=== PATIENT | female | born 1945 | race Caucasian/White ===

== ENCOUNTER 2023-11-10 04:51 | Inpatient (IN) | payer MEDICARE, OTHER, SELFPAY ==
[2023-11-10] VITALS (28 sets, daily range): BP systolic 102–153; BP diastolic 24–94; PULSE 88–98; BMI 27.1; BMI 26.9
[2023-11-10 01:50] LABS: % Basophils 0.7 % (0-2); % Eosinophils 0.7 % (0-6); % Immature Granulocytes 0.3 % (0-0.5); % Lymphocytes 10.1 % (20.5-51.1); % Monocytes 1.2 % (1.7-9.3); Absolute Basophils 0.1 10^3/uL (0-0.2); Absolute Eosinophils 0.1 10^3/uL (0-0.7); Absolute Lymphocytes 1.1 10^3/uL (1.2-3.4); Absolute Monocytes 0.1 10^3/uL (0.1-0.6); Absolute Neutrophils 9.5 10^3/uL (1.4-6.5); Hematocrit 30.5 % (37.0-47.0); Hemoglobin 10.7 g/dL (12.0-16.0); Mean Corp Hgb Conc. 35.1 g/dL (33.0-37.0); Mean Corpuscular Hgb 30.5 pg (27.0-31.0); Mean Corpuscular Volume 86.9 fL (81.0-99.0); Mean Platelet Volume 11.3 fL (7.4-10.4); Nucleated Red Blood Cells % 0 %; Platelet Count 212 10^3/uL (130-400); Red Blood Cell Count 3.51 10^6/uL (4.20-5.40); Red Cell Dist. Width 13.9 % (11.5-14.5); White Blood Cell Count 10.9 10^3/uL (4.8-10.8)
[2023-11-10] MEDS: NSS 1000 IV ×4 (01:59→23:25)
[2023-11-10] MEDS: ZOFRAN 4 MG IV (02:00)
[2023-11-10 02:06] LABS: INR 3.56; PT 35.6 Sec (11.4-14.6)
[2023-11-10 02:10] LABS: ALT (SGPT) 25 U/L (0-35); AST (SGOT) 33 U/L (14-36); Alkaline Phosphatase 75 U/L (38-126); Blood Urea Nitrogen 26 mg/dl (7-17); Calcium 8.6 mg/dl (8.4-10.2); Carbon Dioxide 26 mmol/L (22-30); Chloride 102 mmol/L (98-107); Estimated Creatinine Clearance 37 ml/min; Glucose 188 mg/dl (70-99); Potassium 4.1 mmol/L (3.5-5.1); Sodium 134 mmol/L (135-145); Total Bilirubin 0.5 mg/dl (0.2-1.3); Total Protein 6.4 g/dl (6.3-8.2); eGFR 46.62
[2023-11-10 02:26] LABS: Lactic Acid 1.2 mmol/L (0.7-2.0)
--- NOTE | 2023-11-10 02:35 | ED.GENMED ---
History of Present Illness
General
Chief Complaint: Rectal Bleeding
Source: patient
Exam Limitations: none
Time Seen by Provider: 11/10/23 01:54
Nursing documentation reviewed up to this point in time: agreed with
Travel History
Have you had any contact with someone who has COVID-19?: No
Do you have any symptoms of coronavirus? Fever > 100 degrees, chills, cough, shortness of breath, sore throat, loss of taste or smell, muscle aches, or headache?: No
History of Present Illness
History of Present Illness:
This is a 78-year-old woman with history of paroxysmal atrial fibrillation as well as history of mechanical mitral valve replacement, chronically maintained on Coumadin. She has history of COPD, CAD, hypertension, hyperlipidemia, chronic dyspnea
and thus underwent A-fib ablation September 26 of this year in hopes to improve her chronic dyspnea. Patient states although A-fib ablation was successful she continues with some chronic dyspnea and since the procedure September 26, she has had some
persistent right lateral flank pain.
Tonight however she developed abrupt onset of frankly bloody diarrhea passing 4 large maroon bloody stools since 11 PM. She admits to intermittent crampy abdominal discomfort and intermittent nausea without vomiting.
She admits to intermittent chills but has not had a fever. She denies dizziness nor lightheadedness.
INR on November 07 was 4.2. Her INR goal is 2.5-3.5. She was recommended to take 5 mg of Coumadin on and then resume her 7.5 mg thereafter.
No prior history of GI bleeds.
Patient states she has had a colonoscopy in the remote past. She believes this was unremarkable. More recently she underwent Cologuard which was negative.
Past History
Past History
ED Past Medical History: Arrthythmia (AFib prior to valve surgery), COPD, Fibromyalgia, HTN, Hypercholesterolemia, NIDDM, Valvular disease (MR) and Other (hiatal hernia)
ED Past Surgical History: Cardiac (mitral valve replacement March 2020; A-fib ablation September 2023), Gynecological (vaginal cyst removed), Orthopedic (bilateral total hip replacements, bilateral torn menisci) and Other (neuromas removed from feet,
TMJ surgery, L lumpectomy, esophageal cyst, deviated septum repair, cataract extraction bilaterally)
Social History
Tobacco: Former smoker
Alcohol: Chronic alcoholic
Drug: Other (unclear)
Personal:
Living: with family
Employment: Retired
Family History
Family History: Other (reviewed and non-contributory)
Phy Exam
Physical Exam
Physical Exam:
GENERAL: 78-year-old woman appears her stated age, awake and alert, mildly anxious. Daughter is accompanying.
EYE: anicteric, conjunctiva are pink.
NECK: Supple, nontender, no meningismus, no significant adenopathy.
ENT: oral mucosa is moist. No rhinorrhea.
CARDIAC: Regular rate and rhythm. no murmur.
LUNGS: Clear breath sounds bilaterally, no acute respiratory distress, no wheezes/rales/rhonchi
ABDOMEN: Soft, nondistended, without focal tenderness, no r/g, mildly hyperactive bowel sounds.
NEUROLOGICAL: Alert and oriented x3, no focal neuro deficits.
SKIN: Warm and dry, mildly pale in color, skin intact. No rash.
MUSCULOSKELETAL: No C/C/E. peripheral pulses are full and equal b/l. No palpable tenderness.
PSYCH: Mildly anxious.
Course
Orders/Labs/Results
Orders:
Orders
11/10/23 01:16
Pulse Ox/spot Check [RESP] Urgent
Quantity: 1
Special Instructions: ON ROOM AIR
11/10/23 01:44
Type+Screen Urgent
Complete Blood Count/With Diff Urgent
Comprehensive Metabolic Panel Urgent
Prothrombin Time Urgent
11/10/23 01:54
Ondansetron Injectable [Zofran] 4 mg .ROUTE .[facility]
11/10/23 01:58
Lactate Level [Lactic Acid] Urgent
11/10/23 01:59
0.9% Sodium Chloride 1000 ml [Nss] 1,000 ml IV BOLUS
11/10/23 02:00
Ondansetron Injectable [Zofran] 4 mg IV NOW STA
11/10/23 02:09
IV Insert/Care/Rem.- Treatment PRN
11/10/23 02:10
CT Abd/pelvis Angio W/wo Iv Urgent
Comment:
Reason For Exam: acute lower GI bleed
11/10/23 02:29
Phytonadione [Aquamephyton] 10 mg 0.9% Sodium Chloride 50 ml [Nss] 50 ml IV NOW
11/10/23 02:34
Prothrombin Complex(Pcc),Human [Kcentra] 2,138 unit Empty Viaflex Container 100 ml [Viaflex Empty Container] 80 ml IV NOW
Does patient have a dx of serious acute active bleeding?: Yes
Does patient have prior history of HIT?: No
Urgent surgery/invasive procedure planned in next 6 hours?: Yes
11/10/23 03:00
Flush (0.9% Sodium Chloride) [Flush (Nss)] See Dose Instructions IV PER PROTOCOL
Abnormal Lab Results
11/10/23
01:44
WBC 10.9 H 10^3/uL
(4.8-10.8)
RBC 3.51 L 10^6/uL
(4.20-5.40)
Hgb 10.7 L g/dL
(12.0-16.0)
Hct 30.5 L %
(37.0-47.0)
MPV 11.3 H fL
(7.4-10.4)
Absolute Neuts (auto) 9.5 H 10^3/uL
(1.4-6.5)
Absolute Lymphs (auto) 1.1 L 10^3/uL
(1.2-3.4)
Neutrophils % 87.0 H %
(42.2-75.2)
Lymphocytes % 10.1 L %
(20.5-51.1)
Monocytes % 1.2 L %
(1.7-9.3)
PT 35.6 H Sec
(11.4-14.6)
Sodium 134 L mmol/L
(135-145)
BUN 26 H mg/dl
(7-17)
Creatinine 1.2 H mg/dL
(0.6-1.0)
Glucose 188 H mg/dl
(70-99)
11/10/23 01:44
11/10/23 01:44
Vital Signs
Initial and Last Documented VS:
Initial Vital Signs
Temp Pulse Resp BP Pulse Ox
99.3 F 90 16 126/64 99
11/10/23 01:11 11/10/23 01:11 11/10/23 01:11 11/10/23 01:11 11/10/23 01:11
Last Documented Vital Signs
Temp Pulse Resp BP Pulse Ox
99.3 F 93 24 115/86 96
11/10/23 01:11 11/10/23 03:30 11/10/23 03:30 11/10/23 03:24 11/10/23 03:30
MDM/Problems Addressed
Differential Diagnosis Includes:
Patient presents with acute onset of rectal bleeding passing 4 large maroon stools over the past 2 hours.
Mildly pale in color.
Thus far hemodynamically stable but significant concern for acute blood loss anemia, concern for progressive symptomatic anemia.
Hemoglobin 10.7, was 15.6 September 20, 2023.
INR 3.56.
With your 5 g drop in hemoglobin abruptly, significant concern for severe acute blood loss anemia.
Will plan for CT angio abdomen and pelvis assess for acute bleeding.
Patient chronically maintained on Coumadin due to [facility] valve and paroxysmal atrial fibrillation. Due to acute 5 g drop in hemoglobin will reverse Coumadin with Kcentra and IV vitamin K.
Patient has been typed and screened in preparation for potential need for blood transfusion.
Thus far remains hemodynamically stable.
*Radiology
Radiology exam reviewed: radiology read reviewed
*Pulse Oximetry
Patient hypoxic: no
*Gang Tailer Interpretation
Rate: normal
Interpretation: normal
Rhythm: sinus
*Critical Care Note
Total Time (30-74mins, 75-104mins- exclusive of procedures): 30
comment:
Critical care statement: A total of 30 minutes of critical care time was provided for this patient. This includes management of unstable vital signs, evaluation of the patient at bedside, reviewing the patient's pertinent medical records, discussion
with consultants, review of old EKGs and review of pertinent medical records. This time with separate from time utilized to perform the aforementioned documented procedures
Update Note
Update Note:
CTA abdomen pelvis shows no evidence of extravasation.
Patient remains hemodynamically stable with no further episodes of hematochezia.
Will continue IV fluids. Will add Protonix bolus and drip for potential upper GI bleed and admit to hospitalist service.
ED Attending Note
-
Portions of this chart may have been created with voice recognition software.� Occasional wrong word or��sound alike� substitutions may have occurred due to the inherent limitations of voice recognition software.
Discharge Plan
Departure
Patient Disposition: Admit
Date of Disposition: 11/10/23
Time of Disposition: 03:20
Admit to: IMU
Admit to doctor: Heriberto
Presentation/result/management discussed w/ accepting MD/DO: Hospitalist
Condition: Serious
Discharge Problem:
Acute GI bleeding, Acute blood loss anemia, coagulopathy r/t warfarin
Prescriptions:
No Action
venlafaxine 37.5 MG tablet
37.5 mg PO BID
calcium citrate 200 MG tablet
600 mg PO HS
guaifenesin 400 MG tablet
400 mg PO BID
cinnamon bark [Cinnamon] 500 MG capsule
1,000 mg PO QPM
glucosamine HCl 1,500 MG tablet
1,500 mg PO QPM
B-complex with vitamin C 1 CAPLET tablet
1 cap PO HS
multivitamin with folic acid [Tab-A-Francisco] 1 TABLET tablet
1 tab PO QPM
turmeric 400 MG capsule
400 mg PO DAILY
rosuvastatin 5 MG tablet
5 mg PO HS
diltiazem HCl 240 mg Capsule,Extended Release 24 Hr
240 mg PO BID
warfarin 10 mg Tablet
10 mg PO SUTUWESA
warfarin 7.5 mg Tablet
7.5 mg PO MOTHFR
zinc 50 mg Tablet
50 mg PO DAILY
furosemide 20 mg Tablet
20 mg PO MOTUWETHFR
metoprolol succinate 25 mg Tablet Extended Release 24 Hr
25 mg PO BID
Januvia 100 mg Tablet
100 mg PO DAILY
Jardiance 25 mg Tablet
25 mg PO HS
aspirin 81 MG tablet,chewable
81 mg PO HS
cholecalciferol (vitamin D3) [Vitamin D3] 50 mcg (2,000 unit) Tablet
50 mcg PO DAILY
potassium chloride 10 mEq Tablet Extended Release
10 meq PO QPM
famciclovir 500 mg Tablet
500 mg PO QPM
pantoprazole [Protonix] 40 mg tablet,delayed release (DR/EC)
40 mg PO DAILY Qty: 14 0RF
Referrals:
Milo Singletary MD [Family Provider] -
Interventions
Interventions:
*Risk Screen - Suicide Last Done: 11/10/23 01:11
*General Assessment Last Done: 11/10/23 01:11
*Neglect/Abuse Screening Last Done: 11/10/23 01:11
ED- Fall Risk Assessment Last Done: 11/10/23 01:47
ZI-Kthbvw-Agtyjqpldu Assessment Last Done: 11/10/23 01:47
ED- Cardiac Assessment Last Done: 11/10/23 01:47
ED- Pulmonary Assessment Last Done: 11/10/23 01:47
[2023-11-10] MEDS: AQUAMEPHYTON 51 MG IV (02:54)
[2023-11-10] MEDS: KCENTRA 80 UNIT IV (03:15)
[2023-11-10] MEDS: PROTONIX IV 80 MG IV (03:58)
[2023-11-10] MEDS: PROTONIX 100 IV ×2 (03:58→16:26)
--- NOTE | 2023-11-10 04:03 | HPS.HSE ---
Family Physician
-
Family Physician: Milo Singletary
Chief Complaint
-
Rectal Bleeding
History of Present Illness
Patient is a 78y F with PMH significant for A-Fib s/p recent PVI ablation, mechanical MVR, COPD and vocal cord paralysis who presents to ED complaining of crampy abdominal pain and bloody stools. Patient states that she was feeling fairly well
this evening. She developed some crampy abdominal discomfort around 11 PM which she thought was a 'gas bubble'. She went to the bathroom and had 4 episodes of bright red blood and clots. Patient notes that she initially passed a small stool, but
the remainder was sadiq blood / clots. She estimates about 8 cups of blood in total. Patient states that she was weak, fatigued and more SOB than usual (has chronic dyspnea due to vocal cord dysfunction). She had N/V x 1 en route to the ED
(non-bloody) and another episode here in the ED.
Patient denies any prior history of GI bleeding.
Patient has been on Coumadin since 2019 secondary to A-Fib (and then secondary to mechanical MVR done in 2019).
Her last dose of Coumadin was 7.5mg taken this evening around 5:30 PM.
Her last INR at home was > 4 (on ).
Patient underwent PVI ablation on 09/26/23. She notes that she has had persistent R flank discomfort since that procedure.
Medical History
Past Medical History
Past Medical History: Reports Other
Additional Past Medical History:
Persistent Atrial Fibrillation
Tachy-Quentin Syndrome
JENNIFER
Pulmonary Hypertension
COPD
Vocal Cord Paralysis
Aortic Stenosis
DM-II
Severe MS s/p MVR
Schatzki's Ring / GERD / Hiatal Hernia
Urinary Incontinence
Skin Cancer
Past Surgical History: Reports Other
Additional Past Surgical History:
DCCV x 3
PVI Ablation (09/26/23)
[facility] MVR (2019)
PPM Placement
Left Lumpectomy (benign)
Cataracts
Right ROBI
Left ROBI
Jaw Reconstruction
Social History
Tobacco: Former Smoker (Quit smoking in 1992. Approx 25 pack years total use.)
Alcohol: Daily (1-2 glasses of wine daily.)
Drug: None
Family History
Family History: Other (Father: CAD Mother: CHF, HTN, CVA, DM)
Allergies / Home Medications
Allergies reflects when Allergies were last updated in [employer].
Home Medications with original date entered in [employer]
Allergy/Medication List:
Allergies
Allergy/AdvReac Type Severity Reaction Status Date / Time
amoxicillin [Amoxicillin] Allergy Hives Verified 11/10/23 01:29
Cephalosporins Allergy Rash Verified 11/10/23 01:29
codeine Allergy nausea Verified 11/10/23 01:29
latex [Latex] Allergy rash and Verified 11/10/23 01:29
swelling
metformin Allergy Vomiting Verified 11/10/23 01:29
Penicillins Allergy Rash Verified 11/10/23 01:29
sorbitol Allergy stomach Verified 11/10/23 01:29
upset
almonds and bananas Allergy migraines Uncoded 11/10/23 01:29
figs Allergy migraine Uncoded 11/10/23 01:29
msg, cheese Allergy migraines Uncoded 11/10/23 01:29
Home Medications
calcium citrate 200 mg (950 mg) tablet 600 mg PO HS Supplement 04/10/19
cinnamon bark 500 mg capsule (Cinnamon) 1,000 mg PO QPM Supplement 04/10/19
glucosamine HCl 1,500 mg tablet 1,500 mg PO QPM Supplement 04/10/19
guaifenesin 400 mg tablet 400 mg PO BID Congestion 04/10/19
venlafaxine 37.5 mg tablet 37.5 mg PO BID Mental health 04/10/19
B-complex with vitamin C 1 cap PO HS Supplement 05/01/19
multivitamin with folic acid 400 mcg tablet (Tab-A-Francisco) 1 tab PO QPM Supplement 12/08/19
turmeric 400 mg capsule 400 mg PO DAILY Supplement 02/15/20
rosuvastatin 5 mg tablet 5 mg PO HS 07/25/20
diltiazem HCl 240 mg capsule,24 hr,extended release 240 mg PO BID 08/16/23
warfarin 10 mg tablet 10 mg PO SUTUWESA 08/16/23
warfarin 7.5 mg tablet 7.5 mg PO MOTHFR 08/16/23
zinc 50 mg tablet 50 mg PO DAILY 08/16/23
aspirin 81 mg chewable tablet 81 mg PO HS 09/26/23
cholecalciferol (vitamin D3) 50 mcg (2,000 unit) tablet (Vitamin D3) 50 mcg PO DAILY 09/26/23
empagliflozin 25 mg tablet (Jardiance) 25 mg PO HS 09/26/23
famciclovir 500 mg tablet 500 mg PO QPM 09/26/23
furosemide 20 mg tablet 20 mg PO MOTUWETHFR 09/26/23
metoprolol succinate 25 mg tablet,extended release 24 hr 25 mg PO BID 09/26/23
pantoprazole 40 mg tablet,delayed release (Protonix) 40 mg PO DAILY #14 tabs 09/26/23
potassium chloride 10 mEq tablet,extended release 10 meq PO QPM 09/26/23
sitagliptin phosphate 100 mg tablet (Januvia) 100 mg PO DAILY 09/26/23
Review of Systems
-
History Source: Patient
A 12 point ROS was completed and negative except as noted: Yes
Constitutional: Reports Fatigue; Denies Fever or Chills
EENT: Denies Sore Throat
Respiratory: Reports Trouble Breathing; Denies Cough
Cardiac: Denies Chest Pain, Diaphoresis or Palpitations
Abdomen/GI: Reports Abdominal Pain, Nausea, Vomiting and Bloody Stools
: Reports Incontinence (chronic); Denies Dysuria or Frequency
Musculoskeletal: Denies Joint Pain or Edema
Neurological: Denies Dizzy or Headache
Psych: Denies Depression or Anxiety
Physical Exam
Vital Signs
Vital Signs
Temp Pulse Resp BP Pulse Ox
99.3 F 93 24 115/86 96
11/10/23 01:11 11/10/23 03:30 11/10/23 03:30 11/10/23 03:24 11/10/23 03:30
Physical Exam
General: Other (78y F in no acute distress.)
HEENT: Moist mucous membranes and PERRLA
Respiratory: Clear; No Wheezes, Rales or Rhonchi
Cardiac: S1/S2 (Mechanical S2), Regular Rhythm and Murmur (II/ KAIT)
GI: Soft, Non Distended, Normal Bowel Sounds and Other (Mildly / diffusely tender. Pos BS.)
Musculoskeletal: No Clubbing, No Cyanosis and No Edema
Neuro: AO x 3
Laboratory Results
-
11/10/23 01:44
11/10/23 01:44
Laboratory Results
PT 35.6 Sec (11.4-14.6) H 11/10/23 01:44
INR 3.56 11/10/23 01:44
Lactic Acid 1.2 mmol/L (0.7-2.0) 11/10/23 01:58
Total Bilirubin 0.5 mg/dl (0.2-1.3) 11/10/23 01:44
AST 33 U/L (14-36) 11/10/23 01:44
ALT 25 U/L (0-35) 11/10/23 01:44
Alkaline Phosphatase 75 U/L (38-126) 11/10/23 01:44
Impression/Plan
-
A/P: Patient is a 78y F with PMH significant for A-Fib, mechanical MVR and chronic anticoagulation who presents to ED complaining of BRBPR.
BRBPR
Coumadin Coagulopathy
Acute Blood Loss Anemia secondary to the above
- Admit for further evaluation and treatment.
- IVF support, NPO.
- Hgb 10.7 compared to 15.6 one month ago.
- Continue to monitor H&H and transfuse if needed.
- Follow for any recurrent BRBPR.
- GI evaluation in the AM for further recommendations +/- colonoscopy.
- Hold Coumadin.
- K-Centra / Vit K ordered in the ED.
- Follow daily INR.
Chronic Atrial Fibrillation
- Stable. Maintaining NSR s/p recent PVI ablation.
- Will continue diltiazem for now with holding parameters.
- Hold Coumadin as noted above.
- Monitor on telemetry.
Mitral Valve Stenosis s/p Mechanical MVR
- Holding Coumadin as noted above.
- Resume preferably once bleeding has been definitively addressed.
DM-II
- Stable. Hold PO medications acutely.
- Follow glucose and cover with SSI as needed.
- Update A1C.
GERD / Schatzki's Ring / Hiatal Hernia
- Stable. Doubt UGI source of bleeding based on presenting symptoms.
- PPI gtt started in the ED.
- GI evaluation as noted above.
COPD
Vocal Cord Paralysis
JENNIFER on CPAP
- SOB increased from baseline - likely secondary to combination of blood loss and anxiety over the same.
- Nebs PRN.
- Continue nightly CPAP.
Anxiety / Depression
- Stable. Continue venlafaxine.
DVT Prophylaxis: SCDs
Code Status: Full
--- NOTE | 2023-11-10 06:34 | PTCARENOTE ---
Pt received from ED via stretcher at 06:15. Daughter at bedside. Ox3, PUGA. 2LNC, pulse ox 97%. SR, HR 90s, palpable pulses. +bowel sounds, no BM noted. Large amount of clear yellow urine, incontinent at times. Protonix gtt continues, IVF started as
ordered. Safe environment maintained, call rice within reach.
[2023-11-10 06:40] LABS: Hematocrit 26.7 % (37.0-47.0); Hemoglobin 9.3 g/dL (12.0-16.0)
--- NOTE | 2023-11-10 08:41 | CON.GI ---
Consultation
-
Date/Time Consultation Requested: 11/10/2023
Date/Time Consultation Performed: 11/10/2023
Requesting Provider: Dr. Louis
Performing Provider: Dr. Jones
Reason for Consultation: Rectal bleeding
Medical History
Chief Complaint / HPI
Chief Complaint: Rectal bleeding
History of Present Illness:
Alley is a 78-year-old female with severe mitral stenosis status post mechanical valve replacement in 2019 on warfarin, paroxysmal atrial fibrillation and flutter status post cardioversion in 2019, tachybrady syndrome status post dual-chamber
pacemaker, valvular disease, nonobstructive CAD on aspirin, hypertension, COPD with paralyzed vocal cords, sleep apnea on CPAP, history of Schatzki's ring on pantoprazole 40 mg who just recently underwent cardiac ablation on September 26, 2023 who is
here with lower abdominal cramping and rectal bleeding with a mildly supratherapeutic INR.
Patient was out to eat with her daughters, then a few hours after coming home she developed sudden onset moderate abdominal cramping followed by a few episodes of brown diarrhea that then turned red and some burgundy with some clot. She felt
nauseous and vomited. Now in the ICU, asymptomatic with no further abdominal pain and no further rectal output since home. None of her daughters felt ill that she knows of. She has never had any rectal bleeding in the past. She has had
transfusions only during surgery and generally has a normal hemoglobin.
She is not on a regular PPI but was given it after her PVI ablation for 2 weeks. She denies any significant dysphagia, heartburn, chronic abdominal pain, diarrhea constipation. She had a recent Cologuard a few years ago and states the negative
subjective colonoscopy about 10 years ago, likely at [place].
Her baseline hemoglobin is normal and on admission 10.7 then 9.3. Platelets normal 212, MCV 86 as an outpatient 2 days ago her INR was 4.2 and on admission 3.56 with a goal range of 2.5-3.5 with a mechanical valve. Her creatinine 1.2, BUN 26,
normal baseline creatinine. Lactic acid normal at 1.2, normal LFTs.
Her last dose of warfarin was 11/09/2023 around 530. Patient was given Kcentra in the emergency room and placed on a PPI drip.
In the emergency room she underwent CT angio showing no evidence of active GI bleeding. There is mild wall thickening and mucosal hyperenhancement from the transverse to the sigmoid colon.
Past Medical History
Past Medical History: Other (Sleep apnea on CPAP, pulmonary hypertension, hypertension, mechanical mitral valve replacement, diabetes, COPD)
Past Surgical History: Other (Recent PVI, pacemaker, left total hip replacement)
Social History
Tobacco: Former Smoker
Alcohol: Occasional
Drug: None
Personal:
Living: With Family
Employment: Retired
Family History
Family History: Other (Cardiac disease, prostate cancer, no GI malignancies)
Allergies / Home Medications
Allergy/AdvReac Type Severity Reaction Status Date / Time
amoxicillin [Amoxicillin] Allergy Hives Verified 11/10/23 01:29
Cephalosporins Allergy Rash Verified 11/10/23 01:29
codeine Allergy nausea Verified 11/10/23 01:29
latex [Latex] Allergy rash and Verified 11/10/23 01:29
swelling
metformin Allergy Vomiting Verified 11/10/23 01:29
Penicillins Allergy Rash Verified 11/10/23 01:29
sorbitol Allergy stomach Verified 11/10/23 01:29
upset
almonds and bananas Allergy migraines Uncoded 11/10/23 01:29
figs Allergy migraine Uncoded 11/10/23 01:29
msg, cheese Allergy migraines Uncoded 11/10/23 01:29
Medication Instructions Recorded
calcium citrate 200 mg (950 mg) 600 mg PO HS Supplement 04/10/19
tablet
cinnamon bark 500 mg capsule 1,000 mg PO QPM Supplement 04/10/19
(Cinnamon)
glucosamine HCl 1,500 mg tablet 1,500 mg PO QPM Supplement 04/10/19
guaifenesin 400 mg tablet 400 mg PO BID Congestion 04/10/19
venlafaxine 37.5 mg tablet 37.5 mg PO BID Mental health 04/10/19
B-complex with vitamin C 1 cap PO HS Supplement 05/01/19
multivitamin with folic acid 400 1 tab PO QPM Supplement 12/08/19
mcg tablet (Tab-A-Francisco)
turmeric 400 mg capsule 400 mg PO DAILY Supplement 02/15/20
rosuvastatin 5 mg tablet 5 mg PO HS 07/25/20
diltiazem HCl 240 mg capsule,24 240 mg PO BID 08/16/23
hr,extended release
warfarin 7.5 mg tablet 7.5 mg PO DAILY 08/16/23
zinc 50 mg tablet 50 mg PO DAILY 08/16/23
aspirin 81 mg chewable tablet 81 mg PO HS 09/26/23
cholecalciferol (vitamin D3) 50 50 mcg PO DAILY 09/26/23
mcg (2,000 unit) tablet (Vitamin
D3)
empagliflozin 25 mg tablet 25 mg PO HS 09/26/23
(Jardiance)
famciclovir 500 mg tablet 500 mg PO QPM 09/26/23
furosemide 20 mg tablet 20 mg PO MOTUWETHFR 09/26/23
metoprolol succinate 25 mg 25 mg PO BID 09/26/23
tablet,extended release 24 hr
potassium chloride 10 mEq 10 meq PO QPM 09/26/23
tablet,extended release
sitagliptin phosphate 100 mg 100 mg PO DAILY 09/26/23
tablet (Januvia)
Review of Systems
Vital Signs
Temp Pulse Resp BP Pulse Ox
98.5 F 97 18 102/66 97
11/10/23 07:55 11/10/23 06:30 11/10/23 06:30 11/10/23 05:00 11/10/23 06:30
Physical Exam
Exam
General: No Apparent Distress
HEENT: Anicteric
Respiratory: Clear
GI: Soft, Non Tender, Non Distended and Normal Bowel Sounds
Neuro: AO x 3
Psych: Calm
Results
WBC 10.9 10^3/uL (4.8-10.8) H 11/10/23 01:44
Hgb 9.3 g/dL (12.0-16.0) L 11/10/23 06:25
Hct 26.7 % (37.0-47.0) L 11/10/23 06:25
MCV 86.9 fL (81.0-99.0) 11/10/23 01:44
Plt Count 212 10^3/uL (130-400) 11/10/23 01:44
Absolute Neuts (auto) 9.5 10^3/uL (1.4-6.5) H 11/10/23 01:44
PT 35.6 Sec (11.4-14.6) H 11/10/23 01:44
INR 3.56 11/10/23 01:44
Sodium 134 mmol/L (135-145) L 11/10/23 01:44
Potassium 4.1 mmol/L (3.5-5.1) 11/10/23 01:44
Chloride 102 mmol/L (98-107) 11/10/23 01:44
Carbon Dioxide 26 mmol/L (22-30) 11/10/23 01:44
BUN 26 mg/dl (7-17) H 11/10/23 01:44
Creatinine 1.2 mg/dL (0.6-1.0) H 11/10/23 01:44
Calcium 8.6 mg/dl (8.4-10.2) 11/10/23 01:44
Total Bilirubin 0.5 mg/dl (0.2-1.3) 11/10/23 01:44
AST 33 U/L (14-36) 11/10/23 01:44
ALT 25 U/L (0-35) 11/10/23 01:44
Alkaline Phosphatase 75 U/L (38-126) 11/10/23 01:44
Diagnostic Image Results:
11/10/2023 CT angio showing no evidence of active GI bleeding. There is mild wall thickening and mucosal hyperenhancement from the transverse to the sigmoid colon.
08/2023 echocardiogram shows an EF of 50 to 55%, mild aortic stenosis, mild tricuspid regurgitation, mechanical mitral valve
Prior GI Procedures:
EGD: [address] Salas nonobstructing Schatzki's ring and hiatal hernia otherwise unrevealing
Colonoscopy: Patient states she had a negative Cologuard a few years ago and prior to that negative colonoscopy about 10 years ago likely at [place]
Assessment / Plan
-
Alley is a 78-year-old female with history of A-fib status post recent PVI ablation in September, mechanical mitral valve replacement 2019, COPD who presented to the emergency room after going out to dinner feeling crampy abdominal discomfort
followed by multiple episodes of rectal bleeding. She has been hemodynamically stable with no hypotension or significant tachycardia. In the emergency room her hemoglobin was noted to drop from normal down to 10 and now 9.5. She had a CT angio
that did not show any active bleeding but does show some mild thickening from the transverse to the sigmoid colon. Currently she is asymptomatic and has had no further bleeding since home.
Chronic issues:
-- Recent PVI ablation
-- Mechanical mitral valve
# Hemodynamically stable rectal bleeding that was red and burgundy with clots in the setting of therapeutic warfarin and aspirin with a history of mechanical valve
-- Patient received Kcentra in the emergency room
-- Patient has mechanical mitral valve and since she is stable I would place on a heparin drip. I am in agreement with Dr. Leiva. We can always give her blood if she needed it and can stop the heparin
-- Etiology for her bleeding could be infectious versus ischemic with low flow not necessarily clot driven -she did have sudden onset abdominal discomfort followed by rectal bleeding
-- She has had no further bowel movements
-- She did have some nausea and vomiting as well that is since resolved
-- Needs stool studies including norovirus, C. difficile, culture including E. coli -patient ate prime rib and multiple other foods
-- Okay for clear liquids and her medications
-- Monitor hemoglobin every 8 or more frequently if clinically indicated
-- Type and screen
Total Time Spent with Patient (in minutes): 35
Data Reviewed
-
Radiology: Report Reviewed by me
CT Scan: Report Reviewed by me
Old Records: Reviewed (Spent 15 minutes reviewing her past medical history/records)
Time spent with patient (in minutes): 53
-
-
Thank you for consultation and allowing me to participate in the patient's care. Please call the manufacturing production technician GI physician during the after hours with any questions or concerns.
--- NOTE | 2023-11-10 09:16 | W.PN.UPDATE ---
Update Note
Progress Note Update
Non-billable note
Patient reported having blood mixed stool and 3 episod of nonbilious vomiting before coming to hospital.
Hbg down from 15 > 10 > 9.5 currently - repeat check pending
no further episode of bleeding
CTA a/p with contrast did not show any active bleed. possible diffuse colitis of transverse/descending or sigmoid colitis
Monitor for true ischemic coliitis ,No significant PAD h/o. already was on Coumadin and supratherapeutic INR, arterial clot less likely.
Possibility of infectious colitis - had food in on fri - run stool test, start on empiric abx.
Patient have mechanical mitral valve and high risk for embolic CVA. got kcentra/vit K by ER physician - recheck INR
Will start on heparin drip without bolus, discussed with GI and in agreement.
[2023-11-10] MEDS: VALTREX 500 MG PO (09:30)
[2023-11-10] MEDS: CARDIZEM CD 240 MG PO ×2 (09:30→20:32)
[2023-11-10] MEDS: EFFEXOR 37.5 MG PO ×2 (09:31→20:32)
[2023-11-10] MEDS: TOPROL XL 25 MG PO ×2 (09:34→20:32)
[2023-11-10] MEDS: HEPARIN 25000 UNITS/250 ML IV (09:53)
[2023-11-10 09:58] LABS: Glucose - Point of Care 166 mg/dl (70-99)
--- NOTE | 2023-11-10 10:00 | PTCARENOTE ---
Pt received this AM. No complaints of pain. Denies nausea/vomiting. Abd soft and nontender. + BS. No BM at this time. Pt c/o SOB at times. States she has vocal cord paralysis the SOB is chronic. Labs done and Heparin drip started as ordered.
[2023-11-10 10:02] LABS: Hematocrit 24.5 % (37.0-47.0); Hemoglobin 8.5 g/dL (12.0-16.0); Mean Corp Hgb Conc. 34.7 g/dL (33.0-37.0); Mean Corpuscular Hgb 30.5 pg (27.0-31.0); Mean Corpuscular Volume 87.8 fL (81.0-99.0); Mean Platelet Volume 11.5 fL (7.4-10.4); Platelet Count 144 10^3/uL (130-400); Red Blood Cell Count 2.79 10^6/uL (4.20-5.40); Red Cell Dist. Width 13.7 % (11.5-14.5); White Blood Cell Count 11.8 10^3/uL (4.8-10.8)
[2023-11-10 10:08] LABS: APTT 33.1 Sec (23.4-35.0); INR 1.26; PT 15.6 Sec (11.4-14.6)
[2023-11-10 11:58] LABS: Glucose - Point of Care 226 mg/dl (70-99)
--- NOTE | 2023-11-10 13:13 | PTCARENOTE ---
Pt refusing ordered coverage for accu checks.
[2023-11-10] MEDS: FLAGYL 500 MG 100 IV ×2 (15:03→23:22)
[2023-11-10] MEDS: CIPRO 400 MG 200 IV (16:23)
[2023-11-10 16:30] LABS: Hematocrit 23.4 % (37.0-47.0); Hemoglobin 8.1 g/dL (12.0-16.0)
[2023-11-10 16:32] LABS: Glucose - Point of Care 200 mg/dl (70-99)
[2023-11-10 16:41] LABS: APTT 95.3 Sec (23.4-35.0)
--- NOTE | 2023-11-10 18:46 | PTCARENOTE ---
Pt rec'd as transfer into [facility] [id number] from [facility]. Pt settled into room, BG for dinner time check was 200, however pt refuses coverage. Oral temp at this time 100.8. No c/o nausea or stomach pain. WIll pass report onto shift production associate RN at this time.
[2023-11-10] MEDS: TYLENOL 650 MG PO (20:31)
--- NOTE | 2023-11-10 21:06 | PTCARENOTE ---
PRBCs started at 2044. 15 min check without any s/s of reaction. NS IVF paused while blood transfusing. Protonix and heparin gtt infusing in other IV sites. Call rice within reach. Pt aware to report any concerns.
[2023-11-10 22:24] LABS: Glucose - Point of Care 169 mg/dl (70-99)
[2023-11-10 22:29] LABS: APTT 96.9 Sec (23.4-35.0)
[2023-11-11] VITALS (15 sets, daily range): BP systolic 102–132; BP diastolic 35–93; PULSE 84–88; BMI 28.1
[2023-11-11] MEDS: CIPRO 400 MG 200 IV ×2 (03:22→15:15)
[2023-11-11] MEDS: PROTONIX 100 IV ×3 (03:42→21:47)
[2023-11-11 04:07] LABS: Hematocrit 27.9 % (37.0-47.0); Hemoglobin 9.5 g/dL (12.0-16.0)
[2023-11-11 04:19] LABS: Blood Urea Nitrogen 11 mg/dl (7-17); Carbon Dioxide 26 mmol/L (22-30); Chloride 108 mmol/L (98-107); Estimated Creatinine Clearance 71 ml/min; Glucose 148 mg/dl (70-99); Potassium 3.8 mmol/L (3.5-5.1); Sodium 136 mmol/L (135-145); eGFR > 60.00
[2023-11-11 04:21] LABS: INR 1.16; PT 14.6 Sec (11.4-14.6)
[2023-11-11 04:47] LABS: APTT 71.9 Sec (23.4-35.0)
[2023-11-11] MEDS: FLAGYL 500 MG 100 IV ×3 (05:14→21:41)
[2023-11-11 08:33] LABS: Glucose - Point of Care 135 mg/dl (70-99)
--- NOTE | 2023-11-11 08:55 | W.PN.GI.CBS2 ---
Today's Communication / Plan
-
full liquids
Assessment / Plan
-
Alley is a 78-year-old female with history of A-fib status post recent PVI ablation in September, mechanical mitral valve replacement 2019, COPD who presented to the emergency room after going out to dinner feeling crampy abdominal discomfort
followed by multiple episodes of rectal bleeding. She has been hemodynamically stable with no hypotension or significant tachycardia. In the emergency room her hemoglobin was noted to drop from normal down to 10 and then 8.1 and got one unit of
blood and 11/11/23 = 9.5. She had a CT angio that did not show any active bleeding but does show some mild thickening from the transverse to the sigmoid colon. Currently she is asymptomatic and has had no further bleeding since home.
Chronic issues:
-- Recent PVI ablation
-- Mechanical mitral valve
# Hemodynamically stable rectal bleeding that was red and burgundy with clots in the setting of therapeutic warfarin and aspirin with a history of mechanical valve
-- Patient received Kcentra and vit K in the emergency room
-- Patient has mechanical mitral valve and since she is stable I would place on a heparin drip. I am in agreement with Dr. Leiva. We can always give her blood if she needed it and can stop the heparin
-- Etiology for her bleeding could be infectious versus ischemic with low flow not necessarily clot driven -she did have sudden onset abdominal discomfort followed by rectal bleeding
-- She has had no further bowel movements
-- She did have some nausea and vomiting as well that is since resolved
-- stool studies not collected - no BMs -patient ate prime rib and multiple other foods
-- Okay for full liquids and her medications - advance tomorrow if no further blood
-- on empiric antibiotics for possible ischemic colitis - would finish out a 7day course
-- Monitor hemoglobin
-- Type and screen
Total Time Spent with Patient (in minutes): 20
Subjective
Subjective
Date of Service: November 11, 2023
no further rectal bleeding and minimal abdominal discomfort with palpation. none without
Objective
Data Reviewed
Laboratory Data:
Laboratory Results
11/11/23 03:43
11/11/23 03:43
Laboratory Results
PT 14.6 Sec (11.4-14.6) 11/11/23 03:38
INR 1.16 11/11/23 03:38
APTT 71.9 Sec (23.4-35.0) H 11/11/23 03:38
Total Bilirubin 0.5 mg/dl (0.2-1.3) 11/10/23 01:44
AST 33 U/L (14-36) 11/10/23 01:44
ALT 25 U/L (0-35) 11/10/23 01:44
Alkaline Phosphatase 75 U/L (38-126) 11/10/23 01:44
Vital Signs and I&O:
Vital Signs
Temp Pulse Resp BP Pulse Ox
98.2 F 64 18 108/36 92
11/11/23 07:56 11/11/23 07:00 11/11/23 07:00 11/11/23 06:00 11/11/23 07:00
I&O
11/10/23 11/11/23 11/12/23
06:59 06:59 06:59
Intake Total 1900 / 1900
Output Total 700 / 700 900 / 900
Balance -700 / -700 1000 / 1000
Physical Exam
Physical Exam
HEENT: Anicteric
GI: Soft, Non Distended and Tender (minimal TTP with deep palpation)
Extremities: No Edema
Neuro: Non Focal
[2023-11-11] MEDS: HEPARIN 25000 UNITS/250 ML IV (09:02)
[2023-11-11] MEDS: VALTREX 500 MG PO (09:03)
[2023-11-11] MEDS: CARDIZEM CD 240 MG PO ×2 (09:03→20:44)
[2023-11-11] MEDS: EFFEXOR 37.5 MG PO ×2 (09:04→20:44)
[2023-11-11] MEDS: TOPROL XL 25 MG PO ×2 (09:04→20:44)
[2023-11-11 09:22] LABS: Glycohemoglobin (HgbA1c) 6.3 % (4.0-5.6)
[2023-11-11 11:27] LABS: % Basophils 0.3 % (0-2); % Immature Granulocytes 0.3 % (0-0.5); % Lymphocytes 11.7 % (20.5-51.1); % Monocytes 7.2 % (1.7-9.3); % Neutrophils 79.5 % (42.2-75.2); Absolute Eosinophils 0.1 10^3/uL (0-0.7); Absolute Lymphocytes 0.8 10^3/uL (1.2-3.4); Absolute Monocytes 0.5 10^3/uL (0.1-0.6); Absolute Neutrophils 5.4 10^3/uL (1.4-6.5); Hematocrit 28.1 % (37.0-47.0); Hemoglobin 9.5 g/dL (12.0-16.0); Mean Corp Hgb Conc. 33.8 g/dL (33.0-37.0); Mean Corpuscular Hgb 30.3 pg (27.0-31.0); Mean Corpuscular Volume 89.5 fL (81.0-99.0); Mean Platelet Volume 11.7 fL (7.4-10.4); Nucleated Red Blood Cells % 0 %; Platelet Count 128 10^3/uL (130-400); Red Blood Cell Count 3.14 10^6/uL (4.20-5.40); Red Cell Dist. Width 14.6 % (11.5-14.5); White Blood Cell Count 6.8 10^3/uL (4.8-10.8)
[2023-11-11 11:34] LABS: APTT 92.7 Sec (23.4-35.0)
[2023-11-11] MEDS: NSS 1000 IV (11:39)
--- NOTE | 2023-11-11 12:19 | PTCARENOTE ---
Assumed care of patient at beginning of this shift from previous RN with heparin infusing at 1,000 units/hr (10ml/hr). PTT at 11:00 within parameters at 92.7; repeat PTT entered for 17:00 per protocol. Protonix infusion continues; patient tolerated
increased full liquid diet. No bm yet today, only a tiny smear on toilet paper. Patient placed on enhanced precautions as per protocol d/t ordered cdif specimen that has not been able to be obtained as of yet. Spoke with Destinee Cintron (IP RN) who
stated she followed up with Dr Jones and patient may come off of enhanced precautions. Patient received 1 unit PRBCs on previous shift; follow up H&H 9.5/27.[address] 03:43[address] Dr Stevens made aware and ordered repeat for 11:00 which resulted 9.5/28.1 at
11:14. See worklist for full assessment, vital signs and heparin infusion intervention; see MAR for med administration.
--- NOTE | 2023-11-11 12:35 | W.PN.HOSP.TC ---
Addendum entered and electronically signed by Manjeet Stevens MD 11/11/23 12:44:
Wean oxygen as tolerated, check chest x-ray
Original Note:
Today's Communication/Plan
-
Monitor vital signs and see plan
Continue with IV heparin
Monitor hemoglobin
Continue with PPI
Follow stool studies
Assessment / Plan
Assessment / Plan
General: Other (78y F in no acute distress.)
HEENT: Moist mucous membranes and PERRLA
Respiratory: Clear; No Wheezes, Rales or Rhonchi
Cardiac: S1/S2 (Mechanical S2), Regular Rhythm and Murmur
GI: Soft, Non Distended, Normal Bowel Sounds and Other (Mild tender)
Musculoskeletal: No Clubbing, No Cyanosis and No Edema
Neuro: AO x 3
BRBPR suspect 2/2 colitis
Coumadin Coagulopathy
Acute Blood Loss Anemia secondary to the above
�- now started on fulls
�- Hgb 9.5
�- Continue to monitor H&H and transfuse if needed.
�- Follow for any recurrent BRBPR.
�- GI following
�- Hold Coumadin.
�- K-Centra / Vit K given in ED; since patient has mechanical mitral valve for goal INR 2.5-3.5. Continue with IV heparin
�- Follow daily INR.
stool studies pending
Chronic Atrial Fibrillation
�- Stable.� Maintaining NSR s/p recent PVI ablation.
�- Will continue diltiazem for now with holding parameters.
�- Hold Coumadin as noted above. restart when bleeding stable and no plans for GI scope
�- Monitor on telemetry.
Mitral Valve Stenosis s/p Mechanical MVR
�- Holding Coumadin as noted above.
�- Resume preferably once bleeding has been definitively addressed.
cw IV heparin
COPD
Vocal Cord Paralysis
JENNIFER on CPAP
Acute hypoxic respiratory insufficiency, currently on 2 L. Wean oxygen as tolerated
Check chest x-ray
�- SOB increased from baseline - likely secondary to combination of blood loss and anxiety over the same.
�- Nebs PRN.
�- Continue nightly CPAP.
DM-II
�- Stable.� Hold PO medications acutely.
�- Follow glucose and cover with SSI as needed.
�- A1C 6.3
GERD / Schatzki's Ring / Hiatal Hernia
�- Stable.� Doubt UGI source of bleeding based on presenting symptoms.
�- PPI gtt started in the ED.
�- GI following
Anxiety / Depression
�- Stable.� Continue venlafaxine.
DVT Prophylaxis:� SCDs,hep
Code Status:� Full
I spent a total of 54 minutes with the patient or on the floor. More than 50% of this time involved counseling and coordination of care.
Anticipated Discharge: > 48 hours
Subjective/Interval History
-
Date of Service: November 11, 2023
Has some abdominal discomfort
Objective Data
-
Labs:
Laboratory Results
11/11/23 11/11/23 11/11/23
01:00 03:38 03:43
WBC
Hgb Cancelled 9.5 L
Hct Cancelled 27.9 L
Plt Count
PT 14.6
INR 1.16
APTT 71.9 H
Sodium 136
Potassium 3.8
Chloride 108 H
Carbon Dioxide 26
BUN 11
Creatinine 0.7
Glucose 148 H
Calcium 8.0 L
11/11/23 11/11/23
11:14 17:00
WBC 6.8
Hgb 9.5 L
Hct 28.1 L
Plt Count 128 L
PT
INR
APTT 92.7 H Pending
Sodium
Potassium
Chloride
Carbon Dioxide
BUN
Creatinine
Glucose
Calcium
Vital Signs:
Vital Signs
Temp Pulse Resp BP Pulse Ox
98.3 F 71 27 114/57 84
11/11/23 11:24 11/11/23 10:00 11/11/23 10:00 11/11/23 10:00 11/11/23 10:00
I&O
11/10/23 11/11/23 11/12/23
06:59 06:59 06:59
Intake Total 1900 / 1900
Output Total 700 / 700 900 / 900 450 / 450
Balance -700 / -700 1000 / 1000 -450 / -450
--- NOTE | 2023-11-11 16:38 | CM ---
Patient with Dx BRBPR suspect 2/2 colitis, Coumadin Coagulopathy, Acute Blood Loss Anemia. O2 2L. CPAP. Receiving IV Abx, Heparin. Per nurse notes; requires assist of 1 for activity.
Met with patient and her daughter Tez.
The patient resides with her Rigoberto in a 2 story house.
The patient was Independent in ADLs/ambulation. She was active and drives.
DME - [facility], SPC, commode, CPAP
VN - prior VN
SNF - [facility]
PCP - Milo Singletary
Pharmacy - [facility]
The patient's is currently in [place] visiting friends. The patient has 2 daughters and 1 son who assist as needed.
Offered VN and patient declined.
Plan watch for home O2 needs.
Plan home.
[2023-11-11 17:35] LABS: Glucose - Point of Care 275 mg/dl (70-99)
[2023-11-11 17:35] LABS: Glucose - Point of Care 235 mg/dl (70-99)
[2023-11-11 17:59] LABS: APTT 77.1 Sec (23.4-35.0)
[2023-11-11 21:37] LABS: Glucose - Point of Care 197 mg/dl (70-99)
[2023-11-11] MEDS: TYLENOL 650 MG PO (21:41)
[2023-11-12] VITALS (16 sets, daily range): BP systolic 103–169; BP diastolic 31–75; PULSE 65–88; BMI 28.9
[2023-11-12] MEDS: CIPRO 400 MG 200 IV (02:01)
[2023-11-12 04:38] LABS: % Basophils 0.4 % (0-2); % Eosinophils 1.2 % (0-6); % Immature Granulocytes 0.1 % (0-0.5); % Lymphocytes 15.4 % (20.5-51.1); % Monocytes 9.8 % (1.7-9.3); % Neutrophils 73.1 % (42.2-75.2); Absolute Eosinophils 0.1 10^3/uL (0-0.7); Absolute Lymphocytes 1.1 10^3/uL (1.2-3.4); Absolute Monocytes 0.7 10^3/uL (0.1-0.6); Hematocrit 27.5 % (37.0-47.0); Hemoglobin 9.4 g/dL (12.0-16.0); Mean Corp Hgb Conc. 34.2 g/dL (33.0-37.0); Mean Corpuscular Hgb 30.8 pg (27.0-31.0); Mean Corpuscular Volume 90.2 fL (81.0-99.0); Nucleated Red Blood Cells % 0 %; Platelet Count 123 10^3/uL (130-400); Red Blood Cell Count 3.05 10^6/uL (4.20-5.40); Red Cell Dist. Width 14.3 % (11.5-14.5); White Blood Cell Count 6.8 10^3/uL (4.8-10.8)
[2023-11-12 04:46] LABS: INR 1.18; PT 14.8 Sec (11.4-14.6)
[2023-11-12 04:48] LABS: APTT 79.2 Sec (23.4-35.0)
[2023-11-12 05:01] LABS: Blood Urea Nitrogen 7 mg/dl (7-17); Carbon Dioxide 26 mmol/L (22-30); Chloride 105 mmol/L (98-107); Estimated Creatinine Clearance 84 ml/min; Glucose 152 mg/dl (70-99); Potassium 3.8 mmol/L (3.5-5.1); Sodium 136 mmol/L (135-145); eGFR > 60.00
[2023-11-12] MEDS: FLAGYL 500 MG 100 IV (06:19)
[2023-11-12] MEDS: PROTONIX 100 IV ×2 (07:17→17:40)
[2023-11-12 07:52] LABS: Glucose - Point of Care 140 mg/dl (70-99)
[2023-11-12] MEDS: TOPROL XL 25 MG PO ×2 (08:05→20:22)
[2023-11-12] MEDS: TYLENOL 650 MG PO ×2 (08:05→17:39)
[2023-11-12] MEDS: EFFEXOR 37.5 MG PO ×2 (08:05→20:15)
[2023-11-12] MEDS: CARDIZEM CD 240 MG PO ×2 (08:05→20:22)
[2023-11-12] MEDS: VALTREX 500 MG PO (08:06)
[2023-11-12] MEDS: LASIX 20 MG IV ×2 (10:21→18:00)
[2023-11-12] MEDS: HEPARIN 25000 UNITS/250 ML IV (10:22)
--- NOTE | 2023-11-12 11:39 | PTCARENOTE ---
Assumed care of patient at beginning of this shift from previous RN with Heparin infusing at 1000 units/hr and protonix infusing at 8mg/hr. PTT therapeutic at 79.2. Temp 101.4 and 101.1 this morning and 102.8 last night; Dr Stevens made aware. She has
occasional moist non-productive cough with c/o JUAREZ; POx 93-94% on 2L n/c. Tolerating full liquid diet; denies n/v/d. Lasix 20mg IV ordered and given; voided 600ml after. See worklist for full assessment, interventions and vital signs; see MAR for
med administration.
--- NOTE | 2023-11-12 11:43 | CON.ID ---
Consultation
-
Date/Time Consultation Requested: 11/12/2023, 1121
Date/Time Consultation Performed: 11/12/2023, 1145
Requesting Provider: Dr. Manjeet Stevens
Performing Provider: Dr. Lola Benavides
Reason for Consultation: Colits, fever
Chief Complaint / Past History
Chief Complaint
Bloody diarrhea
History of Present Illness
78 year old female with Afib s/p ablation (09/2023), mechanical valve replacement on Warfarin, PPM who presented to the hospital 11/10/25 with bright red blood per rectum. She and her family at out at a restaurant for dinner on 11/09/23. They ordered
different meals. Pt had well-done prime rib, baked potato, asparagus, and salad. Later that evening, while playing scrabble, she developed abdominal bloating and cramping. She then started with brown diarrhea that turned bright red and profuse. Of
note her INR was 4 on 11/07. She vomited x 3. Upon arrival to ED, diarrhea resolved. CTA showed no GIB, positive mild acute colitis of transverse, descending, and sigmoid colon. INR was 3.58. She received Vit K and Kcentra. Low grade temps
started evening of 11/10 which resolved, then recurred last night. She is currently on day 3 of cipro/metronidazole. Bcx's sent last night. Today, she reports SOB. CXR shows pulm edema. No further abdominal pain nor diarrhea. Tolerating liquid
diet. No travel hx.
Past History
Additional Past Medical History:
Afib s/p ablation
Mitral stenosis s/p mechanical valve replacement (2019)
tachy-alanna syndrome s/pp PPM
CAD
HTN
COPD
R eye HSV, on valacyclovir suppressive therapy
vocal cord paralysis
Sleep apnea on CPAP
Schatzki's ring
Bilateral THR
Allergy History:
amoxicillin [Amoxicillin] Allergy (Verified 11/10/23 01:29)
Hives
Cephalosporins Allergy (Verified 11/10/23:)
Rash
codeine Allergy (Verified 11/10/23:)
nausea
latex [Latex] Allergy (Verified 11/10/23)
rash and swelling
metformin Allergy (Verified 11/10/23:)
Vomiting
Penicillins Allergy (Verified 11/10/23)
Rash
sorbitol Allergy (Verified 11/10/23)
stomach upset
almonds and bananas Allergy (Uncoded 11/10/23:)
migraines
figs Allergy (Uncoded 11/10/23)
migraine
msg, cheese Allergy (Uncoded 11/10/23)
migraines
Medications Reviewed: Yes
Current Antibiotics:
cipro/metronidazole d3
Social History
Tobacco: Former Smoker
Alcohol: Occasional
Drug: None
Personal:
Living: With Family
Family History
Family History: Not Pertinent
Review of Systems
Review of Systems
General: Fever and Chills
HEENT: Negative Sinus Problems, Headache or Pharyngitis
Cardiovascular: Dyspnea; Negative Chest Pain
Respiratory: Dyspnea and Cough; Negative Sputum Production
Genital / Urological: Negative Dysuria or Flank Pain
Endocrine: Weakness
Skin / Hair / Nails: Negative Rash
Neurological: Negative Dizziness
All systems: All other systems were reviewed and were negative
Vital Signs
Temp Pulse Resp BP Pulse Ox
101.1 F H 72 25 125/45 93
11/12/23 08:00 11/12/23 08:05 11/12/23 08:00 11/12/23 08:05 11/12/23 08:55
Selected Entries
11/11/23
22:59
Temp 102.8 F H
Physical Exam
Physical Exam
Constitutional: No Acute Distress, Comfortable and Non-toxic
Eyes: No Conjunctival Hemorrhage and Sclera Anicteric
Cardiovascular: Regular Rate, S1/S2 and Other (PPM site without erythema)
Pulmonary: Rales (bases)
Gastrointestinal: Soft, Non Tender, Non Distended and Normal Bowel Sounds
Genito-Urinary: Negative CVA Tenderness
Extremities: Negative Edema
Neurological: AO x 3
Lab / Diagnostic Study Results
11/12/23 04:26
11/12/23 04:26
Abs Immat Gran (auto) 0.0 10^3/uL (0-0.05) 11/12/23 04:26
Absolute Neuts (auto) 5.0 10^3/uL (1.4-6.5) 11/12/23 04:26
Absolute Lymphs (auto) 1.1 10^3/uL (1.2-3.4) L 11/12/23 04:26
Absolute Monos (auto) 0.7 10^3/uL (0.1-0.6) H 11/12/23 04:26
Absolute Basos (auto) 0.0 10^3/uL (0-0.2) 11/12/23 04:26
Immature Gran % 0.1 % (0-0.5) 11/12/23 04:26
Neutrophils % 73.1 % (42.2-75.2) 11/12/23 04:26
Lymphocytes % 15.4 % (20.5-51.1) L 11/12/23 04:26
Monocytes % 9.8 % (1.7-9.3) H 11/12/23 04:26
Eosinophils % 1.2 % (0-6) 11/12/23 04:26
Basophils % 0.4 % (0-2) 11/12/23 04:26
PT 14.8 Sec (11.4-14.6) H 11/12/23 04:26
INR 1.18 11/12/23 04:26
Lactic Acid 1.2 mmol/L (0.7-2.0) 11/10/23 01:58
Microbiology Results
Micro:
11/11/23 20:01 Blood Culture - Pending
Blood/Venous
11/11/23 18:51 Blood Culture - Pending
Blood/Venous
11/10/23 09:47 MRSA Screen - Final
Nose No Methicillin Resistant Staphylococcus aureus isolated.
11/11/2023 CXR: Cardiomegaly. Findings highly suggestive of predominantly interstitial pulmonary edema, with small associated pleural effusions.
11/10/2023 CTA a/p: No CTA evidence for acute active gastrointestinal bleed. Mild wall thickening and mucosal hyperenhancement in the transverse, descending, and sigmoid colon suspicious for a mild acute colitis (either infectious or inflammatory in
etiology).
Assessment / Plan
# Foodborne gastroenteritis
- onset several hours after dinner suggests ingestion of pre-formed toxin.
- bloody diarrhea (note elevated INR) resolved.
- Abdominal cramping resolved.
- Recommend supportive care.
-No need for antibiotics. DC cipro/metronidazole.
# Fever
- suspect due to gastroenteritis
- Check COVID (not up to date with most recent vaccine)
- Follow blood cx's (obtained while on abx's)
- Follow temps
# Acute pulm edema
- on furosemide
[2023-11-12 12:08] LABS: Glucose - Point of Care 247 mg/dl (70-99)
--- NOTE | 2023-11-12 12:16 | W.PN.HOSP.TC ---
Today's Communication/Plan
-
monitor vitals
see plan
follow fever curve
bcx pending
ID consult
check covid,UA
Assessment / Plan
Assessment / Plan
General: Other (78y F in no acute distress.)
HEENT: Moist mucous membranes and PERRLA
Respiratory: Clear; No Wheezes, Rales or Rhonchi
Cardiac: S1/S2 (Mechanical S2), Regular Rhythm and Murmur
GI: Soft, Non Distended, Normal Bowel Sounds and Other (Mild tender)
Musculoskeletal: No Clubbing, No Cyanosis and No Edema
Neuro: AO x 3
BRBPR suspect 2/2 colitis
Coumadin Coagulopathy
Acute Blood Loss Anemia secondary to the above
�- now started on fulls
�- Hgb 9.4
�- Continue to monitor H&H and transfuse if needed.
�- Follow for any recurrent BRBPR.
�- GI following
�- Hold Coumadin.
�- K-Centra / Vit K given in ED; since patient has mechanical mitral valve for goal INR 2.5-3.5. Continue with IV heparin
�- Follow daily INR.
stool studies pending
Sepsis suspect 2/2 colitis
(fever,tachypnea)
CXR without PNA
Persistent fever, consult ID
Continue with antibiotics for now
check covid
bcx pending
check UA
Chronic Atrial Fibrillation
�- Stable.� Maintaining NSR s/p recent PVI ablation.
�- Will continue diltiazem for now with holding parameters.
�- Hold Coumadin as noted above. restart when bleeding stable and no plans for GI scope
�- Monitor on telemetry.
Mitral Valve Stenosis s/p Mechanical MVR
�- Holding Coumadin as noted above.
�- Resume preferably once bleeding has been definitively addressed.
cw IV heparin
COPD
Vocal Cord Paralysis
JENNIFER on CPAP
Acute hypoxic respiratory insufficiency, currently on 2 L. Wean oxygen as tolerated
Check chest x-ray wihout PNA
check covid
�- SOB increased from baseline - likely secondary to combination of blood loss and anxiety over the same.
�- Nebs PRN.
�- Continue nightly CPAP.
DM-II
�- Stable.� Hold PO medications acutely.
�- Follow glucose and cover with SSI as needed.
�- A1C 6.3
GERD / Schatzki's Ring / Hiatal Hernia
�- Stable.� Doubt UGI source of bleeding based on presenting symptoms.
�- PPI gtt started in the ED.
�- GI following
Anxiety / Depression
�- Stable.� Continue venlafaxine.
DVT Prophylaxis:� SCDs,hep
Code Status:� Full
I spent a total of 53 minutes with the patient or on the floor. More than 50% of this time involved counseling and coordination of care.
Anticipated Discharge: > 48 hours
Subjective/Interval History
-
Date of Service: November 12, 2023
denies pain
Objective Data
-
Labs:
Laboratory Results
11/12/23
04:26
WBC 6.8
Hgb 9.4 L
Hct 27.5 L
Plt Count 123 L
PT 14.8 H
INR 1.18
APTT 79.2 H
Sodium 136
Potassium 3.8
Chloride 105
Carbon Dioxide 26
BUN 7
Creatinine 0.6
Glucose 152 H
Calcium 8.0 L
Vital Signs:
Vital Signs
Temp Pulse Resp BP Pulse Ox
101.1 F H 72 25 125/45 93
11/12/23 08:00 11/12/23 08:05 11/12/23 08:00 11/12/23 08:05 11/12/23 08:55
I&O
11/11/23 11/12/23 11/13/23
06:59 06:59 06:59
Intake Total 1900 / 1900 600 / 600
Output Total 900 / 900 1750 / 1750
Balance 1000 / 1000 -1150 / -1150
--- NOTE | 2023-11-12 12:56 | PTCARENOTE ---
Patient ordered mealtime insulin and lantus hs; she has been refusing sliding scale coverage. Reviewed with patient that since she has not been taking her po diabetic meds while here she was ordered sliding scale coverage; also instructed her that
her blood sugars have been high, so Dr Stevens ordered the scheduled insulins. She stated she did not want to take insulin because 'insulin always bottoms out her sugar.' Dr Stevens made aware via tiger text; he since d/c'd scheduled insulin.
[2023-11-12 13:08] LABS: COVID-19 Antigen Negative (Negative)
[2023-11-12 13:34] LABS: Urine Albumin Negative (Neg - Trace); Urine Bilirubin Negative (Negative); Urine Character Clear (Clear); Urine Color Yellow; Urine Glucose 3+ (Negative); Urine Ketone Negative (Negative); Urine Leukocyte Negative (Negative); Urine Nitrite Negative (Negative); Urine Occult Blood Negative (Negative); Urine Specific Gravity 1.015 (<1.030); Urine Urobilinogen Negative (Neg - 1+)
--- NOTE | 2023-11-12 14:31 | PTCARENOTE ---
Patient c/o feeling SOB. POx 93-94% on 3L n/c. Both her and her daughter stated oxygen was increased last night to 4L by the respiratory therapist. [place] text sent to Dr Stevens to make him aware.
--- NOTE | 2023-11-12 15:09 | PN.CDI ---
CDI
- -
CDI:
Physician Documentation Request
Admit Date: 11/10/23 04:51
Dear Doctor Rodney,
Please review the following and provide your response in the progress notes.
Clinical Indicators:
Laboratory Tests
11/10/23 11/11/23 11/12/23
01:44 03:43 04:26
Creatinine 1.2 H 0.7 0.6
Based on the above information and the clinical indicators in the record, please clarify which of the following most accurately represents the patient's renal status:
Acute kidney injury with no underlying CKD
Abnormal lab value, clinically insignificant
Other (please specify)
Criteria for BEST*
1 Increase in serum creatinine by > or = to 0.3 mg/dL (> or = to 26.5 micromol/L) within 48 hours, OR
2 Increase in serum creatinine to > or = to 1.5 times baseline, which is known or presumed to have occurred within 7 days, OR
3 Urine volume < 0.5 nL/kg/hour for six hours
Stages of Chronic Kidney Disease*
Level Description GFR
G1 Normal or High >90
G2 Mildly decreased 60-89
G3a Mildly to moderately decreased 45-59
G3b Moderately to severely decreased 30-44
G4 Severely decreased 15-29
G5 Kidney failure <15
Use of terms such as suspected, likely, concern for, or probable (associated with a specific diagnosis that is being evaluated, monitored, or treated as if it exists) are acceptable and can be coded in the inpatient setting, when documented at the
time of discharge.
Thank you,
Shikha Ashby RN BSN CCDS
CDI Specialist
please contact via tiger text
Please use your independent medical judgment in providing your response.
*Source: Kidney Disease: Improving Global Outcomes (KDIGO) 2012
--- NOTE | 2023-11-12 15:19 | PN.CDI ---
CDI
- -
CDI:
Physician Documentation Request
Admit Date: 11/10/23 04:51
Dear Doctor Rodney,
Please review the following and provide your response in the progress notes.
Clinical Indicators:
Laboratory Tests
11/10/23 11/11/23 11/12/23
01:44 03:43 04:26
Creatinine 1.2 H 0.7 0.6
Medications
Sodium Chloride (Nss) 1,000 mls @ 0 mls/hr IV BOLUS ONE
Stop: 11/10/23 02:00
Last Admin: 11/10/23 01:59 Dose: 1,000 mls
Sodium Chloride (Nss) 1,000 mls @ 100 mls/hr IV .Q10H ARTHUR
Last Admin: 11/11/23 11:39 Dose: 1,000 mls
Based on the above information and the clinical indicators in the record, please clarify which of the following most accurately represents the patient's renal status:
Acute kidney injury with no underlying CKD
Abnormal lab value, clinically insignificant
Other (please specify)
Criteria for BEST*
1 Increase in serum creatinine by > or = to 0.3 mg/dL (> or = to 26.5 micromol/L) within 48 hours, OR
2 Increase in serum creatinine to > or = to 1.5 times baseline, which is known or presumed to have occurred within 7 days, OR
3 Urine volume < 0.5 nL/kg/hour for six hours
Stages of Chronic Kidney Disease*
Level Description GFR
G1 Normal or High >90
G2 Mildly decreased 60-89
G3a Mildly to moderately decreased 45-59
G3b Moderately to severely decreased 30-44
G4 Severely decreased 15-29
G5 Kidney failure <15
Use of terms such as suspected, likely, concern for, or probable (associated with a specific diagnosis that is being evaluated, monitored, or treated as if it exists) are acceptable and can be coded in the inpatient setting, when documented at the
time of discharge.
Thank you,
Shikha Ashby RN BSN CCDS
CDI Specialist
please contact via tiger text
Please use your independent medical judgment in providing your response.
--- NOTE | 2023-11-12 16:32 | W.PN.UPDATE ---
Addendum entered and electronically signed by MARIANA Mcdonnell 11/12/23 16:51:
reviewed with nursing no further bleeding will allow 1800 ADA, low residue diet
Original Note:
Update Note
Progress Note Update
Came to see patient twice and she was not in her room and is getting echocardiogram will attempt to see patient again tomorrow hemoglobin remained stable
[2023-11-12 16:55] LABS: Glucose - Point of Care 258 mg/dl (70-99)
--- NOTE | 2023-11-12 18:34 | PTCARENOTE ---
Patient requesting physician call her son who is a pediatric ER physician in [place]. Patient and daughter concerned that patient remains SOB. POx 93% on 3L n/c but patient states she feels more comfortable on 4L. Dr Stevens notified via tiger text; phone
number provided. Dr Stevens ordered lasix 20mg IV which was given, as well as procal level and CT chest. Patient updated; daughter at the bedside.
[2023-11-12 19:11] LABS: Procalcitonin 2.95 ng/ml (0.0-0.25)
--- NOTE | 2023-11-12 19:30 | PTCARENOTE ---
Patient taken to CT
[2023-11-12] MEDS: VENTOLIN NEBULES 2.5 MG INH (20:22)
[2023-11-12 21:44] LABS: Glucose - Point of Care 198 mg/dl (70-99)
--- NOTE | 2023-11-12 21:56 | PTCARENOTE ---
Patient received in bed, AAXO3, Apaced on monitor with PVCS, low grade temp noted, blood pressure as documented. palpable pulses throughout, no edema noted. Knee high SCDs maintained. lungs diminished with scattered expiratory wheeze, pulse ox
93-94% on 4L. +tachypnea, + JUAREZ. abdomen soft round with positive bowel sounds. ate 100% of dinner. Patient voiding clear yellow urine. #20 g in RAC with Heparin gtt infusing as documented, #22 g in right hand with Protonix gtt infusing as
ordered, #20 g in LAC flushed and patent. Planf care discussed, call rice within reach
[2023-11-13] VITALS (17 sets, daily range): BP systolic 120–156; BP diastolic 38–107; PULSE 64–75; BMI 28.1
[2023-11-13] MEDS: PROTONIX 100 IV (03:41)
[2023-11-13 04:01] LABS: % Basophils 0.5 % (0-2); % Eosinophils 0.6 % (0-6); % Immature Granulocytes 0.5 % (0-0.5); % Lymphocytes 9.6 % (20.5-51.1); % Monocytes 7.7 % (1.7-9.3); % Neutrophils 81.1 % (42.2-75.2); Absolute Eosinophils 0.1 10^3/uL (0-0.7); Absolute Lymphocytes 0.8 10^3/uL (1.2-3.4); Absolute Monocytes 0.6 10^3/uL (0.1-0.6); Absolute Neutrophils 6.5 10^3/uL (1.4-6.5); Hematocrit 27.7 % (37.0-47.0); Hemoglobin 9.4 g/dL (12.0-16.0); Mean Corp Hgb Conc. 33.9 g/dL (33.0-37.0); Mean Corpuscular Hgb 29.9 pg (27.0-31.0); Mean Corpuscular Volume 88.2 fL (81.0-99.0); Mean Platelet Volume 11.6 fL (7.4-10.4); Nucleated Red Blood Cells % 0 %; Platelet Count 145 10^3/uL (130-400); Red Blood Cell Count 3.14 10^6/uL (4.20-5.40); Red Cell Dist. Width 14.1 % (11.5-14.5)
[2023-11-13 04:10] LABS: INR 1.14; PT 14.7 Sec (11.4-14.6)
[2023-11-13 04:12] LABS: APTT 81.9 Sec (23.4-35.0)
[2023-11-13 04:31] LABS: Blood Urea Nitrogen 8 mg/dl (7-17); Calcium 7.9 mg/dl (8.4-10.2); Carbon Dioxide 28 mmol/L (22-30); Chloride 101 mmol/L (98-107); Estimated Creatinine Clearance 84 ml/min; Glucose 157 mg/dl (70-99); Potassium 3.1 mmol/L (3.5-5.1); Sodium 135 mmol/L (135-145); eGFR > 60.00
[2023-11-13] MEDS: TYLENOL 650 MG PO (05:11)
[2023-11-13] MEDS: KCL 270 MEQ IV (05:11)
--- NOTE | 2023-11-13 07:13 | PN.CDI ---
CDI
- -
CDI:
Physician Documentation Request
Admit Date: 11/10/23 04:51
Dear Doctor Rodney,
Please review the following and provide your response in the progress notes.
Clinical Indicators:
H+P, 11/10
#BRBPR
#Coumadin Coagulopathy
Initial VS: 99.3 90 16 126/64 99%
PN, 11/12
#BRBPR suspect 2/2 colitis
#Coumadin Coagulopathy
#Acute Blood Loss Anemia secondary to the above
#Sepsis suspect 2/2 colitis
#(fever,tachypnea)
#CXR without PNA
#Persistent fever, consult ID
Selected Entries
11/10/23
18:45 11/10/23
19:46 11/10/23
20:39
Temp 100.8 F H 100.6 F H 100.7 F H
Resp Rate
11/10/23
20:02 11/10/23
21:00
Temp
Resp Rate 21 22
11/11 Resp Rate,....27, 26
11/12 Resp Rate,....30
Please clarify the following:
Sepsis was present on admission
Sepsis evolved after admission
Other(please specify)
Use of terms such as suspected, likely, concern for, or probable (associated with a specific diagnosis that is being evaluated, monitored, or treated as if it exists) are acceptable and can be coded in the inpatient setting, when documented at the
time of discharge.
Thank you,
Shikha Ashby RN BSN CCDS
CDI Specialist
Please contact via tiger text
Please use your independent medical judgment in providing your response.
[2023-11-13 08:17] LABS: Glucose - Point of Care 154 mg/dl (70-99)
--- NOTE | 2023-11-13 08:52 | W.PN.GI.CBS2 ---
Addendum entered and electronically signed by Tiffani Castro MD 11/13/23 17:35:
I saw and examined the patient.
The ASSEMBLER BICYCLE's note was reviewed and I agree with the note.
Comment: Diarrhea with rectal bleeding most likely was infectious versus ischemic colitis symptoms have resolved and hemoglobin remains stable now and tolerating low residue diet she is currently on antibiotics for pneumonia on meropenem, stool
culture still pending and she will follow-up with us as outpatient to discuss eventual colonoscopy when medically stable. Will s/o and will be available as needed
Addendum entered and electronically signed by MARIANA Mcdonnell 11/13/23 13:37:
spoke with son Tashi [phone] reviewed GI update all questions answered
Original Note:
Today's Communication / Plan
-
etiology of bleeding infectious vs ischemic- low flow state as report periods of hypotension
bleeding now resolved hbg stable 9.4
cont low residue diet
transition to Protonix PO daily
stool cx pending add c-diff, giardia crypto with colitis on CT for completeness
cont rx for shortness of breath per hospitalist
abx per ID-- currently on Meropenem with concern for PNA
OP GI follow up to discuss eventual colonoscopy last several years ago and more recent cologuard
Assessment / Plan
-
Alley is a 78-year-old female with history of A-fib status post recent PVI ablation in September, mechanical mitral valve replacement 2019, COPD who presented to the emergency room after going out to dinner feeling crampy abdominal discomfort
followed by multiple episodes of rectal bleeding. She has been hemodynamically stable with no hypotension or significant tachycardia. In the emergency room her hemoglobin was noted to drop from normal down to 10 and then 8.1 and got one unit of
blood and 11/11/23 = 9.5. She had a CT angio that did not show any active bleeding but does show some mild thickening from the transverse to the sigmoid colon.
-rectal bleeding with red and burgundy clots s/p Kcentra and vit K in the emergency room
-CT with mild wall thickening concern for mild colitis
-possible PNA per CT chest
-fever
-- Recent PVI ablation
-- Mechanical mitral valve on warfarin prior to admission
remains on heparin gtt
mild to mod and mod TR on echo, EF 55-60 %
PLAN:
etiology of bleeding infectious vs ischemic- low flow state as report periods of hypotension
bleeding now resolved hbg stable 9.4
cont low residue diet
transition to Protonix PO daily
stool cx pending add c-diff, Giardia, crypto with colitis on CT for completeness
cont rx for shortness of breath per hospitalist
abx per ID-- currently on Meropenem with concern for PNA
OP GI follow up to discuss eventual colonoscopy last several years ago and more recent cologuard
Subjective
Subjective
Date of Service: November 13, 2023
11/12 black stool on ADA diet abdominal pain and bleeding improved but still with shortness of breath t max 101.3
Objective
Data Reviewed
Laboratory Data:
Laboratory Results
11/13/23 03:53
11/13/23 03:53
Laboratory Results
PT 14.7 Sec (11.4-14.6) H 11/13/23 03:53
INR 1.14 11/13/23 03:53
APTT 81.9 Sec (23.4-35.0) H 11/13/23 03:53
Total Bilirubin 0.5 mg/dl (0.2-1.3) 11/10/23 01:44
AST 33 U/L (14-36) 11/10/23 01:44
ALT 25 U/L (0-35) 11/10/23 01:44
Alkaline Phosphatase 75 U/L (38-126) 11/10/23 01:44
Vital Signs and I&O:
Vital Signs
Temp Pulse Resp BP Pulse Ox
100.8 F H 71 28 131/51 90
11/13/23 03:00 11/13/23 04:00 11/13/23 04:00 11/13/23 04:00 11/13/23 02:01
I&O
11/12/23 11/13/23 11/14/23
06:59 06:59 06:59
Intake Total 600 / 600 2400 / 2400
Output Total 1750 / 1750 1200 / 1200
Balance -1150 / -1150 1200 / 1200
Physical Exam
Physical Exam
HEENT: Anicteric and Moist mucous membranes
Cardiology: Normal Sinus Rhythm
Pulmonary: Other (decreased with visible dyspnea at rest )
GI: Soft and Non Distended
Extremities: No Edema
Neuro: Non Focal
[2023-11-13] MEDS: MUCINEX 1200 MG PO ×2 (09:51→20:22)
[2023-11-13] MEDS: TOPROL XL 25 MG PO ×2 (09:51→20:22)
[2023-11-13] MEDS: EFFEXOR 37.5 MG PO ×2 (09:51→20:22)
[2023-11-13] MEDS: CARDIZEM CD 240 MG PO ×2 (09:52→20:22)
[2023-11-13] MEDS: STERILE WATER FOR INJECTION 10 ML IV ×3 (09:52→20:22)
[2023-11-13] MEDS: MERREM 500 MG IV ×3 (09:52→20:22)
[2023-11-13] MEDS: PROTONIX 40 MG PO (10:07)
[2023-11-13] MEDS: VALTREX 500 MG PO (10:07)
--- NOTE | 2023-11-13 10:11 | PTCARENOTE ---
Addendum entered by Aleena Mace RN 11/13/23 10:17:
Will send pt for CT scan.
Original Note:
Pt c/o blurred vision, seeing a white 'spot' in center of her vision-Dr. Stevens at bedside to assess. VSS at this time. Continues w/ JUAREZ/ASIM> sat 95 % on 3L. Pt noticed it immediately after med pass. Will reach out to ID and Pharmacy.
[2023-11-13] MEDS: LASIX 20 MG IV ×2 (10:37→18:59)
[2023-11-13] MEDS: KLOR-CON 40 MEQ PO ×2 (10:38→19:00)
[2023-11-13] MEDS: HEPARIN 25000 UNITS/250 ML IV (11:20)
--- NOTE | 2023-11-13 11:40 | PTCARENOTE ---
Pt back from CT scan. Seated up in chair. Daughter arrived at bedside, updated on this am's events. Pt stated that the white disc in her visual field is less opaque than prior, seems more 'hazy' at this time. Dr. Stevens updated via tt per his
request. Call rice in reach, safe environment maintained.
--- NOTE | 2023-11-13 12:32 | W.PN.ID1 ---
Date of Service
Date of Service: November 13, 2023
Today's Communication
Continue meropenem.
Assessment / Plan
# Pneumonia with hypoxic resp insufficiency
# Fever
# PCN, cephalosporin allergy
- Chest CT: bibasilar consolidation and ground glass opacities
- COVID negative. blood cx's x 2 neg.
-Suspect aspiration at time of emesis. Fever onset after hospital admission.
-Meropenem 500mg IVq6 (day1)
- Follow temps and O2 status.
# Pulm edema/bilateral pleural effusions
# s/p Foodborne gastroenteritis (vs ischemic colitis per GI)
- onset several hours after dinner suggests ingestion of pre-formed toxin.
-symptoms resolved.
# Additional Past Medical History:
Afib s/p ablation
Mitral stenosis s/p mechanical valve replacement (2019)
tachy-alanna syndrome s/pp PPM
CAD
HTN
COPD
R eye HSV, on valacyclovir suppressive therapy
vocal cord paralysis
Sleep apnea on CPAP
Schatzki's ring
Bilateral THR
Chief Complaint
-: Fever and Pneumonia
Subjective / Review of Systems
Still SOB.
Meropenem started this am for PNA. She reports visual change seeing large white opaque disc which resolved. Per pharmacists, no reported ocular side effects from meropenem. Could be from other meds.
No diarrhea.
Vital Signs / Physical Exam
Vital Signs
Vital Signs
Temp Pulse Resp BP Pulse Ox
98.3 F 66 19 153/67 92
11/13/23 07:45 11/13/23 10:37 11/13/23 08:00 11/13/23 10:37 11/13/23 08:00
Physical Exam
Constitutional: No Acute Distress and Comfortable
Eyes: Sclera Anicteric
Cardiovascular: Regular Rate and S1/S2
Pulmonary: Coarse (right lung)
Gastrointestinal: Soft, Non Distended and Normal Bowel Sounds
Genito-Urinary: Negative CVA Tenderness
Extremities: Negative Edema
Neurological: AO x 3
Objective Data
Lab Data
Lab Results
11/13/23 03:53
11/13/23 03:53
PT 14.7 Sec (11.4-14.6) H 11/13/23 03:53
INR 1.14 11/13/23 03:53
APTT 81.9 Sec (23.4-35.0) H 11/13/23 03:53
Estimated Creat Clear 84 ml/min 11/13/23 03:53
Lactic Acid 1.2 mmol/L (0.7-2.0) 11/10/23 01:58
Total Bilirubin 0.5 mg/dl (0.2-1.3) 11/10/23 01:44
AST 33 U/L (14-36) 11/10/23 01:44
ALT 25 U/L (0-35) 11/10/23 01:44
Alkaline Phosphatase 75 U/L (38-126) 11/10/23 01:44
Most recent labs reviewed.
Micro Results:
11/12/23 13:22 Salmonella/Shigella Culture - Preliminary
Feces/Stool Culture in Progress
Campylobacter Culture - Preliminary
Culture in Progress
Shiga Toxin Test - Pending
Stool Leukocytes - Final
11/13/23 09:08 Legionella Urinary Antigen - Final
Urine Negative for Legionella pneumophila Serogroup 1 antigen.
A negative result does not rule out the possiblity of
Legionella infection due to other serogroups or species of
Legionella. Clinical correlation is recommended.
Streptococcus pneumoniae Antigen (M - Final
Negative for Streptococcus pneumoniae antigen.
A negative result does not exclude infection with
Streptococcus pneumoniae. Clinical correlation is
recommended.
11/13/23 08:16 Influenza Types A & B (JUAN) - Final
Nasal Swab Negative for Influenza A & B, NAAT
Negative results must be combined with clinical observations
and patient history.
Nucleic Acid Amplification test (NAAT)performed on the
[employer] platform.
11/11/23 20:01 Blood Culture - Preliminary
Blood/Venous No Growth in 24 hours- Final report to follow
11/11/23 18:51 Blood Culture - Preliminary
Blood/Venous No Growth in 24 hours- Final report to follow
11/10/23 09:47 MRSA Screen - Final
Nose No Methicillin Resistant Staphylococcus aureus isolated.
11/13/[address]: Stable examination. Mild chronic microvascular white matter ischemic disease. No acute intracranial abnormality identified. Small air-fluid level in the sphenoid sinus raising possibility of sinusitis.
11/12/[address]: Moderate bilateral pleural effusions. New. Moderate bibasilar consolidation which may represent pneumonia or atelectasis. New. Moderate bilateral lower lobe groundglass opacities concerning for developing pneumonia. New.
11/11/2023 CXR: Cardiomegaly. Findings highly suggestive of predominantly interstitial pulmonary edema, with small associated pleural effusions.
11/10/2023 CTA a/p: No CTA evidence for acute active gastrointestinal bleed. Mild wall thickening and mucosal hyperenhancement in the transverse, descending, and sigmoid colon suspicious for a mild acute colitis (either infectious or inflammatory in
etiology).
Care Review
Plan reviewed with: Physician (Dr. Stevens)
--- NOTE | 2023-11-13 12:50 | W.PN.HOSP.TC ---
Addendum entered and electronically signed by Manjeet Stevens MD 11/13/23 14:26:
Son updated over the phone
Original Note:
Today's Communication/Plan
-
Monitor vital signs and see plan
Wean oxygen as tolerated
Continue with antibiotics
Monitor vision changes
Monitor hemoglobin
Replete potassium
check BNP
Assessment / Plan
Assessment / Plan
General: Mild respiratory distress
HEENT: Moist mucous membranes and PERRLA
Respiratory: Clear; No Wheezes
Cardiac: S1/S2 (Mechanical S2), Regular Rhythm and Murmur
GI: Soft, Non Distended, Normal Bowel Sounds
Musculoskeletal: No Clubbing, No Cyanosis and No Edema
Neuro: AO x 3
BRBPR suspect 2/2 colitis
Etiology of bleeding could be infectious versus ischemic
Coumadin Coagulopathy
Acute Blood Loss Anemia secondary to the above
�- now started on diabetic diet
�- Hgb 9.4
�- Continue to monitor H&H and transfuse if needed.
�- Follow for any recurrent BRBPR.
�- GI following
�- Hold Coumadin.Restart if no intervention planned by GI
�- K-Centra / Vit K given in ED; since patient has mechanical mitral valve for goal INR 2.5-3.5. Continue with IV heparin
�- Follow daily INR.
stool studies pending
Sepsis suspect 2/2 Pneumonia
Unclear if sepsis was present on admission
Acute hypoxic respiratory insufficiency secondary to above
suspect aspiration PNA on CT chest
follow fever curve; follow bcx
started on meropenem; ID following
covid neg; flu, Legionella, strep neg
Continue with antibiotics for now
check UA without UTI
Hypokalemia
Replete
Blurry vision with white sport in the center
no slurred speech,sensory or motor deficits
denies eye pain; confirmed with pharmacy that it is not from meropenem
CT head without acute CVA
If symptoms do not improve then will need MRA
hx of cataract
Chronic Atrial Fibrillation
�- Stable.� Maintaining NSR s/p recent PVI ablation.
�- Will continue diltiazem for now with holding parameters.
�- Hold Coumadin as noted above. restart when bleeding stable and no plans for GI scope
�- Monitor on telemetry.
Cr 1.2 on 11/10 appear abnormal lab value
Mitral Valve Stenosis s/p Mechanical MVR
�- Holding Coumadin as noted above.
�- Resume preferably once bleeding has been definitively addressed.
cw IV heparin
echo with EF 55 to 60%, diastolic function indeterminate.
Suspect iatrogenic volume overloaded 2/2 fluids
responded to lasix; follow clinically
add probnp
COPD
Vocal Cord Paralysis
JENNIFER on CPAP
�- Nebs PRN.
�- Continue nightly CPAP.
DM-II
�- Stable.� Hold PO medications acutely.
�- Follow glucose and cover with SSI as needed.
�- A1C 6.3
GERD / Schatzki's Ring / Hiatal Hernia
�- Stable.� Doubt UGI source of bleeding based on presenting symptoms.
�- PO PPI
�- GI following
History of pulmonary hypertension
Anxiety / Depression
�- Stable.� Continue venlafaxine.
DVT Prophylaxis:� SCDs,hep
Code Status:� Full
I spent a total of 54 minutes with the patient or on the floor. More than 50% of this time involved counseling and coordination of care.
Anticipated Discharge: > 48 hours
Subjective/Interval History
-
Date of Service: November 13, 2023
denies pain
Objective Data
-
Labs:
Laboratory Results
11/13/23
03:53
WBC 8.0
Hgb 9.4 L
Hct 27.7 L
Plt Count 145
PT 14.7 H
INR 1.14
APTT 81.9 H
Sodium 135
Potassium 3.1 L
Chloride 101
Carbon Dioxide 28
BUN 8
Creatinine 0.6
Glucose 157 H
Calcium 7.9 L
Vital Signs:
Vital Signs
Temp Pulse Resp BP Pulse Ox
98.3 F 66 19 153/67 92
11/13/23 07:45 11/13/23 10:37 11/13/23 08:00 11/13/23 10:37 11/13/23 08:00
I&O
11/12/23 11/13/23 11/14/23
06:59 06:59 06:59
Intake Total 600 / 600 2400 / 2400 480 / 480
Output Total 1750 / 1750 1200 / 1200 500 / 500
Balance -1150 / -1150 1200 / 1200 -20 / -20
[2023-11-13 12:51] LABS: Glucose - Point of Care 237 mg/dl (70-99)
[2023-11-13 14:18] LABS: NT-proBNP 3760 pg/ml
[2023-11-13 17:51] LABS: Glucose - Point of Care 174 mg/dl (70-99)
[2023-11-13] MEDS: VENTOLIN NEBULES 2.5 MG INH (19:47)
[2023-11-13 22:18] LABS: Glucose - Point of Care 237 mg/dl (70-99)
[2023-11-14] VITALS (22 sets, daily range): BP systolic 104–147; BP diastolic 41–101; PULSE 62–67; O2SAT 94–96; BMI 28.1
[2023-11-14] MEDS: MERREM 500 MG IV ×4 (02:55→20:02)
[2023-11-14] MEDS: STERILE WATER FOR INJECTION 10 ML IV ×4 (02:55→20:02)
--- NOTE | 2023-11-14 04:51 | PTCARENOTE ---
Alley reported feeling more SOB after dinner in the evening. IV lasix dose given, good UO. Breathing is still dyspneic. CPAP on while sleeping. Tele showing A paced rhythm. Tolerating Heparin gtt. Call rice within reach. Pt calls appropriately.
[2023-11-14 05:23] LABS: % Basophils 0.9 % (0-2); % Eosinophils 4.1 % (0-6); % Immature Granulocytes 0.4 % (0-0.5); % Lymphocytes 27.5 % (20.5-51.1); % Monocytes 8.2 % (1.7-9.3); % Neutrophils 58.9 % (42.2-75.2); Absolute Basophils 0.1 10^3/uL (0-0.2); Absolute Eosinophils 0.2 10^3/uL (0-0.7); Absolute Lymphocytes 1.5 10^3/uL (1.2-3.4); Absolute Monocytes 0.4 10^3/uL (0.1-0.6); Absolute Neutrophils 3.1 10^3/uL (1.4-6.5); Hematocrit 27.8 % (37.0-47.0); Hemoglobin 9.8 g/dL (12.0-16.0); Mean Corp Hgb Conc. 35.3 g/dL (33.0-37.0); Mean Corpuscular Hgb 30.5 pg (27.0-31.0); Mean Corpuscular Volume 86.6 fL (81.0-99.0); Mean Platelet Volume 11.7 fL (7.4-10.4); Nucleated Red Blood Cells % 0 %; Platelet Count 157 10^3/uL (130-400); Red Blood Cell Count 3.21 10^6/uL (4.20-5.40); White Blood Cell Count 5.3 10^3/uL (4.8-10.8)
[2023-11-14 05:27] LABS: INR 1.04; PT 13.7 Sec (11.4-14.6)
[2023-11-14 05:29] LABS: APTT 70.8 Sec (23.4-35.0)
[2023-11-14 05:36] LABS: Blood Urea Nitrogen 8 mg/dl (7-17); Calcium 8.2 mg/dl (8.4-10.2); Carbon Dioxide 28 mmol/L (22-30); Chloride 102 mmol/L (98-107); Estimated Creatinine Clearance 83 ml/min; Glucose 146 mg/dl (70-99); Potassium 3.6 mmol/L (3.5-5.1); Sodium 136 mmol/L (135-145); eGFR > 60.00
[2023-11-14 07:57] LABS: Glucose - Point of Care 157 mg/dl (70-99)
--- NOTE | 2023-11-14 08:10 | W.PN.UPDATE ---
Update Note
Progress Note Update
Pt with colitis on CT 11/10. C-diff ordered for work up but now with dark stools no further diarrhea will hold on c-diff cx
[2023-11-14] MEDS: CARDIZEM CD 240 MG PO ×2 (08:28→20:02)
[2023-11-14] MEDS: MUCINEX 1200 MG PO ×2 (08:30→20:02)
[2023-11-14] MEDS: VALTREX 500 MG PO (08:31)
[2023-11-14] MEDS: PROTONIX 40 MG PO (08:32)
[2023-11-14] MEDS: TOPROL XL 25 MG PO ×2 (08:32→20:02)
[2023-11-14] MEDS: EFFEXOR 37.5 MG PO ×2 (08:36→20:02)
--- NOTE | 2023-11-14 09:50 | W.PN.ID1 ---
Date of Service
Date of Service: November 14, 2023
Today's Communication
Continue meropenem.
Assessment / Plan
# Pneumonia with hypoxic resp insufficiency, improving oxygen requirement
# Fever - resolved
# PCN, cephalosporin allergy
- Chest CT: bibasilar consolidation and ground glass opacities
- COVID negative. blood cx's x 2 neg.
-Suspect aspiration at time of emesis. Fever onset after hospital admission.
-Meropenem 500mg IVq6 (day2)
- Follow temps and O2 status.
# Pulm edema/bilateral pleural effusions
# s/p Foodborne gastroenteritis (vs ischemic colitis per GI)
- onset several hours after dinner suggests ingestion of pre-formed toxin.
-symptoms resolved.
# Additional Past Medical History:
Afib s/p ablation
Mitral stenosis s/p mechanical valve replacement (2019)
tachy-alanna syndrome s/pp PPM
CAD
HTN
COPD
R eye HSV, on valacyclovir suppressive therapy
vocal cord paralysis
Sleep apnea on CPAP
Schatzki's ring
Bilateral THR
Chief Complaint
-: Fever and Pneumonia
Subjective / Review of Systems
SOB improving.
No further visual changes.
Vital Signs / Physical Exam
Vital Signs
Vital Signs
Temp Pulse Resp BP Pulse Ox
99.6 F 62 19 138/47 95
11/13/23 22:57 11/14/23 08:32 11/14/23 06:00 11/14/23 08:32 11/14/23 08:00
Physical Exam
Constitutional: No Acute Distress
Cardiovascular: Regular Rate and S1/S2
Pulmonary: Other (decreased BS bibase)
Gastrointestinal: Soft, Non Tender, Non Distended and Normal Bowel Sounds
Neurological: AO x 3
Objective Data
Lab Data
Lab Results
11/14/23 04:59
11/14/23 04:59
PT 13.7 Sec (11.4-14.6) 11/14/23 04:59
INR 1.04 11/14/23 04:59
APTT 70.8 Sec (23.4-35.0) H 11/14/23 04:59
Estimated Creat Clear 83 ml/min 11/14/23 04:59
Lactic Acid 1.2 mmol/L (0.7-2.0) 11/10/23 01:58
Total Bilirubin 0.5 mg/dl (0.2-1.3) 11/10/23 01:44
AST 33 U/L (14-36) 11/10/23 01:44
ALT 25 U/L (0-35) 11/10/23 01:44
Alkaline Phosphatase 75 U/L (38-126) 11/10/23 01:44
Most recent labs reviewed.
Micro Results:
11/12/23 13:22 Salmonella/Shigella Culture - Final
Feces/Stool No Salmonella, Shigella, Aeromonas or Plesiomonas species
isolated.
Campylobacter Culture - Final
No Campylobacter species isolated.
Shiga Toxin Test - Pending
Stool Leukocytes - Final
11/11/23 20:01 Blood Culture - Preliminary
Blood/Venous No Growth in 48 hours- Final report to follow
11/11/23 18:51 Blood Culture - Preliminary
Blood/Venous No Growth in 48 hours- Final report to follow
11/13/23 09:08 Legionella Urinary Antigen - Final
Urine Negative for Legionella pneumophila Serogroup 1 antigen.
A negative result does not rule out the possiblity of
Legionella infection due to other serogroups or species of
Legionella. Clinical correlation is recommended.
Streptococcus pneumoniae Antigen (M - Final
Negative for Streptococcus pneumoniae antigen.
A negative result does not exclude infection with
Streptococcus pneumoniae. Clinical correlation is
recommended.
11/13/23 08:16 Influenza Types A & B (JUAN) - Final
Nasal Swab Negative for Influenza A & B, NAAT
Negative results must be combined with clinical observations
and patient history.
Nucleic Acid Amplification test (NAAT)performed on the
[employer] platform.
11/10/23 09:47 MRSA Screen - Final
Nose No Methicillin Resistant Staphylococcus aureus isolated.
11/13/[address]: Stable examination. Mild chronic microvascular white matter ischemic disease. No acute intracranial abnormality identified. Small air-fluid level in the sphenoid sinus raising possibility of sinusitis.
11/12/[address]: Moderate bilateral pleural effusions. New. Moderate bibasilar consolidation which may represent pneumonia or atelectasis. New. Moderate bilateral lower lobe groundglass opacities concerning for developing pneumonia. New.
11/11/2023 CXR: Cardiomegaly. Findings highly suggestive of predominantly interstitial pulmonary edema, with small associated pleural effusions.
11/10/2023 CTA a/p: No CTA evidence for acute active gastrointestinal bleed. Mild wall thickening and mucosal hyperenhancement in the transverse, descending, and sigmoid colon suspicious for a mild acute colitis (either infectious or inflammatory in
etiology).
[2023-11-14] MEDS: HEPARIN 25000 UNITS/250 ML IV (11:19)
--- NOTE | 2023-11-14 12:16 | W.PN.HOSP.TC ---
Today's Communication/Plan
-
monitor vitals
see plan
feeling better
cw abx
pt/ot
restart coumadin; will also need to be on heparin until INR>2.5.
Assessment / Plan
Assessment / Plan
General: Mild respiratory distress
HEENT: Moist mucous membranes and PERRLA
Respiratory: Clear; No Wheezes
Cardiac: S1/S2 (Mechanical S2), Regular Rhythm and Murmur
GI: Soft, Non Distended, Normal Bowel Sounds
Musculoskeletal: No Clubbing, No Cyanosis and No Edema
Neuro: AO x 3
BRBPR suspect 2/2 colitis
Etiology of bleeding could be infectious versus ischemic
Coumadin Coagulopathy
Acute Blood Loss Anemia secondary to the above
�- now started on diabetic diet
�- Hgb 9.8
�- Continue to monitor H&H and transfuse if needed.
�- Follow for any recurrent BRBPR.
�- GI following
�-Restart Coumadin since no intervention planned by GI. Patient has mechanical mitral valve so will need bridging. Will need IV heparin until INR is greater than 2.5. goal INR 2.5-3.5
�- K-Centra / Vit K given in ED on admission; since patient has mechanical mitral valve for goal INR 2.5-3.5. Continue with IV heparin
�- Follow daily INR.
stool studies neg
Sepsis suspect 2/2 Pneumonia
Unclear if sepsis was present on admission
Acute hypoxic respiratory insufficiency secondary to above
suspect aspiration PNA on CT chest
follow fever curve; follow bcx
started on meropenem; ID following
covid neg; flu, Legionella, strep neg
Continue with antibiotics for now
UA without UTI
Hypokalemia
imrpoving
Blurry vision with white sport in the center
no slurred speech,sensory or motor deficits
denies eye pain; confirmed with pharmacy that it is not from meropenem
CT head without acute CVA
If symptoms do not improve then will need MRA; symptoms appears to be subsided
hx of cataract
Chronic Atrial Fibrillation
�- Stable.� Maintaining NSR s/p recent PVI ablation.
�- Will continue diltiazem for now with holding parameters.
�- coumadin restarted
�- Monitor on telemetry.
Cr 1.2 on 11/10 appear abnormal lab value
Mitral Valve Stenosis s/p Mechanical MVR
�- Holding Coumadin as noted above.
�- Resume preferably once bleeding has been definitively addressed.
cw IV heparin
echo with EF 55 to 60%, diastolic function indeterminate.
Suspect iatrogenic volume overloaded / fluids
responded to lasix; follow clinically
COPD
Vocal Cord Paralysis
JENNIFER on CPAP
�- Nebs PRN.
�- Continue nightly CPAP.
DM-II
�- Stable.� Hold PO medications acutely.
�- Follow glucose and cover with SSI as needed.
�- A1C 6.3
GERD / Schatzki's Ring / Hiatal Hernia
�- Stable.� Doubt UGI source of bleeding based on presenting symptoms.
�- PO PPI
�- GI following
History of pulmonary hypertension
Anxiety / Depression
�- Stable.� Continue venlafaxine.
DVT Prophylaxis:� SCDs,hep
Code Status:� Full
I spent a total of 53 minutes with the patient or on the floor. More than 50% of this time involved counseling and coordination of care.
Anticipated Discharge: > 48 hours
Subjective/Interval History
-
Date of Service: November 14, 2023
denies pain
Objective Data
-
Labs:
Laboratory Results
11/14/23 11/14/23
04:59 11:52
WBC 5.3
Hgb 9.8 L
Hct 27.8 L
Plt Count 157
PT 13.7
INR 1.04
APTT 70.8 H Pending
Sodium 136
Potassium 3.6
Chloride 102
Carbon Dioxide 28
BUN 8
Creatinine 0.5 L
Glucose 146 H
Calcium 8.2 L
Vital Signs:
Vital Signs
Temp Pulse Resp BP Pulse Ox
99.6 F 62 19 138/47 95
11/13/23 22:57 11/14/23 08:32 11/14/23 06:00 11/14/23 08:32 11/14/23 08:00
I&O
11/13/23 11/14/23 11/15/23
06:59 06:59 06:59
Intake Total 2400 / 2400 960 / 960
Output Total 1200 / 1200 2450 / 2450 1200 / 1200
Balance 1200 / 1200 -1490 / -1490 -1200 / -1200
[2023-11-14] MEDS: LASIX 20 MG IV (13:04)
[2023-11-14 13:13] LABS: Glucose - Point of Care 186 mg/dl (70-99)
--- NOTE | 2023-11-14 15:16 | CM ---
Patient with Dx BRBPR suspect 2/2 colitis, Acute Blood Loss Anemia, Sepsis suspect 2/2 Pneumonia, Blurry vision. O2 3L. Receiving IV Abx, Heparin gtt. Ambulating in room per nurse. PT recommends home PT vs skilled. OT recommends HH plus
assist.
Attempted to speak with patient who was unavailable.
Spoke with patient's Rigoberto; he says his will not want to go to rehab because she had a bad experience. He is still out of town in [place] and defers to his daughter Tez for d/c plans.
Spoke with patient's daughter Tez; she will ask patient if she agrees to VN. She will be staying with the patient and will be coming home from [place]. Tez inquired about the difference between VN nurse and caregiver- she is not interested in
hiring a caregiver at this time.
Plan follow up [facility] patient/daughter re; VN.
[2023-11-14 17:36] LABS: Glucose - Point of Care 223 mg/dl (70-99)
[2023-11-14] MEDS: COUMADIN 7.5 MG PO (17:42)
[2023-11-14 22:09] LABS: Glucose - Point of Care 218 mg/dl (70-99)
[2023-11-15] VITALS (11 sets, daily range): BP systolic 105–136; BP diastolic 43–70; PULSE 60–68; O2SAT 100; BMI 27.3
[2023-11-15 01:32] LABS: APTT 126.3 Sec (23.4-35.0)
[2023-11-15] MEDS: STERILE WATER FOR INJECTION 10 ML IV ×4 (01:49→20:12)
[2023-11-15] MEDS: MERREM 500 MG IV ×4 (01:49→20:11)
[2023-11-15] MEDS: HEPARIN 25000 UNITS/250 ML IV ×2 (07:18→23:49)
[2023-11-15 07:28] LABS: % Basophils 1.4 % (0-2); % Eosinophils 6.9 % (0-6); % Immature Granulocytes 0.7 % (0-0.5); % Lymphocytes 33.9 % (20.5-51.1); % Monocytes 7.8 % (1.7-9.3); % Neutrophils 49.3 % (42.2-75.2); Absolute Basophils 0.1 10^3/uL (0-0.2); Absolute Eosinophils 0.3 10^3/uL (0-0.7); Absolute Lymphocytes 1.5 10^3/uL (1.2-3.4); Absolute Monocytes 0.3 10^3/uL (0.1-0.6); Absolute Neutrophils 2.2 10^3/uL (1.4-6.5); Hematocrit 28.6 % (37.0-47.0); Hemoglobin 9.7 g/dL (12.0-16.0); Mean Corp Hgb Conc. 33.9 g/dL (33.0-37.0); Mean Corpuscular Hgb 29.9 pg (27.0-31.0); Mean Corpuscular Volume 88.3 fL (81.0-99.0); Mean Platelet Volume 11.6 fL (7.4-10.4); Nucleated Red Blood Cells % 0 %; Platelet Count 210 10^3/uL (130-400); Red Blood Cell Count 3.24 10^6/uL (4.20-5.40); Red Cell Dist. Width 13.8 % (11.5-14.5); White Blood Cell Count 4.4 10^3/uL (4.8-10.8)
[2023-11-15 07:46] LABS: INR 1.06; PT 13.6 Sec (11.4-14.6)
[2023-11-15 07:48] LABS: APTT 91.2 Sec (23.4-35.0)
[2023-11-15 07:51] LABS: Blood Urea Nitrogen 8 mg/dl (7-17); Calcium 8.2 mg/dl (8.4-10.2); Carbon Dioxide 33 mmol/L (22-30); Chloride 103 mmol/L (98-107); Estimated Creatinine Clearance 74 ml/min; Glucose 152 mg/dl (70-99); Potassium 3.9 mmol/L (3.5-5.1); Sodium 139 mmol/L (135-145); eGFR > 60.00
[2023-11-15 08:01] LABS: Glucose - Point of Care 164 mg/dl (70-99)
[2023-11-15] MEDS: MUCINEX 1200 MG PO ×2 (09:08→20:11)
[2023-11-15] MEDS: TOPROL XL 25 MG PO ×2 (09:09→20:21)
[2023-11-15] MEDS: VALTREX 500 MG PO (09:09)
[2023-11-15] MEDS: PROTONIX 40 MG PO (09:09)
[2023-11-15] MEDS: EFFEXOR 37.5 MG PO ×2 (09:09→20:21)
[2023-11-15] MEDS: JANUVIA 100 MG PO (09:09)
[2023-11-15] MEDS: CARDIZEM CD 240 MG PO ×2 (09:11→20:12)
--- NOTE | 2023-11-15 11:59 | W.PN.ID1 ---
Date of Service
Date of Service: November 15, 2023
Today's Communication
Meropenem 500mg IVq6 (day)
Assessment / Plan
# Pneumonia with hypoxic resp insufficiency, improving oxygen requirement
# Fever - resolved
# PCN, cephalosporin allergy
- Chest CT: bibasilar consolidation and ground glass opacities
- COVID negative. blood cx's x 2 neg.
-Suspect aspiration at time of emesis. Fever onset after hospital admission.
-Meropenem 500mg IVq6 (day)
# Pulm edema/bilateral pleural effusions
# s/p Foodborne gastroenteritis (vs ischemic colitis per GI)
- onset several hours after dinner suggests ingestion of pre-formed toxin.
-symptoms resolved.
# Additional Past Medical History:
Afib s/p ablation
Mitral stenosis s/p mechanical valve replacement (2019)
tachy-alanna syndrome s/pp PPM
CAD
HTN
COPD
R eye HSV, on valacyclovir suppressive therapy
vocal cord paralysis
Sleep apnea on CPAP
Schatzki's ring
Bilateral THR
Chief Complaint
-: Pneumonia
Subjective / Review of Systems
Doing better
Vital Signs / Physical Exam
Vital Signs
Vital Signs
Temp Pulse Resp BP Pulse Ox
98.6 F 79 19 136/54 97
11/15/23 07:59 11/15/23 10:00 11/15/23 10:00 11/15/23 10:00 11/15/23 10:00
Physical Exam
Constitutional: No Acute Distress and Comfortable
Cardiovascular: Regular Rate and S1/S2
Pulmonary: Other (decreased BS bases)
Gastrointestinal: Soft, Non Tender and Non Distended
Objective Data
Lab Data
Lab Results
11/15/23 07:16
11/15/23 07:16
PT 13.6 Sec (11.4-14.6) 11/15/23 07:16
INR 1.06 11/15/23 07:16
APTT 91.2 Sec (23.4-35.0) H 11/15/23 07:16
Estimated Creat Clear 74 ml/min 11/15/23 07:16
Lactic Acid 1.2 mmol/L (0.7-2.0) 11/10/23 01:58
Total Bilirubin 0.5 mg/dl (0.2-1.3) 11/10/23 01:44
AST 33 U/L (14-36) 11/10/23 01:44
ALT 25 U/L (0-35) 11/10/23 01:44
Alkaline Phosphatase 75 U/L (38-126) 11/10/23 01:44
Most recent labs reviewed.
Micro Results:
11/11/23 20:01 Blood Culture - Preliminary
Blood/Venous No Growth in 72 hours- Final report to follow
11/11/23 18:51 Blood Culture - Preliminary
Blood/Venous No Growth in 72 hours- Final report to follow
11/12/23 13:22 Salmonella/Shigella Culture - Final
Feces/Stool No Salmonella, Shigella, Aeromonas or Plesiomonas species
isolated.
Campylobacter Culture - Final
No Campylobacter species isolated.
Shiga Toxin Test - Final
No E. coli Shiga Toxin 1 or 2 detected.
Stool Leukocytes - Final
11/13/23 09:08 Legionella Urinary Antigen - Final
Urine Negative for Legionella pneumophila Serogroup 1 antigen.
A negative result does not rule out the possiblity of
Legionella infection due to other serogroups or species of
Legionella. Clinical correlation is recommended.
Streptococcus pneumoniae Antigen (M - Final
Negative for Streptococcus pneumoniae antigen.
A negative result does not exclude infection with
Streptococcus pneumoniae. Clinical correlation is
recommended.
11/13/23 08:16 Influenza Types A & B (JUAN) - Final
Nasal Swab Negative for Influenza A & B, NAAT
Negative results must be combined with clinical observations
and patient history.
Nucleic Acid Amplification test (NAAT)performed on the
[employer] platform.
11/10/23 09:47 MRSA Screen - Final
Nose No Methicillin Resistant Staphylococcus aureus isolated.
11/13/[address]: Stable examination. Mild chronic microvascular white matter ischemic disease. No acute intracranial abnormality identified. Small air-fluid level in the sphenoid sinus raising possibility of sinusitis.
11/12/[address]: Moderate bilateral pleural effusions. New. Moderate bibasilar consolidation which may represent pneumonia or atelectasis. New. Moderate bilateral lower lobe groundglass opacities concerning for developing pneumonia. New.
11/11/2023 CXR: Cardiomegaly. Findings highly suggestive of predominantly interstitial pulmonary edema, with small associated pleural effusions.
11/10/2023 CTA a/p: No CTA evidence for acute active gastrointestinal bleed. Mild wall thickening and mucosal hyperenhancement in the transverse, descending, and sigmoid colon suspicious for a mild acute colitis (either infectious or inflammatory in
etiology).
[2023-11-15 12:56] LABS: Glucose - Point of Care 207 mg/dl (70-99)
--- NOTE | 2023-11-15 12:58 | W.PN.HOSP.TC ---
Today's Communication/Plan
-
Monitor vital signs and see plan
Wean oxygen as tolerated
Monitor INR
Continue with Coumadin and heparin drip, goal INR greater than 2.5
cw meropenem
PT/OT
Assessment / Plan
Assessment / Plan
General: Mild respiratory distress
HEENT: Moist mucous membranes and PERRLA
Respiratory: Clear; No Wheezes
Cardiac: S1/S2 (Mechanical S2), Regular Rhythm and Murmur
GI: Soft, Non Distended, Normal Bowel Sounds
Musculoskeletal: No Clubbing, No Cyanosis and No Edema
Neuro: AO x 3
BRBPR suspect 2/2 colitis
Etiology of bleeding could be infectious versus ischemic
Coumadin Coagulopathy
Acute Blood Loss Anemia secondary to the above
�- now started on diabetic diet
�- Hgb 9.8
�- Continue to monitor H&H and transfuse if needed.
�- Follow for any recurrent BRBPR.
�- GI following
�-Restart Coumadin since no intervention planned by GI. Patient has mechanical mitral valve so will need bridging. Will need IV heparin until INR is greater than 2.5. goal INR 2.5-3.5
�- K-Centra / Vit K given in ED on admission; since patient has mechanical mitral valve for goal INR 2.5-3.5. Continue with IV heparin
�- Follow daily INR.
stool studies neg
Sepsis suspect 2/2 Pneumonia
Unclear if sepsis was present on admission
Acute hypoxic respiratory insufficiency secondary to above, wean oxygen as ordered
suspect aspiration PNA on CT chest
follow fever curve; follow bcx
started on meropenem; ID following
covid neg; flu, Legionella, strep neg
Continue with antibiotics for now
UA without UTI
Hypokalemia
improving
Blurry vision with white sport in the center
no slurred speech,sensory or motor deficits
denies eye pain; confirmed with pharmacy that it is not from meropenem
CT head without acute CVA
If symptoms do not improve then will need MRA; symptoms appears to be subsided
hx of cataract
Chronic Atrial Fibrillation
�- Stable.� Maintaining NSR s/p recent PVI ablation.
�- Will continue diltiazem for now with holding parameters.
�- coumadin restarted
�- Monitor on telemetry.
Cr 1.2 on 11/10 appear abnormal lab value
Mitral Valve Stenosis s/p Mechanical MVR
�- Holding Coumadin as noted above.
�- Resume preferably once bleeding has been definitively addressed.
cw IV heparin
echo with EF 55 to 60%, diastolic function indeterminate.
Suspect iatrogenic volume overloaded / fluids
responded to lasix; follow clinically
COPD
Vocal Cord Paralysis
JENNIFER on CPAP
�- Nebs PRN.
�- Continue nightly CPAP.
DM-II
�- Stable.� Hold PO medications acutely.
�- Follow glucose and cover with SSI as needed.
�- A1C 6.3
GERD / Schatzki's Ring / Hiatal Hernia
�- Stable.� Doubt UGI source of bleeding based on presenting symptoms.
�- PO PPI
�- GI following
History of pulmonary hypertension
Anxiety / Depression
�- Stable.� Continue venlafaxine.
DVT Prophylaxis:� SCDs,hep
Code Status:� Full
I spent a total of 52 minutes with the patient or on the floor. More than 50% of this time involved counseling and coordination of care.
Anticipated Discharge: 24 - 48 hours
Subjective/Interval History
-
Date of Service: November 15, 2023
Denies pain
Objective Data
-
Labs:
Laboratory Results
11/15/23 11/15/23 11/15/23
01:12 07:16 14:00
WBC 4.4 L
Hgb 9.7 L
Hct 28.6 L
Plt Count 210 D
PT 13.6
INR 1.06
APTT 126.3 H 91.2 H Pending
Sodium 139
Potassium 3.9
Chloride 103
Carbon Dioxide 33 H
BUN 8
Creatinine 0.5 L
Glucose 152 H
Calcium 8.2 L
Vital Signs:
Vital Signs
Temp Pulse Resp BP Pulse Ox
98.6 F 79 19 136/54 97
11/15/23 07:59 11/15/23 10:00 11/15/23 10:00 11/15/23 10:00 11/15/23 10:00
I&O
11/14/23 11/15/23 11/16/23
06:59 06:59 06:59
Intake Total 960 / 960
Output Total 2450 / 2450 4800 / 4800 1000 / 1000
Balance -1490 / -1490 -4800 / -4800 -1000 / -1000
[2023-11-15 16:30] LABS: APTT 84.3 Sec (23.4-35.0)
--- NOTE | 2023-11-15 16:30 | CM ---
Patient with Dx BRBPR suspect 2/2 colitis, Acute Blood Loss Anemia, Sepsis suspect 2/2 Pneumonia, Blurry vision. O2 3L. Receiving IV Abx, Heparin gtt. PT recommends HH. OT recommends HH plus assist.
Met with patient and 2 daughters; offered VN and patient declined saying she has had VN several times previously and feels she does not need further PT instruction at home. Patient's daughters confirm they will assist at home if patient not
independent in her mobiity at time of d/c.
Plan watch for home O2 needs.
Plan home.
[2023-11-15 17:27] LABS: Glucose - Point of Care 200 mg/dl (70-99)
[2023-11-15] MEDS: COUMADIN 7.5 MG PO (17:32)
[2023-11-15 22:18] LABS: Glucose - Point of Care 213 mg/dl (70-99)
[2023-11-16] VITALS (14 sets, daily range): BP systolic 110–143; BP diastolic 46–85; PULSE 69–72; BMI 27.1
--- NOTE | 2023-11-16 02:32 | PTCARENOTE ---
Caring for patient overnight. aaox3, pleasant, denies pain or sob. NSR on monitor. Remains RA, no issues. Cpap HS. Heparin drip running at 14. next PTT due at 0600. abx given. no bm so far this shift. pt stated she had one earlier today but does not
know if it was bloody d/t flushing before seeing it. Will monitor.
[2023-11-16] MEDS: STERILE WATER FOR INJECTION 10 ML IV ×4 (02:36→20:47)
[2023-11-16] MEDS: MERREM 500 MG IV ×4 (02:36→20:47)
[2023-11-16 06:31] LABS: % Basophils 1.1 % (0-2); % Eosinophils 4.9 % (0-6); % Immature Granulocytes 0.9 % (0-0.5); % Lymphocytes 40.3 % (20.5-51.1); % Monocytes 6.9 % (1.7-9.3); % Neutrophils 45.9 % (42.2-75.2); Absolute Basophils 0.1 10^3/uL (0-0.2); Absolute Eosinophils 0.2 10^3/uL (0-0.7); Absolute Lymphocytes 1.8 10^3/uL (1.2-3.4); Absolute Monocytes 0.3 10^3/uL (0.1-0.6); Absolute Neutrophils 2.1 10^3/uL (1.4-6.5); Hematocrit 28.8 % (37.0-47.0); Hemoglobin 9.8 g/dL (12.0-16.0); Mean Corpuscular Hgb 29.6 pg (27.0-31.0); Mean Platelet Volume 10.8 fL (7.4-10.4); Nucleated Red Blood Cells % 0 %; Platelet Count 231 10^3/uL (130-400); Red Blood Cell Count 3.31 10^6/uL (4.20-5.40); Red Cell Dist. Width 14.1 % (11.5-14.5); White Blood Cell Count 4.5 10^3/uL (4.8-10.8)
[2023-11-16 06:38] LABS: INR 1.09; PT 14.1 Sec (11.4-14.6)
[2023-11-16 06:41] LABS: APTT 137.9 Sec (23.4-35.0)
--- NOTE | 2023-11-16 07:45 | PTCARENOTE ---
Patient received from night clerk auditor. Patient resting comfortably in bed. Currently on CPAP. No events noted over night. No complaints of pain. AAO, VSS. Will attempt to wean back to Room Air today. Heparin gtt @ 1400 units, currently on standby
until 0800 due to PTT result being above therapeutic. Call rice in reach.
[2023-11-16 08:10] LABS: Glucose - Point of Care 146 mg/dl (70-99)
[2023-11-16 08:27] LABS: Blood Urea Nitrogen 9 mg/dl (7-17); Calcium 8.1 mg/dl (8.4-10.2); Carbon Dioxide 28 mmol/L (22-30); Chloride 106 mmol/L (98-107); Estimated Creatinine Clearance 74 ml/min; Glucose 148 mg/dl (70-99); Potassium 4.1 mmol/L (3.5-5.1); Sodium 135 mmol/L (135-145); eGFR > 60.00
[2023-11-16] MEDS: TOPROL XL 25 MG PO ×2 (08:50→20:46)
[2023-11-16] MEDS: EFFEXOR 37.5 MG PO ×2 (08:51→20:47)
[2023-11-16] MEDS: VALTREX 500 MG PO (08:51)
[2023-11-16] MEDS: JANUVIA 100 MG PO (08:51)
[2023-11-16] MEDS: MUCINEX 1200 MG PO ×2 (08:51→20:46)
[2023-11-16] MEDS: PROTONIX 40 MG PO (08:51)
[2023-11-16] MEDS: CARDIZEM CD 240 MG PO ×2 (08:51→20:43)
--- NOTE | 2023-11-16 09:13 | W.PN.ID1 ---
Date of Service
Date of Service: November 16, 2023
Today's Communication
Continue Meropenem 500mg IVq6 (day)
Assessment / Plan
# Pneumonia with hypoxic resp insufficiency, improving oxygen requirement
# Fever - resolved
# PCN, cephalosporin allergy
- Chest CT: bibasilar consolidation and ground glass opacities
- COVID negative. blood cx's x 2 neg.
-Suspect aspiration at time of emesis. Fever onset after hospital admission.
-Continue Meropenem 500mg IVq6 (day)
# Pulm edema/bilateral pleural effusions
# s/p Foodborne gastroenteritis (vs ischemic colitis per GI)
- onset several hours after dinner suggests ingestion of pre-formed toxin.
-symptoms resolved.
# Additional Past Medical History:
Afib s/p ablation
Mitral stenosis s/p mechanical valve replacement (2019)
tachy-alanna syndrome s/pp PPM
CAD
HTN
COPD
R eye HSV, on valacyclovir suppressive therapy
vocal cord paralysis
Sleep apnea on CPAP
Schatzki's ring
Bilateral THR
Chief Complaint
-: Pneumonia
Subjective / Review of Systems
Continues to feel improved.
Vital Signs / Physical Exam
Vital Signs
Vital Signs
Temp Pulse Resp BP Pulse Ox
97.9 F 81 15 110/85 98
11/16/23 07:00 11/16/23 08:50 11/16/23 04:00 11/16/23 08:50 11/16/23 04:00
Physical Exam
Constitutional: No Acute Distress and Comfortable
Pulmonary: Clear (anteriorly)
Gastrointestinal: Soft, Non Tender and Non Distended
Extremities: Negative Edema
Neurological: AO x 3
Objective Data
Lab Data
Lab Results
03/02/24 06:11
11/16/23 06:11
PT 14.1 Sec (11.4-14.6) 11/16/23 06:11
INR 1.09 11/16/23 06:11
APTT 137.9 Sec (23.4-35.0) H 11/16/23 06:11
Estimated Creat Clear 74 ml/min 11/16/23 06:11
Lactic Acid 1.2 mmol/L (0.7-2.0) 11/10/23 01:58
Total Bilirubin 0.5 mg/dl (0.2-1.3) 11/10/23 01:44
AST 33 U/L (14-36) 11/10/23 01:44
ALT 25 U/L (0-35) 11/10/23 01:44
Alkaline Phosphatase 75 U/L (38-126) 11/10/23 01:44
Most recent labs reviewed.
Micro Results:
11/11/23 20:01 Blood Culture - Preliminary
Blood/Venous No Growth in 4 days- Final report to follow
11/11/23 18:51 Blood Culture - Preliminary
Blood/Venous No Growth in 4 days- Final report to follow
11/12/23 13:22 Salmonella/Shigella Culture - Final
Feces/Stool No Salmonella, Shigella, Aeromonas or Plesiomonas species
isolated.
Campylobacter Culture - Final
No Campylobacter species isolated.
Shiga Toxin Test - Final
No E. coli Shiga Toxin 1 or 2 detected.
Stool Leukocytes - Final
11/13/23 09:08 Legionella Urinary Antigen - Final
Urine Negative for Legionella pneumophila Serogroup 1 antigen.
A negative result does not rule out the possiblity of
Legionella infection due to other serogroups or species of
Legionella. Clinical correlation is recommended.
Streptococcus pneumoniae Antigen (M - Final
Negative for Streptococcus pneumoniae antigen.
A negative result does not exclude infection with
Streptococcus pneumoniae. Clinical correlation is
recommended.
11/13/23 08:16 Influenza Types A & B (JUAN) - Final
Nasal Swab Negative for Influenza A & B, NAAT
Negative results must be combined with clinical observations
and patient history.
Nucleic Acid Amplification test (NAAT)performed on the
[employer] platform.
11/10/23 09:47 MRSA Screen - Final
Nose No Methicillin Resistant Staphylococcus aureus isolated.
11/13/[address]: Stable examination. Mild chronic microvascular white matter ischemic disease. No acute intracranial abnormality identified. Small air-fluid level in the sphenoid sinus raising possibility of sinusitis.
11/12/[address]: Moderate bilateral pleural effusions. New. Moderate bibasilar consolidation which may represent pneumonia or atelectasis. New. Moderate bilateral lower lobe groundglass opacities concerning for developing pneumonia. New.
11/11/2023 CXR: Cardiomegaly. Findings highly suggestive of predominantly interstitial pulmonary edema, with small associated pleural effusions.
11/10/2023 CTA a/p: No CTA evidence for acute active gastrointestinal bleed. Mild wall thickening and mucosal hyperenhancement in the transverse, descending, and sigmoid colon suspicious for a mild acute colitis (either infectious or inflammatory in
etiology).
--- NOTE | 2023-11-16 10:35 | CM ---
SPoke to RN. Patient was off oxygen but had to go back on. RN to attempt to wean patient off oxygen. CM to follow for home oxygen needs.
[2023-11-16 12:20] LABS: Glucose - Point of Care 185 mg/dl (70-99)
--- NOTE | 2023-11-16 12:31 | W.PN.HOSP.TC ---
Today's Communication/Plan
-
Monitor vitals
See plan
Continue with heparin and Coumadin until INR greater than 2.5
Continue meropenem
Wean oxygen as tolerated
Assessment / Plan
Assessment / Plan
General: no respiratory distress
HEENT: Moist mucous membranes and PERRLA
Respiratory: Clear; No Wheezes
Cardiac: S1/S2 (Mechanical S2), Regular Rhythm and Murmur
GI: Soft, Non Distended, Normal Bowel Sounds
Musculoskeletal: No Clubbing, No Cyanosis and No Edema
Neuro: AO x 3
BRBPR suspect 2/2 colitis
Etiology of bleeding could be infectious versus ischemic
Coumadin Coagulopathy
Acute Blood Loss Anemia secondary to the above
�- now started on diabetic diet
�- Hgb 9.8
�- Continue to monitor H&H and transfuse if needed.
�- Follow for any recurrent BRBPR.
�- GI following
�-Restart Coumadin since no intervention planned by GI. Patient has mechanical mitral valve so will need bridging. Will need IV heparin until INR is greater than 2.5. goal INR 2.5-3.5
�- K-Centra / Vit K given in ED on admission; since patient has mechanical mitral valve for goal INR 2.5-3.5. Continue with IV heparin
�- Follow daily INR.
stool studies neg
Sepsis suspect 2/2 Pneumonia
Unclear if sepsis was present on admission
Acute hypoxic respiratory insufficiency secondary to above, wean oxygen as ordered
suspect aspiration PNA on CT chest
follow fever curve; follow bcx
started on meropenem; ID following
covid neg; flu, Legionella, strep neg
Continue with antibiotics for now
UA without UTI
Hypokalemia
improving
Blurry vision with white sport in the center
no slurred speech,sensory or motor deficits
denies eye pain; confirmed with pharmacy that it is not from meropenem
CT head without acute CVA
If symptoms do not improve then will need MRA; symptoms appears to be subsided
hx of cataract
Chronic Atrial Fibrillation
�- Stable.� Maintaining NSR s/p recent PVI ablation.
�- Will continue diltiazem for now with holding parameters.
�- coumadin restarted
�- Monitor on telemetry.
Cr 1.2 on 11/10 appear abnormal lab value
Mitral Valve Stenosis s/p Mechanical MVR
�- Holding Coumadin as noted above.
�- Resume preferably once bleeding has been definitively addressed.
cw IV heparin
echo with EF 55 to 60%, diastolic function indeterminate.
Suspect iatrogenic volume overloaded / fluids
responded to lasix; follow clinically
COPD
Vocal Cord Paralysis
JENNIFER on CPAP
�- Nebs PRN.
�- Continue nightly CPAP.
DM-II
�- Stable.� Hold PO medications acutely.
�- Follow glucose and cover with SSI as needed.
�- A1C 6.3
GERD / Schatzki's Ring / Hiatal Hernia
�- Stable.� Doubt UGI source of bleeding based on presenting symptoms.
�- PO PPI
�- GI following
History of pulmonary hypertension
Anxiety / Depression
�- Stable.� Continue venlafaxine.
DVT Prophylaxis:� SCDs,hep
Code Status:� Full
I spent a total of 52 minutes with the patient or on the floor. More than 50% of this time involved counseling and coordination of care.
Anticipated Discharge: > 48 hours
Subjective/Interval History
-
Date of Service: November 16, 2023
denies pain
Objective Data
-
Labs:
Laboratory Results
11/16/23 11/16/23
06:11 14:05
WBC 4.5 L
Hgb 9.8 L
Hct 28.8 L
Plt Count 231
PT 14.1
INR 1.09
APTT 137.9 H Pending
Sodium 135
Potassium 4.1
Chloride 106
Carbon Dioxide 28
BUN 9
Creatinine 0.6
Glucose 148 H
Calcium 8.1 L
Vital Signs:
Vital Signs
Temp Pulse Resp BP Pulse Ox
97.9 F 81 15 110/85 96
11/16/23 07:00 11/16/23 08:50 11/16/23 04:00 11/16/23 08:50 11/16/23 11:46
I&O
11/15/23 11/16/23 11/17/23
06:59 06:59 06:59
Intake Total 1128 / 1128
Output Total 4800 / 4800 2800 / 2800
Balance -4800 / -4800 -1672 / -1672
[2023-11-16 15:03] LABS: APTT 60.1 Sec (23.4-35.0)
[2023-11-16] MEDS: COUMADIN 7.5 MG PO (17:11)
[2023-11-16 17:27] LABS: Glucose - Point of Care 201 mg/dl (70-99)
[2023-11-16] MEDS: HEPARIN 25000 UNITS/250 ML IV (19:36)
[2023-11-16 21:59] LABS: Glucose - Point of Care 150 mg/dl (70-99)
[2023-11-16 23:25] LABS: APTT 105.9 Sec (23.4-35.0)
[2023-11-17] VITALS (15 sets, daily range): BP systolic 109–144; BP diastolic 47–89; PULSE 68–76; BMI 27.0; BMI 27.2
[2023-11-17] MEDS: MERREM 500 MG IV ×4 (02:44→20:38)
[2023-11-17] MEDS: STERILE WATER FOR INJECTION 10 ML IV ×4 (02:44→20:37)
[2023-11-17 05:55] LABS: % Basophils 1.4 % (0-2); % Eosinophils 4.4 % (0-6); % Immature Granulocytes 1.1 % (0-0.5); % Lymphocytes 43.8 % (20.5-51.1); % Neutrophils 43.3 % (42.2-75.2); Absolute Basophils 0.1 10^3/uL (0-0.2); Absolute Eosinophils 0.2 10^3/uL (0-0.7); Absolute Immature Granulocytes 0.1 10^3/uL (0-0.05); Absolute Lymphocytes 1.9 10^3/uL (1.2-3.4); Absolute Monocytes 0.3 10^3/uL (0.1-0.6); Absolute Neutrophils 1.9 10^3/uL (1.4-6.5); Hematocrit 27.7 % (37.0-47.0); Hemoglobin 9.4 g/dL (12.0-16.0); INR 1.19; Mean Corp Hgb Conc. 33.9 g/dL (33.0-37.0); Mean Corpuscular Hgb 29.9 pg (27.0-31.0); Mean Corpuscular Volume 88.2 fL (81.0-99.0); Mean Platelet Volume 11.4 fL (7.4-10.4); Nucleated Red Blood Cells % 0 %; PT 14.9 Sec (11.4-14.6); Platelet Count 254 10^3/uL (130-400); Red Blood Cell Count 3.14 10^6/uL (4.20-5.40); Red Cell Dist. Width 13.9 % (11.5-14.5); White Blood Cell Count 4.4 10^3/uL (4.8-10.8)
[2023-11-17 05:58] LABS: APTT 120.6 Sec (23.4-35.0)
[2023-11-17 06:14] LABS: Blood Urea Nitrogen 9 mg/dl (7-17); Calcium 8.2 mg/dl (8.4-10.2); Carbon Dioxide 30 mmol/L (22-30); Chloride 106 mmol/L (98-107); Estimated Creatinine Clearance 74 ml/min; Glucose 151 mg/dl (70-99); Potassium 4.1 mmol/L (3.5-5.1); Sodium 135 mmol/L (135-145); eGFR > 60.00
[2023-11-17] MEDS: CARDIZEM CD 240 MG PO ×2 (10:07→20:39)
[2023-11-17] MEDS: VALTREX 500 MG PO (10:07)
[2023-11-17] MEDS: EFFEXOR 37.5 MG PO ×2 (10:07→20:38)
[2023-11-17] MEDS: MUCINEX 1200 MG PO ×2 (10:07→20:38)
[2023-11-17] MEDS: TOPROL XL 25 MG PO ×2 (10:07→20:38)
[2023-11-17] MEDS: JANUVIA 100 MG PO (10:08)
[2023-11-17] MEDS: PROTONIX 40 MG PO (10:08)
[2023-11-17] MEDS: FLUSH (NSS) 1 FLUSH IV (10:09)
[2023-11-17 10:31] LABS: Glucose - Point of Care 157 mg/dl (70-99)
--- NOTE | 2023-11-17 13:05 | W.PN.HOSP.TC ---
Today's Communication/Plan
-
monitor vitals
see plan
abx per ID
now weaned off o2
cw IV heparin and coumadin for bridging
transfer out of IMU
Assessment / Plan
Assessment / Plan
General: no respiratory distress
HEENT: Moist mucous membranes and PERRLA
Respiratory: Clear; No Wheezes
Cardiac: S1/S2 (Mechanical S2), Regular Rhythm and Murmur
GI: Soft, Non Distended, Normal Bowel Sounds
Musculoskeletal: No Clubbing, No Cyanosis and No Edema
Neuro: AO x 3
BRBPR suspect 2/2 colitis
Etiology of bleeding could be infectious versus ischemic
Coumadin Coagulopathy
Acute Blood Loss Anemia secondary to the above
�- now started on diabetic diet
�- Hgb 9.4
�- Continue to monitor H&H and transfuse if needed.
�- Follow for any recurrent BRBPR.
�- GI following
�-Restart Coumadin since no intervention planned by GI. Patient has mechanical mitral valve so will need bridging. Will need IV heparin until INR is greater than 2.5. goal INR 2.5-3.5
�- K-Centra / Vit K given in ED on admission; since patient has mechanical mitral valve for goal INR 2.5-3.5. Continue with IV heparin
�- Follow daily INR.
stool studies neg
Sepsis suspect 2/2 Pneumonia
Unclear if sepsis was present on admission
Acute hypoxic respiratory insufficiency secondary to above, now weaned off o2
suspect aspiration PNA on CT chest
follow fever curve; follow bcx
started on meropenem; ID following
covid neg; flu, Legionella, strep neg
UA without UTI
Hypokalemia
improving
Blurry vision with white sport in the center
symptoms resolved
no slurred speech,sensory or motor deficits
denies eye pain; confirmed with pharmacy that it is not from meropenem
CT head without acute CVA
hx of cataract
Chronic Atrial Fibrillation
�- Stable.� Maintaining NSR s/p recent PVI ablation.
�- Will continue diltiazem for now with holding parameters.
�- coumadin restarted
�- Monitor on telemetry.
Cr 1.2 on 11/10 appear abnormal lab value
Mitral Valve Stenosis s/p Mechanical MVR
cw IV heparin and coumadin until INR>2.5; goal INR 2.5-3.5
echo with EF 55 to 60%, diastolic function indeterminate.
Suspect iatrogenic volume overloaded 10/18 fluids
responded to lasix; follow clinically
COPD
Vocal Cord Paralysis
JENNIFER on CPAP
�- Nebs PRN.
�- Continue nightly CPAP.
DM-II
�- Stable.� Hold PO medications acutely.
�- Follow glucose and cover with SSI as needed.
�- A1C 6.3
GERD / Schatzki's Ring / Hiatal Hernia
�- Stable.� Doubt UGI source of bleeding based on presenting symptoms.
�- PO PPI
�- GI following
History of pulmonary hypertension
Anxiety / Depression
�- Stable.� Continue venlafaxine.
DVT Prophylaxis:� SCDs,hep
Code Status:� Full
Son updated multiple times; most recently 11/15
I spent a total of 53 minutes with the patient or on the floor. More than 50% of this time involved counseling and coordination of care.
Anticipated Discharge: > 48 hours
Subjective/Interval History
-
Date of Service: November 17, 2023
denies pain
Objective Data
-
Labs:
Laboratory Results
11/17/23 11/17/23
05:14 12:40
WBC 4.4 L
Hgb 9.4 L
Hct 27.7 L
Plt Count 254
PT 14.9 H
INR 1.19
APTT 120.6 H Pending
Sodium 135
Potassium 4.1
Chloride 106
Carbon Dioxide 30
BUN 9
Creatinine 0.6
Glucose 151 H
Calcium 8.2 L
Vital Signs:
Vital Signs
Temp Pulse Resp BP Pulse Ox
98.3 F 98 18 130/89 93
11/17/23 11:46 11/17/23 10:00 11/17/23 10:00 11/17/23 10:00 11/17/23 10:00
I&O
11/16/23 11/17/23 11/18/23
06:59 06:59 06:59
Intake Total 1128 / 1128 1068 / 1068
Output Total 2800 / 2800 1450 / 1450 800 / 800
Balance -1672 / -1672 -382 / -382 -800 / -800
[2023-11-17 14:13] LABS: APTT 129.9 Sec (23.4-35.0)
[2023-11-17] MEDS: HEPARIN 25000 UNITS/250 ML IV (15:06)
[2023-11-17] MEDS: COUMADIN 7.5 MG PO (16:58)
--- NOTE | 2023-11-17 17:09 | PTCARENOTE ---
Last PTT assessment 129.9, heparin drip decreased to 1200units/12mls as per protocol. Next PTT 2100. Coumadin dose of 7.5mg po given at this time. Patient currently sitting out of bed in chair. Using commode with assistance x1. Vital signs
stable
--- NOTE | 2023-11-17 17:15 | PTCARENOTE ---
Report given to Zakia MELGOZA. Patient transferred to [address] [place] [address] bed 1 in [facility]. All belongings with the patient. Patient's son went with her for the transfer.
[2023-11-17 17:27] LABS: Glucose - Point of Care 149 mg/dl (70-99)
[2023-11-17] MEDS: FLUSH (NSS) 2 FLUSH IV (20:38)
[2023-11-17 21:37] LABS: APTT 110.8 Sec (23.4-35.0)
[2023-11-18] VITALS (8 sets, daily range): BP systolic 96–152; BP diastolic 53–75; PULSE 70–76; BMI 26.8
[2023-11-18] MEDS: STERILE WATER FOR INJECTION 10 ML IV ×2 (01:27→08:05)
[2023-11-18] MEDS: MERREM 500 MG IV ×2 (01:27→08:05)
[2023-11-18 04:05] LABS: % Basophils 1.3 % (0-2); % Eosinophils 4.8 % (0-6); % Immature Granulocytes 0.9 % (0-0.5); % Lymphocytes 43.6 % (20.5-51.1); % Monocytes 7.7 % (1.7-9.3); % Neutrophils 41.7 % (42.2-75.2); Absolute Basophils 0.1 10^3/uL (0-0.2); Absolute Eosinophils 0.2 10^3/uL (0-0.7); Absolute Monocytes 0.4 10^3/uL (0.1-0.6); Absolute Neutrophils 1.9 10^3/uL (1.4-6.5); Hematocrit 28.9 % (37.0-47.0); Hemoglobin 9.6 g/dL (12.0-16.0); Mean Corp Hgb Conc. 33.2 g/dL (33.0-37.0); Mean Corpuscular Hgb 28.8 pg (27.0-31.0); Mean Corpuscular Volume 86.8 fL (81.0-99.0); Mean Platelet Volume 10.3 fL (7.4-10.4); Nucleated Red Blood Cells % 0 %; Platelet Count 299 10^3/uL (130-400); Red Blood Cell Count 3.33 10^6/uL (4.20-5.40); Red Cell Dist. Width 13.7 % (11.5-14.5); White Blood Cell Count 4.5 10^3/uL (4.8-10.8)
[2023-11-18 04:23] LABS: INR 1.23; PT 15.3 Sec (11.4-14.6)
[2023-11-18 04:25] LABS: APTT 116.9 Sec (23.4-35.0)
[2023-11-18 04:39] LABS: Blood Urea Nitrogen 10 mg/dl (7-17); Calcium 8.4 mg/dl (8.4-10.2); Carbon Dioxide 30 mmol/L (22-30); Chloride 103 mmol/L (98-107); Estimated Creatinine Clearance 74 ml/min; Glucose 140 mg/dl (70-99); Potassium 3.9 mmol/L (3.5-5.1); Sodium 136 mmol/L (135-145); eGFR > 60.00
[2023-11-18 07:47] LABS: Glucose - Point of Care 158 mg/dl (70-99)
[2023-11-18] MEDS: PROTONIX 40 MG PO (08:03)
[2023-11-18] MEDS: CARDIZEM CD 240 MG PO ×2 (08:03→21:16)
[2023-11-18] MEDS: VALTREX 500 MG PO (08:04)
[2023-11-18] MEDS: MUCINEX 1200 MG PO ×2 (08:04→21:16)
[2023-11-18] MEDS: EFFEXOR 37.5 MG PO ×2 (08:04→21:16)
[2023-11-18] MEDS: JANUVIA 100 MG PO (08:04)
[2023-11-18] MEDS: TOPROL XL 25 MG PO ×2 (08:05→21:16)
[2023-11-18] MEDS: VITAMIN D3 (cholecalciferol) 50 MCG PO (08:05)
[2023-11-18] MEDS: LASIX 20 MG PO (09:17)
--- NOTE | 2023-11-18 10:07 | W.PN.ID1 ---
Date of Service
Date of Service: November 18, 2023
Today's Communication
DC meropenem.
ID will sign off.
Assessment / Plan
# s/p Pneumonia with hypoxic resp insufficiency, off oxygen.
# Fever - resolved
# PCN, cephalosporin allergy
- Chest CT: bibasilar consolidation and ground glass opacities
- COVID negative. blood cx's x 2 neg.
-Suspect aspiration at time of emesis. Fever onset after hospital admission.
-DC Meropenem 500mg IVq6 (day 6)
# s/p Pulm edema/bilateral pleural effusions
# s/p Foodborne gastroenteritis (vs ischemic colitis per GI)
- onset several hours after dinner suggests ingestion of pre-formed toxin.
-symptoms resolved.
# Additional Past Medical History:
Afib s/p ablation
Mitral stenosis s/p mechanical valve replacement (2019)
tachy-alanna syndrome s/pp PPM
CAD
HTN
COPD
R eye HSV, on valacyclovir suppressive therapy
vocal cord paralysis
Sleep apnea on CPAP
Schatzki's ring
Bilateral THR
Chief Complaint
-: Pneumonia
Subjective / Review of Systems
Feels good. Has been off oxygen.
Vital Signs / Physical Exam
Vital Signs
Vital Signs
Temp Pulse Resp BP Pulse Ox
98.0 F 80 17 139/75 99
11/18/23 07:00 11/18/23 08:03 11/18/23 07:00 11/18/23 08:03 11/18/23 07:00
Physical Exam
Constitutional: No Acute Distress and Comfortable
Pulmonary: Clear
Gastrointestinal: Soft, Non Tender, Non Distended and Normal Bowel Sounds
Extremities: Negative Edema
Neurological: AO x 3
Objective Data
Lab Data
Lab Results
11/18/23 03:55
11/18/23 03:55
PT 15.3 Sec (11.4-14.6) H 11/18/23 03:55
PT Cancelled 11/18/23 03:55
INR 1.23 11/18/23 03:55
INR Cancelled 11/18/23 03:55
APTT 116.9 Sec (23.4-35.0) H 11/18/23 03:55
Estimated Creat Clear 74 ml/min 11/18/23 03:55
Lactic Acid 1.2 mmol/L (0.7-2.0) 11/10/23 01:58
Total Bilirubin 0.5 mg/dl (0.2-1.3) 11/10/23 01:44
AST 33 U/L (14-36) 11/10/23 01:44
ALT 25 U/L (0-35) 11/10/23 01:44
Alkaline Phosphatase 75 U/L (38-126) 11/10/23 01:44
Most recent labs reviewed.
Micro Results:
11/11/23 20:01 Blood Culture - Final
Blood/Venous No Growth - Final Report
11/11/23 18:51 Blood Culture - Final
Blood/Venous No Growth - Final Report
11/16/23 10:20 Cryptosporidium/Giardia - Final
Feces/Stool Negative for Cryptosporidium and/or Giardia Lamblia
antigens.
11/12/23 13:22 Salmonella/Shigella Culture - Final
Feces/Stool No Salmonella, Shigella, Aeromonas or Plesiomonas species
isolated.
Campylobacter Culture - Final
No Campylobacter species isolated.
Shiga Toxin Test - Final
No E. coli Shiga Toxin 1 or 2 detected.
Stool Leukocytes - Final
11/13/23 09:08 Legionella Urinary Antigen - Final
Urine Negative for Legionella pneumophila Serogroup 1 antigen.
A negative result does not rule out the possiblity of
Legionella infection due to other serogroups or species of
Legionella. Clinical correlation is recommended.
Streptococcus pneumoniae Antigen (M - Final
Negative for Streptococcus pneumoniae antigen.
A negative result does not exclude infection with
Streptococcus pneumoniae. Clinical correlation is
recommended.
11/13/23 08:16 Influenza Types A & B (JUAN) - Final
Nasal Swab Negative for Influenza A & B, NAAT
Negative results must be combined with clinical observations
and patient history.
Nucleic Acid Amplification test (NAAT)performed on the
[employer] platform.
11/10/23 09:47 MRSA Screen - Final
Nose No Methicillin Resistant Staphylococcus aureus isolated.
11/13/[address]: Stable examination. Mild chronic microvascular white matter ischemic disease. No acute intracranial abnormality identified. Small air-fluid level in the sphenoid sinus raising possibility of sinusitis.
11/12/[address]: Moderate bilateral pleural effusions. New. Moderate bibasilar consolidation which may represent pneumonia or atelectasis. New. Moderate bilateral lower lobe groundglass opacities concerning for developing pneumonia. New.
11/11/2023 CXR: Cardiomegaly. Findings highly suggestive of predominantly interstitial pulmonary edema, with small associated pleural effusions.
11/10/2023 CTA a/p: No CTA evidence for acute active gastrointestinal bleed. Mild wall thickening and mucosal hyperenhancement in the transverse, descending, and sigmoid colon suspicious for a mild acute colitis (either infectious or inflammatory in
etiology).
--- NOTE | 2023-11-18 10:39 | W.PN.HOSP.TC ---
Today's Communication/Plan
-
Monitor vital signs and see plan
Continue with Coumadin, heparin; goal INR 2.5-3.5
dc meropenem
PT/OT
home o2 eval in am
restart PO lasix
Assessment / Plan
Assessment / Plan
General: no respiratory distress
HEENT: Moist mucous membranes and PERRLA
Respiratory: Clear; No Wheezes
Cardiac: S1/S2 (Mechanical S2), Regular Rhythm and Murmur
GI: Soft, Non Distended, Normal Bowel Sounds
Musculoskeletal: No Clubbing, No Cyanosis and No Edema
Neuro: AO x 3
BRBPR suspect 2/2 colitis
Etiology of bleeding could be infectious versus ischemic
Coumadin Coagulopathy
Acute Blood Loss Anemia secondary to the above
�- now started on diabetic diet
�- Hgb 9.6
�- Continue to monitor H&H and transfuse if needed.
�- Follow for any recurrent BRBPR.
�- GI following
�-Restart Coumadin since no intervention planned by GI. Patient has mechanical mitral valve so will need bridging. Will need IV heparin until INR is greater than 2.5. goal INR 2.5-3.5
�- K-Centra / Vit K given in ED on admission; since patient has mechanical mitral valve for goal INR 2.5-3.5. Continue with IV heparin
�- Follow daily INR.
stool studies neg
Sepsis suspect 2/2 Pneumonia
Unclear if sepsis was present on admission
Acute hypoxic respiratory insufficiency secondary to above, now weaned off o2; check home o2 eval in am
suspect aspiration PNA on CT chest
follow fever curve; follow bcx
started on meropenem; ID following. dc meropenem today; completed course
covid neg; flu, Legionella, strep neg
UA without UTI
Hypokalemia
resolved
Blurry vision with white sport in the center
symptoms resolved
no slurred speech,sensory or motor deficits
denies eye pain; confirmed with pharmacy that it is not from meropenem
CT head without acute CVA
hx of cataract
Chronic Atrial Fibrillation
�- Stable.� Maintaining NSR s/p recent PVI ablation.
�- Will continue diltiazem for now with holding parameters.
�- coumadin restarted
�- Monitor on telemetry.
Cr 1.2 on 11/10 appear abnormal lab value
Mitral Valve Stenosis s/p Mechanical MVR
cw IV heparin and coumadin until INR>2.5; goal INR 2.5-3.5
echo with EF 55 to 60%, diastolic function indeterminate.
Suspect iatrogenic volume overloaded 10/18 fluids
responded to IV lasix; follow clinically
restarted usual PO lasix
COPD
Vocal Cord Paralysis
JENNIFER on CPAP
�- Nebs PRN.
�- Continue nightly CPAP.
DM-II
�- Stable.� Hold PO medications acutely.
�- Follow glucose and cover with SSI as needed.
�- A1C 6.3
GERD / Schatzki's Ring / Hiatal Hernia
�- Stable.� Doubt UGI source of bleeding based on presenting symptoms.
�- PO PPI
�- GI following
History of pulmonary hypertension
Anxiety / Depression
�- Stable.� Continue venlafaxine.
DVT Prophylaxis:� SCDs,hep
Code Status:� Full
Anticipated Discharge: 24 - 48 hours
Subjective/Interval History
-
Date of Service: November 18, 2023
denies pain
Objective Data
-
Labs:
Laboratory Results
11/18/23 11/18/23 11/18/23
03:55 03:55 03:55
WBC 4.5 L
Hgb 9.6 L
Hct 28.9 L
Plt Count 299
PT Cancelled 15.3 H
INR Cancelled 1.23
APTT 116.9 H
Sodium 136
Potassium 3.9
Chloride 103
Carbon Dioxide 30
BUN 10
Creatinine 0.6
Glucose 140 H
Calcium 8.4
11/18/23
11:02
WBC
Hgb
Hct
Plt Count
PT
INR
APTT Pending
Sodium
Potassium
Chloride
Carbon Dioxide
BUN
Creatinine
Glucose
Calcium
Vital Signs:
Vital Signs
Temp Pulse Resp BP Pulse Ox
98.0 F 80 17 139/75 99
11/18/23 07:00 11/18/23 08:03 11/18/23 07:00 11/18/23 08:03 11/18/23 08:00
I&O
11/17/23 11/18/23 11/19/23
06:59 06:59 06:59
Intake Total 1068 / 1068 950 / 950
Output Total 1450 / 1450 1540 / 1540
Balance -382 / -382 -590 / -590
[2023-11-18 11:20] LABS: APTT 113.6 Sec (23.4-35.0)
[2023-11-18 11:48] LABS: Glucose - Point of Care 193 mg/dl (70-99)
[2023-11-18] MEDS: HEPARIN 25000 UNITS/250 ML IV (12:48)
[2023-11-18 16:31] LABS: Glucose - Point of Care 165 mg/dl (70-99)
--- NOTE | 2023-11-18 17:42 | CM ---
patient to restart lasix,cont coumadin,uses nightly cpap,wean oxygren.home o2 eval.cm to follow for adarsh eoxygen needs.
Plan home .
[2023-11-18] MEDS: COUMADIN 7.5 MG PO (18:20)
[2023-11-18 18:51] LABS: APTT 80.6 Sec (23.4-35.0)
[2023-11-18] MEDS: LOW STRENGTH ASPIRIN 81 MG PO (21:18)
[2023-11-18] MEDS: CRESTOR 5 MG PO (21:18)
[2023-11-19] VITALS (7 sets, daily range): BP systolic 127–154; BP diastolic 47–73; PULSE 80; BMI 26.3
[2023-11-19 01:23] LABS: APTT 100.8 Sec (23.4-35.0)
[2023-11-19 06:21] LABS: Glucose - Point of Care 149 mg/dl (70-99)
[2023-11-19 08:33] LABS: % Basophils 1.4 % (0-2); % Eosinophils 4.4 % (0-6); % Immature Granulocytes 0.9 % (0-0.5); % Lymphocytes 32.4 % (20.5-51.1); % Monocytes 8.6 % (1.7-9.3); % Neutrophils 52.3 % (42.2-75.2); Absolute Basophils 0.1 10^3/uL (0-0.2); Absolute Eosinophils 0.2 10^3/uL (0-0.7); Absolute Lymphocytes 1.4 10^3/uL (1.2-3.4); Absolute Monocytes 0.4 10^3/uL (0.1-0.6); Absolute Neutrophils 2.3 10^3/uL (1.4-6.5); Hematocrit 32.4 % (37.0-47.0); Hemoglobin 10.8 g/dL (12.0-16.0); Mean Corp Hgb Conc. 33.3 g/dL (33.0-37.0); Mean Corpuscular Hgb 29.5 pg (27.0-31.0); Mean Corpuscular Volume 88.5 fL (81.0-99.0); Mean Platelet Volume 10.7 fL (7.4-10.4); Nucleated Red Blood Cells % 0 %; Platelet Count 328 10^3/uL (130-400); Red Blood Cell Count 3.66 10^6/uL (4.20-5.40); Red Cell Dist. Width 13.5 % (11.5-14.5); White Blood Cell Count 4.3 10^3/uL (4.8-10.8)
[2023-11-19 08:43] LABS: INR 1.25; PT 15.5 Sec (11.4-14.6)
[2023-11-19] MEDS: MUCINEX 1200 MG PO ×2 (08:59→20:13)
[2023-11-19 09:00] LABS: Blood Urea Nitrogen 12 mg/dl (7-17); Calcium 8.8 mg/dl (8.4-10.2); Carbon Dioxide 28 mmol/L (22-30); Chloride 104 mmol/L (98-107); Estimated Creatinine Clearance 63 ml/min; Glucose 151 mg/dl (70-99); Potassium 4.3 mmol/L (3.5-5.1); Sodium 135 mmol/L (135-145); eGFR > 60.00
[2023-11-19] MEDS: PROTONIX 40 MG PO (09:00)
[2023-11-19] MEDS: TOPROL XL 25 MG PO ×2 (09:00→20:14)
[2023-11-19] MEDS: EFFEXOR 37.5 MG PO ×2 (09:00→20:14)
[2023-11-19] MEDS: JANUVIA 100 MG PO (09:00)
[2023-11-19] MEDS: VALTREX 500 MG PO (09:00)
[2023-11-19] MEDS: VITAMIN D3 (cholecalciferol) 50 MCG PO (09:00)
[2023-11-19] MEDS: CARDIZEM CD 240 MG PO ×2 (09:01→20:13)
[2023-11-19] MEDS: LASIX 20 MG PO (09:03)
--- NOTE | 2023-11-19 12:34 | CM ---
CM met with pt
PT recs - home with HH
Spoke with pt - declines home health
Plan - Home - with out HH - watch for home oxygen needs
--- NOTE | 2023-11-19 13:03 | W.PN.HOSP.TC ---
Today's Communication/Plan
-
assess INR in AM. May consider discharge on Lovenox/coumadin bridge tomorrow.
Assessment / Plan
Assessment / Plan
Gen: NAD, AAOx3.
Eyes: EOMI, PERRLA, no scleral icterus.
Neck: supple.
CV: RRR, +S1/S2, no m/r/g.
Resp: CTAB anteriorly, no rales, wheezes, or rhonchi.
Abd: +BS, soft, NT, ND
Skin: No rashes.
Neuro: CN 2-12 intact, non-focal.
Psych: Normal mood and affect.
CTA A/P:
1. � No CTA evidence for acute active gastrointestinal bleed.
2. � Mild wall thickening and mucosal hyperenhancement in the transverse, descending, and sigmoid colon suspicious for a mild acute colitis (either infectious or inflammatory in etiology).
3. � Small hiatal hernia.
4. � Small bilateral adrenal adenomas.
5. � Mild hepatosplenomegaly.
6. � Severe calcific atherosclerotic plaque in the abdominal aorta.
7. � 2.0 cm simple cyst in the right ovary.
8. � Severely exaggerated lumbar lordosis secondary to severe lower lumbar facet joint arthrosis.
9. 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
CTA chest: No PE. Moderate bilateral pleural effusions. New. Moderate bibasilar consolidation which may represent pneumonia or atelectasis. New. Moderate bilateral lower lobe groundglass opacities concerning for developing pneumonia. New. Mild right
hilar lymphadenopathy likely reactive. New.
Acute blood loss anemia due to bright red blood per rectum due to colitis, infectious versus ischemic:
-Coumadin coagulopathy on admission and INR was reversed with KCentra in ER
-Coumadin contributed to GI bleeding
-GI saw in consult
-s/p 1U pRBCs
h/o mechanical MV:
-cont Heparin/coumadin bridge, goal INR 2.5-3.5. Increase coumadin to 10mg.
Acute hypoxemic respiratory insufficiency and sepsis due to aspiration pneumonia:
-home O2 eval
-completed course of abx with Meropenem as per ID
Other problems:
Hypokalemia, resolved
Chronic Afib, recent PVI ablation: Cont cardizem/BB. Cont heparin/coumadin bridge.
Suspect iatrogenic volume overloaded due to IVFs, resolved with IV lasix, restarted on home PO lasix
COPD, not in acute exac
Vocal Cord Paralysis
JENNIFER on CPAP
DM2: a1c 6.3%, cont Januvia, SSI/accuchecks
GERD/Schatzki's Ring/Hiatal Hernia: cont PPI
h/o PE, currently on heparin/coumadin bridge
Anxiety/Depression: Continue venlafaxine.
FULL/SCDs
Anticipated Discharge: Within 24 hours
Subjective/Interval History
-
Date of Service: November 19, 2023
Chronic SOB, no CP.
Objective Data
-
Labs:
Laboratory Results
11/19/23 11/19/23 11/19/23
01:02 08:02 08:02
WBC 4.3 L
Hgb 10.8 L
Hct 32.4 L
Plt Count 328
PT Cancelled 15.5 H
INR Cancelled
APTT 100.8 H
Sodium
Potassium
Chloride
Carbon Dioxide
BUN
Creatinine
Glucose
Calcium
11/19/23
08:02
WBC
Hgb
Hct
Plt Count
PT
INR 1.25
APTT 104.0 H
Sodium 135
Potassium 4.3
Chloride 104
Carbon Dioxide 28
BUN 12
Creatinine 0.7
Glucose 151 H
Calcium 8.8
Vital Signs:
Vital Signs
Temp Pulse Resp BP Pulse Ox
98.0 F 77 17 127/67 99
11/19/23 11:00 11/19/23 11:00 11/19/23 11:00 11/19/23 11:00 11/19/23 11:00
I&O
11/18/23 11/19/23 11/20/23
06:59 06:59 06:59
Intake Total 950 / 950 1680 / 1680
Output Total 1540 / 1540
Balance -590 / -590 1680 / 1680
[2023-11-19] MEDS: HEPARIN 25000 UNITS/250 ML IV (14:42)
[2023-11-19 16:24] LABS: Glucose - Point of Care 189 mg/dl (70-99)
[2023-11-19] MEDS: COUMADIN 10 MG PO (17:16)
[2023-11-19] MEDS: LOW STRENGTH ASPIRIN 81 MG PO (21:20)
[2023-11-19] MEDS: CRESTOR 5 MG PO (21:20)
[2023-11-20] VITALS (8 sets, daily range): BP systolic 115–155; BP diastolic 53–68; PULSE 69–78; BMI 26.0
[2023-11-20 06:09] LABS: Glucose - Point of Care 165 mg/dl (70-99)
[2023-11-20 09:42] LABS: APTT 69.6 Sec (23.4-35.0)
[2023-11-20] MEDS: MUCINEX 1200 MG PO ×2 (10:36→20:39)
[2023-11-20] MEDS: CARDIZEM CD 240 MG PO ×2 (10:36→20:38)
[2023-11-20] MEDS: EFFEXOR 37.5 MG PO ×2 (10:37→20:38)
[2023-11-20] MEDS: PROTONIX 40 MG PO (10:37)
[2023-11-20] MEDS: TOPROL XL 25 MG PO ×2 (10:37→20:38)
[2023-11-20] MEDS: JANUVIA 100 MG PO (10:37)
[2023-11-20] MEDS: VITAMIN D3 (cholecalciferol) 50 MCG PO (10:38)
[2023-11-20] MEDS: VALTREX 500 MG PO (10:38)
[2023-11-20] MEDS: LASIX 20 MG PO (10:41)
[2023-11-20 12:01] LABS: INR 1.44; PT 17.6 Sec (11.4-14.6)
--- NOTE | 2023-11-20 12:33 | W.PN.HOSP.TC ---
Addendum entered and electronically signed by Deny Portillo MD 11/20/23 15:39:
Acute ischemic colitis
Original Note:
Today's Communication/Plan
-
see bold
Assessment / Plan
Assessment / Plan
Gen: NAD, AAOx3.
Eyes: EOMI, PERRLA, no scleral icterus.
Neck: supple.
CV: remains RRR, +S1/S2, no m/r/g.
Resp: remains CTAB anteriorly, no rales, wheezes, or rhonchi.
Abd: +BS, soft, NT, ND
Skin: No rashes. Medial R foot with gout tophi which is TTP
Neuro: CN 2-12 intact, non-focal.
Psych: Normal mood and affect.
CTA A/P:
1. � No CTA evidence for acute active gastrointestinal bleed.
2. � Mild wall thickening and mucosal hyperenhancement in the transverse, descending, and sigmoid colon suspicious for a mild acute colitis (either infectious or inflammatory in etiology).
3. � Small hiatal hernia.
4. � Small bilateral adrenal adenomas.
5. � Mild hepatosplenomegaly.
6. � Severe calcific atherosclerotic plaque in the abdominal aorta.
7. � 2.0 cm simple cyst in the right ovary.
8. � Severely exaggerated lumbar lordosis secondary to severe lower lumbar facet joint arthrosis.
9. 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
CTA chest: No PE. Moderate bilateral pleural effusions. New. Moderate bibasilar consolidation which may represent pneumonia or atelectasis. New. Moderate bilateral lower lobe groundglass opacities concerning for developing pneumonia. New. Mild right
hilar lymphadenopathy likely reactive. New.
Acute blood loss anemia due to bright red blood per rectum due to colitis, infectious versus ischemic:
-Coumadin coagulopathy on admission and INR was reversed with KCentra in ER
-Coumadin contributed to GI bleeding
-GI saw in consult
-s/p 1U pRBCs
h/o mechanical MV:
-cont Heparin/coumadin bridge, goal INR 2.5-3.5. cont coumadin at 10mg.
Acute hypoxemic respiratory insufficiency and sepsis due to aspiration pneumonia:
-home O2 eval
-completed course of abx with Meropenem as per ID
Other problems:
Hypokalemia, resolved
Chronic Afib, recent PVI ablation: Cont cardizem/BB. Cont heparin/coumadin bridge.
Suspect iatrogenic volume overloaded due to IVFs, resolved with IV lasix, restarted on home PO lasix
COPD, not in acute exac
Vocal Cord Paralysis
JENNIFER on CPAP
DM2: a1c 6.3%, cont Januvia, SSI/accuchecks
GERD/Schatzki's Ring/Hiatal Hernia: cont PPI
h/o PE, currently on heparin/coumadin bridge
Anxiety/Depression: Continue venlafaxine.
FULL/SCDs
Anticipated Discharge: 24 - 48 hours
Subjective/Interval History
-
Date of Service: November 20, 2023
c/o R foot gout
Objective Data
-
Labs:
Laboratory Results
11/20/23 11/20/23 11/20/23
07:23 11:40 16:50
PT 17.6 H
INR 1.44
APTT 69.6 H Pending
Vital Signs:
Vital Signs
Temp Pulse Resp BP Pulse Ox
97.9 F 77 18 155/66 98
11/20/23 11:00 11/20/23 11:00 11/20/23 11:00 11/20/23 11:00 11/20/23 11:00
I&O
11/19/23 11/20/23 11/21/23
06:59 06:59 06:59
Intake Total 1680 / 1680 1020 / 1020
Balance 1680 / 1680 1020 / 1020
[2023-11-20] MEDS: TYLENOL 650 MG PO (14:37)
--- NOTE | 2023-11-20 14:42 | PN.CDI ---
CDI
- -
CDI:
Physician Documentation Request
Admit Date: 11/10/23 04:51
Dear Doctor Bandar,
Please review the following and provide your response in the progress notes.
Clinical Indicators:
Pt with sepsis 2/2 aspiration PNA/ Infectious Colitis vs Ischemic Colitis
GI consult, ' Etiology for her bleeding could be infectious versus ischemic with low flow not necessarily clot driven -she did have sudden onset abdominal discomfort followed by rectal bleeding...'
Clarify which of the following represents the suspected acuity of the Ischemic Colitis :
Acute
Acute on Chronic
Chronic
Other
Use of terms such as suspected, likely, concern for, or probable (associated with a specific diagnosis that is being evaluated, monitored, or treated as if it exists) are acceptable and can be coded in the inpatient setting, when documented at the
time of discharge.
Thank you,
Rosemarie White RN
CDI Specialist
[place] [facility]
Please use your independent medical judgment in providing your response.
[2023-11-20] MEDS: HEPARIN 25000 UNITS/250 ML IV (15:27)
[2023-11-20 16:39] LABS: Glucose - Point of Care 170 mg/dl (70-99)
[2023-11-20 17:12] LABS: APTT 118.7 Sec (23.4-35.0)
[2023-11-20] MEDS: COLCHICINE 0.599999999999999978 MG PO (20:39)
[2023-11-20] MEDS: CRESTOR 5 MG PO (21:36)
[2023-11-20] MEDS: LOW STRENGTH ASPIRIN 81 MG PO (21:36)
[2023-11-20] MEDS: COUMADIN 10 MG PO (21:36)
[2023-11-21] VITALS (7 sets, daily range): BP systolic 125–144; BP diastolic 60–76; PULSE 75; BMI 26.2
[2023-11-21 01:09] LABS: INR 1.45; PT 17.7 Sec (11.4-14.6)
[2023-11-21 01:12] LABS: APTT 138.6 Sec (23.4-35.0)
[2023-11-21 06:07] LABS: Glucose - Point of Care 162 mg/dl (70-99)
[2023-11-21 08:51] LABS: APTT 66.7 Sec (23.4-35.0)
[2023-11-21] MEDS: PROTONIX 40 MG PO (09:13)
[2023-11-21] MEDS: EFFEXOR 37.5 MG PO ×2 (09:14→20:13)
[2023-11-21] MEDS: CARDIZEM CD 240 MG PO ×2 (09:14→20:14)
[2023-11-21] MEDS: TOPROL XL 25 MG PO ×2 (09:14→20:13)
[2023-11-21] MEDS: COLCHICINE 0.599999999999999978 MG PO ×2 (09:14→20:13)
[2023-11-21] MEDS: VITAMIN D3 (cholecalciferol) 50 MCG PO (09:14)
[2023-11-21] MEDS: JANUVIA 100 MG PO (09:14)
[2023-11-21] MEDS: MUCINEX 1200 MG PO ×2 (09:14→20:13)
[2023-11-21] MEDS: VALTREX 500 MG PO (09:14)
[2023-11-21] MEDS: LASIX 20 MG PO (09:17)
--- NOTE | 2023-11-21 10:41 | W.PN.HOSP.TC ---
Today's Communication/Plan
-
see bold
Assessment / Plan
Assessment / Plan
Gen: NAD, AAOx3.
Eyes: EOMI, PERRLA, no scleral icterus.
Neck: supple.
CV: Continues to remain RRR, +S1/S2, no m/r/g.
Resp: Continues to remain CTAB anteriorly, no rales, wheezes, or rhonchi.
Abd: +BS, soft, NT, ND
Skin: No rashes.
Neuro: CN 2-12 intact, non-focal.
Psych: Normal mood and affect.
CTA A/P:
1. � No CTA evidence for acute active gastrointestinal bleed.
2. � Mild wall thickening and mucosal hyperenhancement in the transverse, descending, and sigmoid colon suspicious for a mild acute colitis (either infectious or inflammatory in etiology).
3. � Small hiatal hernia.
4. � Small bilateral adrenal adenomas.
5. � Mild hepatosplenomegaly.
6. � Severe calcific atherosclerotic plaque in the abdominal aorta.
7. � 2.0 cm simple cyst in the right ovary.
8. � Severely exaggerated lumbar lordosis secondary to severe lower lumbar facet joint arthrosis.
9. 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
CTA chest: No PE. Moderate bilateral pleural effusions. New. Moderate bibasilar consolidation which may represent pneumonia or atelectasis. New. Moderate bilateral lower lobe groundglass opacities concerning for developing pneumonia. New. Mild right
hilar lymphadenopathy likely reactive. New.
Acute blood loss anemia due to bright red blood per rectum due to colitis, infectious versus ischemic:
-Coumadin coagulopathy on admission and INR was reversed with KCentra in ER
-Coumadin contributed to GI bleeding
-GI saw in consult
-s/p 1U pRBCs
h/o mechanical MV:
-cont Heparin/coumadin bridge, goal INR 2.5-3.5. Increase coumadin to 12.5mg.
Acute hypoxemic respiratory insufficiency and sepsis due to aspiration pneumonia:
-home O2 eval
-completed course of abx with Meropenem as per ID
Other problems:
Hypokalemia, resolved
Chronic Afib, recent PVI ablation: Cont cardizem/BB. Cont heparin/coumadin bridge.
Suspect iatrogenic volume overloaded due to IVFs, resolved with IV lasix, restarted on home PO lasix
COPD, not in acute exac
Vocal Cord Paralysis
JENNIFER on CPAP
DM2: a1c 6.3%, cont Januvia, SSI/accuchecks
GERD/Schatzki's Ring/Hiatal Hernia: cont PPI
h/o PE, currently on heparin/coumadin bridge
Anxiety/Depression: Continue venlafaxine.
FULL/SCDs
Anticipated Discharge: 24 - 48 hours
Subjective/Interval History
-
Date of Service: November 21, 2023
Complains of constipation.
Objective Data
-
Labs:
Laboratory Results
11/21/23 11/21/23 11/21/23
00:53 06:00 08:24
PT 17.7 H Cancelled
INR 1.45 Cancelled
APTT 138.6 H 66.7 H
11/21/23
15:10
PT
INR
APTT Pending
Vital Signs:
Vital Signs
Temp Pulse Resp BP Pulse Ox
98.0 F 74 18 135/68 100
11/21/23 07:00 11/21/23 09:14 11/21/23 07:00 11/21/23 09:14 11/21/23 03:00
I&O
11/20/23 11/21/23 11/22/23
06:59 06:59 06:59
Intake Total 1020 / 1020 1440 / 1440
Balance 1020 / 1020 1440 / 1440
[2023-11-21 15:45] LABS: APTT 90.6 Sec (23.4-35.0)
[2023-11-21] MEDS: CITROMA 300 ML PO (15:49)
[2023-11-21 16:52] LABS: Glucose - Point of Care 122 mg/dl (70-99)
[2023-11-21] MEDS: COUMADIN 12.5 MG PO (17:47)
[2023-11-21] MEDS: HEPARIN 25000 UNITS/250 ML IV (20:17)
[2023-11-21] MEDS: LOW STRENGTH ASPIRIN 81 MG PO (21:25)
[2023-11-21] MEDS: CRESTOR 5 MG PO (21:25)
[2023-11-21 22:00] LABS: APTT 93.1 Sec (23.4-35.0)
[2023-11-22 00:09] LABS: Glucose - Point of Care 183 mg/dl (70-99)
[2023-11-22 03:00] VITALS: BP 138/65
[2023-11-22 04:16] VITALS: PULSE 77
[2023-11-22 05:43] VITALS: BMI 25.7
[2023-11-22 05:51] LABS: INR 1.63; PT 19.4 Sec (11.4-14.6)
[2023-11-22 05:53] LABS: APTT 113.7 Sec (23.4-35.0)
[2023-11-22 06:03] LABS: Glucose - Point of Care 153 mg/dl (70-99)
[2023-11-22 07:00] VITALS: BP 160/74
--- NOTE | 2023-11-22 08:03 | W.PN.HOSP.TC ---
Addendum entered and electronically signed by Deny Portillo MD 11/22/23 15:42:
Dr. Singletary updated over the phone on the pt's discharge plan.
Addendum entered and electronically signed by Deny Portillo MD 11/22/23 15:06:
Patient has decided that she would like to go home on a Lovenox Coumadin bridge. Case management reports that they have discussed with the patient 3 times about having visiting nurses come in the patient reports she can give her injections without
help.
Message left with pt's PCP, Dr. Milo Singletary, to discuss pt's hospitalization and discharge plan.
Total time spent on d/c = 36 min. This included today's physical exam, progress note, review of laboratory and diagnostic data, preparation of discharge documents and prescriptions, and discussions about the pt's hospital course and discharge plan
with the patient and other anesthesiology medical doctor involved in the patient's care.
Original Note:
Today's Communication/Plan
-
see bold
Assessment / Plan
Assessment / Plan
Gen: NAD, Awake and alert
Eyes: EOMI, PERRLA, no scleral icterus.
Neck: supple.
CV: RRR, +S1/S2, no m/r/g.
Resp: CTAB anteriorly, no rales, wheezes, or rhonchi.
Abd: +BS, soft, NT, ND
Skin: No rashes.
Neuro: remains CN 2-12 intact, non-focal.
Psych: remains Normal mood and affect.
CTA A/P:
1. � No CTA evidence for acute active gastrointestinal bleed.
2. � Mild wall thickening and mucosal hyperenhancement in the transverse, descending, and sigmoid colon suspicious for a mild acute colitis (either infectious or inflammatory in etiology).
3. � Small hiatal hernia.
4. � Small bilateral adrenal adenomas.
5. � Mild hepatosplenomegaly.
6. � Severe calcific atherosclerotic plaque in the abdominal aorta.
7. � 2.0 cm simple cyst in the right ovary.
8. � Severely exaggerated lumbar lordosis secondary to severe lower lumbar facet joint arthrosis.
9. 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
CTA chest: No PE. Moderate bilateral pleural effusions. New. Moderate bibasilar consolidation which may represent pneumonia or atelectasis. New. Moderate bilateral lower lobe groundglass opacities concerning for developing pneumonia. New. Mild right
hilar lymphadenopathy likely reactive. New.
Acute blood loss anemia due to bright red blood per rectum due to colitis, infectious versus ischemic:
-Coumadin coagulopathy on admission and INR was reversed with KCentra in ER
-Coumadin contributed to GI bleeding
-GI saw in consult
-s/p 1U pRBCs
-Hb stable
h/o mechanical MV:
-cont Heparin/coumadin bridge, goal INR 2.5-3.5.
-Cont coumadin at 15mg.
Acute hypoxemic respiratory insufficiency and sepsis due to aspiration pneumonia:
-completed course of abx with Meropenem as per ID
Other problems:
Hypokalemia, resolved
Chronic Afib, recent PVI ablation: Cont cardizem/BB. Cont heparin/coumadin bridge.
Suspect iatrogenic volume overloaded due to IVFs, resolved with IV lasix, restarted on home PO lasix
COPD, not in acute exac
Vocal Cord Paralysis
JENNIFER on CPAP
DM2: a1c 6.3%, cont Januvia, SSI/accuchecks
GERD/Schatzki's Ring/Hiatal Hernia: cont PPI
h/o PE, currently on heparin/coumadin bridge
Anxiety/Depression: Continue venlafaxine.
FULL/SCDs
Anticipated Discharge: 24 - 48 hours
Subjective/Interval History
-
Date of Service: November 22, 2023
No new complaints.
Objective Data
-
Labs:
Laboratory Results
0311/22/23 11/22/23
21:42 05:32 12:00
PT 19.4 H
INR 1.63
APTT 93.1 H 113.7 H Pending
Vital Signs:
Vital Signs
Temp Pulse Resp BP Pulse Ox
97.5 F 74 18 138/65 100
11/22/23 03:00 11/22/23 03:00 11/22/23 03:00 11/22/23 03:00 11/22/23 03:00
I&O
11/21/23 11/22/23 11/23/23
06:59 06:59 06:59
Intake Total 1440 / 1440 600 / 600
Balance 1440 / 1440 600 / 600
[2023-11-22] MEDS: CARDIZEM CD 240 MG PO (08:21)
[2023-11-22] MEDS: MUCINEX 1200 MG PO (08:22)
[2023-11-22] MEDS: EFFEXOR 37.5 MG PO (08:22)
[2023-11-22] MEDS: TOPROL XL 25 MG PO (08:22)
[2023-11-22] MEDS: COLCHICINE 0.599999999999999978 MG PO (08:22)
[2023-11-22] MEDS: VALTREX 500 MG PO (08:22)
[2023-11-22] MEDS: JANUVIA 100 MG PO (08:22)
[2023-11-22] MEDS: PROTONIX 40 MG PO (08:22)
[2023-11-22] MEDS: VITAMIN D3 (cholecalciferol) 50 MCG PO (08:22)
[2023-11-22] MEDS: LASIX 20 MG PO (08:25)
[2023-11-22 08:29] LABS: Glucose - Point of Care 177 mg/dl (70-99)
[2023-11-22 08:34] LABS: Hematocrit 34.4 % (37.0-47.0); Hemoglobin 11.2 g/dL (12.0-16.0); Mean Corp Hgb Conc. 32.6 g/dL (33.0-37.0); Mean Corpuscular Hgb 28.5 pg (27.0-31.0); Mean Corpuscular Volume 87.5 fL (81.0-99.0); Mean Platelet Volume 10.6 fL (7.4-10.4); Platelet Count 376 10^3/uL (130-400); Red Blood Cell Count 3.93 10^6/uL (4.20-5.40); Red Cell Dist. Width 13.4 % (11.5-14.5); White Blood Cell Count 4.7 10^3/uL (4.8-10.8)
[2023-11-22 08:50] LABS: Blood Urea Nitrogen 14 mg/dl (7-17); Calcium 9.2 mg/dl (8.4-10.2); Carbon Dioxide 31 mmol/L (22-30); Chloride 102 mmol/L (98-107); Estimated Creatinine Clearance 55 ml/min; Glucose 157 mg/dl (70-99); Sodium 135 mmol/L (135-145); eGFR > 60.00
[2023-11-22 11:00] VITALS: BP 146/63
[2023-11-22 12:37] LABS: APTT 77.1 Sec (23.4-35.0)
--- NOTE | 2023-11-22 14:45 | CM ---
Chart reviewed> Spoke with pt at bedside
Pt reports she feels comfortable giving herself an injection should she be d/c'ed on Lovenox
Declining home care/VN
Discussed IMM
Plan - home no needs
--- NOTE | 2023-11-22 16:33 | PTCARENOTE ---
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
--- NOTE | 2023-11-22 16:56 | W.PN.UPDATE ---
Update Note
Progress Note Update
I met with the patient and her daughter in the discharge lounge. There was an error on the discharge instructions. The Lovenox was ordered daily. This has been rectified and resent to the patient's pharmacy. The patient should take Lovenox 70mg
SC Q12H.
--- NOTE | 2023-11-22 17:00 | W.DCSUMMARY ---
Discharge Summary
Discharge Data
Date of Admission: 11/10/23
Date of Discharge: 11/22/23
-
Pending Results: No
Hospital Course
Primary diagnoses:
Acute blood loss anemia due to bright red blood per rectum due to likely acute ischemic colitis
Acute hypoxemic respiratory insufficiency and sepsis due to aspiration pneumonia
Secondary diagnoses:
Coumadin coagulopathy
h/o mechanical mitral valve
Hypokalemia
Chronic atrial fibrillation with recent PVI ablation
Iatrogenic volume overloaded
Chronic obstructive pulmonary disease
Vocal Cord Paralysis
Obstructive sleep apnea
Type 2 diabetes mellitus
Gastroesophageal reflux disease
Schatzki's Ring
Hiatal Hernia
h/o pulmonary embolism
Anxiety
Depression
Consultants:
Infectious disease
Gastroenterology
Imaging:
CTA A/P:
1. � No CTA evidence for acute active gastrointestinal bleed.
2. � Mild wall thickening and mucosal hyperenhancement in the transverse, descending, and sigmoid colon suspicious for a mild acute colitis (either infectious or inflammatory in etiology).
3. � Small hiatal hernia.
4. � Small bilateral adrenal adenomas.
5. � Mild hepatosplenomegaly.
6. � Severe calcific atherosclerotic plaque in the abdominal aorta.
7. � 2.0 cm simple cyst in the right ovary.
8. � Severely exaggerated lumbar lordosis secondary to severe lower lumbar facet joint arthrosis.
9. 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
CTA chest: No PE. Moderate bilateral pleural effusions. New. Moderate bibasilar consolidation which may represent pneumonia or atelectasis. New. Moderate bilateral lower lobe groundglass opacities concerning for developing pneumonia. New. Mild right
hilar lymphadenopathy likely reactive. New.
Echo: Technically difficult study with for image quality.
�Normal left ventricular size, wall thickness and systolic function.
�LV ejection fraction is 55-60% Diastolic function indeterminate.
�Mechanical prosthetic mitral valve.Mean gradient is 5 mmHg.
�Mild to moderate aortic stenosis.
�Moderate tricuspid regurgitation.
�Compared to the previous report from 09/03/2023 transaortic gradients have
�increased.� Previously peak of 16 and mean of 10 mmHg with mild aortic
�stenosis.
78-year-old female who presented with a chief complaint of rectal bleeding as outlined in the H&P done on admission. Hospital course per problem list:
Acute blood loss anemia due to bright red blood per rectum due to likely acute ischemic colitis: Imaging above. The patient had a coumadin coagulopathy on admission and INR was reversed with KCentra in ER. Coumadin contributed to GI bleeding. The
patient was seen in consultation by GI. She required only 1 unit of packed red blood cells while hospitalized. At the time of discharge her hemoglobin was stable. It is likely that her rectal bleeding was due to ischemic colitis. Her rectal
bleeding resolved by the time of discharge.
h/o mechanical mitral valve: Patient was on heparin/coumadin bridge while hospitalized. Prior to her INR becoming therapeutic she requested to be discharged on a Lovenox.Coumadin bridge.
Acute hypoxemic respiratory insufficiency and sepsis due to aspiration pneumonia: The patient completed a course of antibiotics with Meropenem as per ID. She was on room air at the time of discharge.
Discharge Plan
-
Patient Disposition: Home (Routine Discharge)
Discharge Diagnosis/Procedures: Acute blood loss anemia due to bright red blood per rectum due to acute ischemic colitis
Condition: Good
Diet: Diabetic, Carb Controlled
Activity: As tolerated
Driving Restrictions: As prior to admission
Blood Work: INR daily until INR 2.5-2.5, BMP and CBC in 3-5 days, script from PCP
Referrals:
Milo Singletary MD [Family Provider] - in less than 1 week
Marcia Jones DO [Active] - (call GI office to arrange 3-4 week follow up for colitis to discuss need for repeat colonoscopy)
Prescriptions:
New
warfarin [Jantoven] 7.5 mg Tablet
15 mg PO QPM 30 Days Qty: 60 0RF
pantoprazole 40 mg Tablet,Delayed Release (Dr/Ec)
40 mg PO DAILY Qty: 30 0RF
enoxaparin [Lovenox] 80 mg/0.8 mL syringe
70 mg SC Q12H Qty: 8 0RF
Continued
venlafaxine 37.5 MG tablet
37.5 mg PO BID
calcium citrate 200 MG tablet
600 mg PO HS
guaifenesin 400 MG tablet
400 mg PO BID
cinnamon bark [Cinnamon] 500 MG capsule
1,000 mg PO QPM
glucosamine HCl 1,500 MG tablet
1,500 mg PO QPM
B-complex with vitamin C 1 CAPLET tablet
1 cap PO HS
multivitamin with folic acid [Tab-A-Francisco] 1 TABLET tablet
1 tab PO QPM
turmeric 400 MG capsule
400 mg PO DAILY
rosuvastatin 5 MG tablet
5 mg PO HS
diltiazem HCl 240 mg Capsule,Extended Release 24 Hr
240 mg PO BID
zinc 50 mg Tablet
50 mg PO DAILY
furosemide 20 mg Tablet
20 mg PO MOTUWETHFR
metoprolol succinate 25 mg Tablet Extended Release 24 Hr
25 mg PO BID
Januvia 100 mg Tablet
100 mg PO DAILY
Jardiance 25 mg Tablet
25 mg PO HS
aspirin 81 MG tablet,chewable
81 mg PO HS
cholecalciferol (vitamin D3) [Vitamin D3] 50 mcg (2,000 unit) Tablet
50 mcg PO DAILY
potassium chloride 10 mEq Tablet Extended Release
10 meq PO QPM
famciclovir 500 mg Tablet
500 mg PO QPM
Discontinued
warfarin 7.5 mg Tablet
7.5 mg PO QPM
Rx Instructions:
INR to be rechecked
Discharge Orders:
Discharge Patient (As Directed); Ordered 03/08/24
Ordered By: Deny Portillo
Discharge Date and Time
Discharge Date/Time: 11/22/23 16:04
== END 2023-11-22 16:04 | disposition home or self-care (01) | DRG 393 ==
LOC: 3 WEST ACU 04:51
PROVIDERS: Hospitalist; Internal Medicine; ADMITTING PHYSICIAN Hospitalist; ATTENDING PHYSICIAN Internal Medicine; CONSULT PHYSICIAN Internal Medicine; CONSULT PHYSICIAN Internal Medicine Infectious Disease; EMERGENCY PHYSICIAN Emergency Medicine; FAMILY PHYSICIAN Family Medicine
PROC: 30233N1 Transfusion of Nonautologous Red Blood Cells into Peripheral Vein, Percutaneous Approach (ICD-10-PCS; 2023-11-10)
PROC: 30283B1 Transfusion of Nonautologous 4-Factor Prothrombin Complex Concentrate into Vein, Percutaneous Approach (ICD-10-PCS; 2023-11-10)
PROC: 5A09357 Assistance with Respiratory Ventilation, Less than 24 Consecutive Hours, Continuous Positive Airway Pressure (ICD-10-PCS; 2023-11-14)
DX: K55.039 Acute (reversible) ischemia of large intestine, extent unspecified (principal); A41.9 Sepsis, unspecified organism; J69.0 Pneumonitis due to inhalation of food and vomit; J81.0 Acute pulmonary edema; D62 Acute posthemorrhagic anemia; D68.32 Hemorrhagic disorder due to extrinsic circulating anticoagulants; I48.19 Other persistent atrial fibrillation; J90 Pleural effusion, not elsewhere classified; R09.02 Hypoxemia; T45.515A Adverse effect of anticoagulants, initial encounter; E87.6 Hypokalemia; H53.8 Other visual disturbances; J44.9 Chronic obstructive pulmonary disease, unspecified; J38.00 Paralysis of vocal cords and larynx, unspecified; G47.33 Obstructive sleep apnea (adult) (pediatric); E11.9 Type 2 diabetes mellitus without complications; K21.9 Gastro-esophageal reflux disease without esophagitis; K22.2 Esophageal obstruction; K44.9 Diaphragmatic hernia without obstruction or gangrene; F41.9 Anxiety disorder, unspecified; F32.A Depression, unspecified; I27.20 Pulmonary hypertension, unspecified; I49.5 Sick sinus syndrome; I10 Essential (primary) hypertension; I25.10 Atherosclerotic heart disease of native coronary artery without angina pectoris; E78.5 Hyperlipidemia, unspecified; M79.7 Fibromyalgia; Z95.2 Presence of prosthetic heart valve; Z79.84 Long term (current) use of oral hypoglycemic drugs; Z79.82 Long term (current) use of aspirin; Z86.711 Personal history of pulmonary embolism; Z87.891 Personal history of nicotine dependence; Z11.52 Encounter for screening for COVID-19
CPT/HCPCS: 70450; 71046; 71275; 74174; 80048; 80053; 81003; 82962; 83036; 83605; 83880; 84145; 85014; 85018; 85025; 85027; 85610; 85730; 86850; 86900; 86901; 86920; 87040; 87045; 87046; 87070; 87328; 87329; 87427; 87449; 87502; 87811; 87899; 89055; 93005; 93306; 94640; 94660; 96365; 96375; 97116; 97163; 97167; 97530; 97535; 99291; J7168; P9016; Q9967

== ENCOUNTER → 2023-11-29 14:58 | Outpatient (REF) | payer MEDICARE, OTHER, SELFPAY ==
[2023-11-29 16:41] LABS: % Basophils 1.7 % (0-2); % Eosinophils 2.5 % (0-6); % Immature Granulocytes 0.3 % (0-0.5); % Lymphocytes 28.1 % (20.5-51.1); % Monocytes 8.4 % (1.7-9.3); Absolute Basophils 0.1 10^3/uL (0-0.2); Absolute Eosinophils 0.2 10^3/uL (0-0.7); Absolute Lymphocytes 1.8 10^3/uL (1.2-3.4); Absolute Monocytes 0.5 10^3/uL (0.1-0.6); Absolute Neutrophils 3.7 10^3/uL (1.4-6.5); Hematocrit 35.3 % (37.0-47.0); Hemoglobin 11.7 g/dL (12.0-16.0); Mean Corp Hgb Conc. 33.1 g/dL (33.0-37.0); Mean Corpuscular Hgb 27.9 pg (27.0-31.0); Mean Corpuscular Volume 84.2 fL (81.0-99.0); Mean Platelet Volume 11.8 fL (7.4-10.4); Nucleated Red Blood Cells % 0 %; Platelet Count 297 10^3/uL (130-400); Red Blood Cell Count 4.19 10^6/uL (4.20-5.40); Red Cell Dist. Width 13.5 % (11.5-14.5); White Blood Cell Count 6.3 10^3/uL (4.8-10.8)
[2023-11-29 16:53] LABS: ALT (SGPT) 20 U/L (0-35); AST (SGOT) 29 U/L (14-36); Albumin 4.6 g/dl (3.5-5.0); Alkaline Phosphatase 67 U/L (38-126); Blood Urea Nitrogen 17 mg/dl (7-17); Calcium 9.6 mg/dl (8.4-10.2); Carbon Dioxide 29 mmol/L (22-30); Chloride 97 mmol/L (98-107); Glucose 191 mg/dl (70-99); Potassium 4.2 mmol/L (3.5-5.1); Sodium 137 mmol/L (135-145); Total Bilirubin 0.4 mg/dl (0.2-1.3); Total Protein 7.4 g/dl (6.3-8.2); eGFR > 60.00
== END ==
LOC: REG 14:58
PROVIDERS: ATTENDING PHYSICIAN Family Medicine
DX: I42.9 Cardiomyopathy, unspecified (principal)
CPT/HCPCS: 36415; 80053; 85025

== ENCOUNTER → 2024-01-16 10:28 | Outpatient (REF) | payer MEDICARE, OTHER, SELFPAY ==
[2024-01-16 11:20] LABS: HDL Cholesterol 62 mg/dl; LDL Cholesterol, Calculated 39 mg/dl; Total Cholesterol 135 mg/dl (50-199); Triglyceride 173 mg/dl (10-149); Very Low Density Lipoprotein 34 mg/dl (0-30)
== END ==
LOC: REG 10:28
PROVIDERS: ATTENDING PHYSICIAN Internal Medicine; FAMILY PHYSICIAN Family Medicine
DX: Z95.2 Presence of prosthetic heart valve (principal); I10 Essential (primary) hypertension
CPT/HCPCS: 36415; 80061

== ENCOUNTER 2024-01-22 20:10 | Inpatient (IN) | payer MEDICARE, OTHER, SELFPAY ==
[2024-01-22] VITALS (15 sets, daily range): BP systolic 105–141; BP diastolic 43–79; PULSE 73–92; BMI 26.2; BMI 25.4
[2024-01-22 16:09] LABS: % Basophils 0.3 % (0-2); % Immature Granulocytes 0.3 % (0-0.5); % Lymphocytes 2.3 % (20.5-51.1); % Neutrophils 93.1 % (42.2-75.2); Absolute Basophils 0.1 10^3/uL (0-0.2); Absolute Immature Granulocytes 0.1 10^3/uL (0-0.05); Absolute Lymphocytes 0.4 10^3/uL (1.2-3.4); Absolute Monocytes 0.6 10^3/uL (0.1-0.6); Hematocrit 24.5 % (37.0-47.0); Hemoglobin 7.7 g/dL (12.0-16.0); Mean Corp Hgb Conc. 31.4 g/dL (33.0-37.0); Mean Corpuscular Hgb 27.5 pg (27.0-31.0); Mean Corpuscular Volume 87.5 fL (81.0-99.0); Nucleated Red Blood Cells % 0 %; Platelet Count 249 10^3/uL (130-400); Red Cell Dist. Width 18.3 % (11.5-14.5); White Blood Cell Count 15.1 10^3/uL (4.8-10.8)
[2024-01-22 16:24] LABS: APTT 55.5 Sec (23.4-35.0)
[2024-01-22 16:26] LABS: AST (SGOT) 30 U/L (14-36); Albumin 3.5 g/dl (3.5-5.0); Alkaline Phosphatase 57 U/L (38-126); Blood Urea Nitrogen 23 mg/dl (7-17); Calcium 8.3 mg/dl (8.4-10.2); Carbon Dioxide 21 mmol/L (22-30); Chloride 100 mmol/L (98-107); Glucose 393 mg/dl (70-99); Lipase 127 U/L (23-300); Potassium 4.9 mmol/L (3.5-5.1); Sodium 130 mmol/L (135-145); Total Bilirubin 0.5 mg/dl (0.2-1.3); Total Protein 5.7 g/dl (6.3-8.2); eGFR 58.02
[2024-01-22 16:35] LABS: ALT (SGPT) 23 U/L (0-35)
--- NOTE | 2024-01-22 17:40 | ED.GENMED ---
History of Present Illness
General
Chief Complaint: Rectal Bleeding
Source: patient, records and previous hospital records
Exam Limitations: none
Time Seen by Provider: 01/22/24 17:13
Nursing documentation reviewed up to this point in time: agreed with
Travel History
Have you had any contact with someone who has COVID-19?: No
Do you have any symptoms of coronavirus? Fever > 100 degrees, chills, cough, shortness of breath, sore throat, loss of taste or smell, muscle aches, or headache?: No
History of Present Illness
History of Present Illness:
78-year-old female A-fib mitral valve repair on warfarin status post ablation a few months ago apparently had hypotension and ischemic colitis in the postoperative period--- also had pneumonia few months ago treated with Zithromax, stopped 2 months
ago, last evening she had some vomiting today she had some cramps with bloody stool she is having hard stools, also been having subacute fatigue shortness of breath dark stools she took her INR yesterday with her home machine it was in the mid 4
range
Past History
Past History
ED Past Medical History: Arrthythmia (AFib prior to valve surgery), COPD, Fibromyalgia, HTN, Hypercholesterolemia, NIDDM, Valvular disease (MR) and Other (hiatal hernia)
ED Past Surgical History: Cardiac (mitral valve replacement March 2020; A-fib ablation September 2023), Gynecological (vaginal cyst removed), Orthopedic (bilateral total hip replacements, bilateral torn menisci) and Other (neuromas removed from feet,
TMJ surgery, L lumpectomy, esophageal cyst, deviated septum repair, cataract extraction bilaterally)
Social History
Tobacco: Former smoker
Alcohol: Chronic alcoholic
Drug: None and Other (unclear)
Personal:
Living: with family
Employment: Retired
Family History
Family History: Other (reviewed and non-contributory)
Review of Systems
Review of Systems
All Other Systems: Not applicable
Constitutional: Reports fatigue; Denies fever
EENT: Reports no symptoms
Respiratory: Reports trouble breathing; Denies cough
Cardiac: Reports no symptoms
ABD/GI: Reports abdominal pain, vomiting and bloody stools
: Reports no symptoms
Musculoskeletal: Reports no symptoms
Skin: Reports no symptoms
Neurological: Reports dizzy and weakness
Endocrine: Reports no symptoms
Hematologic/Lymphatic: Denies bruising
Phy Exam
Physical Exam
Physical Exam:
Physical Exam
General: Pale appearing female
Neck: Pallor is present
Heart: Irregular
Lungs: Wheezing
Abdomen: Soft slightly distended nontender
Rectal maroon guaiac positive
Neuro: alert and oriented. no focal neurological deficits
Skin: no rash
Psychiatric: cooperative
Extremities: no edema.
Course
Orders/Labs/Results
Orders:
Orders
01/22/24 15:58
Type+Screen Urgent
CMP [Comprehensive Metabolic Panel] Urgent
Complete Blood Count/With Diff Urgent
Lipase Urgent
PTT Urgent
01/22/24 17:20
STOOL [C difficile Antigen & Toxins] Urgent
ASAEL Source: Feces/Stool
Specimen Description:
Date Specimen was Collected: 01/22/24
Time Specimen was Collected: 20:10
Stool Culture Urgent
ASAEL Source: Feces/Stool
Specimen Description:
Date Specimen was Collected: 01/22/24
Time Specimen was Collected: 20:11
01/22/24 17:33
Blood Bank Products [* Blood Bank Products] Urgent
Charity Orders: vilma
Blood Bank Products: *Packed RBC Leuko(PRBC's)
Quantity: 2
Transfuse Today: Yes
Reason: Anemia
Electrocardiogram (*1) Urgent
Reason for Study: Shortness of Breath
EKG- Treatment ONCE
Ipratropium/Albuterol Sulfate [Duoneb] 3 ml INH R NOW STA
01/22/24 17:36
CT Abd/pelvis W Iv Cont Urgent
Comment:
Reason For Exam: bloody stools
0.9% Sodium Chloride 1000 ml [Nss] 1,000 ml IV BOLUS
01/22/24 18:09
Prothrombin Time Urgent
01/22/24 19:12
Admit/Transfer Patient As Directed
Co-Sign Provider:
Level of Care: Inpatient admission
Assign to:: Telemetry
Physician / Group: hospitalist
Transfer to: Telemetry
Diagnosis: LGIB
Reason for Telemetry: Arrhythmia
Date to Stop Telemetry: 01/25/24
Time to Stop Telemetry: 11:00
Reason for Hospitalization: Lower GI bleed
Expected length of stay greater than two midnights?: Yes
ELOS- Estimated Length of Stay in days: 3
I certify the patient meets the requirements for IP care: Yes
01/22/24 19:14
Code Status As Directed
Resuscitation Status: Full Code
01/22/24 19:52
Consult Cardiology [CARDIOLOGY CONSULT] Routine
Consulting Provider: Moe Carroll
Was physician already notified: Yes
01/25/24 11:00
DC Protocol for Telemetry ONCE
Abnormal Lab Results
01/22/24 01/22/24
15:58 18:09
WBC 15.1 H 10^3/uL
(4.8-10.8)
RBC 2.80 L 10^6/uL
(4.20-5.40)
Hgb 7.7 L g/dL
(12.0-16.0)
Hct 24.5 L %
(37.0-47.0)
MCHC 31.4 L g/dL
(33.0-37.0)
RDW 18.3 H %
(11.5-14.5)
MPV 11.0 H fL
(7.4-10.4)
Abs Immat Gran (auto) 0.1 H 10^3/uL
(0-0.05)
Absolute Neuts (auto) 14.0 H 10^3/uL
(1.4-6.5)
Absolute Lymphs (auto) 0.4 L 10^3/uL
(1.2-3.4)
Neutrophils % 93.1 H %
(42.2-75.2)
Lymphocytes % 2.3 L %
(20.5-51.1)
PT 38.8 H Sec
(11.4-14.6)
APTT 55.5 H Sec
(23.4-35.0)
Sodium 130 L mmol/L
(135-145)
Carbon Dioxide 21 L mmol/L
(22-30)
BUN 23 H mg/dl
(7-17)
Glucose 393 H mg/dl
(70-99)
Calcium 8.3 L mg/dl
(8.4-10.2)
Total Protein 5.7 L g/dl
(6.3-8.2)
Crossmatch IS Only See Detail
01/22/24 15:58
01/22/24 15:58
Vital Signs
Initial and Last Documented VS:
Initial Vital Signs
Temp Pulse Resp BP Pulse Ox
98.4 F 72 16 114/47 100
01/22/24 15:47 01/22/24 15:47 01/22/24 15:47 01/22/24 15:47 01/22/24 15:47
Last Documented Vital Signs
Temp Pulse Resp BP Pulse Ox
99 F 70 19 114/60 97
01/22/24 19:05 01/22/24 19:45 01/22/24 19:45 01/22/24 19:05 01/22/24 19:45
MDM/Problems Addressed
Differential Diagnosis Includes:
Maroon stools infectious, due to straining, due to over anticoagulation, doubt ischemic colitis as she is over anticoagulated, related to GI illness
Is also short of breath and pale wheezing
MDM/Problems Addressed:
GI bleeding cough wheeze anemia
Chronic conditions affecting care:
A-fib mitral valve repair mechanical valve anticoagulated
Chronic conditions affecting care: Arrhythmia
Acute Exacerbation and/or Progression of Chronic Illness: Arrhythmia
*Radiology
Radiology exam reviewed: preliminary read by ED provider
*Pulse Oximetry
Patient hypoxic: no
*EKG
Interpreted by ED Provider?: Yes
Interpretation: abnormal
Comparison EKG: no comparison EKG present
Heart Rate: 80
Rate: normal
Rhythm: a-fib
Ischemia: non-specific ST changes
*Surveillance Dual Rate Officer Interpretation
Rate: normal
Interpretation: normal
Heart Rate: 78
Rhythm: a-fib
*Critical Care Note
Total Time (30-74mins, 75-104mins- exclusive of procedures): 30
Data Reviewed
Review of Other/Old Records Reveals: Labs, Progress Notes and Discharge Summary
Source: patient and records
Prescriptions/Medications Considered But Not Given:
Kcentra
Update Note
Update Note:
Patient with GI bleeding anemia suspect acute on chronic, she is anticoagulated, also wheezing
Has a mitral valve replacement mechanical valve,
Plan will be fluids nebs blood product
will ct a/p
ED Attending Note
-
Portions of this chart may have been created with voice recognition software.� Occasional wrong word or��sound alike� substitutions may have occurred due to the inherent limitations of voice recognition software.
Discharge Plan
Departure
Patient Disposition: Admit
Date of Disposition: 01/22/24
Time of Disposition: 17:54
Admit to: Telemetry
Presentation/result/management discussed w/ accepting MD/DO: Hospitalist
Patient with high blood pressure during this ER visit?: No
Covid-19: Not Applicable
Discharge Problem:
Acute GI bleeding, Acute blood loss anemia, Paroxysmal A-fib, Hemorrhagic disorder due to extrinsic circulating anticoagulants, Chronic atrial fibrillation, Diabetes
Interventions
Interventions:
*Risk Screen - Suicide Last Done: 01/22/24 15:47
*General Assessment Last Done: 01/22/24 17:18
ED- Fall Risk Assessment Last Done: 01/22/24 17:23
*ED COVID-19 Vaccine History Last Done: 01/22/24 15:47
SA-Tqosmk-Jtqpzpjfdp Assessment Last Done: 01/22/24 17:18
ED- Cardiac Assessment Last Done: 01/22/24 17:18
ED- Pulmonary Assessment Last Done: 01/22/24 17:18
[2024-01-22 18:32] LABS: INR 3.89; PT 38.8 Sec (11.4-14.6)
[2024-01-22] MEDS: DUONEB 3 ML INH (18:37)
[2024-01-22] MEDS: NSS 1000 IV ×2 (18:37→20:54)
--- NOTE | 2024-01-22 19:24 | HPS.HSE ---
Addendum entered and electronically signed by Shikha Nichole MD 01/22/24 20:06:
Patient seen and examined independently--agree with plan set forth by Dr. Thomas
GENERAL: well developed, well nourished, female in no apparent distress
HEENT: NC/AT O2 NC
HEART: regular rate and rhythm, +S1, +S2--click
LUNGS : clear to auscultation bilaterally
ABDOM: soft, nontender, nondistended, + bowel sounds
EXT: no cyanosis, clubbing, or edema
NEUROLOGIC: grossly intact
Acute Lower GI bleed exacerbated by coumadin--crampy abdominal pain with h/o ischemic colitis--ischemia, infectious, AVMs, all possible--ADMIT--getting 2 units pRBC--NPO/IVF--hold coumadin, would not reverse at this time as hemodynamically stable
AND has mechanical valve--if becomes unstable then would reverse--check stool studies--consideration for ABX with elevated WBC count--await CT scan results--Hold aspirin
acute blood loss anemia -- from GI bleed--serial H&H, transfusing
Persistent atrial fibrillation/mechanical valve replacement--consult cards--hold coumadin--if pt becomes unstable then reverse INR--follow PT/INR--Hold metoprolol, diltiazem for now
Type 2 diabetes mellitus--Low insulin sliding scale-Q6 with n.p.o.--Check S1a--Pnnt Januvia and Jardiance
Essential Hypertension--Hold CLIFTON/ARB--Monitor blood pressure
Hyperlipidemia--Hold rosuvastatin
Anxiety/depression--Hold venlexafine
DVT prophylaxis- SCD
CODE STATUS -- full code
Original Note:
Family Physician
-
Family Physician: NOT KNOW UNKNOWN - PT DOES
Chief Complaint
-
N.p.o.
IV fluids
Blood transfusion
Hold warfarin
Consult GI and cardiology
History of Present Illness
78-year-old female with past medical history all atrial fibrillation with 3 ablations, mitral valve repair on warfarin, diabetes, hypertension, hypercholesterolemia presented to the ED with abdominal pain, 2 episodes of bright red diarrhea, chills
which started last night at 3 am. Denies sick contacts, eating out of the ordinary. Patient reports of some constipation, denies dark red blood in stool. Patient was hospitalized in September 2023 for cardiac ablation of atrial fibrillation and
apparently had hypotension and ischemic colitis in the postoperative period. She also developed pneumonia few months ago and was treated with Zithromax and stopped 2 months ago. Patient patient states that she is always short of breath which has
a has been ongoing for the past couple weeks. Dyspnea on exertion and at rest. Denies swelling in legs. Denies chest pain. Patient sees launch engineer Dr. Nano Arevalo . Patient reports she took her INR yesterday at home which was 4.7
Medical History
Past Medical History
Past Medical History: Reports Arrhythmia (Persistent atrial fibrillation), COPD, Fibromyalgia, HTN, Hypercholesterolemia, NIDDM and Valvular Disease (MR)
Additional Past Medical History:
Hiatal hernia
Past Surgical History: Reports Cardiac (mitral valve replacement March 2020; A-fib ablation September 2023) and Orthopedic ((bilateral total hip replacements, bilateral torn menisci))
Additional Past Surgical History:
Gynecological (vaginal cyst removed) and Other (neuromas removed from feet, TMJ surgery, L lumpectomy, esophageal cyst, deviated septum repair, cataract extraction bilaterally)
Social History
Tobacco: Former Smoker
Alcohol: Chronic Alcoholic
Drug: None
Personal: Single
Living: With Family
Employment: Retired
Family History
Family History: Not pertinent
Allergies / Home Medications
Allergies reflects when Allergies were last updated in [facility].
Home Medications with original date entered in [facility]
Allergy/Medication List:
Codeine latex, cephalexin, sorbitol, amoxicillin metformin
Review of Systems
-
History Source: Patient
Constitutional: Reports Fatigue and Chills
Respiratory: Reports Trouble Breathing
Cardiac: Reports No Symptoms
Abdomen/GI: Reports Abdominal Pain, Vomiting and Bloody Stools
: Reports Incontinence
Musculoskeletal: Reports No Symptoms
Skin: Reports No Symptoms
Physical Exam
Vital Signs
Vital Signs
Temp Pulse Resp BP Pulse Ox
99 F 74 18 114/60 84
01/22/24 19:05 01/22/24 19:05 01/22/24 19:05 01/22/24 19:05 01/22/24 17:16
Physical Exam
General: Comfortable and Conversant
HEENT: NormoCephalic; No Moist mucous membranes (Dry mucous membrane)
Respiratory: Clear and Decreased Breath Sounds (Lower base); No Wheezes, Rales, Rhonchi or Crackles
Cardiac: S1/S2, Regular Rhythm and Murmur (Mechanical valve click)
GI: Soft, Non Tender, Non Distended, Normal Bowel Sounds and Other (No guarding. No rebound tenderness)
Musculoskeletal: No Edema
Neuro: AO x 3
Psych: Calm
Laboratory Results
-
01/22/24 15:58
01/22/24 15:58
Laboratory Results
PT 38.8 Sec (11.4-14.6) H 01/22/24 18:09
INR 3.89 01/22/24 18:09
APTT 55.5 Sec (23.4-35.0) H 01/22/24 15:58
Total Bilirubin 0.5 mg/dl (0.2-1.3) 01/22/24 15:58
AST 30 U/L (14-36) 01/22/24 15:58
ALT 23 U/L (0-35) 01/22/24 15:58
Alkaline Phosphatase 57 U/L (38-126) 01/22/24 15:58
Lipase 127 U/L (23-300) 01/22/24 15:58
Data Reviewed
-
Medical Tests (Nuc Med, Echo, EKG etc): Report Reviewed by me and Discussed with Physician
Lab Data: Labs Reviewed by me and Discussed with Physician
Impression/Plan
-
IMPRESSION:
Lower GI bleed
Persistent atrial fibrillation/mechanical valve replacement
Hypovolemic hyponatremia
Type 2 diabetes mellitus
Hypertension
Hyperlipidemia
Anxiety/depression
PLAN:
Lower GI bleed
Suspect #1 infectious colitis #2 diverticulitis #3 less likely hemorrhoids and fissures
Patient is hemodynamically stable
N.p.o.
IV fluids
Blood [id number] and screen
Stool studies
Low threshold to start antibiotics-pending CT scan results
Consult GI
Persistent atrial fibrillation/mechanical valve replacement
Hold Coumadin-no reverse as she is stable
INR 4.7 yesterday
Let the INR drift down around 2
Hold metoprolol, diltiazem for now.
Consult cardiology
Type 2 diabetes mellitus
Low insulin sliding scale-Q6 with n.p.o.
Check A1c
Hold Januvia and Jardiance
Hypertension
Hold CLIFTON/ARB
Monitor blood pressure
Hyperlipidemia
Hold rosuvastatin
Hold aspirin
Anxiety/depression
Hold venlexafine
DVT prophylaxis- SCD
--- NOTE | 2024-01-22 20:30 | PTCARENOTE ---
Patient admitted from ED. Patient AAO x3, on 2LNC, in no acute distress but does get JUAREZ. Patient came to floor with blood already transfusing that was started in ED. Vitals stable. Patient oriented to room and call rice is within reach.
[2024-01-23] VITALS (10 sets, daily range): BP systolic 123–159; BP diastolic 48–67; PULSE 78–98
[2024-01-23 00:20] LABS: Glucose - Point of Care 146 mg/dl (70-99)
[2024-01-23 03:47] LABS: % Basophils 0.6 % (0-2); % Eosinophils 0.1 % (0-6); % Immature Granulocytes 0.3 % (0-0.5); % Lymphocytes 8.7 % (20.5-51.1); % Monocytes 6.5 % (1.7-9.3); % Neutrophils 83.8 % (42.2-75.2); Absolute Basophils 0.1 10^3/uL (0-0.2); Absolute Lymphocytes 0.9 10^3/uL (1.2-3.4); Absolute Monocytes 0.7 10^3/uL (0.1-0.6); Absolute Neutrophils 8.7 10^3/uL (1.4-6.5); Hematocrit 31.7 % (37.0-47.0); Mean Corp Hgb Conc. 32.5 g/dL (33.0-37.0); Mean Corpuscular Hgb 27.5 pg (27.0-31.0); Mean Corpuscular Volume 84.5 fL (81.0-99.0); Mean Platelet Volume 10.6 fL (7.4-10.4); Nucleated Red Blood Cells % 0 %; Platelet Count 190 10^3/uL (130-400); Red Blood Cell Count 3.75 10^6/uL (4.20-5.40); White Blood Cell Count 10.4 10^3/uL (4.8-10.8)
[2024-01-23 03:56] LABS: Hemoglobin 10.3 g/dL (12.0-16.0)
[2024-01-23 03:57] LABS: INR 2.65; PT 28.6 Sec (11.4-14.6)
[2024-01-23 03:58] LABS: APTT 60.9 Sec (23.4-35.0)
[2024-01-23 04:13] LABS: Blood Urea Nitrogen 22 mg/dl (7-17); Calcium 8.6 mg/dl (8.4-10.2); Carbon Dioxide 24 mmol/L (22-30); Chloride 107 mmol/L (98-107); Estimated Creatinine Clearance 55 ml/min; Glucose 113 mg/dl (70-99); Potassium 3.9 mmol/L (3.5-5.1); Sodium 135 mmol/L (135-145); eGFR > 60.00
[2024-01-23] MEDS: NSS 1000 IV ×2 (05:32→14:06)
[2024-01-23 05:56] LABS: Glucose - Point of Care 117 mg/dl (70-99)
[2024-01-23 07:10] LABS: Glucose - Point of Care 115 mg/dl (70-99)
--- NOTE | 2024-01-23 09:32 | W.PN.HOSP.TC ---
Addendum entered and electronically signed by Shikha Nichole MD 01/23/24 16:39:
Patient seen and examined independently--agree with plan set forth by Dr. Thomas
GENERAL: well developed, well nourished, female in no apparent distress
HEENT: NC/AT O2 NC
HEART: regular rate and rhythm, +S1, +S2--click
LUNGS : clear to auscultation bilaterally
ABDOM: soft, nontender, nondistended, + bowel sounds
EXT: no cyanosis, clubbing, or edema
NEUROLOGIC: grossly intact
Acute Lower GI bleed exacerbated by coumadin--crampy abdominal pain with h/o ischemic colitis--ischemia, infectious, AVMs, all possible--s/p 2 units pRBC with improvement in HGB--clears--hold coumadin, would not reverse at this time as
hemodynamically stable AND has mechanical valve--if becomes unstable then would reverse--C. diff negative, stool studies pending---CT scan without significant bowel pathology--Hold aspirin
acute blood loss anemia -- from GI bleed--serial H&H, s/p 2 units pRBC tansfusion
Persistent atrial fibrillation/mechanical valve replacement--consult cards--hold coumadin--if pt becomes unstable then reverse INR--follow PT/INR--Hold metoprolol, diltiazem for now, once INR < 2.5 will need heparin drip--will also likely need
bridging at d/c
Type 2 diabetes mellitus--Low insulin sliding scale---Check P7b--eqghjldv restarting Januvia and Jardiance
Essential Hypertension--Hold CLIFTON/ARB--Monitor blood pressure
Hyperlipidemia--restart rosuvastatin
Anxiety/depression--restart venlexafine
DVT prophylaxis- SCD
CODE STATUS -- full code
Original Note:
Today's Communication/Plan
-
Anticipate colonoscopy tomorrow
Clear liquids
Will start heparin when INR is less than 2.5
Assessment / Plan
Assessment / Plan
IMPRESSION:
Lower GI bleed
Persistent atrial fibrillation/mechanical valve replacement
Hypovolemic hyponatremia
Type 2 diabetes mellitus
Hypertension
Hyperlipidemia
Anxiety/depression
PLAN:
Lower GI bleed
Suspect #1 infectious colitis #2 diverticulitis #3 less likely hemorrhoids and fissures
Patient is hemodynamically stable
Clear liquids
Continue IV fluids
Anticipate colonoscopy tomorrow if no active bleeding
Stool studies negative C. difficile, negative Cryptosporidium and Giardia
Low threshold to start antibiotics as patient afebrile in 24 hours, WBC improved and CT scan results negative for bowel wall thickening
Consult GI
Persistent atrial fibrillation/mechanical valve replacement
Hold Coumadin-no reverse as she is stable
INR improved to 2.65
Will start heparin when INR <2.5
Restart metoprolol and diltiazem
Consult cardiology
Hypovolemic hyponatremia
Sodium improving with IV fluids
Monitor BMP in a.m.
Type 2 diabetes mellitus
Low insulin sliding scale
Restart Januvia and Jardiance
Hypertension
Restart losartan
Hyperlipidemia
Restart rosuvastatin
Anxiety/depression
Restart venlexafine
DVT prophylaxis- SCD
Anticipated Discharge: 24 - 48 hours
Subjective/Interval History
-
Date of Service: January 23, 2024
Patient had 2 episodes of diarrhea with blood clot
Objective Data
-
Labs:
Laboratory Results
01/23/24 01/23/24 01/23/24
03:30 03:30 03:30
WBC 10.4
Hgb Cancelled 10.3 L D
Hct Cancelled 31.7 L
Plt Count 190 D
PT 28.6 H
INR 2.65
APTT 60.9 H
Sodium 135
Potassium 3.9
Chloride 107
Carbon Dioxide 24
BUN 22 H
Creatinine 0.8
Glucose 113 H
Calcium 8.6
Vital Signs:
Vital Signs
Temp Pulse Resp BP Pulse Ox
98.0 F 90 18 136/67 99
01/23/24 07:15 01/23/24 07:15 01/23/24 07:15 01/23/24 07:15 01/23/24 07:15
I&O
01/22/24 01/23/24 01/24/24
06:59 06:59 06:59
Intake Total 500 / 500
Balance 500 / 500
Review of Systems
-
All other systems: Reviewed and negative (Except mentioned)
Genitourinary: Reports Other (Hematochezia)
Physical Exam
-
General: Comfortable and Conversant
HEENT: Normocephalic and Atraumatic
Respiratory: Clear to Auscultation
Cardiac: Regular Rhythm, S1/S2 and Murmur (Mechanical valve click)
GI: Soft, Nontender and Nondistended
Musculoskeletal: No Edema
Neuro: AO x 3
Psych: Calm
Data Reviewed
-
Medical Tests (Nuc Med, Echo etc): Report Reviewed by me and Discussed with Physician
Labs: Labs Reviewed by me and Discussed with Physician
--- NOTE | 2024-01-23 09:55 | CON.CAR ---
Consultation
Consultation Request
Date/Time Consultation Requested: 01/22/2024 2130
Date/Time Consultation Performed: 01/23/2024 0900
Requesting Provider: Dr Nichole
Performing Provider: Dr Carroll
Reason for Consultation: GI bleed and history of mechanical MVR
Medical History
-
History of Present Illness:
78-year-old woman with a history of mechanical mitral valve replacement, chronic anticoagulation with Coumadin, atrial fibrillation, A-fib ablation September 17, 2001 4, mild aortic stenosis, pacemaker, hospitalization with GI bleed suspected to be
ischemic colitis versus infectious colitis with discharge 11/22/2023 who presents with GI bleeding. Patient states that she had some nausea the night prior to admission and then in the morning had 2 episodes of maroon stools consistent with bleeding.
Patient had no abdominal pain INR 4.4 on arrival. Hemoglobin 7.9 patient received 2 units of PRBCs no additional bleeding after the 2 episodes described above. Patient's had no complaints of chest pain. She has baseline/chronic exertional
shortness of breath she thinks it may be a little bit more over the past week no orthopnea or lower extremity edema no cough, fever or other respiratory symptoms. She has had no palpitations to suggest recurrent A-fib.
Review of systems otherwise unremarkable
PMH
Mechanical MVR
Atrial fibrillation
A-fib ablation 09/2023
Pacemaker
Sleep apnea
Aortic stenosis. Mild by echo 08/2023
Diabete COPD
GERD
Hiatal hernia
Cataracts s
GI bleeding-hospitalization at end of October/beginning of November 2023 -suspected ischemic colitis versus infectious
-Echo 08/2023 estimated EF of 50-55%.
S/p mechanical mitral valve replacement with a mean gradient of 3 mmHg
mild aortic stenosis
ECG tracing reviewed 01/22/2024 sinus rhythm with late transition of R wave
Past Medical History
Past Medical History: Other (As noted above)
Social History
Tobacco: Non-Smoker
Living: With Family
Family History
Family History: CAD (Negative for premature CAD)
Allergies / Home Medications
Allergy/AdvReac Type Severity Reaction Status Date / Time
almond Allergy migraine Verified 01/22/24 20:28
amoxicillin [Amoxicillin] Allergy Hives Verified 11/10/23 01:29
banana Allergy migraine Verified 01/22/24 20:28
Cephalosporins Allergy Rash Verified 01/22/24 20:28
cheese Allergy MIGRAINE Verified 01/22/24 20:28
codeine Allergy nausea Verified 01/22/24 20:28
latex [Latex] Allergy rash and Verified 11/10/23 01:29
swelling
metformin Allergy Vomiting Verified 11/10/23 01:29
monosodium glutamate Allergy MIGRAINE Verified 01/22/24 20:28
Penicillins Allergy Rash Verified 01/22/24 20:28
sorbitol Allergy stomach Verified 11/10/23 01:29
upset
figs Allergy migraine Uncoded 11/10/23 01:29
�Medication �Instructions �Recorded �Confirmed �Type
calcium citrate 200 mg (950 mg) 600 mg PO HS Supplement 04/10/19 01/22/24 History
tablet
cinnamon bark 500 mg capsule 1,000 mg PO QPM Supplement 04/10/19 01/22/24 History
(Cinnamon)
glucosamine HCl 1,500 mg tablet 1,500 mg PO QPM Supplement 04/10/19 01/22/24 History
guaifenesin 400 mg tablet 400 mg PO BID Congestion 04/10/19 01/22/24 History
venlafaxine 37.5 mg tablet 37.5 mg PO BID Mental health 04/10/19 01/22/24 History
B-complex with vitamin C 1 cap PO HS Supplement 05/01/19 01/22/24 History
multivitamin with folic acid 400 1 tab PO QPM Supplement 12/08/19 01/22/24 History
mcg tablet (Tab-A-Francisco)
turmeric 400 mg capsule 400 mg PO DAILY Supplement 02/15/20 01/22/24 History
rosuvastatin 5 mg tablet 5 mg PO HS High Cholesterol 07/25/20 01/22/24 History
diltiazem HCl 240 mg capsule,24 240 mg PO BID Heart 08/16/23 01/22/24 History
hr,extended release Disease/Condition
zinc 50 mg tablet 50 mg PO DAILY Supplement 08/16/23 01/22/24 History
aspirin 81 mg chewable tablet 81 mg PO HS Blood Clot 09/26/23 01/22/24 History
Prevention/Tx
cholecalciferol (vitamin D3) 50 50 mcg PO DAILY Supplement 09/26/23 01/22/24 History
mcg (2,000 unit) tablet (Vitamin
D3)
empagliflozin 25 mg tablet 25 mg PO HS Diabetes 09/26/23 01/22/24 History
(Jardiance)
famciclovir 500 mg tablet 500 mg PO QPM antiviral 09/26/23 01/22/24 History
furosemide 20 mg tablet 20 mg PO MOTUWETHFR Fluid 09/26/23 01/22/24 History
Retention/Swelling
metoprolol succinate 25 mg 25 mg PO BID Blood Pressure 09/26/23 01/22/24 History
tablet,extended release 24 hr
potassium chloride 10 mEq 10 meq PO QPM Supplement 09/26/23 01/22/24 History
tablet,extended release
sitagliptin phosphate 100 mg 100 mg PO DAILY Diabetes 09/26/23 01/22/24 History
tablet (Januvia)
ascorbic acid (vitamin C) 500 mg 500 mg PO DAILY 01/22/24 01/22/24 History
tablet (Vitamin C)
cyanocobalamin (vitamin B-12) 1,000 mcg PO DAILY 01/22/24 01/22/24 History
1,000 mcg tablet
warfarin 7.5 mg tablet (Jantoven) 7.5 mg PO QPM Blood Clot 01/22/24 01/22/24 History
Prevention/Tx
Review of Systems
-
All other systems: Negative unless noted
Physical Exam
Vital Signs
Temp Pulse Resp BP Pulse Ox
98.0 F 90 18 136/67 99
01/23/24 07:15 01/23/24 07:15 01/23/24 07:15 01/23/24 07:15 01/23/24 07:15
Lab Results
01/23/24 03:30
01/23/24 03:30
Physical Exam
General: No Apparent Distress
HEENT: Normocephalic, Anicteric, Moist Mucous Membranes and Other (External ear and oral exam unremarkable. Eyes extraocular was intact pupils are equal)
Respiratory: Other (Clear with no wheezes rales or rhonchi)
Cardiac: Regular Rhythm and Other (Mechanical S1)
GI: Soft, Non Tender and Other (Mildly distended no mass no paraspinal megaly detected)
Musculoskeletal: No Clubbing, No Cyanosis and No Edema
Skin: Dry and Rash (No rash)
Neuro: Awake, Alert and Oriented
Hematologic/Lymphatic: No Lymphadenopathy
Psych: Calm and Other (Cooperative. Normal mood)
Impression / Plan
-
.
GI bleeding.
-Maroon stools x 2. No additional bleeding since yesterday
-Initial hemoglobin 7.9 now improved after 2 units of PRBCs. Hemoglobin 10.3
-Patient on Coumadin with initial INR of 4.4 which has trended down. Note patient has not received any additional treatment to reverse Coumadin.
-Patient had recent hospitalization and discharge 11/22/2023 with GI bleeding with 1 unit of PRBCs patient had diarrhea with bleeding and suspected ischemic colitis. She felt the bleeding was similar to what she experienced last time. Although
patient reports lower blood pressures are systolics were in the 120s the lowest systolic she recorded was about 100 over the past week
-Plan for colonoscopy as directed by GI.
-Continue to hold Coumadin.
-If patient had an acute increase in the amount of bleeding then reversal of anticoagulation could be considered.
-Stable to proceed colonoscopy and EGD when GI feels that INR is in a safe range to perform the study.
.
Mechanical MVR.
-INR 4.4 on admission. Now 2.65
-Continue to hold Coumadin with GI bleeding and plans for colonoscopy
.
Aortic stenosis. Mild by echocardiogram 08/2023
-Echo 08/2023 estimated EF of 50-55%.
S/p mechanical mitral valve replacement with a mean gradient of 3 mmHg
mild aortic stenosis
.
PAF. History of ablation 09/2023. Remains in sinus.
.
Pacemaker/[employer]. Implant 07/25/2020
.
Shortness of breath. Chronic.
-Lungs clear. Patient in no distress on 2 L.
-Chest x-ray
.
Data Reviewed
-
EKG: Tracing Personally Visualized and interpreted and Report Reviewed by me
Radiology: Other (Ordered chest x-ray)
Medical Tests (Nuc Med, Echo etc): Report Reviewed by me
Labs: Discussed with Nurse
--- NOTE | 2024-01-23 10:22 | CON.GI ---
Addendum entered and electronically signed by Jacqui Ricardo Do, MD 01/23/24 14:29:
I saw and examined the patient.
The IMPACT HAMMER OPERATOR's note was reviewed and I agree with the note.
Comment: Alley is a 78yo W with h/o mechanical mitral valve replacement 2019 on coumadin, pAfib and pacemaker who was admitted with BRBRPx2. She had similar episode in Sep 2023 post cardioversion and was here in the hospital. At that time
concern for ischemic colitis. She was to consider OP colonoscopy. Since then 1 wk prior to admission with palpitations and fatigue. Dehydrated with poor PO intake and low BP at home. Then she passed 'golf ball' sized hard stools with chronic
constipation then BRBPRx2. She then came to ED for evaluation. Vitals stable, elderly W NAD conversant pleasant, NTTP, NABS. Labs reviewed Hbg up to 10 after 2u PRBC for admission Hbg of 7. INR down to 2.7
Impression
- Painless Hematochezia
Differential includes diverticular, ischemic colitis or ectasia
- Chronic anticoagulation with supratherapeutic INR on admission
- Mechanical MVR
- pAfib
- Pacemaker
- Paralyzed vocal cords
- JENNIFER
- CAD
Recommendations
- H/H improved significantly post 2u PRBC
- Monitor stool output
- C/w PPI IV BID
- Recommend bowel prep and anticipate colonoscopy tomorrow pending INR
- PM INR pending
- If INR drops below 2.5 can consider heparin gtt if no bleeding persists
- Will need bowel regimen usp and keep BP optimal
- Appreciate cardiology recommendations
Will follow with you
Original Note:
Consultation
-
Date/Time Consultation Requested: 01/22/241951
Date/Time Consultation Performed: 01/23/24929
Requesting Provider: Dr. Thomas
Performing Provider: Dr. Hodgson/MARIANA Wise
Reason for Consultation: rectal bleeding
Medical History
Chief Complaint / HPI
Chief Complaint: Rectal bleeding
History of Present Illness:
Alley is a 78-year-old female with severe mitral stenosis status post mechanical valve replacement in 2019 on warfarin (goal INR between 2.5 and 3.5), paroxysmal atrial fibrillation and flutter status post cardioversion in 2019, tachybradycardia
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
presumed ischemic colitis versus infectious colitis. The patient does have a history of chronic constipation. With golf ball brown stools after starting diltiazem. She states that approximately 1 week ago she started having 'pounding heartbeat',
increased dyspnea on exertion, fatigue and weakness. She states she was notified that her INR was elevated and her last dose of warfarin was on Saturday. This was 5 mg. She then started experiencing some mild nausea. On Saturday evening she had
vomiting. She then Saturday into Saturday started having abdominal cramping in the evening followed by multiple episodes of brown stool that started out hard and then was liquid. Finally producing maroon/bright red blood. She would have abdominal
cramping only with defecation. She did feel cool but no chills or fevers. She never had a syncopal episode. She did not recall any foods, medications or sick contacts that may have precipitated this event. She had a small bowel movement in the
ER and then once since with red blood in it. She denies any fevers, chills, melena, dysphagia or odynophagia. No early satiety or unintentional weight loss. Patient presented with hemoglobin of 7.7 she was transfused to 10.3. (2 units packed red
blood cells). She had a leukocytosis of 15 which is now down to 10.4. Platelet count of 190, INR on arrival was 3.89 it is now 2.65 sodium 135, potassium 3.9, chloride 107, CO2 24, BUN 22, creatinine 0.8, sodium 113, total bilirubin 0.5, AST 30,
ALT 23, alk phos 57. CT of the abdomen pelvis with IV contrast shows no evidence for bowel obstruction or free intraperitoneal air. No evidence for significant bowel wall thickening given the limitation of oral contrast. (Other findings will be
detailed below).
Past Medical History
Past Medical History: Other (Sleep apnea on CPAP, pulmonary hypertension, hypertension, mechanical mitral valve replacement, diabetes, COPD)
Past Surgical History: Other (Recent PVI, pacemaker, left total hip replacement)
Social History
Tobacco: Former Smoker
Alcohol: Occasional
Drug: None
Personal:
Living: With Family
Employment: Retired
Family History
Family History: Other (Cardiac disease, prostate cancer, no GI malignancies)
Allergies / Home Medications
Allergy/AdvReac Type Severity Reaction Status Date / Time
almond Allergy migraine Verified 01/22/24 20:28
amoxicillin [Amoxicillin] Allergy Hives Verified 11/10/23 01:29
banana Allergy migraine Verified 01/22/24 20:28
Cephalosporins Allergy Rash Verified 01/22/24 20:28
cheese Allergy MIGRAINE Verified 01/22/24 20:28
codeine Allergy nausea Verified 01/22/24 20:28
latex [Latex] Allergy rash and Verified 11/10/23 01:29
swelling
metformin Allergy Vomiting Verified 11/10/23 01:29
monosodium glutamate Allergy MIGRAINE Verified 01/22/24 20:28
Penicillins Allergy Rash Verified 01/22/24 20:28
sorbitol Allergy stomach Verified 11/10/23 01:29
upset
figs Allergy migraine Uncoded 11/10/23 01:29
�Medication �Instructions �Recorded
calcium citrate 200 mg (950 mg) 600 mg PO HS Supplement 04/10/19
tablet
cinnamon bark 500 mg capsule 1,000 mg PO QPM Supplement 04/10/19
(Cinnamon)
glucosamine HCl 1,500 mg tablet 1,500 mg PO QPM Supplement 04/10/19
guaifenesin 400 mg tablet 400 mg PO BID Congestion 04/10/19
venlafaxine 37.5 mg tablet 37.5 mg PO BID Mental health 04/10/19
B-complex with vitamin C 1 cap PO HS Supplement 05/01/19
multivitamin with folic acid 400 1 tab PO QPM Supplement 12/08/19
mcg tablet (Tab-A-Francisco)
turmeric 400 mg capsule 400 mg PO DAILY Supplement 02/15/20
rosuvastatin 5 mg tablet 5 mg PO HS High Cholesterol 07/25/20
diltiazem HCl 240 mg capsule,24 240 mg PO BID Heart 08/16/23
hr,extended release Disease/Condition
zinc 50 mg tablet 50 mg PO DAILY Supplement 08/16/23
aspirin 81 mg chewable tablet 81 mg PO HS Blood Clot 09/26/23
Prevention/Tx
cholecalciferol (vitamin D3) 50 50 mcg PO DAILY Supplement 09/26/23
mcg (2,000 unit) tablet (Vitamin
D3)
empagliflozin 25 mg tablet 25 mg PO HS Diabetes 09/26/23
(Jardiance)
famciclovir 500 mg tablet 500 mg PO QPM antiviral 09/26/23
furosemide 20 mg tablet 20 mg PO MOTUWETHFR Fluid 09/26/23
Retention/Swelling
metoprolol succinate 25 mg 25 mg PO BID Blood Pressure 09/26/23
tablet,extended release 24 hr
potassium chloride 10 mEq 10 meq PO QPM Supplement 09/26/23
tablet,extended release
sitagliptin phosphate 100 mg 100 mg PO DAILY Diabetes 09/26/23
tablet (Januvia)
ascorbic acid (vitamin C) 500 mg 500 mg PO DAILY 01/22/24
tablet (Vitamin C)
cyanocobalamin (vitamin B-12) 1,000 mcg PO DAILY 01/22/24
1,000 mcg tablet
warfarin 7.5 mg tablet (Jantoven) 7.5 mg PO QPM Blood Clot 01/22/24
Prevention/Tx
Review of Systems
-
All other systems: A 12 pt ROS was Negative except as stated above in HPI
Vital Signs
Temp Pulse Resp BP Pulse Ox
98.0 F 90 18 136/67 99
01/23/24 07:15 01/23/24 07:15 01/23/24 07:15 01/23/24 07:15 01/23/24 07:15
Physical Exam
Exam
General: No Apparent Distress
HEENT: Normocephalic
Respiratory: Clear
Cardiac: Regular Rhythm and Other (Mitral click)
GI: Soft, Non Tender, Non Distended and Normal Bowel Sounds
Skin: Warm and Dry
Neuro: AO x 3
Psych: Calm
Results
WBC 10.4 10^3/uL (4.8-10.8) 01/23/24 03:30
Hgb 10.3 g/dL (12.0-16.0) L D 01/23/24 03:30
Hgb Cancelled 01/23/24 03:30
Hct 31.7 % (37.0-47.0) L 01/23/24 03:30
Hct Cancelled 01/23/24 03:30
MCV 84.5 fL (81.0-99.0) 01/23/24 03:30
Plt Count 190 10^3/uL (130-400) D 01/23/24 03:30
Absolute Neuts (auto) 8.7 10^3/uL (1.4-6.5) H 01/23/24 03:30
PT 28.6 Sec (11.4-14.6) H 01/23/24 03:30
INR 2.65 01/23/24 03:30
APTT 60.9 Sec (23.4-35.0) H 01/23/24 03:30
Sodium 135 mmol/L (135-145) 01/23/24 03:30
Potassium 3.9 mmol/L (3.5-5.1) 01/23/24 03:30
Chloride 107 mmol/L (98-107) 01/23/24 03:30
Carbon Dioxide 24 mmol/L (22-30) 01/23/24 03:30
BUN 22 mg/dl (7-17) H 01/23/24 03:30
Creatinine 0.8 mg/dL (0.6-1.0) 01/23/24 03:30
Calcium 8.6 mg/dl (8.4-10.2) 01/23/24 03:30
Total Bilirubin 0.5 mg/dl (0.2-1.3) 01/22/24 15:58
AST 30 U/L (14-36) 01/22/24 15:58
ALT 23 U/L (0-35) 01/22/24 15:58
Alkaline Phosphatase 57 U/L (38-126) 01/22/24 15:58
Lipase 127 U/L (23-300) 01/22/24 15:58
Diagnostic Image Results:
CT of the abdomen pelvis with IV contrast 01/22/2024:
IMPRESSION: No evidence for bowel obstruction or free intraperitoneal air. No evidence for significant bowel wall thickening, given the limitation of a lack of GI luminal contrast.
Several small cysts within the right ovary, with the largest having diameter of 2.8 cm. These are unchanged from CT of November 10, 2023, and also present on previous pelvic ultrasound of June 03, 2017. Based on stability and morphologic
appearance, no further imaging follow-up is felt to be needed.
1.4 cm right adrenal gland adenoma, stable dating back to CT of the chest of September 26, 2017. Of note, imaging studies do not address the functional status of an adrenal mass. If there are clinical signs or symptoms of adrenal hyperfunction,
biochemical testing may be required to determine if the lesion is excreting excess hormone.
Electronically signed by David Akers MD 01/22/2024 7:37 PM
Prior GI Procedures:
EGD: [address] Salas nonobstructing Schatzki's ring and hiatal hernia otherwise unrevealing
Colonoscopy: Patient states she had a negative Cologuard a few years ago and prior to that negative colonoscopy about 10 years ago likely at [place]
Assessment / Plan
-
Alley is a 78-year-old female with severe mitral stenosis status post mechanical valve replacement in 2019 on warfarin (goal INR between 2.5 and 3.5), paroxysmal atrial fibrillation and flutter status post cardioversion in 2019, tachybradycardia
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
presumed ischemic colitis versus infectious colitis. The patient does have a history of chronic constipation. With golf ball brown stools after starting diltiazem. She states that approximately 1 week ago she started having 'pounding heartbeat',
increased dyspnea on exertion, fatigue and weakness. She states she was notified that her INR was elevated and her last dose of warfarin was on Saturday. This was 5 mg. She then started experiencing some mild nausea. On Saturday evening she had
vomiting. She then Saturday into Saturday started having abdominal cramping in the evening followed by multiple episodes of brown stool that started out hard and then was liquid. Finally producing maroon/bright red blood.
Impression:
Rectal bleeding-> prior episode of GI bleed October thought to be infectious versus ischemic colitis, in the setting of supratherapeutic INR
Mechanical mitral valve, on warfarin-> INR 2.65 this morning
Atrial fibrillation, status post ablation 09/2023
COPD with paralyzed vocal cords
Plan:
-Clear liquid diet
-Trend hemoglobin
-Warfarin on hold,Discussed with Cardiology. Ok for Colonoscopy.
-Recheck PT/INR later on this evening, if improving plan on Colonoscopy tomorrow.
-CBC, CMP, INR in am
-
-
Thank you for consultation and allowing me to participate in the patient's care. Please call the litigation legal secretary GI physician during the after hours with any questions or concerns.
[2024-01-23 10:25] LABS: Glycohemoglobin (HgbA1c) 5.9 % (4.0-5.6)
[2024-01-23] MEDS: DULCOLAX 10 MG PO (10:58)
[2024-01-23 11:14] LABS: Glucose - Point of Care 208 mg/dl (70-99)
[2024-01-23] MEDS: EFFEXOR 37.5 MG PO ×2 (12:41→21:21)
[2024-01-23] MEDS: CARDIZEM CD 240 MG PO ×2 (12:41→21:21)
--- NOTE | 2024-01-23 14:54 | CM ---
Patient seen bedside.
IA completed.
Patient lives with spouse in a 2 story home with 1 step to enter.
Patient denies difficulty with ambulation.
Independent prior to admission.
Hx both hips replaced, DM.
Has equipment in the home from prior hip surgeries but does not use: 2 walkers, crutches, raised toilet seat, shower chair.
Patient has a glucometer.
PCP: Dr Singletary
Pharmacy: [facility]
Plan: home no needs anticipated.
[2024-01-23 15:22] LABS: INR 2.58
[2024-01-23 16:14] LABS: Glucose - Point of Care 147 mg/dl (70-99)
[2024-01-23] MEDS: NULYTELY SOLUTION 4 LITERS PO (16:30)
--- NOTE | 2024-01-23 18:22 | PTCARENOTE ---
Pt started on colonoscopy prep. Pt w 2 episode dark brown/red tinged liquid stool per rectum. Dr. Nichole notified. No n/o at this time.
[2024-01-23] MEDS: KCL 10 MEQ PO (18:24)
[2024-01-23] MEDS: FAMVIR 500 MG PO (18:43)
[2024-01-23 21:13] LABS: INR 2.52; PT 27.5 Sec (11.4-14.6)
[2024-01-23 21:14] LABS: Glucose - Point of Care 151 mg/dl (70-99)
[2024-01-23] MEDS: CRESTOR 5 MG PO (21:21)
[2024-01-23] MEDS: TOPROL XL 25 MG PO (21:21)
[2024-01-23] MEDS: JARDIANCE 25 MG PO (21:21)
[2024-01-24] VITALS (7 sets, daily range): BP systolic 127–169; BP diastolic 46–68; PULSE 80
[2024-01-24] MEDS: NSS 1000 IV (00:58)
[2024-01-24 06:01] LABS: Glucose - Point of Care 91 mg/dl (70-99)
[2024-01-24 07:04] LABS: Hematocrit 28.7 % (37.0-47.0); Hemoglobin 9.1 g/dL (12.0-16.0); Mean Corp Hgb Conc. 31.7 g/dL (33.0-37.0); Mean Corpuscular Hgb 27.6 pg (27.0-31.0); Mean Platelet Volume 11.4 fL (7.4-10.4); Platelet Count 178 10^3/uL (130-400); Red Cell Dist. Width 17.4 % (11.5-14.5); White Blood Cell Count 6.3 10^3/uL (4.8-10.8)
[2024-01-24 07:10] LABS: PT 26.5 Sec (11.4-14.6)
[2024-01-24 07:47] LABS: Blood Urea Nitrogen 10 mg/dl (7-17); Calcium 8.4 mg/dl (8.4-10.2); Carbon Dioxide 23 mmol/L (22-30); Chloride 109 mmol/L (98-107); Estimated Creatinine Clearance 63 ml/min; Glucose 80 mg/dl (70-99); Magnesium 2.1 mg/dl (1.6-2.3); Potassium 4.3 mmol/L (3.5-5.1); Sodium 138 mmol/L (135-145); eGFR > 60.00
--- NOTE | 2024-01-24 08:47 | W.PN.HOSP.TC ---
Addendum entered and electronically signed by Shikha Nichole MD 01/24/24 17:41:
Patient seen and examined independently--agree with plan set forth by Dr. Thomas
GENERAL: well developed, well nourished, female in no apparent distress
HEENT: NC/AT O2 NC
HEART: regular rate and rhythm, +S1, +S2--click
LUNGS : clear to auscultation bilaterally
ABDOM: soft, nontender, nondistended, + bowel sounds
EXT: no cyanosis, clubbing, or edema
NEUROLOGIC: grossly intact
Acute Lower GI bleed exacerbated by coumadin--crampy abdominal pain with h/o ischemic colitis--ischemia, infectious, AVMs, all possible--s/p 2 units pRBC with improvement in HGB--low residue diet--hold coumadin, would not reverse at this time as
hemodynamically stable AND has mechanical valve--if becomes unstable then would reverse--C. diff negative, stool studies pending---CT scan without significant bowel pathology--Hold aspirin--no need for ABX
acute blood loss anemia -- from GI bleed--serial H&H, s/p 2 units pRBC tansfusion
Persistent atrial fibrillation/mechanical valve replacement--consult cards--hold coumadin--if pt becomes unstable then reverse INR--follow PT/INR--Hold metoprolol, diltiazem for now, once INR < 2.5 will need heparin drip and < 1.5 can do
colonoscopy--will also likely need bridging at d/c
Type 2 diabetes mellitus--Low insulin sliding scale---Check A1c-- restarting Januvia and Jardiance
Essential Hypertension--Hold CLIFTON/ARB--Monitor blood pressure
Hyperlipidemia--restart rosuvastatin
Anxiety/depression--restart venlexafine
DVT prophylaxis- SCD
CODE STATUS -- full code
Original Note:
Today's Communication/Plan
-
Colonoscopy probably on Saturday
Goal INR less than 1.5
No active bleeding
Assessment / Plan
Assessment / Plan
IMPRESSION:
Lower GI bleed
Persistent atrial fibrillation/mechanical valve replacement
Hypovolemic hyponatremia
Type 2 diabetes mellitus
Hypertension
Hyperlipidemia
Anxiety/depression
PLAN:
Lower GI bleed
Suspect #1 infectious colitis #2 diverticulitis #3 less likely hemorrhoids and fissures
Patient is hemodynamically stable
Hemoglobin 9.1<10.3. Check CBC today
Continue IV fluids
Anticipate colonoscopy today
Goal INR less than 1.5 procedure
Stool studies negative C. difficile, negative Cryptosporidium and Giardia
Low threshold to start antibiotics as patient afebrile in 24 hours, WBC improved and CT scan results negative for bowel wall thickening
Appreciate GI input
Persistent atrial fibrillation/mechanical valve replacement
Hold Coumadin-no reverse as she is stable
INR improved to 2.4--on heparin
Allow the INR to trend down, goal less than 1.5
Restart metoprolol and diltiazem
Appreciate cardiology input
Hypovolemic hyponatremia
Sodium improving with IV fluids
Monitor BMP in a.m.
Type 2 diabetes mellitus
Low insulin sliding scale
Restart Januvia and Jardiance
Hypertension
Restart losartan
Hyperlipidemia
Restart rosuvastatin
Anxiety/depression
Restart venlexafine
DVT prophylaxis- SCD
Anticipated Discharge: > 48 hours
Subjective/Interval History
-
Date of Service: January 24, 2024
Patient reports being prepped for bowel regimen in the evening yesterday which caused bloody stools, reports no active bleeding
Objective Data
-
Labs:
Laboratory Results
01/23/24 01/24/24
20:59 05:36
WBC 6.3
Hgb 9.1 L
Hct 28.7 L
Plt Count 178
PT 27.5 H 26.5 H
INR 2.52 2.40
Sodium 138
Potassium 4.3
Chloride 109 H
Carbon Dioxide 23
BUN 10
Creatinine 0.7
Glucose 80
Calcium 8.4
Vital Signs:
Vital Signs
Temp Pulse Resp BP Pulse Ox
98.6 F 68 17 127/46 97
01/24/24 07:39 01/24/24 07:39 01/24/24 07:39 01/24/24 07:39 01/24/24 07:39
I&O
01/23/24 01/24/24 01/25/24
06:59 06:59 06:59
Intake Total 500 / 500 2099 / 2099
Output Total
Balance 500 / 500 2098
Review of Systems
-
History Source: Patient
All other systems: Reviewed and negative
Physical Exam
-
General: Comfortable and Conversant
HEENT: Normocephalic and Atraumatic
Respiratory: Clear to Auscultation
Cardiac: Regular Rhythm, S1/S2 and Murmur (Mechanical valve click)
GI: Soft, Nontender and Normal Bowel Sounds
Musculoskeletal: No Edema
Neuro: AO x 3
Psych: Calm
Data Reviewed
-
Labs: Labs Reviewed by me and Discussed with Physician
[2024-01-24] MEDS: CARDIZEM CD 240 MG PO ×2 (08:55→21:05)
[2024-01-24] MEDS: EFFEXOR 37.5 MG PO ×2 (08:58→21:04)
[2024-01-24] MEDS: JANUVIA 100 MG PO (08:59)
[2024-01-24] MEDS: TOPROL XL 25 MG PO ×2 (08:59→21:04)
--- NOTE | 2024-01-24 10:52 | W.PN.GI.CBS2 ---
Today's Communication / Plan
-
- Continue monitor H&H/INR
-Colonoscopy tentatively Saturday when INR less than 1.7
-Medical team to consider heparin drip for bridging if INR<2.5
-Low residual diet today. Will switch to clear liquid diet on Saturday
Assessment / Plan
-
Alley is a 78yo W with h/o mechanical mitral valve replacement 2019 on coumadin, pAfib and pacemaker who was admitted with BRBRPx2. She had similar episode in Sep 2023 post cardioversion and was here in the hospital. At that time concern for
ischemic colitis. She was to consider OP colonoscopy. Since then 1 wk prior to admission with palpitations and fatigue. Dehydrated with poor PO intake and low BP at home. Then she passed 'golf ball' sized hard stools with chronic constipation
then BRBPRx2. She then came to ED for evaluation. Vitals stable, elderly W NAD conversant emy, NTTP, NABS. Labs reviewed Hbg up to 10 after 2u PRBC for admission Hbg of 7. INR down to 2.7
Impression
- Painless Hematochezia
Differential includes diverticular, ischemic colitis or ectasia
- Chronic anticoagulation with supratherapeutic INR on admission
- Mechanical MVR
- pAfib
- Pacemaker
- Paralyzed vocal cords
- JENNIFER
- CAD
Recommendations
-Colonoscopy was canceled today because of supratherapeutic INR. No overt bleeding after bowel prep. Will continue monitor INR.
Tentatively will plan colonoscopy on Saturday when INR is less than 1.7
-Continue monitor H&H/ INR
-Okay to start on low residual diet today. Clear liquids on Saturday for possible colonoscopy on Saturday
- Monitor stool output
- C/w PPI IV BID
-Medical team/cardiology to consider heparin gtt if no bleeding persists
- Will follow
Total Time Spent with Patient (in minutes): 35
Subjective
Subjective
Date of Service: January 24, 2024
Patient present her bowel prep yesterday. Denies any sadiq rectal bleeding. So few flecks of red material. Colonoscopy was tentatively planned for today but was canceled because of supratherapeutic INR
Objective
Data Reviewed
Laboratory Data:
Laboratory Results
01/24/24 05:36
01/24/24 05:36
Laboratory Results
PT 26.5 Sec (11.4-14.6) H 01/24/24 05:36
INR 2.40 01/24/24 05:36
APTT 60.9 Sec (23.4-35.0) H 01/23/24 03:30
Magnesium 2.1 mg/dl (1.6-2.3) 01/24/24 05:36
Total Bilirubin 0.5 mg/dl (0.2-1.3) 01/22/24 15:58
AST 30 U/L (14-36) 01/22/24 15:58
ALT 23 U/L (0-35) 01/22/24 15:58
Alkaline Phosphatase 57 U/L (38-126) 01/22/24 15:58
Lipase 127 U/L (23-300) 01/22/24 15:58
Vital Signs and I&O:
Vital Signs
Temp Pulse Resp BP Pulse Ox
98.6 F 68 17 127/46 97
01/24/24 07:39 01/24/24 08:59 01/24/24 07:39 01/24/24 08:59 01/24/24 08:49
I&O
01/23/24 01/24/24 01/25/24
06:59 06:59 06:59
Intake Total 500 / 500 2099 / 2099
Output Total
Balance 500 / 500 2098
Physical Exam
Physical Exam
GI: Soft, Non Distended and Non Tender
--- NOTE | 2024-01-24 11:24 | W.PN.CD ---
Today's Communication / Plan
-
Off warfarin for now
Cardiology will see next on 01/27/2024
Impression / Plan
-
Acute blood loss anemia from an acute GI bleed
GI bleeding.
- Suspected lower GI bleed
- For colonoscopy
HX of Dyspnea
- Prior to [facility] MVR on cath 02/2020) Severe MS, mean gradient 14 mmHg, MVA 0.95 cmsq, LVEDP 17, PCWP 30, RA 20, PA 54/25
- On Lasix, SGLT-inhibitor
- Could consider stopping KCl and adding MRA
- Echo 11/12/2023: LVEF 55-60%, [facility] MVR, mean 5, mild-mod , mean AoV 16 mmHg, mod TR, est PASP 60-65, est RA 8
Mechanical MVR, for rheumatic mitral stenosis, [address], 03/22/2020
- Off warfarin for now
- Typically goal INR 3, range 2.5 to 3
- Has been on ASA but going forward may be best of not on ASA
Mild valvular , echo 08/2023
Hx of AFib, flutter, s/p ablation 09/2023
- In sinus by EKG
Sick sinus syndrome, MDT pacer 07/2020, MRI conditional/safe
Pacemaker/[employer]. Implant 07/25/2020
DM, type II
Mixed hyperlipidemia
HTN
Hx anxiety/depression
Non obstructive CAD at cath (02/2020) prior to [facility] MV Replacement: 30-40 pLAD, 40 mRCA,
Subjective:
No CP or dyspnea
Data: Echo 11/12/2023: LVEF 55-60%, [facility] MVR, mean 5, mild-mod , mean AoV 16 mmHg, mod TR, est PASP 60-65, est RA 8
Physical Exam
Vital Signs/Labs
Vital Signs
Temp Pulse Resp BP Pulse Ox
98.1 F 71 17 135/47 96
01/24/24 11:07 01/24/24 11:07 01/24/24 11:07 01/24/24 11:07 01/24/24 11:07
01/23/24 01/24/24 01/25/24
06:59 06:59 06:59
Actual Weight 71.305 kg
01/24/24 05:36
01/24/24 05:36
PT 26.5 Sec (11.4-14.6) H 01/24/24 05:36
INR 2.40 01/24/24 05:36
APTT 60.9 Sec (23.4-35.0) H 01/23/24 03:30
Magnesium 2.1 mg/dl (1.6-2.3) 01/24/24 05:36
Physical Exam
Constitutional: No acute distress
EENT: Anicteric
Cardiovascular: Rhythm & rate is regular, Pedal edema is absent, Systolic murmur present (c/w known mild ) and S1S2 is normal (but S1 is crisp mechanical)
Respiratory: Respiratory effort normal, Lungs clear to auscul. and Crackles Absent
GI: Soft and Distention absent
Neuro/Psych: AO x 3 and Motor deficits absent
Data Reviewed
-
Date of Service: January 24, 2024
[2024-01-24] MEDS: HEPARIN 25000 UNITS/250 ML IV (11:32)
[2024-01-24 11:54] LABS: Glucose - Point of Care 117 mg/dl (70-99)
[2024-01-24] MEDS: NSS IV ×2 (12:46→22:37)
[2024-01-24 16:23] LABS: Glucose - Point of Care 148 mg/dl (70-99)
[2024-01-24] MEDS: FAMVIR 500 MG PO (17:11)
[2024-01-24] MEDS: KCL 10 MEQ PO (17:11)
[2024-01-24 17:16] LABS: Hematocrit 27.8 % (37.0-47.0); Hemoglobin 9.1 g/dL (12.0-16.0); Mean Corp Hgb Conc. 32.7 g/dL (33.0-37.0); Mean Corpuscular Hgb 27.2 pg (27.0-31.0); Mean Corpuscular Volume 83.2 fL (81.0-99.0); Mean Platelet Volume 10.2 fL (7.4-10.4); Platelet Count 179 10^3/uL (130-400); Red Blood Cell Count 3.34 10^6/uL (4.20-5.40); Red Cell Dist. Width 17.3 % (11.5-14.5); White Blood Cell Count 6.3 10^3/uL (4.8-10.8)
[2024-01-24 17:28] LABS: APTT 84.8 Sec (23.4-35.0)
[2024-01-24] MEDS: JARDIANCE 25 MG PO (21:04)
[2024-01-24] MEDS: CRESTOR 5 MG PO (21:05)
[2024-01-24 21:18] LABS: Glucose - Point of Care 217 mg/dl (70-99)
[2024-01-25 00:34] LABS: APTT 65.5 Sec (23.4-35.0)
[2024-01-25 03:26] VITALS: BP 140/60
[2024-01-25 07:57] VITALS: BP 142/52
[2024-01-25 08:10] LABS: Glucose - Point of Care 97 mg/dl (70-99)
[2024-01-25] MEDS: JANUVIA 100 MG PO (08:14)
[2024-01-25] MEDS: CARDIZEM CD 240 MG PO ×2 (08:14→21:32)
[2024-01-25] MEDS: EFFEXOR 37.5 MG PO ×2 (08:14→21:33)
[2024-01-25] MEDS: TOPROL XL 25 MG PO ×2 (08:14→21:33)
--- NOTE | 2024-01-25 08:55 | W.PN.HOSP.TC ---
Addendum entered and electronically signed by Shikha Nichole MD 01/25/24 14:44:
Patient seen and examined independently--agree with plan set forth by Dr. Thomas
GENERAL: well developed, well nourished, female in no apparent distress
HEENT: NC/AT O2 NC
HEART: regular rate and rhythm, +S1, +S2--click
LUNGS : clear to auscultation bilaterally
ABDOM: soft, nontender, nondistended, + bowel sounds
EXT: no cyanosis, clubbing, or edema
NEUROLOGIC: grossly intact
Acute Lower GI bleed exacerbated by coumadin--crampy abdominal pain with h/o ischemic colitis--ischemia, AVMs, possible--s/p 2 units pRBC with improvement in HGB--low residue diet--hold coumadin, --C. diff and stool studies negative--CT scan without
significant bowel pathology--Hold aspirin--no need for ABX
acute blood loss anemia -- from GI bleed--serial H&H, s/p 2 units pRBC tansfusion
Persistent atrial fibrillation/mechanical valve replacement--apprec cards--hold coumadin---follow PT/INR, down to 1.38 today--Hold metoprolol, diltiazem for now --cont heparin drip, colonoscopy Saturday--will also likely need bridging at d/c
Type 2 diabetes mellitus--Low insulin sliding scale---Check A1c-- restarting Januvia and Jardiance
Essential Hypertension--Hold CLIFTON/ARB--Monitor blood pressure
Hyperlipidemia--restart rosuvastatin
Anxiety/depression--restart venlexafine
DVT prophylaxis- SCD
CODE STATUS -- full code
Original Note:
Today's Communication/Plan
-
Colonoscopy planned on 01/26
Bowel regimen prep on 01/25
Off heparin drip at 5 AM on 01/26
Wean off oxygen
Assessment / Plan
Assessment / Plan
IMPRESSION:
Lower GI bleed
Persistent atrial fibrillation/mechanical valve replacement
Hypovolemic hyponatremia
Type 2 diabetes mellitus
Hypertension
Hyperlipidemia
Anxiety/depression
PLAN:
Lower GI bleed
Suspect #1 infectious colitis #2 diverticulitis #3 less likely hemorrhoids and fissures
Patient is hemodynamically stable
Continue IV fluid
Trial to wean off oxygen, patient on 2 L
INR 1.38, colonoscopy planned on Saturday,01/27/24
Bowel prep on Saturday
Patient will be off heparin on 01/27/2024 at 5 AM-4 hours before the procedure
Stool studies negative
Antibiotics not needed as patient is afebrile in 24 hours, WBC improved and CT scan results negative for bowel wall thickening
On low residue diet. Will switch to liquid diet on Saturday
Hold aspirin
Appreciate GI input
Persistent atrial fibrillation/mechanical valve replacement
Hold Coumadin-no reverse as she is stable
INR 1.38--colonoscopy on 01/26
Allow the INR to trend down, goal less than 1.5
Restart metoprolol and diltiazem
Appreciate cardiology input
Hypovolemic hyponatremia
Sodium improving with IV fluids
Monitor BMP in a.m.
Type 2 diabetes mellitus
Restart Januvia and Jardiance
Hypertension
Restart metoprolol, diltiazem
Hyperlipidemia
Restart rosuvastatin
Anxiety/depression
Restart venlexafine
Restart Mucinex-nasal congestion and bone pain
DVT prophylaxis- SCD
Anticipated Discharge: > 48 hours
Subjective/Interval History
-
Date of Service: January 25, 2024
Patient denies any active bleeding overnight
Objective Data
-
Labs:
Laboratory Results
01/24/24 01/25/24 01/25/24
23:58 07:08 08:44
WBC
Hgb
Hct
Plt Count
PT Pending
INR Pending
APTT 65.5 H 56.0 H
Sodium
Potassium
Chloride
Carbon Dioxide
BUN
Creatinine
Glucose
Calcium
01/25/24 01/25/24 01/25/24
08:48 08:49 13:15
WBC Pending
Hgb Pending
Hct Pending
Plt Count Pending
PT
INR
APTT Pending
Sodium Pending
Potassium Pending
Chloride Pending
Carbon Dioxide Pending
BUN Pending
Creatinine Pending
Glucose Pending
Calcium Pending
Vital Signs:
Vital Signs
Temp Pulse Resp BP Pulse Ox
99.1 F 70 16 142/52 99
01/25/24 03:26 01/25/24 08:14 01/25/24 03:26 01/25/24 08:14 01/25/24 03:26
I&O
01/24/24 01/25/24 01/26/24
06:59 06:59 06:59
Intake Total 2099 1080 / 1080
Output Total
Balance 2098 1080 / 1080
Review of Systems
-
History Source: Patient
All other systems: Reviewed and negative
Physical Exam
-
General: Comfortable and Conversant
HEENT: Normocephalic and Atraumatic
Respiratory: Clear to Auscultation
Cardiac: Regular Rhythm, S1/S2 and Murmur
GI: Soft, Nontender and Nondistended
Musculoskeletal: No Edema
Psych: Calm
Data Reviewed
-
Labs: Labs Reviewed by me, Discussed with Physician and Discussed with Nurse
[2024-01-25 09:27] LABS: INR 1.38; PT 16.8 Sec (11.4-14.6)
[2024-01-25 09:29] LABS: Hematocrit 29.2 % (37.0-47.0); Hemoglobin 9.5 g/dL (12.0-16.0); Mean Corp Hgb Conc. 32.5 g/dL (33.0-37.0); Mean Corpuscular Hgb 27.5 pg (27.0-31.0); Mean Corpuscular Volume 84.4 fL (81.0-99.0); Mean Platelet Volume 11.3 fL (7.4-10.4); Platelet Count 185 10^3/uL (130-400); Red Blood Cell Count 3.46 10^6/uL (4.20-5.40); Red Cell Dist. Width 17.2 % (11.5-14.5); White Blood Cell Count 4.9 10^3/uL (4.8-10.8)
[2024-01-25] MEDS: NSS IV (10:13)
[2024-01-25 10:15] LABS: Blood Urea Nitrogen 8 mg/dl (7-17); Carbon Dioxide 27 mmol/L (22-30); Chloride 105 mmol/L (98-107); Estimated Creatinine Clearance 63 ml/min; Glucose 96 mg/dl (70-99); Sodium 137 mmol/L (135-145); eGFR > 60.00
[2024-01-25 11:16] LABS: Glucose - Point of Care 188 mg/dl (70-99)
[2024-01-25 11:45] VITALS: BP 129/54
--- NOTE | 2024-01-25 12:56 | W.PN.GI.CBS2 ---
Today's Communication / Plan
-
colonoscopy on Saturday
Assessment / Plan
-
Alley is a 78yo W with h/o mechanical mitral valve replacement 2019 on coumadin, pAfib and pacemaker who was admitted with BRBRPx2. She had similar episode in Sep 2023 post cardioversion and was here in the hospital. At that time concern for
ischemic colitis. She was to consider OP colonoscopy. Since then 1 wk prior to admission with palpitations and fatigue. Dehydrated with poor PO intake and low BP at home. Then she passed 'golf ball' sized hard stools with chronic constipation
then BRBPRx2. She then came to ED for evaluation. Vitals stable, elderly W NAD conversant [place], [place]. Labs reviewed Hbg up to 10 after 2u PRBC for admission Hbg of 7. INR down to 2.7
Impression
- Painless Hematochezia
Differential includes diverticular, ischemic colitis or ectasia
- Chronic anticoagulation with supratherapeutic INR on admission
- Mechanical MVR
- pAfib
- Pacemaker
- Paralyzed vocal cords
- JENNIFER
- CAD
Recommendations
Repeat INR this a.m. 1.38. Continue heparin drip as per cardiology
Discussed with patient -colonoscopy on Saturday. Clear liquid diet tomorrow. Bowel prep tomorrow.
Hold heparin drip on 01/27/2024 at 5 AM
Discussed with medical team
Total Time Spent with Patient (in minutes): 35
Subjective
Subjective
Date of Service: January 25, 2024
No further bleeding. Tolerating diet
Objective
Data Reviewed
Laboratory Data:
Laboratory Results
01/25/24 08:48
01/25/24 09:13
Laboratory Results
PT Cancelled 01/25/24 08:44
INR Cancelled 01/25/24 08:44
APTT Cancelled 01/25/24 13:15
Magnesium 2.1 mg/dl (1.6-2.3) 01/24/24 05:36
Total Bilirubin 0.5 mg/dl (0.2-1.3) 01/22/24 15:58
AST 30 U/L (14-36) 01/22/24 15:58
ALT 23 U/L (0-35) 01/22/24 15:58
Alkaline Phosphatase 57 U/L (38-126) 01/22/24 15:58
Lipase 127 U/L (23-300) 01/22/24 15:58
Vital Signs and I&O:
Vital Signs
Temp Pulse Resp BP Pulse Ox
99.1 F 83 16 129/54 100
01/25/24 11:45 01/25/24 11:45 01/25/24 11:45 01/25/24 11:45 01/25/24 11:45
I&O
01/24/24 01/25/24 01/26/24
06:59 06:59 06:59
Intake Total 2099 1080 / 1080
Output Total
Balance 2098 1080 / 1080
Physical Exam
Physical Exam
GI: Soft, Non Distended and Non Tender
[2024-01-25] MEDS: HEPARIN 25000 UNITS/250 ML IV (15:25)
[2024-01-25 15:37] VITALS: BP 114/58
[2024-01-25 16:09] LABS: APTT 49.5 Sec (23.4-35.0)
[2024-01-25 17:03] LABS: Glucose - Point of Care 168 mg/dl (70-99)
[2024-01-25] MEDS: FAMVIR 500 MG PO (17:13)
[2024-01-25] MEDS: KCL 10 MEQ PO (17:13)
[2024-01-25 19:15] VITALS: BP 120/77
[2024-01-25] MEDS: CRESTOR 5 MG PO (21:32)
[2024-01-25] MEDS: JARDIANCE 25 MG PO (21:34)
[2024-01-25 21:36] LABS: Glucose - Point of Care 151 mg/dl (70-99)
[2024-01-25 23:45] VITALS: BP 121/49
[2024-01-26 03:20] LABS: APTT > 200 Sec (23.4-35.0)
[2024-01-26 03:50] VITALS: BP 141/85
[2024-01-26 06:46] LABS: APTT 74.8 Sec (23.4-35.0)
[2024-01-26 07:37] VITALS: BP 129/47
[2024-01-26 07:38] LABS: Blood Urea Nitrogen 12 mg/dl (7-17); Calcium 8.8 mg/dl (8.4-10.2); Carbon Dioxide 28 mmol/L (22-30); Chloride 106 mmol/L (98-107); Estimated Creatinine Clearance 55 ml/min; Glucose 107 mg/dl (70-99); Potassium 4.4 mmol/L (3.5-5.1); Sodium 137 mmol/L (135-145); eGFR > 60.00
[2024-01-26 07:42] LABS: Glucose - Point of Care 117 mg/dl (70-99)
[2024-01-26] MEDS: TOPROL XL 25 MG PO ×2 (09:02→19:56)
[2024-01-26] MEDS: CARDIZEM CD 240 MG PO ×2 (09:02→19:55)
[2024-01-26] MEDS: EFFEXOR 37.5 MG PO ×2 (09:03→19:56)
[2024-01-26] MEDS: JANUVIA 100 MG PO (09:10)
--- NOTE | 2024-01-26 10:03 | W.PN.UPDATE ---
Update Note
Progress Note Update
colonoscopy tomorrow 01/26.
bowel prep today
clear liquid diet. NPO after MN
Hold heparin drip at 0500 01/27/2024
--- NOTE | 2024-01-26 10:05 | W.PN.HOSP.TC ---
Addendum entered and electronically signed by Shikha Nichole MD 01/26/24 12:44:
Patient seen and examined independently--agree with plan set forth by Dr. Thomas
GENERAL: well developed, well nourished, female in no apparent distress
HEENT: NC/AT O2 NC
HEART: regular rate and rhythm, +S1, +S2--click
LUNGS : clear to auscultation bilaterally
ABDOM: soft, nontender, nondistended, + bowel sounds
EXT: no cyanosis, clubbing, or edema
NEUROLOGIC: grossly intact
Acute Lower GI bleed exacerbated by coumadin--crampy abdominal pain with h/o ischemic colitis--ischemia, AVMs, possible--s/p 2 units pRBC with improvement in HGB--low residue diet, off IVF--holding coumadin--C. diff and stool studies negative--CT
scan without significant bowel pathology--Hold aspirin--no need for ABX
acute blood loss anemia -- from GI bleed--serial H&H, s/p 2 units pRBC tansfusion
Persistent atrial fibrillation/mechanical valve replacement--apprec cards--holding coumadin---follow PT/INR, down to 1.10 today--Hold metoprolol, diltiazem for now --cont heparin drip, colonoscopy Saturday--will also likely need bridging at d/c, she
has done lovenox before
Type 2 diabetes mellitus--Low insulin sliding scale---Check A1c-- restarting Januvia and Jardiance
Essential Hypertension--Hold CLIFTON/ARB--Monitor blood pressure
Hyperlipidemia--restart rosuvastatin
Anxiety/depression--restart venlexafine
DVT prophylaxis- SCD
CODE STATUS -- full code
Original Note:
Today's Communication/Plan
-
INR 1.18
Colonoscopy planned tomorrow
Bowel prep
off heparin at 5 am on 01/26
NPO after midnight
Assessment / Plan
Assessment / Plan
IMPRESSION:
Lower GI bleed
Persistent atrial fibrillation/mechanical valve replacement
Hypovolemic hyponatremia
Type 2 diabetes mellitus
Hypertension
Hyperlipidemia
Anxiety/depression
PLAN:
Lower GI bleed
Suspect #1 infectious colitis #2 diverticulitis #3 less likely hemorrhoids and fissures
Patient is hemodynamically stable
Continue IV fluid
Trial to wean off oxygen, patient on 2 L
INR 1.18 today, colonoscopy planned on Saturday,01/27/24
Bowel prep on Saturday
Patient will be off heparin on 01/27/2024 at 5 AM-4 hours before the procedure
Stool studies negative
Antibiotics not needed as patient is afebrile in 24 hours, WBC improved and CT scan results negative for bowel wall thickening
On liquid diet, NPO after midnight
Hold aspirin
Appreciate GI input
Persistent atrial fibrillation/mechanical valve replacement
Hold Coumadin-no reverse as she is stable
INR 1.18--colonoscopy on 01/26
Heparin to be stopped at 5 am on 01/26
Allow the INR to trend down, goal less than 1.5
Restart metoprolol and diltiazem
Appreciate cardiology input
Hypovolemic hyponatremia
Sodium improving with IV fluids
Monitor BMP in a.m.
Type 2 diabetes mellitus
Restart Januvia and Jardiance
Hypertension
Restart metoprolol, diltiazem
Hyperlipidemia
Restart rosuvastatin
Anxiety/depression
Restart venlexafine
Restart Mucinex-nasal congestion and bone pain
DVT prophylaxis- SCD
Anticipated Discharge: > 48 hours
Subjective/Interval History
-
Date of Service: January 26, 2024
Patient denies any active bleeding.
Objective Data
-
Labs:
Laboratory Results
01/26/24 01/26/24 01/26/24
01:51 06:26 11:20
PT 14.0
INR 1.10
APTT > 200 H* 74.8 H Pending
Sodium 137
Potassium 4.4
Chloride 106
Carbon Dioxide 28
BUN 12
Creatinine 0.8
Glucose 107 H
Calcium 8.8
Vital Signs:
Vital Signs
Temp Pulse Resp BP Pulse Ox
98.6 F 77 18 129/47 100
01/26/24 03:50 01/26/24 09:02 01/26/24 03:50 01/26/24 09:02 01/26/24 03:50
I&O
01/25/24 01/26/24 01/27/24
06:59 06:59 06:59
Intake Total 1080 / 1080 960 / 960 240 / 240
Balance 1080 / 1080 960 / 960 240 / 240
Review of Systems
-
History Source: Patient
All other systems: Reviewed and negative
Physical Exam
-
General: Comfortable, Conversant and Other (on 2 L oxygen )
HEENT: Normocephalic and Atraumatic
Respiratory: Clear to Auscultation (on 2 L O2)
Cardiac: Regular Rhythm, S1/S2 and Murmur
GI: Soft, Nontender and Nondistended
Musculoskeletal: No Edema
Neuro: AO x 3
Psych: Calm
Data Reviewed
-
Labs: Labs Reviewed by me and Discussed with Physician
[2024-01-26] MEDS: MUCINEX 600 MG PO (10:30)
[2024-01-26] MEDS: NULYTELY SOLUTION 4 LITERS PO (10:56)
[2024-01-26 11:35] LABS: Glucose - Point of Care 189 mg/dl (70-99)
[2024-01-26] MEDS: HEPARIN 25000 UNITS/250 ML IV (14:40)
[2024-01-26 15:27] VITALS: BP 149/55
[2024-01-26 17:14] LABS: Glucose - Point of Care 189 mg/dl (70-99)
[2024-01-26] MEDS: FAMVIR 500 MG PO (17:23)
[2024-01-26] MEDS: KCL 10 MEQ PO (17:23)
[2024-01-26 21:24] LABS: Glucose - Point of Care 99 mg/dl (70-99)
[2024-01-26] MEDS: CRESTOR 5 MG PO (21:35)
[2024-01-26] MEDS: JARDIANCE 25 MG PO (21:35)
[2024-01-26 23:30] VITALS: BP 138/61
[2024-01-27] VITALS (7 sets, daily range): BP systolic 104–128; BP diastolic 44–70
[2024-01-27 05:55] LABS: Glucose - Point of Care 123 mg/dl (70-99)
[2024-01-27 07:28] LABS: INR 1.08; PT 13.8 Sec (11.4-14.6)
[2024-01-27 07:29] LABS: APTT 39.1 Sec (23.4-35.0)
[2024-01-27 07:36] LABS: Hematocrit 33.1 % (37.0-47.0); Hemoglobin 10.4 g/dL (12.0-16.0); Mean Corp Hgb Conc. 31.4 g/dL (33.0-37.0); Mean Corpuscular Hgb 26.7 pg (27.0-31.0); Mean Corpuscular Volume 85.1 fL (81.0-99.0); Mean Platelet Volume 10.8 fL (7.4-10.4); Platelet Count 229 10^3/uL (130-400); Red Blood Cell Count 3.89 10^6/uL (4.20-5.40); Red Cell Dist. Width 16.6 % (11.5-14.5); White Blood Cell Count 3.8 10^3/uL (4.8-10.8)
[2024-01-27] MEDS: EFFEXOR 37.5 MG PO ×2 (08:20→20:42)
[2024-01-27] MEDS: CARDIZEM CD 240 MG PO ×2 (08:20→20:42)
[2024-01-27] MEDS: JANUVIA 100 MG PO (08:20)
[2024-01-27] MEDS: TOPROL XL 25 MG PO ×2 (08:20→20:42)
[2024-01-27] MEDS: MUCINEX 600 MG PO (08:20)
--- NOTE | 2024-01-27 10:49 | W.PN.HOSP.TC ---
Today's Communication/Plan
-
likely d/c tomorrow
Assessment / Plan
Assessment / Plan
pt is a 78 year old female
Acute Lower GI bleed exacerbated by coumadin--crampy abdominal pain with h/o ischemic colitis--ischemia, AVMs, possible--s/p 2 units pRBC with improvement in HGB--low residue diet, off IVF--holding coumadin--C. diff and stool studies negative--CT
scan without significant bowel pathology--Hold aspirin--no need for ABX--colonoscopy today, will need bridging once OK to restart anticoagulation
acute blood loss anemia -- from GI bleed--serial H&H, s/p 2 units pRBC tansfusion
Persistent atrial fibrillation/mechanical valve replacement--apprec cards--holding coumadin---follow PT/INR, down to 1.10 today--Hold metoprolol, diltiazem for now --cont heparin drip, colonoscopy Saturday--will need bridging at d/c, she has done
lovenox before
Type 2 diabetes mellitus--Low insulin sliding scale---Check A1c-- restarting Januvia and Jardiance
Essential Hypertension--Hold CLIFTON/ARB--Monitor blood pressure
Hyperlipidemia--restart rosuvastatin
Anxiety/depression--restart venlexafine
DVT prophylaxis- SCD
CODE STATUS -- full code
Anticipated Discharge: Within 24 hours
Subjective/Interval History
-
Date of Service: January 27, 2024
pt waiting for colonoscopy
Objective Data
-
Labs:
Laboratory Results
01/27/24
06:28
WBC 3.8 L
Hgb 10.4 L
Hct 33.1 L
Plt Count 229 D
PT 13.8
INR 1.08
APTT 39.1 H
Vital Signs:
max temp for 24 hours
01/26/24
23:30
Temp 98.4 F
Vital Signs
Temp Pulse Resp BP Pulse Ox
98.5 F 72 18 128/53 95
01/27/24 07:30 01/27/24 07:30 01/27/24 07:30 01/27/24 07:30 01/27/24 07:30
I&O
01/26/24 01/27/24 01/28/24
06:59 06:59 06:59
Intake Total 960 / 960 720 / 720
Balance 960 / 960 720 / 720
Review of Systems
-
All other systems: Reviewed and negative
Physical Exam
-
General: Well Developed, Well Nourished and No Apparent Distress
HEENT: Normocephalic and Atraumatic
Respiratory: Clear to Auscultation; Negative Wheezes or Rhonchi
Cardiac: Regular Rhythm and S1/S2; Negative Murmur
GI: Soft, Nontender, Nondistended and Normal Bowel Sounds
Musculoskeletal: No Clubbing, No Cyanosis and No Edema
Neuro: Awake
Psych: Calm
[2024-01-27 11:33] LABS: Glucose - Point of Care 114 mg/dl (70-99)
--- NOTE | 2024-01-27 12:09 | CM ---
Addendum entered by Libby Beavers 01/27/24 14:08:
Second attempt to speak with Alley who has returned from colonoscopy, but was asleep at the time of my visit. Call to pt's at home and voicemail left with my contact information.
Plan: Return home with no needs identified at this time.
Original Note:
I attempted to visit Alley today to check in, however she was down for a colonoscopy. Anticipate discharge tomorrow, so will return later today to discuss d/c plans.
--- NOTE | 2024-01-27 12:48 | W.PN.CD ---
Addendum entered and electronically signed by Moe Carroll MD 01/27/24 17:35:
I saw and examined the patient.
The HOME COMPANION's note was reviewed and I agree with the note.
Post colonoscopy stable. Now back on IV heparin
Resume coumadin . If remains stable then consider transtion to Lovenox bridge.
Patient also on ASA. Risk vs benefit of continued useof ASA can be reassessed by Primary radiology receptionist.
Original Note:
Today's Communication / Plan
-
Resume heparin gtt
Resume warfarin this evening
Resume furosemide tomorrow
Impression / Plan
-
Acute blood loss anemia from an acute GI bleed
GIB, lower
- Colonoscopy with internal hemorrhoids & no evidence of bleeding, GI signed off
HX of Dyspnea
- Prior to [facility] MVR on cath 02/2020) Severe MS, mean gradient 14 mmHg, MVA 0.95 cm2, LVEDP 17, PCWP 30, RA 20, PA 54/25
- On SGLT-inhibitor, furosemide on hold, resume tomorrow
- Could consider stopping KCl and adding MRA
- Echo 11/12/2023: LVEF 55-60%, [facility] MVR, mean 5, mild-mod , mean AoV 16 mmHg, mod TR, est PASP 60-65, est RA 8
Mechanical MVR, for rheumatic mitral stenosis, [address], 03/22/2020
- Back on heparin gtt, warfarin started tonight
- Typically goal INR 3, range 2.5 to 3
Mild valvular , echo 08/2023
Hx of AFib, flutter, s/p ablation 09/2023
- In sinus by EKG
Sick sinus syndrome, MDT pacer 07/2020, MRI conditional
DM, type II
Mixed hyperlipidemia
HTN
Hx anxiety/depression
Non obstructive CAD at cath (02/2020) prior to [facility] MV Replacement: 30-40 pLAD, 40 mRCA, on ASA
Subjective:
No CP or dyspnea
Data:
Echo 11/12/2023: LVEF 55-60%, mech MVR, mean 5, mild-mod , mean AoV 16 mmHg, mod TR, est PASP 60-65, est RA 8
Physical Exam
Vital Signs/Labs
Vital Signs
Temp Pulse Resp BP Pulse Ox
97.1 F 62 18 104/70 93
01/27/24 11:27 01/27/24 11:45 01/27/24 11:45 01/27/24 11:45 01/27/24 11:45
01/27/24 06:28
01/26/24 06:26
PT 13.8 Sec (11.4-14.6) 01/27/24 06:28
INR 1.08 01/27/24 06:28
APTT 39.1 Sec (23.4-35.0) H 01/27/24 06:28
Magnesium 2.1 mg/dl (1.6-2.3) 01/24/24 05:36
Physical Exam
Constitutional: No acute distress and Comfortable
EENT: Moist mucous membranes
Cardiovascular: Pedal edema is absent, S1S2 is normal and Other (mechanical click)
Respiratory: Respiratory effort normal and Lungs clear to auscul.
GI: Soft, Distention absent, Flat, Non tender and Normal bowel sounds
Neuro/Psych: AO x 3
Other: Skin (warm and dry)
Data Reviewed
-
Date of Service: January 27, 2024
Labs: Labs Reviewed by me
Old Records: Reviewed
[2024-01-27] MEDS: COUMADIN 7.5 MG PO (17:25)
[2024-01-27] MEDS: KCL 10 MEQ PO (17:25)
[2024-01-27] MEDS: FAMVIR 500 MG PO (17:25)
[2024-01-27 17:58] LABS: Glucose - Point of Care 107 mg/dl (70-99)
[2024-01-27 19:18] LABS: APTT 83.1 Sec (23.4-35.0)
[2024-01-27] MEDS: HEPARIN 25000 UNITS/250 ML IV (20:36)
[2024-01-27] MEDS: CRESTOR 5 MG PO (20:42)
[2024-01-27] MEDS: JARDIANCE 25 MG PO (20:42)
[2024-01-27] MEDS: LOW STRENGTH ASPIRIN 81 MG PO (20:46)
[2024-01-27 21:31] LABS: Glucose - Point of Care 129 mg/dl (70-99)
[2024-01-28 02:24] LABS: APTT 90.6 Sec (23.4-35.0)
[2024-01-28 07:00] VITALS: BP 143/64
[2024-01-28 07:50] LABS: Glucose - Point of Care 125 mg/dl (70-99)
[2024-01-28 08:29] LABS: Hemoglobin 11.4 g/dL (12.0-16.0); Mean Corp Hgb Conc. 31.7 g/dL (33.0-37.0); Mean Corpuscular Hgb 26.6 pg (27.0-31.0); Mean Corpuscular Volume 84.1 fL (81.0-99.0); Platelet Count 262 10^3/uL (130-400); Red Blood Cell Count 4.28 10^6/uL (4.20-5.40); Red Cell Dist. Width 16.2 % (11.5-14.5); White Blood Cell Count 4.2 10^3/uL (4.8-10.8)
[2024-01-28 08:39] LABS: APTT 84.1 Sec (23.4-35.0)
--- NOTE | 2024-01-28 09:02 | W.PN.CD ---
Today's Communication / Plan
-
For now continuing with ASA and warfarin, but may need to stop ASA if more bleeding
OK for Lovenox to warfarin if OK with medicine and GI
F/u with our office
BMP in 2 and 4 weeks with new Aldactone
Will stop KCl and add MRA (Aldactone) for HTN and dyspnea with known prior elevation of filling pressures
Impression / Plan
-
Acute blood loss anemia from an acute GI bleed
- Colonoscopy showed no active bleeding, hemorrhoids and diverticulosis
HX of Dyspnea
- Prior to [facility] MVR on cath 02/2020) Severe MS, mean gradient 14 mmHg, MVA 0.95 cm2, LVEDP 17, PCWP 30, RA 20, PA 54/25
- On SGLT-inhibitor, back on furosemide
- Could consider stopping KCl and adding MRA
- Echo 11/12/2023: LVEF 55-60%, [facility] MVR, mean 5, mild-mod , mean AoV 16 mmHg, mod TR, est PASP 60-65, est RA 8
Mechanical MVR, for rheumatic mitral stenosis, [address], 03/22/2020
- Back on heparin gtt, warfarin
- Typically goal INR 3, range 2.5 to 3
Mild valvular , echo 08/2023
Hx of AFib, flutter, s/p ablation 09/2023
- In sinus by EKG
Sick sinus syndrome, MDT pacer 07/2020, MRI conditional
DM, type II
Mixed hyperlipidemia
HTN
Hx anxiety/depression
Non obstructive CAD at cath (02/2020) prior to [facility] MV Replacement: 30-40 pLAD, 40 mRCA, on ASA
Subjective:
No CP or dyspnea
Data:
Echo 11/12/2023: LVEF 55-60%, [facility] MVR, mean 5, mild-mod , mean AoV 16 mmHg, mod TR, est PASP 60-65, est RA 8
Physical Exam
Vital Signs/Labs
Vital Signs
Temp Pulse Resp BP Pulse Ox
98.2 F 77 18 143/64 99
01/28/24 07:00 01/28/24 07:00 01/28/24 07:00 01/28/24 07:00 01/28/24 07:00
01/28/24 07:33
PT 14.0 Sec (11.4-14.6) 01/28/24 07:33
INR 1.10 01/28/24 07:33
APTT 84.1 Sec (23.4-35.0) H 01/28/24 07:33
Magnesium 2.1 mg/dl (1.6-2.3) 01/24/24 05:36
Physical Exam
Constitutional: No acute distress
EENT: Anicteric
Cardiovascular: Rhythm & rate is regular, Pedal edema is absent, Systolic murmur present and S[facility]S2 is normal [facility]
Respiratory: Respiratory effort normal and Lungs clear to auscul.
GI: Soft and Distention absent
Neuro/Psych: AO x 3
Data Reviewed
-
Date of Service: January 28, 2024
[2024-01-28 09:15] LABS: Blood Urea Nitrogen 8 mg/dl (7-17); Calcium 9.1 mg/dl (8.4-10.2); Carbon Dioxide 28 mmol/L (22-30); Chloride 104 mmol/L (98-107); Estimated Creatinine Clearance 63 ml/min; Glucose 118 mg/dl (70-99); Magnesium 2.1 mg/dl (1.6-2.3); Potassium 4.1 mmol/L (3.5-5.1); Sodium 140 mmol/L (135-145); eGFR > 60.00
[2024-01-28] MEDS: EFFEXOR 37.5 MG PO (09:15)
[2024-01-28] MEDS: MUCINEX 600 MG PO (09:16)
[2024-01-28] MEDS: CARDIZEM CD 240 MG PO (09:16)
[2024-01-28] MEDS: JANUVIA 100 MG PO (09:16)
[2024-01-28] MEDS: TOPROL XL 25 MG PO (09:16)
[2024-01-28] MEDS: LASIX 20 MG PO (09:17)
--- NOTE | 2024-01-28 11:24 | W.PN.HOSP.TC ---
Today's Communication/Plan
-
OK for DC Today after Lovenox injection
Assessment / Plan
Assessment / Plan
pt is a 78 year old female
Acute Lower GI bleed exacerbated by coumadin--crampy abdominal pain with h/o ischemic colitis-
-C. diff and stool studies negative--CT scan without significant bowel pathology
-s/p 2 units pRBC with improvement in HGB
-s/p colonoscopy without source of bleeding
-tolerating low residue diet
-heparin gtt resumed --> patient has done lovenox bridging in past- will order. She states she usually doesn't wake up until 10:30 AM and goes to bed at MN so will start lovenox now to keep q 12 schedule
acute blood loss anemia -- from GI bleed
- s/p 2 units pRBC tansfusion
- Hg stable
Persistent atrial fibrillation/mechanical valve replacement--apprec cards--
-CASINO CHANGE ATTENDANT Metop/Dilt
-bridging with lovenox
-resume CASINO CHANGE ATTENDANT Coumadin
Type 2 diabetes mellitus--Low insulin sliding scale---Check A1c-- restarting Januvia and Jardiance
Essential Hypertension
Hyperlipidemia--restart rosuvastatin
Anxiety/depression--restart venlexafine
DVT prophylaxis- SCD
CODE STATUS -- full code
Anticipated Discharge: Today
Subjective/Interval History
-
Date of Service: January 28, 2024
patient is feeling well and feels ready for discharge
she has given herself lovenox injection in past
she typically goes to bed at midnight and wakes up at 10:30 AM
Objective Data
-
Labs:
Laboratory Results
01/28/24 01/28/24
02:07 07:33
WBC 4.2 L
Hgb 11.4 L
Hct 36.0 L
Plt Count 262
PT 14.0
INR 1.10
APTT 90.6 H 84.1 H
Sodium 140
Potassium 4.1
Chloride 104
Carbon Dioxide 28
BUN 8
Creatinine 0.7
Glucose 118 H
Calcium 9.1
Vital Signs:
Vital Signs
Temp Pulse Resp BP Pulse Ox
98.2 F 77 18 143/64 99
01/28/24 07:00 01/28/24 07:00 01/28/24 07:00 01/28/24 07:00 01/28/24 08:00
I&O
01/27/24 01/28/24 01/29/24
06:59 06:59 06:59
Intake Total 720 / 720 540 / 540
Output Total 1500 / 1500
Balance 720 / 720 -960 / -960
Review of Systems
-
History Source: Patient
All other systems: Reviewed and negative
Physical Exam
-
General: Well Developed, Well Nourished and No Apparent Distress
HEENT: Normocephalic and Atraumatic
Respiratory: Clear to Auscultation; Negative Wheezes or Rhonchi
Cardiac: Regular Rhythm and S1/S2; Negative Murmur
GI: Soft, Nontender, Nondistended and Normal Bowel Sounds
Musculoskeletal: No Clubbing, No Cyanosis and No Edema
Neuro: Awake
Psych: Calm
Data Reviewed
-
Diagnostic Radiology: Report Reviewed by me
Labs: Labs Reviewed by me
--- NOTE | 2024-01-28 11:38 | W.DS.TRANS ---
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
-
Discharge Instructions:
Discharge Diagnosis/Procedures Acute lower GI bleed exacerbated by Coumadin,
acute blood loss anemia, persistent atrial
fibrillation, mechanical valve replacement, type
2 diabetes mellitus, essential hypertension,
hyperlipidemia, anxiety/depression
Diet 2 Gram Sodium
Activity As tolerated
Driving Restrictions As prior to admission
Bathing Restrictions None
Blood Work BMP (to monitor kidney function and potassium) -
to be ordered by your PCP within next 1-2 weeks
.
Specialty Instructions Weigh Daily
Instructions:
Stand-Alone Forms:
Changes to Home Medications: Yes
Discharge Medications:
DC Medications w/original date entered in [facility]
calcium citrate 200 mg (950 mg) tablet 600 mg PO HS Supplement 04/10/19
cinnamon bark 500 mg capsule (Cinnamon) 1,000 mg PO QPM Supplement 04/10/19
glucosamine HCl 1,500 mg tablet 1,500 mg PO QPM Supplement 04/10/19
guaifenesin 400 mg tablet 400 mg PO BID Congestion 04/10/19
venlafaxine 37.5 mg tablet 37.5 mg PO BID Mental health 04/10/19
B-complex with vitamin C 1 cap PO HS Supplement 05/01/19
multivitamin with folic acid 400 mcg tablet (Tab-A-Francisco) 1 tab PO QPM Supplement 12/08/19
turmeric 400 mg capsule 400 mg PO DAILY Supplement 02/15/20
rosuvastatin 5 mg tablet 5 mg PO HS High Cholesterol 07/25/20
diltiazem HCl 240 mg capsule,24 hr,extended release 240 mg PO BID Heart Disease/Condition 08/16/23
zinc 50 mg tablet 50 mg PO DAILY Supplement 08/16/23
aspirin 81 mg chewable tablet 81 mg PO HS Blood Clot Prevention/Tx 09/26/23
cholecalciferol (vitamin D3) 50 mcg (2,000 unit) tablet (Vitamin D3) 50 mcg PO DAILY Supplement 09/26/23
empagliflozin 25 mg tablet (Jardiance) 25 mg PO HS Diabetes 09/26/23
famciclovir 500 mg tablet 500 mg PO QPM antiviral 09/26/23
furosemide 20 mg tablet 20 mg PO MOTUWETHFR Fluid Retention/Swelling 09/26/23
metoprolol succinate 25 mg tablet,extended release 24 hr 25 mg PO BID Blood Pressure 09/26/23
sitagliptin phosphate 100 mg tablet (Januvia) 100 mg PO DAILY Diabetes 09/26/23
ascorbic acid (vitamin C) 500 mg tablet (Vitamin C) 500 mg PO DAILY Supplement 01/22/24
cyanocobalamin (vitamin B-12) 1,000 mcg tablet 1,000 mcg PO DAILY Supplement 01/22/24
warfarin 7.5 mg tablet (Jantoven) 7.5 mg PO QPM Blood Clot Prevention/Tx 01/22/24
enoxaparin 80 mg/0.8 mL subcutaneous syringe (Lovenox) 70 mg (0.7 mL) SC Q12H #8 mL 01/28/24
spironolactone 25 mg tablet 25 mg PO DAILY #30 tabs 01/28/24
Home Medication Changes
Continue Lovenox Bridge to therapeutic INR on Coumadin. Take Lovenox 70mg (from 80mg syringe) twice a day (12 hours apart) until INR is therapeutic (over 2.5) x 2 days in a row. Check INR value daily. Please call coumadin clinic daily with INR
each day.
Your next Lovenox dose should be around midnight tonight.
You are newly started on Spironolactone. This medication can increase potassium levels. Therefore you can stop daily potassium supplementation. Repeat labs should be ordered for you from your PCP in one week.
Pending Results: No
[2024-01-28 11:44] LABS: Glucose - Point of Care 126 mg/dl (70-99)
--- NOTE | 2024-01-28 11:46 | CM ---
Patient seen bedside.
IMM completed.
Patient denies home care needs.
Spouse will transport.
Plan: home no needs.
[2024-01-28] MEDS: LOVENOX 70 MG SC (12:07)
[2024-01-28 12:56] VITALS: BP 139/65
--- NOTE | 2024-01-28 14:45 | W.DCSUMMARY ---
Discharge Summary
Discharge Data
Date of Admission: 01/22/24
Date of Discharge: 01/28/24
-
Pending Results: Yes
Hospital Course
Discharging Physician : Dr. Brittany Kim
Disposition : Home
Primary care physician : Dr. Milo Singletary
Principal Discharge diagnosis : Acute gastrointestinal bleed
Hospital Course :
Ms. Alley Ng is a 78 yo woman with hx mechanical MVR, hx afib/flutter, SSS s/p PPM 07/2020, HLD, DM, HTN, anxiety/depression, ischemic colitis 10/09 presents to the ER with two episodes of BRBPR. She was to consider outpatient colonoscopy.
Triage vitals stable. Labs with WBC 15.1, Hg 7.7, Glucose 393. Patient was admitted to medicine with GI and Cardiology consulting. Patient's coumadin was held and she was placed on a heparin gtt for bridging. She underwent colonoscopy on 01/26
when INR level appropriate. Colonoscopy without significant findings and no evidence of bleeding. Post procedure her heparin gtt was resumed and she is now resumed on coumadin. Patient has performed Lovenox bridging at home and feels comfortable
doing so. She has normal renal function.
Per cardiology, patient was started on Spironolactone and her standing K supplementation was stopped.
She is to continue aspirin and coumadin but may need to stop aspirin if evidence of more bleeding.
Time spent on discharge was 40 minutes.
Important imaging findings :
Procedure findings :
Colonoscopy 01/27/24
Impression: - The examined portion of the ileum was normal.
- Diverticulosis in the sigmoid colon.
- Internal hemorrhoids.
- No evidence of bleeding .
Recommendation: - [facility].
- Resume previous diet.
- avoid constipation . regular bowel regimen
- ok to restart heparin drip immediately and bridge to
coumadin as per cardio
- Preparation H ointment: Apply externally as
necessary.
- GI will sign off . call us back if any questions
Discharge Plan
-
Patient Disposition: Home (Routine Discharge)
Discharge Diagnosis/Procedures: Acute lower GI bleed exacerbated by Coumadin, acute blood loss anemia, persistent atrial fibrillation, mechanical valve replacement, type 2 diabetes mellitus, essential hypertension, hyperlipidemia, anxiety/depression
Condition: Good
Diet: 2 Gram Sodium
Activity: As tolerated
Driving Restrictions: As prior to admission
Bathing Restrictions: None
Blood Work: BMP (to monitor kidney function and potassium) - to be ordered by your PCP within next 1-2 weeks.
Specialty Instructions: Weigh Daily- Call MD for wt gain/loss 3 lbs overnight/5 lbs in 1 week
Referrals:
Mike Arevalo MD [Active] - in two to three weeks
Jacqui Hodgson MD [Active] - in four to six weeks
Milo Singletary MD [Family Provider] - in less than 1 week
Additional Discharge Medication Instructions: Continue Lovenox Bridge to therapeutic INR on Coumadin. Take Lovenox 70mg (from 80mg syringe) twice a day (12 hours apart) until INR is therapeutic (over 2.5) x 2 days in a row. Check INR value daily.
Please call coumadin clinic daily with INR each day.
Your next Lovenox dose should be around midnight tonight.
You are newly started on Spironolactone. This medication can increase potassium levels. Therefore you can stop daily potassium supplementation. Repeat labs should be ordered for you from your PCP in one week.
Prescriptions:
New
spironolactone 25 mg Tablet
25 mg PO DAILY Qty: 30 0RF
enoxaparin [Lovenox] 80 mg/0.8 mL syringe
70 mg SC Q12H Qty: 8 0RF
Rx Instructions:
70mg(0.7mL) twice a day. Stop when INR is therapeutic x 2 days. Follow with coumadin clinic.
Continued
venlafaxine 37.5 MG tablet
37.5 mg PO BID
calcium citrate 200 MG tablet
600 mg PO HS
guaifenesin 400 MG tablet
400 mg PO BID
cinnamon bark [Cinnamon] 500 MG capsule
1,000 mg PO QPM
glucosamine HCl 1,500 MG tablet
1,500 mg PO QPM
B-complex with vitamin C 1 CAPLET tablet
1 cap PO HS
multivitamin with folic acid [Tab-A-Francisco] 1 TABLET tablet
1 tab PO QPM
turmeric 400 MG capsule
400 mg PO DAILY
rosuvastatin 5 MG tablet
5 mg PO HS
diltiazem HCl 240 mg Capsule,Extended Release 24 Hr
240 mg PO BID
zinc 50 mg Tablet
50 mg PO DAILY
furosemide 20 mg Tablet
20 mg PO MOTUWETHFR
metoprolol succinate 25 mg Tablet Extended Release 24 Hr
25 mg PO BID
Januvia 100 mg Tablet
100 mg PO DAILY
Jardiance 25 mg Tablet
25 mg PO HS
aspirin 81 MG tablet,chewable
81 mg PO HS
cholecalciferol (vitamin D3) [Vitamin D3] 50 mcg (2,000 unit) Tablet
50 mcg PO DAILY
famciclovir 500 mg Tablet
500 mg PO QPM
cyanocobalamin (vitamin B-12) 1,000 mcg Tablet
1,000 mcg PO DAILY
ascorbic acid (vitamin C) [Vitamin C] 500 mg Tablet
500 mg PO DAILY
warfarin [Jantoven] 7.5 mg tablet
7.5 mg PO QPM
Discontinued
potassium chloride 10 mEq Tablet Extended Release
10 meq PO QPM
Discharge Orders:
Discharge Patient (As Directed); Ordered 01/28/24
Ordered By: Brittany Kim
Discharge Date and Time
Discharge Date/Time: 01/28/24 13:15
Print Language: TURKMEN
== END 2024-01-28 13:15 | disposition home or self-care (01) | DRG 813 ==
LOC: 4 WEST ACU 20:10
PROVIDERS: Emergency Medicine; Nurse Practitioner Gerontology; Student in an Organized Health Care Education/Training Program; ADMITTING PHYSICIAN Internal Medicine; ATTENDING PHYSICIAN Student in an Organized Health Care Education/Training Program; CONSULT PHYSICIAN Internal Medicine Cardiovascular Disease; CONSULT PHYSICIAN Internal Medicine Gastroenterology; EMERGENCY PHYSICIAN Emergency Medicine; FAMILY PHYSICIAN Family Medicine
DX: D68.32 Hemorrhagic disorder due to extrinsic circulating anticoagulants (principal); D62 Acute posthemorrhagic anemia; I48.19 Other persistent atrial fibrillation; K92.1 Melena; E87.1 Hypo-osmolality and hyponatremia; I10 Essential (primary) hypertension; G47.33 Obstructive sleep apnea (adult) (pediatric); I25.10 Atherosclerotic heart disease of native coronary artery without angina pectoris; E11.9 Type 2 diabetes mellitus without complications; F32.A Depression, unspecified; F41.9 Anxiety disorder, unspecified; Z95.2 Presence of prosthetic heart valve; Z79.84 Long term (current) use of oral hypoglycemic drugs; Z79.01 Long term (current) use of anticoagulants
CPT/HCPCS: 36430; 71046; 74177; 80048; 80053; 82962; 83036; 83690; 83735; 85025; 85027; 85610; 85730; 86850; 86900; 86901; 86920; 87045; 87046; 87324; 87427; 87449; 93005; 94640; 94660; 96360; 99291; P9016; Q9967

== ENCOUNTER → 2024-05-04 15:04 | Outpatient (REF) | payer MEDICARE, OTHER, SELFPAY ==
[2024-05-04 15:42] LABS: % Basophils 1.2 % (0-2); % Eosinophils 1.5 % (0-6); % Immature Granulocytes 0.4 % (0-0.5); % Lymphocytes 20.7 % (20.5-51.1); % Monocytes 5.7 % (1.7-9.3); % Neutrophils 70.5 % (42.2-75.2); Absolute Basophils 0.1 10^3/uL (0-0.2); Absolute Eosinophils 0.1 10^3/uL (0-0.7); Absolute Lymphocytes 1.4 10^3/uL (1.2-3.4); Absolute Monocytes 0.4 10^3/uL (0.1-0.6); Absolute Neutrophils 4.7 10^3/uL (1.4-6.5); Hematocrit 41.2 % (37.0-47.0); Hemoglobin 13.9 g/dL (12.0-16.0); Mean Corp Hgb Conc. 33.7 g/dL (33.0-37.0); Mean Corpuscular Hgb 27.9 pg (27.0-31.0); Mean Corpuscular Volume 82.6 fL (81.0-99.0); Mean Platelet Volume 11.1 fL (7.4-10.4); Nucleated Red Blood Cells % 0 %; Platelet Count 235 10^3/uL (130-400); Red Blood Cell Count 4.99 10^6/uL (4.20-5.40); Red Cell Dist. Width 15.6 % (11.5-14.5); White Blood Cell Count 6.7 10^3/uL (4.8-10.8)
[2024-05-04 16:05] LABS: ALT (SGPT) 22 U/L (0-35); AST (SGOT) 32 U/L (14-36); Albumin 4.5 g/dl (3.5-5.0); Alkaline Phosphatase 65 U/L (38-126); Blood Urea Nitrogen 19 mg/dl (7-17); Calcium 9.8 mg/dl (8.4-10.2); Carbon Dioxide 28 mmol/L (22-30); Chloride 99 mmol/L (98-107); Glucose 253 mg/dl (70-99); Potassium 4.4 mmol/L (3.5-5.1); Sodium 135 mmol/L (135-145); Total Bilirubin 0.6 mg/dl (0.2-1.3); Total Protein 6.9 g/dl (6.3-8.2); eGFR 57.66
== END ==
LOC: REG 15:04
PROVIDERS: ATTENDING PHYSICIAN Family Medicine
DX: D64.9 Anemia, unspecified (principal); R79.89 Other specified abnormal findings of blood chemistry
CPT/HCPCS: 36415; 80053; 85025

== ENCOUNTER → 2024-05-14 15:26 | Outpatient (REF) | payer MEDICARE, OTHER, SELFPAY ==
[2024-05-15 08:49] LABS: Glycohemoglobin (HgbA1c) 6.8 % (4.0-5.6)
== END ==
LOC: REG 15:26
PROVIDERS: ATTENDING PHYSICIAN Family Medicine
DX: E11.65 Type 2 diabetes mellitus with hyperglycemia (principal)
CPT/HCPCS: 36415; 83036

== ENCOUNTER → 2024-06-22 12:55 | Outpatient (REF) | payer MEDICARE, OTHER, SELFPAY | LOC: RAD 12:55 | PROVIDERS: FAMILY PHYSICIAN Family Medicine | DX: E27.8 Other specified disorders of adrenal gland (principal) | CPT/HCPCS: 74170; Q9967 ==

== ENCOUNTER → 2024-07-15 13:19 | Outpatient (REF) | payer MEDICARE, OTHER, SELFPAY ==
[2024-07-15 16:07] LABS: Blood Urea Nitrogen 17 mg/dl (7-17); Calcium 9.6 mg/dl (8.4-10.2); Carbon Dioxide 32 mmol/L (22-30); Chloride 97 mmol/L (98-107); Glucose 143 mg/dl (70-99); Potassium 4.6 mmol/L (3.5-5.1); Sodium 140 mmol/L (135-145); eGFR 57.66
[2024-07-18 00:40] LABS: Aldosterone, Serum 22.9 ng/dL
== END ==
LOC: REG 13:19
PROVIDERS: ATTENDING PHYSICIAN Student in an Organized Health Care Education/Training Program; FAMILY PHYSICIAN Family Medicine
DX: E27.8 Other specified disorders of adrenal gland (principal)
CPT/HCPCS: 36415; 80048; 82088; 83835; 84244

== ENCOUNTER → 2024-07-16 07:58 | Outpatient (REF) | payer MEDICARE, OTHER, SELFPAY ==
[2024-07-16 10:40] LABS: Cortisol, Random 1.5 ug/dl
== END ==
LOC: REG 07:58
PROVIDERS: ATTENDING PHYSICIAN Student in an Organized Health Care Education/Training Program; FAMILY PHYSICIAN Family Medicine
DX: E27.8 Other specified disorders of adrenal gland (principal)
CPT/HCPCS: 36415; 82533

== ENCOUNTER → 2024-08-17 15:03 | Outpatient (REF) | payer MEDICARE, OTHER, SELFPAY ==
[2024-08-17 16:17] LABS: ALT (SGPT) 24 U/L (0-35); AST (SGOT) 32 U/L (14-36); Albumin 4.7 g/dl (3.5-5.0); Alkaline Phosphatase 71 U/L (38-126); Blood Urea Nitrogen 16 mg/dl (7-17); Calcium 9.5 mg/dl (8.4-10.2); Carbon Dioxide 32 mmol/L (22-30); Chloride 100 mmol/L (98-107); Glucose 125 mg/dl (70-99); HDL Cholesterol 69 mg/dl; LDL Cholesterol, Calculated 52 mg/dl; Potassium 4.6 mmol/L (3.5-5.1); Sodium 139 mmol/L (135-145); Total Bilirubin 0.6 mg/dl (0.2-1.3); Total Cholesterol 176 mg/dl (50-199); Total Protein 7.3 g/dl (6.3-8.2); Triglyceride 275 mg/dl (10-149); Very Low Density Lipoprotein 55 mg/dl (0-30); eGFR > 60.00
[2024-08-17 16:18] LABS: % Basophils 1.2 % (0-2); % Immature Granulocytes 0.5 % (0-0.5); % Lymphocytes 17.6 % (20.5-51.1); % Monocytes 9.6 % (1.7-9.3); % Neutrophils 69.1 % (42.2-75.2); Absolute Basophils 0.1 10^3/uL (0-0.2); Absolute Eosinophils 0.1 10^3/uL (0-0.7); Absolute Lymphocytes 1.1 10^3/uL (1.2-3.4); Absolute Monocytes 0.6 10^3/uL (0.1-0.6); Absolute Neutrophils 4.2 10^3/uL (1.4-6.5); Hematocrit 43.4 % (37.0-47.0); Hemoglobin 14.4 g/dL (12.0-16.0); Mean Corp Hgb Conc. 33.2 g/dL (33.0-37.0); Mean Corpuscular Hgb 30.2 pg (27.0-31.0); Mean Platelet Volume 11.3 fL (7.4-10.4); Nucleated Red Blood Cells % 0 %; Platelet Count 222 10^3/uL (130-400); Red Blood Cell Count 4.77 10^6/uL (4.20-5.40); Red Cell Dist. Width 13.5 % (11.5-14.5)
[2024-08-17 16:47] LABS: TSH 3.31 uIU/ml (0.47-4.68)
[2024-08-17 16:52] LABS: Microalbumin, Random Urine < 0.6 mg/dl (0.6-1.7)
[2024-08-18 10:38] LABS: Glycohemoglobin (HgbA1c) 6.2 % (4.0-5.6)
[2024-08-20 00:31] LABS: Aldosterone, Serum 18.1 ng/dL
== END ==
LOC: REG 15:03
PROVIDERS: ATTENDING PHYSICIAN Student in an Organized Health Care Education/Training Program; FAMILY PHYSICIAN Family Medicine; REFERRING PHYSICIAN Internal Medicine
DX: E27.9 Disorder of adrenal gland, unspecified (principal); E11.65 Type 2 diabetes mellitus with hyperglycemia; I10 Essential (primary) hypertension
CPT/HCPCS: 36415; 80053; 80061; 82043; 82088; 82570; 83036; 83835; 84244; 84443; 85025

== ENCOUNTER → 2024-09-28 15:58 | Outpatient (REF) | payer MEDICARE, OTHER, SELFPAY ==
[2024-09-28 17:07] LABS: Blood Urea Nitrogen 14 mg/dl (7-17); Carbon Dioxide 31 mmol/L (22-30); Chloride 100 mmol/L (98-107); Glucose 159 mg/dl (70-99); Potassium 4.5 mmol/L (3.5-5.1); Sodium 138 mmol/L (135-145); eGFR > 60.00
== END ==
LOC: REG 15:58
PROVIDERS: ATTENDING PHYSICIAN Internal Medicine; FAMILY PHYSICIAN Family Medicine
DX: I48.91 Unspecified atrial fibrillation (principal)
CPT/HCPCS: 36415; 80048

== ENCOUNTER 2025-03-23 14:09 | Emergency (ER) | payer MEDICARE, OTHER, SELFPAY ==
[2025-03-23 14:19] VITALS: BP 115/61
[2025-03-23 14:52] LABS: Hematocrit 33.3 % (37.0-47.0); Hemoglobin 11.2 g/dL (12.0-16.0); Mean Corp Hgb Conc. 33.6 g/dL (33.0-37.0); Mean Corpuscular Volume 90.5 fL (81.0-99.0); Nucleated Red Blood Cells % 0 %; Platelet Count 225 10^3/uL (130-400); Red Cell Dist. Width 14.1 % (11.5-14.5)
[2025-03-23 14:57] LABS: ALT (SGPT) 21 U/L (0-35); AST (SGOT) 26 U/L (14-36); Albumin 4.5 g/dl (3.5-5.0); Alkaline Phosphatase 54 U/L (38-126); Blood Urea Nitrogen 14 mg/dl (7-17); Calcium 9.5 mg/dl (8.4-10.2); Carbon Dioxide 27 mmol/L (22-30); Chloride 106 mmol/L (98-107); Glucose 181 mg/dl (70-99); Potassium 4.2 mmol/L (3.5-5.1); Sodium 139 mmol/L (135-145); Total Protein 7.1 g/dl (6.3-8.2); eGFR > 60.00
[2025-03-23 14:59] VITALS: BMI 28.1
[2025-03-23 15:10] LABS: Troponin I < 0.012 ng/ml
--- NOTE | 2025-03-23 15:24 | ED.GENMED ---
History of Present Illness
General
Chief Complaint: Chest Pain
Source: patient
Exam Limitations: none
Time Seen by Provider: 03/23/25 15:24
Nursing documentation reviewed up to this point in time: agreed with
History of Present Illness
History of Present Illness:
Patient is a 80-year-old female past medical history of COPD, A-fib hypertension,non obs CAD, hyperlipidemia, mitral regurgitation, mechanical mitral valve replacement March/2020, [facility], history of A-fib a flutter status post ablation September
2023, sick sinus syndrome status post pacemaker, diabetes, GI bleed, colitis presents to the ER for evaluation. She reports for the past week she has felt wiped out and very fatigued. She also has increasing shortness of breath. She does have
some chronic shortness of breath but reports over the past week it has been worse. On Saturday she was walking up or down the steps and had an episode of chest pain which did not resolve with rest.
Past History
Past History
ED Past Medical History: Arrthythmia (AFib prior to valve surgery), COPD, Fibromyalgia, HTN, Hypercholesterolemia, NIDDM, Valvular disease (MR) and Other (hiatal hernia)
ED Past Surgical History: Cardiac (mitral valve replacement March 2020; A-fib ablation September 2023), Gynecological (vaginal cyst removed), Orthopedic (bilateral total hip replacements, bilateral torn menisci) and Other (neuromas removed from feet,
TMJ surgery, L lumpectomy, esophageal cyst, deviated septum repair, cataract extraction bilaterally)
Social History
Tobacco: Former smoker
Alcohol: Chronic alcoholic
Drug: None and Other (unclear)
Personal:
Living: with family
Employment: Retired
Family History
Family History: Other (reviewed and non-contributory)
Phy Exam
General Physical Exam
General Presentation: no apparent distress
General age: appears stated age
General Skin: warm and dry
General Habitus: normal
General Mental: alert
General Hydration: appears well hydrated
Cardiovascular Exam
Cardiovascular Exam: regular rate/rhythm, no murmur and normal peripheral pulses
Pulmonary Exam
Pulmonary Exam: lungs clear and no respiratory distress
Neurological Exam
Neurological Exam: alert and oriented x3
Musculoskeletal Exam
Musculoskeletal Exam: full ROM
Skin Exam
Skin Exam: normal color and warm/dry
Psychiatric Exam
Psychiatric Exam: normal mood/affect
Scores
Heart Score for Chest Pain Patients
STEMI patient?: Not applicable
Course
Orders/Labs/Results
Orders:
Orders
03/23/25 14:11
Electrocardiogram (*1) Urgent
Reason for Study: Shortness of Breath
EKG- Treatment ONCE
03/23/25 14:18
Electrocardiogram (*1) Urgent
Reason for Study: Other
Other Reason for Exam: Respiratory Distress
Cardiac Monitoring- Treatment ONCE
EKG- Treatment ONCE
IV Insert/Care/Rem.- Treatment PRN
CR Chest - 2 Views Urgent
Comment:
Reason For Exam: respiratory distress
O2 Therapy [RESP] Urgent
Titrate/Wean O2 to maintain O2 sat greater than (%): 93
Special Instructions: TO MAINTAIN CONTINUOUS O2 SATS >/= 93%
Pulse Ox/cont/shift [RESP] Urgent
Quantity: 1
Special Instructions: continuous pulse ox
03/23/25 14:27
Complete Blood Count/With Diff Urgent
Comprehensive Metabolic Panel Urgent
Troponin I Urgent
03/23/25 16:19
PT/INR [Prothrombin Time] Urgent
03/23/25 17:31
Heparin 6,300 units IV NOW STA
Pharmacy Request to Place See Dose Instructions PO NOW STA
Discontinue all Active Warfarin orders?: Yes
Nursing to Place Non Medication Order As Directed
Physician Order: PTT 6 hours after initial start of Heparin infusion
03/23/25 17:38
Troponin I Urgent
03/23/25 17:45
Heparin 65433 Units/250 ml 25,000 units in 250 ml IV PER PROTOCOL
Weight to be used for heparin protocol in kilograms (kg):: 78.9
Protocol:: DVT/PE
PTT Goal Range to be used:: PTT 73 to 111 seconds
Order type:: Initial
INITIAL Infusion Dose (UNITS/KG/hr) & then follow protocol:: 18 units/kg/hr
Infusion Dose in UNITS/hr & then follow protocol (UNITS/hr):: 1,400
INFUSION RATE in mL/hr & then follow protocol (mL/hr):: 14
For DVT/PE algorithm, re-bolus for low PTT?: Yes
PTT less than or equal to 64 seconds:: Re-bolus 80 units/kg (max 10,000units). Increase by 300 units/hr
(+ 3mL/hr)
PTT 64.1 to 72.9 seconds:: Re-bolus 40 units/kg (max 5,000 units). Increase by 200 units/hr
(+ 2mL/hr)
PTT 73 to 111 seconds:: Target Range. No change in rate.
PTT 111.1 to 130.9 seconds:: Decrease rate by 200 units/hr (- 2 mL/hr)
PTT 131 to 199.9 seconds:: HOLD for 1 hr. Then decrease by 200 units/hr (- 2mL/hr)
PTT greater than or equal to 200 seconds:: HOLD for 2 hrs & Notify Provider. Then decrease by 300 units/hr
(- 3mL/hr)
Lab follow-up:: Each change, PTT q6h until 2 consecutive are therapeutic. Then
PTT daily.
03/23/25 18:[address] See Dose Instructions IV DIRECTED
Abnormal Lab Results
03/23/25 03/23/25
14:27 16:19
RBC 3.68 L 10^6/uL
(4.20-5.40)
Hgb 11.2 L g/dL
(12.0-16.0)
Hct 33.3 L %
(37.0-47.0)
MPV 10.8 H fL
(7.4-10.4)
Lymphocytes % 19.6 L %
(20.5-51.1)
PT 30.6 H Sec
(11.4-14.6)
Glucose 181 H mg/dl
(70-99)
03/23/25 14:27
03/23/25 14:27
Vital Signs
Initial and Last Documented VS:
Initial Vital Signs
Temp Pulse Resp BP Pulse Ox
99.0 F 87 18 115/61 97
03/23/25 14:19 03/23/25 14:19 03/23/25 14:19 03/23/25 14:19 03/23/25 14:19
Last Documented Vital Signs
Temp Pulse Resp BP Pulse Ox
99.0 F 64 15 128/52 94
03/23/25 14:19 03/23/25 18:15 03/23/25 18:15 03/23/25 18:00 03/23/25 18:15
Engineer Remote [employer]el consulted with Physician
Engineer Remote Control [employer]el consulted with physician?: Yes
Name of Physician Consulted: Alina
MDM/Problems Addressed
Differential Diagnosis Includes:
Not limited to ACS, anemia dehydration
MDM/Problems Addressed:
As documented patient is a 80-year-old female with history of A-fib on Coumadin valve replacement pacemaker presents to the ER for evaluation. She has felt very fatigued more than normal and on Saturday ,3 days ago had an episode of chest pain with
exertion. She has not had any symptoms of chest pain since that episode and presents asymptomatic here in the ER she is in no acute distress. She had 2 cardiac enzymes which were negative. EKG does however show a left bundle branch block. She
does however have a history of this left bundle branch block in the past (last EKG with a left bundle branch block was from 2020). Patient is on Coumadin INR 2.95, normal electrolytes, hemoglobin stable.
Case reviewed with ED physician.
Case also reviewed with cardiology on-call Dr. Guadarrama(she is a patient of Dr. Arevalo) and as with reviewed cardiology, with patient being asymptomatic here and on cp since Saturday, stable for discharge with chest pain hotline.
Chronic conditions affecting care:
Pacemaker left bundle branch block history A-fib on Coumadin
*Radiology
Radiology exam reviewed: radiology read reviewed
*Pulse Oximetry
SaO2: 97
Oxygen Mode of Delivery: Room air
Patient hypoxic: no
*EKG
Interpretation: abnormal
Comparison EKG: changes noted
Heart Rate: 92
Rate: normal
Rhythm: sinus
Ischemia: non-specific ST changes
*Critical Care Note
Total Time (30-74mins, 75-104mins- exclusive of procedures): Not Applicable
Data Reviewed
Review of Other/Old Records Reveals: Other (Echo from October 2023; previous EKGs)
Source: patient
Patient Management
Discussion with other providers: Associate Pastor (Cardiology Dr. Guadarrama)
ED Attending Note
-
Portions of this chart may have been created with voice recognition software.� Occasional wrong word or��sound alike� substitutions may have occurred due to the inherent limitations of voice recognition software.
Discharge Plan
Departure
Patient Disposition: Home (Routine Discharge)
Date of Disposition: 03/23/25
Time of Disposition: 18:49
Patient with high blood pressure during this ER visit?: No
Condition: Fair
Covid-19: Not Applicable
Discharge Problem:
Chest pain
Instructions: Chest Pain CBC Follow Up
Prescriptions:
No Action
venlafaxine 37.5 MG tablet
37.5 mg PO BID
calcium citrate 200 MG tablet
600 mg PO HS
guaifenesin 400 MG tablet
400 mg PO BID
cinnamon bark [Cinnamon] 500 MG capsule
1,000 mg PO QPM
glucosamine HCl 1,500 MG tablet
1,500 mg PO QPM
B-complex with vitamin C 1 CAPLET tablet
1 cap PO HS
multivitamin with folic acid [Tab-A-Francisco] 1 TABLET tablet
1 tab PO QPM
turmeric 400 MG capsule
400 mg PO DAILY
rosuvastatin 5 MG tablet
5 mg PO HS
diltiazem HCl 240 mg Capsule,Extended Release 24 Hr
240 mg PO BID
zinc 50 mg Tablet
50 mg PO DAILY
furosemide 20 mg Tablet
20 mg PO MOTUWETHFR
metoprolol succinate 25 mg Tablet Extended Release 24 Hr
25 mg PO BID
Januvia 100 mg Tablet
100 mg PO DAILY
Jardiance 25 mg Tablet
25 mg PO HS
aspirin 81 MG tablet,chewable
81 mg PO HS
cholecalciferol (vitamin D3) [Vitamin D3] 50 mcg (2,000 unit) Tablet
50 mcg PO DAILY
famciclovir 500 mg Tablet
500 mg PO QPM
cyanocobalamin (vitamin B-12) 1,000 mcg Tablet
1,000 mcg PO DAILY
ascorbic acid (vitamin C) [Vitamin C] 500 mg Tablet
500 mg PO DAILY
warfarin [Jantoven] 7.5 mg tablet
7.5 mg PO QPM
spironolactone 25 mg Tablet
25 mg PO DAILY Qty: 30 0RF
enoxaparin [Lovenox] 80 mg/0.8 mL syringe
70 mg SC Q12H Qty: 8 0RF
Rx Instructions:
70mg(0.7mL) twice a day. Stop when INR is therapeutic x 2 days. Follow with coumadin clinic.
Referrals:
Mike Arevalo MD [Active, Cardiology]
Milo Singletary MD [Family Provider, Family Practice]
Activity Restrictions/Additional Instructions:
As discussed you are placed on the chest pain hotline. You should receive a phone call in the next 1 to 2 days by the cardiology office however if you do not please call to schedule an appointment soon as possible. Avoid exertional activities
until cleared by cardiology. Return with any worsening of symptoms.
Interventions
Interventions:
*Risk Screen - Suicide Last Done: 03/23/25 14:19
*General Assessment Last Done: 03/23/25 14:59
*Neglect/Abuse Screening Last Done: 03/23/25 14:19
*ED- Fall Risk Assessment Last Done: 03/23/25 14:59
ED- Cardiac Assessment Last Done: 03/23/25 15:00
Discharge Date and Time
Print Language: MALAYSIAN
[2025-03-23 15:36] VITALS: BP 129/65
[2025-03-23 16:00] VITALS: BP 129/56
[2025-03-23 16:32] LABS: INR 2.95; PT 30.6 Sec (11.4-14.6)
[2025-03-23 17:00] VITALS: BP 130/58
[2025-03-23 18:00] VITALS: BP 128/52
[2025-03-23 18:08] LABS: Troponin I < 0.012 ng/ml
== END 2025-03-23 19:02 | disposition home or self-care (01) ==
LOC: EMR 14:09
PROVIDERS: Nurse Practitioner; Student in an Organized Health Care Education/Training Program; EMERGENCY PHYSICIAN Emergency Medicine; FAMILY PHYSICIAN Family Medicine; OTHER PHYSICIAN Internal Medicine
DX: R07.89 Other chest pain (principal); J44.9 Chronic obstructive pulmonary disease, unspecified; I48.91 Unspecified atrial fibrillation; I10 Essential (primary) hypertension; I25.10 Atherosclerotic heart disease of native coronary artery without angina pectoris; I34.0 Nonrheumatic mitral (valve) insufficiency; Z95.2 Presence of prosthetic heart valve; I49.5 Sick sinus syndrome; E11.9 Type 2 diabetes mellitus without complications; E78.00 Pure hypercholesterolemia, unspecified; M79.7 Fibromyalgia; Z79.01 Long term (current) use of anticoagulants; Z86.018 Personal history of other benign neoplasm; Z87.891 Personal history of nicotine dependence; Z95.0 Presence of cardiac pacemaker
CPT/HCPCS: 99283; 71046; 80053; 84484; 85025; 85610; 93005

== ENCOUNTER → 2025-04-01 10:05 | Outpatient (REF) | payer MEDICARE, OTHER, SELFPAY | LOC: RCS 10:05 | PROVIDERS: ATTENDING PHYSICIAN Internal Medicine; FAMILY PHYSICIAN Family Medicine | DX: Z95.2 Presence of prosthetic heart valve (principal); R07.9 Chest pain, unspecified; I44.7 Left bundle-branch block, unspecified | CPT/HCPCS: 93306 ==

== ENCOUNTER → 2025-04-21 10:37 | Outpatient (REF) | payer MEDICARE, OTHER, SELFPAY | LOC: RCS 10:37 | PROVIDERS: ATTENDING PHYSICIAN Internal Medicine; FAMILY PHYSICIAN Family Medicine | DX: Z95.2 Presence of prosthetic heart valve (principal); R07.9 Chest pain, unspecified; I44.7 Left bundle-branch block, unspecified | CPT/HCPCS: 78452; 93017; A9500; J2785 ==

== ENCOUNTER 2025-04-28 19:59 | Observation (INO) | payer MEDICARE, OTHER, SELFPAY ==
[2025-04-28 15:18] VITALS: BP 144/57
[2025-04-28 15:46] LABS: Hematocrit 38.1 % (37.0-47.0); Hemoglobin 12.8 g/dL (12.0-16.0); Mean Corp Hgb Conc. 33.6 g/dL (33.0-37.0); Mean Corpuscular Volume 88.0 fL (81.0-99.0); Nucleated Red Blood Cells % 0 %; Platelet Count 204 10^3/uL (130-400); Red Cell Dist. Width 13.4 % (11.5-14.5)
[2025-04-28 15:50] LABS: INR 2.71; PT 29.1 Sec (11.4-14.6)
[2025-04-28 15:51] LABS: APTT 44.2 Sec (23.4-35.0)
[2025-04-28 16:01] LABS: ALT (SGPT) 22 U/L (0-35); AST (SGOT) 28 U/L (14-36); Albumin 4.6 g/dl (3.5-5.0); Alkaline Phosphatase 57 U/L (38-126); Blood Urea Nitrogen 20 mg/dl (7-17); Calcium 9.1 mg/dl (8.4-10.2); Carbon Dioxide 29 mmol/L (22-30); Chloride 102 mmol/L (98-107); Glucose 196 mg/dl (70-99); Potassium 4.8 mmol/L (3.5-5.1); Sodium 137 mmol/L (135-145); Total Protein 7.0 g/dl (6.3-8.2); eGFR > 60.00
--- NOTE | 2025-04-28 18:12 | ED.GENMED ---
History of Present Illness
General
Chief Complaint: Rectal Bleeding
Source: patient
Exam Limitations: none
Time Seen by Provider: 04/28/25 16:55
History of Present Illness
History of Present Illness:
80-year-old female complaining of 3 days of some vague abdominal discomfort and melanotic stool. Tarry in nature. Patient anticoagulated for mechanical valve. History of ischemic colitis. Denies mucousy stools fever or other complaints
Past History
Past History
ED Past Medical History: Arrthythmia (AFib prior to valve surgery), COPD, Fibromyalgia, HTN, Hypercholesterolemia, NIDDM, Valvular disease (MR) and Other (hiatal hernia)
ED Past Surgical History: Cardiac (mitral valve replacement March 2020; A-fib ablation September 2023), Gynecological (vaginal cyst removed), Orthopedic (bilateral total hip replacements, bilateral torn menisci) and Other (neuromas removed from feet,
TMJ surgery, L lumpectomy, esophageal cyst, deviated septum repair, cataract extraction bilaterally)
Social History
Tobacco: Former smoker
Alcohol: Chronic alcoholic
Drug: None and Other (unclear)
Personal:
Living: with family
Employment: Retired
Family History
Family History: Other (reviewed and non-contributory)
Review of Systems
Review of Systems
All Other Systems: Not applicable
Constitutional: Denies fever
Respiratory: Reports no symptoms
Cardiac: Reports no symptoms
Phy Exam
Physical Exam
Physical Exam:
GENERAL: Alert and oriented in no apparent distress
EYE: Orbits normal.
NECK: Supple, no significant adenopathy.
ENT: Pharynx without erythema
CARDIAC: Regular rate and rhythm without any obvious murmurs.
LUNGS: Clear breath sounds,normal
ABDOMEN: Soft, without focal tenderness or distention. Rectal exam slightly dark stool test positive
NEUROLOGICAL: Alert and oriented , grossly non-focal
SKIN: Warm and dry, no rash or lesion, no discoloration, skin intact.
MUSCULOSKELETAL: No edema,no deformity.Good color
PSYCH: Normal and appropriate interaction.
Course
Orders/Labs/Results
Orders:
Orders
04/28/25 15:21
EKG [Electrocardiogram (*1)] Urgent
Reason for Study: Abdominal Pain
EKG- Treatment ONCE
04/28/25 15:30
Type+Screen Urgent
Complete Blood Count/With Diff Urgent
Comprehensive Metabolic Panel Urgent
PTT Urgent
Prothrombin Time Urgent
04/28/25 18:15
Pantoprazole [Protonix IV] 40 mg IV NOW STA
Abnormal Lab Results
04/28/25
15:30
MPV 11.6 H fL
(7.4-10.4)
Monocytes % 10.1 H %
(1.7-9.3)
PT 29.1 H Sec
(11.4-14.6)
APTT 44.2 H Sec
(23.4-35.0)
BUN 20 H mg/dl
(7-17)
Glucose 196 H mg/dl
(70-99)
04/28/25 15:30
04/28/25 15:30
Vital Signs
Initial and Last Documented VS:
Initial Vital Signs
Temp Pulse Resp BP Pulse Ox
98.6 F 80 16 144/57 98
04/28/25 15:18 04/28/25 15:18 04/28/25 15:18 04/28/25 15:18 04/28/25 15:18
Last Documented Vital Signs
Temp Pulse Resp BP Pulse Ox
98.6 F 80 16 144/57 98
04/28/25 15:18 04/28/25 15:18 04/28/25 15:18 04/28/25 15:18 04/28/25 18:14
MDM/Problems Addressed
Differential Diagnosis Includes:
Patient with melanotic tarry stool. Could be her ischemic colitis based on the description of the stool be more suspicious of a gastritis or ulcer. Will give Protonix. Abdomen is nonsurgical. Because of her Coumadin and anticoagulation will be
admitted for further care
*Pulse Oximetry
SaO2: 98
Oxygen Mode of Delivery: Room air
Patient hypoxic: no (98)
*Critical Care Note
Total Time (30-74mins, 75-104mins- exclusive of procedures): Not Applicable
ED Attending Note
-
Portions of this chart may have been created with voice recognition software.� Occasional wrong word or��sound alike� substitutions may have occurred due to the inherent limitations of voice recognition software.
Discharge Plan
Departure
Patient Disposition: Admit
Date of Disposition: 04/28/25
Time of Disposition: 18:13
Presentation/result/management discussed w/ accepting MD/DO: Hospitalist
Discharge Problem:
Probable upper GI bleed, Anticoagulated/mechanical valve, History of ischemic colitis
Prescriptions:
No Action
venlafaxine 37.5 MG tablet
37.5 mg PO BID
calcium citrate 200 MG tablet
600 mg PO HS
guaifenesin 400 MG tablet
400 mg PO BID
cinnamon bark [Cinnamon] 500 MG capsule
1,000 mg PO QPM
glucosamine HCl 1,500 MG tablet
1,500 mg PO QPM
B-complex with vitamin C 1 CAPLET tablet
1 cap PO HS
multivitamin with folic acid [Tab-A-Francisco] 1 TABLET tablet
1 tab PO QPM
turmeric 400 MG capsule
400 mg PO DAILY
rosuvastatin 5 MG tablet
5 mg PO HS
diltiazem HCl 240 mg Capsule,Extended Release 24 Hr
240 mg PO BID
furosemide 20 mg Tablet
20 mg PO MOTUWETHFR
metoprolol succinate 25 mg Tablet Extended Release 24 Hr
25 mg PO BID
Januvia 100 mg Tablet
100 mg PO DAILY
Jardiance 25 mg Tablet
25 mg PO HS
aspirin 81 MG tablet,chewable
81 mg PO HS
cholecalciferol (vitamin D3) [Vitamin D3] 50 mcg (2,000 unit) Tablet
50 mcg PO DAILY
cyanocobalamin (vitamin B-12) 1,000 mcg Tablet
1,000 mcg PO DAILY
ascorbic acid (vitamin C) [Vitamin C] 500 mg Tablet
500 mg PO DAILY
valacyclovir [Valtrex] 500 mg Tablet
500 mg PO DAILY
warfarin 2 mg Tablet
7 mg PO SUWEFRSA@1999
warfarin 5 mg Tablet
5 mg PO MOTUTH@1999
Referrals:
Milo Singletary MD [Family Provider, Family Practice]
Interventions
Interventions:
*Risk Screen - Suicide Last Done: 04/28/25 15:18
*General Assessment Last Done: 04/28/25 18:13
*ED- Fall Risk Assessment Last Done: 04/28/25 18:13
*ED COVID-19 Vaccine History Last Done: 04/28/25 18:13
Discharge Date and Time
Print Language: SERBIAN
[2025-04-28 18:33] VITALS: BP 144/80
--- NOTE | 2025-04-28 18:40 | HPS.HSE ---
Addendum entered and electronically signed by Letha Ruiz MD 04/28/25 20:03:
This is an addendum to H&P written by Carole Harry on 04/28/2025. �Patient seen and examined dependently with SEISMOMETER OPERATOR.
80-year-old female past medical history of mechanical mitral valve on Coumadin, moderate aortic stenosis, moderate tricuspid regurgitation, atrial fibrillation, sick sinus syndrome status post pacemaker, left bundle branch block, paralyzed vocal
cord, obstructive sleep apnea, history of ischemic colitis, lower GI bleeding, type 2 diabetes, hypertension, hyperlipidemia, anxiety/depression, presenting with vague abdominal discomfort and black, tarry stool for past few days. �Chronic shortness
of breath.
Patient recently admitted here for bright red blood per rectum in January. �She underwent colonoscopy without any significant findings.
Vital signs normal.
Labs largely unremarkable. �Hemoglobin 12.8. �INR 2.7. �Stools were dark but not black or tarry, and Hemoccult positive.
Presentation consistent with possible mild upper GI bleeding in the setting of Coumadin use for mechanical mitral valve. �Hold Coumadin and let INR drift down. �Continue aspirin. �Start Protonix 40 IV twice daily. �Clear liquid diet, n.p.o. past
midnight. �Recheck INR in AM. �GI consulted. �Heparin drip will need to be started if subtherapeutic INR.
�Cardiology will need to be involved for management of anticoagulation in the setting of mechanical mitral valve if endoscopy is to be pursued.
Original Note:
Family Physician
-
Family Physician: Milo Singletary
Chief Complaint
-
abdominal discomfort and dark stools
History of Present Illness
Patient is a 80-year-old female with past medical history significant for hypertension, hyperlipidemia, CHF, NIDDM, persistent atrial fibrillation and COPD who presented to [facility] ED for evaluation of abdominal discomfort and dark stools since
yesterday. Patient reports mild upper abdominal vague discomfort and dark tarry stools yesterday and this morning. Called her GI doctor with symptoms and they referred her to ED for evaluation. She denies any bloating, nausea, vomiting, dizziness or
shortness of breath.
Medical History
Past Medical History
Past Medical History: Reports Other
Additional Past Medical History:
hypertension
hyperlipidemia
NIDDM
CHF
depression
persistent atrial fibrillation
COPD
fibromyalgia
mitral regurgitation
hiatal hernia
Past Surgical History: Reports Other
Additional Past Surgical History:
mitral valve replacement March 2020
A-fib ablation September 2023
vaginal cyst removed
neuromas removed from feet
TMJ surgery
L lumpectomy
esophageal cyst
deviated septum repair
cataract extraction bilaterally
bilateral total hip replacements
bilateral torn meniscus
Social History
Tobacco: Former Smoker
Alcohol: Daily (glass of wine per day )
Drug: None
Personal:
Living: With Family
Employment: Retired
Family History
Family History: Not pertinent
Allergies / Home Medications
Allergies reflects when Allergies were last updated in [facility].
Home Medications with original date entered in [facility]
Allergy/Medication List:
Allergies
Allergy/AdvReac Type Severity Reaction Status Date / Time
almond Allergy migraine Verified 04/28/25 15:17
amoxicillin (Amoxicillin) Allergy Hives Verified 04/28/25 15:17
banana Allergy migraine Verified 04/28/25 15:17
Cephalosporins Allergy Rash Verified 04/28/25 15:17
cheese Allergy MIGRAINE Verified 04/28/25 15:17
codeine Allergy nausea Verified 04/28/25 15:17
latex (Latex) Allergy rash and Verified 04/28/25 15:17
swelling
metformin Allergy Vomiting Verified 04/28/25 15:17
monosodium glutamate Allergy MIGRAINE Verified 04/28/25 15:17
Penicillins Allergy Rash Verified 04/28/25 15:17
sorbitol Allergy stomach Verified 04/28/25 15:17
upset
figs Allergy migraine Uncoded 04/28/25 15:17
Home Medications
calcium citrate 600 mg PO HS Supplement 04/10/19
cinnamon bark 500 mg capsule (Cinnamon) 1,000 mg PO QPM Supplement 04/10/19
glucosamine HCl 1,500 mg tablet 1,500 mg PO QPM Supplement 04/10/19
guaifenesin 400 mg tablet 400 mg PO BID Congestion 04/10/19
venlafaxine 37.5 mg tablet 37.5 mg PO BID Mental health 04/10/19
B-complex with vitamin C 1 cap PO HS Supplement 05/01/19
multivitamin with folic acid 400 mcg tablet (Tab-A-Francisco) 1 tab PO QPM Supplement 12/08/19
turmeric 400 mg capsule 400 mg PO DAILY Supplement 02/15/20
rosuvastatin 5 mg tablet 5 mg PO HS High Cholesterol 07/25/20
diltiazem HCl 240 mg capsule,24 hr,extended release 240 mg PO BID Heart Disease/Condition 08/16/23
aspirin 81 mg chewable tablet 81 mg PO HS Blood Clot Prevention/Tx 09/26/23
cholecalciferol (vitamin D3) 50 mcg (2,000 unit) tablet (Vitamin D3) 50 mcg PO DAILY Supplement 09/26/23
empagliflozin 25 mg tablet (Jardiance) 25 mg PO HS Diabetes 09/26/23
furosemide 20 mg tablet 20 mg PO MOTUWETHFR Fluid Retention/Swelling 09/26/23
metoprolol succinate 25 mg tablet,extended release 24 hr 25 mg PO BID Blood Pressure 09/26/23
sitagliptin phosphate 100 mg tablet (Januvia) 100 mg PO DAILY Diabetes 09/26/23
ascorbic acid (vitamin C) 500 mg tablet (Vitamin C) 500 mg PO DAILY Supplement 01/22/24
cyanocobalamin (vitamin B-12) 1,000 mcg tablet 1,000 mcg PO DAILY Supplement 01/22/24
valacyclovir 500 mg tablet (Valtrex) 500 mg PO DAILY 04/28/25
warfarin 2 mg tablet 7 mg PO SUWEFRSA@2000 25
warfarin 5 mg tablet 5 mg PO MOTUTH@199904/28/25
Review of Systems
-
History Source: Patient
Constitutional: Reports No Symptoms
EENT: Reports No Symptoms
Respiratory: Reports No Symptoms
Cardiac: Reports No Symptoms
Abdomen/GI: Reports Black Stools
: Reports No Symptoms
Musculoskeletal: Reports No Symptoms
Skin: Reports No Symptoms
Neurological: Reports No Symptoms
Endocrine: Reports No Symptoms
Hematologic/Lymphatic: Reports No Symptoms
Psych: Reports No Symptoms
Physical Exam
Vital Signs
Vital Signs
Temp Pulse Resp BP Pulse Ox
98.6 F 80 16 144/57 98
04/28/25 15:18 04/28/25 15:18 04/28/25 15:18 04/28/25 15:18 04/28/25 18:14
Physical Exam
General: Well Developed, Well Nourished, No Apparent Distress and Obese
HEENT: NormoCephalic, Moist mucous membranes and Atraumatic
Respiratory: Clear
Cardiac: S1/S2 and Regular Rhythm; No Murmur, Rub or Gallop
GI: Soft, Non Tender, Non Distended and Normal Bowel Sounds; No Organomegaly
Rectal: Hem Positive (per ED assessment with dark stool ) and Deferred by Provider
Musculoskeletal: No Clubbing, No Cyanosis and No Edema
Skin: Warm and IV/Catheter Site
Neuro: Awake, AO x 3 and Nonfocal/grossly intact
Psych: Calm
Laboratory Results
-
04/28/25 15:30
04/28/25 15:30
Laboratory Results
PT 29.1 Sec (11.4-14.6) H 04/28/25 15:30
INR 2.71 04/28/25 15:30
APTT 44.2 Sec (23.4-35.0) H 04/28/25 15:30
Total Bilirubin 0.6 mg/dl (0.2-1.3) 04/28/25 15:30
AST 28 U/L (14-36) 04/28/25 15:30
ALT 22 U/L (0-35) 04/28/25 15:30
Alkaline Phosphatase 57 U/L (38-126) 04/28/25 15:30
Data Reviewed
-
Medical Tests (Nuc Med, Echo, EKG etc): Report Reviewed by me (EKG: Atrial-paced rhythm with prolonged AV conduction LEFT BUNDLE BRANCH BLOCK)
Lab Data: Labs Reviewed by me
Impression/Plan
-
IMPRESSION/PLAN:
#tarry stools
#Hx ischemic colitis
Hemeoccult: positive
hgb 12.8, hct 38.1
- Admit to telemetry
- Consult GI
- hold warfarin
- Clear liquid diet, NPO at midnight for potential endoscopy
- IV Protonix BID
#hyperlipidemia
- continue rosuvastatin
#NIDDM
- AccuCheck AC & HS
- SSI
- hold Jardiance and Januvia
#persistent atrial fibrillation
- continue diltiazem and metoprolol
- hold Coumadin
#CHF
- continue furosemide
- daily weights
- I & Os
#depression
- continue venlafaxine
Code status: Full code
DVT prophylaxis: SCDs
[2025-04-28] MEDS: PROTONIX IV 40 MG IV ×2 (18:41→23:24)
[2025-04-28 18:57] VITALS: BMI 28.3
[2025-04-28 19:29] VITALS: BP 133/87
[2025-04-28 22:45] VITALS: BP 143/73; BMI 27.4
[2025-04-28] MEDS: CRESTOR 5 MG PO (23:23)
[2025-04-28] MEDS: LOW STRENGTH ASPIRIN 81 MG PO (23:23)
[2025-04-28] MEDS: ROBITUSSIN 400 MG PO (23:24)
[2025-04-28] MEDS: CARDIZEM CD 240 MG PO (23:25)
[2025-04-28] MEDS: NSS (PRESERVATIVE FREE) 10 ML IV (23:25)
[2025-04-28] MEDS: EFFEXOR 37.5 MG PO (23:25)
[2025-04-28] MEDS: TOPROL XL 25 MG PO (23:30)
[2025-04-29 03:00] VITALS: BP 133/65
[2025-04-29 06:34] LABS: Glucose - Point of Care 134 mg/dl (70-99)
[2025-04-29 07:00] VITALS: BP 117/60
[2025-04-29 07:18] LABS: Blood Urea Nitrogen 16 mg/dl (7-17); Calcium 9.1 mg/dl (8.4-10.2); Carbon Dioxide 30 mmol/L (22-30); Chloride 105 mmol/L (98-107); Estimated Creatinine Clearance 53 ml/min; Glucose 123 mg/dl (70-99); Potassium 4.6 mmol/L (3.5-5.1); Sodium 140 mmol/L (135-145); eGFR > 60.00
[2025-04-29 07:39] LABS: Hematocrit 36.1 % (37.0-47.0); Hemoglobin 11.9 g/dL (12.0-16.0); Mean Corp Hgb Conc. 33.0 g/dL (33.0-37.0); Mean Corpuscular Volume 88.3 fL (81.0-99.0); Platelet Count 174 10^3/uL (130-400); Red Cell Dist. Width 13.4 % (11.5-14.5)
[2025-04-29] MEDS: NSS (PRESERVATIVE FREE) 10 ML IV (08:24)
[2025-04-29] MEDS: PROTONIX IV 40 MG IV (08:25)
[2025-04-29] MEDS: ROBITUSSIN 400 MG PO (08:33)
[2025-04-29] MEDS: VALTREX 500 MG PO (08:33)
[2025-04-29] MEDS: TOPROL XL 25 MG PO (08:33)
[2025-04-29] MEDS: LASIX 20 MG PO (08:38)
[2025-04-29] MEDS: EFFEXOR 37.5 MG PO (09:01)
[2025-04-29] MEDS: CARDIZEM CD 240 MG PO (09:02)
[2025-04-29 09:54] LABS: INR 1.98; PT 23.0 Sec (11.4-14.6)
--- NOTE | 2025-04-29 10:40 | CON.GI ---
Addendum entered and electronically signed by Nguyen Bruce MD 04/29/25 15:02:
I saw and examined the patient.
The INFORMATION SERVICES ASSISTANT or PA's note was reviewed and I agree with the note.
Comment:
Pt is a 80 y/o woman with a hx of severe mitral stenosis s/p MVR on warfarin, PAF, constipation with some dark stool. Did have colonoscopy with hemorrhoids and prior schatzkis ring. Now no dysphagia or abd pain. INR 1.98, hgb relatively stable
abd: soft, nontender
impression
constipation
melena
chronic anticoagulation
Plan:
PPI
EGD ok with current INR
anesthesia aware of difficult intubation in the past
Addendum entered and electronically signed by MARIANA Mcdonnell 04/29/25 12:08:
cont warfarin hold -- prior to procedure today 1.[address] Bruce.
Original Note:
Consultation
-
Date/Time Consultation Requested: 04/28/25 2230
Date/Time Consultation Performed: 04/29/25 1045
Requesting Provider: MARIANA Hampton
Performing Provider: MARIANA Burgess, Nguyen Bruce MD
Reason for Consultation: black stools
Medical History
Chief Complaint / HPI
Chief Complaint: Rectal bleeding
History of Present Illness:
Alley is a 80-year-old female with severe mitral stenosis status post mechanical valve replacement in 2019 on warfarin , paroxysmal atrial fibrillation and flutter status post cardioversion in 2020, tachybradycardia syndrome status post
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
ischemic colitis versus infectious colitis presents to ER with rectal bleeding with dark tarry stools and vague abdominal pain. In review of records pt was admitted in 2023 with bright red blood per rectum and completed colonoscopy with
diverticulosis and internal hemorrhoids. Last EGD 2013 with non obstructing Schatzki's ring, HH, normal stomach and duodenum with neg biopsy. Colonoscopy: [address] Dr. Samaniego adequate prep diverticulosis and internal hemorrhoids.
Per patient review she admits to chronic constipation. She was hesitant to start bowel regiment and usually passes 3 balls of stool twice a day. Last few days noted increased stool function and black color to stools. She admits to weakness
and mild upper abdominal pain but denies dizziness. She otherwise admits to minimal GERD, not currently on antacids medications denies dysphagia, odynophagia, nausea, vomiting, wt loss, or red blood in stool. On admission hbg 12.8 with drop to 11.9
bun 20.
Past Medical History
Past Medical History: Arrhythmias (PAF, a flutter, tachy alanna syndrome), CAD, COPD, Fibromyalgia, HTN, NIDDM, Valvular Disease and Other (Sleep apnea on CPAP, pulmonary hypertension, hsevere mitral stenosis, mechanical mitral valve replacement on
warfarin, diabetes, COPD, paralyzed vocal cords, schatzki's ring, ischemic vs infectious colitis, constipation, HH,difficulty intubation in past, prior PNA, panc divisum anatomy per imaging )
Past Surgical History: Cardiac (prior cardioversion, pacer, MVR), Gynecological (vaginal cyst removal, lumpectomy), Orthopedic (foot neuroma removal, TMJ surgery, b/l THR, b/l torn meniscus ) and Other (Recent PVI, pacemaker, left total hip
replacement, deviated septum repair, cataract extraction, esophageal cyst removal )
Social History
Tobacco: Former Smoker
Alcohol: Occasional
Drug: None
Personal:
Living: With Family
Employment: Retired
Family History
Family History: Other (Cardiac disease, prostate cancer, no GI malignancies)
Allergies / Home Medications
Allergy/AdvReac Type Severity Reaction Status Date / Time
almond Allergy migraine Verified 04/28/25 15:17
amoxicillin (Amoxicillin) Allergy Hives Verified 04/28/25 15:17
banana Allergy migraine Verified 04/28/25 15:17
Cephalosporins Allergy Rash Verified 04/28/25 15:17
cheese Allergy MIGRAINE Verified 04/28/25 15:17
codeine Allergy nausea Verified 04/28/25 15:17
latex (Latex) Allergy rash and Verified 04/28/25 15:17
swelling
metformin Allergy Vomiting Verified 04/28/25 15:17
monosodium glutamate Allergy MIGRAINE Verified 04/28/25 15:17
Penicillins Allergy Rash Verified 04/28/25 15:17
sorbitol Allergy stomach Verified 04/28/25 15:17
upset
figs Allergy migraine Uncoded 04/28/25 15:17
�Medication �Instructions �Recorded
calcium citrate 600 mg PO HS Supplement 04/10/19
cinnamon bark 500 mg capsule 1,000 mg PO QPM Supplement 04/10/19
(Cinnamon)
glucosamine HCl 1,500 mg tablet 1,500 mg PO QPM Supplement 04/10/19
guaifenesin 400 mg tablet 400 mg PO BID Congestion 04/10/19
venlafaxine 37.5 mg tablet 37.5 mg PO BID Mental health 04/10/19
B-complex with vitamin C 1 cap PO HS Supplement 05/01/19
multivitamin with folic acid 400 1 tab PO QPM Supplement 12/08/19
mcg tablet (Tab-A-Francisco)
turmeric 400 mg capsule 400 mg PO DAILY Supplement 02/15/20
rosuvastatin 5 mg tablet 5 mg PO HS High Cholesterol 07/25/20
diltiazem HCl 240 mg capsule,24 240 mg PO BID Heart 08/16/23
hr,extended release Disease/Condition
aspirin 81 mg chewable tablet 81 mg PO HS Blood Clot 09/26/23
Prevention/Tx
cholecalciferol (vitamin D3) 50 50 mcg PO DAILY Supplement 09/26/23
mcg (2,000 unit) tablet (Vitamin
D3)
empagliflozin 25 mg tablet 25 mg PO HS Diabetes 09/26/23
(Jardiance)
furosemide 20 mg tablet 20 mg PO MOTUWETHFR Fluid 09/26/23
Retention/Swelling
metoprolol succinate 25 mg 25 mg PO BID Blood Pressure 09/26/23
tablet,extended release 24 hr
sitagliptin phosphate 100 mg 100 mg PO DAILY Diabetes 09/26/23
tablet (Januvia)
ascorbic acid (vitamin C) 500 mg 500 mg PO DAILY Supplement 01/22/24
tablet (Vitamin C)
cyanocobalamin (vitamin B-12) 1,000 mcg PO DAILY Supplement 01/22/24
1,000 mcg tablet
valacyclovir 500 mg tablet 500 mg PO DAILY 04/28/25
(Valtrex)
warfarin 2 mg tablet 7 mg PO SUWEFRSA@199904/28/25
warfarin 5 mg tablet 5 mg PO MOTUTH@199904/28/25
Review of Systems
-
History Source: Patient
Constitutional: Reports Fatigue
EENT: Reports No Symptoms
Respiratory: Reports Trouble Breathing
Cardiac: Reports No Symptoms
Abdomen/GI: Reports Abdominal Pain, Constipated and Black Stools
: Reports No Symptoms
Musculoskeletal: Reports No Symptoms
Skin: Reports No Symptoms
Neurological: Reports Weakness
Endocrine: Reports No Symptoms
Hematologic/Lymphatic: Reports Bleeding
Vital Signs
Temp Pulse Resp BP Pulse Ox
98 F 75 14 117/60 95
04/29/25 07:00 04/29/25 07:00 04/29/25 07:00 04/29/25 07:00 04/29/25 07:00
Physical Exam
Exam
General: Well Developed, Well Nourished, No Apparent Distress and Comfortable
Respiratory: Clear
Cardiac: Regular Rhythm
GI: Soft, Non Tender and Non Distended
Rectal: Other (dark heme + in ER)
Musculoskeletal: No Clubbing and No Cyanosis
Skin: Warm and Dry
Neuro: Awake, Alert and AO x 3
Psych: Calm
Results
WBC 5.2 10^3/uL (4.8-10.8) 04/29/25 06:22
Hgb 11.9 g/dL (12.0-16.0) L 04/29/25 06:22
Hct 36.1 % (37.0-47.0) L 04/29/25 06:22
MCV 88.3 fL (81.0-99.0) 04/29/25 06:22
Plt Count 174 10^3/uL (130-400) 04/29/25 06:22
Absolute Neuts (auto) 3.6 10^3/uL (1.4-6.5) 04/28/25 15:30
PT 23.0 Sec (11.4-14.6) H 04/29/25 09:20
INR 1.98 04/29/25 09:20
APTT 44.2 Sec (23.4-35.0) H 04/28/25 15:30
Sodium 140 mmol/L (135-145) 04/29/25 06:22
Potassium 4.6 mmol/L (3.5-5.1) 04/29/25 06:22
Chloride 105 mmol/L (98-107) 04/29/25 06:22
Carbon Dioxide 30 mmol/L (22-30) 04/29/25 06:22
BUN 16 mg/dl (7-17) 04/29/25 06:22
Creatinine 0.8 mg/dL (0.6-1.0) 04/29/25 06:22
Calcium 9.1 mg/dl (8.4-10.2) 04/29/25 06:22
Total Bilirubin 0.6 mg/dl (0.2-1.3) 04/28/25 15:30
AST 28 U/L (14-36) 04/28/25 15:30
ALT 22 U/L (0-35) 04/28/25 15:30
Alkaline Phosphatase 57 U/L (38-126) 04/28/25 15:30
Diagnostic Image Results:
Prior GI Procedures:
EGD: 2013- mitzy - - Non-obstructing Schatzki ring.
- Hiatus hernia.
- Normal stomach.
- Normal examined duodenum.
bx neg
Colonoscopy: 2023 Dr. Samaniego adequate prep diverticulosis and internal hemorrhoids.
Assessment / Plan
-
Alley is a 80-year-old female with severe mitral stenosis status post mechanical valve replacement in 2019 on warfarin , paroxysmal atrial fibrillation and flutter status post cardioversion in 2019, tachybradycardia syndrome status post
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
ischemic colitis versus infectious colitis presents to ER with rectal bleeding with dark tarry stools and vague abdominal pain. In review of records pt was admitted in 2023 with bright red blood per rectum and completed colonoscopy with
diverticulosis and internal hemorrhoids. Last EGD 2013 with non obstructing Schatzki's ring, HH, normal stomach and duodenum with neg biopsy. Colonoscopy: [address] Dr. Samaniego adequate prep diverticulosis and internal hemorrhoids.Per patient review
she admits to chronic constipation. She admits to weakness and mild upper abdominal pain but denies dizziness. She otherwise admits to minimal GERD, not currently on antacids medications. On admission hbg 12.8 with drop to 11.9 bun 20.
-melena
-mild anemia
-hx HH per prior EGD
-schatzki's ring with prior dilation
-severe mitral stenosis status post mechanical valve replacement in 2019 on warfarin
-vocal cord paralysis and hx difficulty intubation
other med problems:
-hx colitis
- paroxysmal atrial fibrillation and flutter status post cardioversion in 2019
- tachybradycardia syndrome status post dual-chamber pacemaker
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
-fibromyalgia,
- NIDDM,
-hypertension
-COPD
-sleep apnea on CPAP
panc divisum anatomy per imaging
PLAN:
Etiology of melena related to PUD, Fred leision with hx HH, ectasia with hx valve disease vs other
Plan for EGD today
cont PPI BID
cont NPO
trend hbg
reviewed with hospitalist team for plan as need eval for bridging with hx valve
reviewed with Dr. Bruce pt concern for hx difficulty intubation and vocal cord issues
discussed OP treatment of constipation consider adding fiber supplement after admission
-
-
Thank you for consultation and allowing me to participate in the patient's care. Please call the [employer] GI physician during the after hours with any questions or concerns.
[2025-04-29 11:26] VITALS: BP 131/63
--- NOTE | 2025-04-29 11:32 | CON.CAR ---
Addendum entered and electronically signed by Mike Arevalo MD 04/29/25 13:46:
Patient seen and examined in collaboration with HOME HEALTH CARE RESPIRATORY THERAPIST; agree with below.
- 80-year-old female (well-known to me as an outpatient) with mechanical mitral valve (on Coumadin), pacemaker, chronic LBBB presenting with dark stools, concerning for GI bleed.
- Appears to be clinically stable from a cardiac standpoint; can proceed with GI scoping.
- Holding Coumadin for EGD today.
- Further recommendations as per GI; will follow.
Original Note:
Consultation
Consultation Request
Date/Time Consultation Requested: 04/29/251034
Date/Time Consultation Performed: 04/29/251034
Requesting Provider: Dr. Majano
Performing Provider: Johanna PEÑA for Dr. Arevalo
Reason for Consultation: GIB in patient on warfarin for mechanical MVR
Medical History
-
Chief Complaint: rectal bleeding
History of Present Illness:
80 y/o female with severe MS s/p [facility] mechanical MVR 2019, on warfarin, post-op pericardial effusion s/p pericardiocentesis, PAF/flutter s/p cardioversions, then ablation 2023, tachy-alanna syndrome with MDT DC PPM, mild to moderate , moderate
TR, non-obstructive, hypertension, hyperlipidemia, DM, adrenal adenomas, COPD/paralyzed vocal cord, JENNIFER on CPAP, hx Schatzki's ring of distal esophagus, and LBBB (recently noted). She is here because she noted black stool with mucus. She was also
gassy and bloated. She had heme+ stool in ER. Warfarin held. We are consulted since she had hx mechanical MVR on warfarin. She has chronic, unchanged SOB. No CP. Recent stress test without ishemia. Recent echo as below- now with moderate . She
looks well at the time of my assessment. Plan is for endoscopy today.
Past Medical History
Past Medical History: Arrhythmias, COPD, HTN, Hypercholesterolemia, Valvular Disease and Other (as above)
Social History
Tobacco: Former Smoker
Family History
Family History: Reviewed & Not Pertinent
Allergies / Home Medications
Allergy/AdvReac Type Severity Reaction Status Date / Time
almond Allergy migraine Verified 04/28/25 15:17
amoxicillin (Amoxicillin) Allergy Hives Verified 04/28/25 15:17
banana Allergy migraine Verified 04/28/25 15:17
Cephalosporins Allergy Rash Verified 04/28/25 15:17
cheese Allergy MIGRAINE Verified 04/28/25 15:17
codeine Allergy nausea Verified 04/28/25 15:17
latex (Latex) Allergy rash and Verified 04/28/25 15:17
swelling
metformin Allergy Vomiting Verified 04/28/25 15:17
monosodium glutamate Allergy MIGRAINE Verified 04/28/25 15:17
Penicillins Allergy Rash Verified 04/28/25 15:17
sorbitol Allergy stomach Verified 04/28/25 15:17
upset
figs Allergy migraine Uncoded 04/28/25 15:17
�Medication �Instructions �Recorded �Confirmed �Type
calcium citrate 600 mg PO HS Supplement 04/10/19 04/28/25 History
cinnamon bark 500 mg capsule 1,000 mg PO QPM Supplement 04/10/19 04/28/25 History
(Cinnamon)
glucosamine HCl 1,500 mg tablet 1,500 mg PO QPM Supplement 04/10/19 04/28/25 History
guaifenesin 400 mg tablet 400 mg PO BID Congestion 04/10/19 04/28/25 History
venlafaxine 37.5 mg tablet 37.5 mg PO BID Mental health 04/10/19 04/28/25 History
B-complex with vitamin C 1 cap PO HS Supplement 05/01/19 04/28/25 History
multivitamin with folic acid 400 1 tab PO QPM Supplement 12/08/19 04/28/25 History
mcg tablet (Tab-A-Francisco)
turmeric 400 mg capsule 400 mg PO DAILY Supplement 02/15/20 04/28/25 History
rosuvastatin 5 mg tablet 5 mg PO HS High Cholesterol 07/25/20 04/28/25 History
diltiazem HCl 240 mg capsule,24 240 mg PO BID Heart 08/16/23 04/28/25 History
hr,extended release Disease/Condition
aspirin 81 mg chewable tablet 81 mg PO HS Blood Clot 09/26/23 04/28/25 History
Prevention/Tx
cholecalciferol (vitamin D3) 50 50 mcg PO DAILY Supplement 09/26/23 04/28/25 History
mcg (2,000 unit) tablet (Vitamin
D3)
empagliflozin 25 mg tablet 25 mg PO HS Diabetes 09/26/23 04/28/25 History
(Jardiance)
furosemide 20 mg tablet 20 mg PO MOTUWETHFR Fluid 09/26/23 04/28/25 History
Retention/Swelling
metoprolol succinate 25 mg 25 mg PO BID Blood Pressure 09/26/23 04/28/25 History
tablet,extended release 24 hr
sitagliptin phosphate 100 mg 100 mg PO DAILY Diabetes 09/26/23 04/28/25 History
tablet (Januvia)
ascorbic acid (vitamin C) 500 mg 500 mg PO DAILY Supplement 01/22/24 04/28/25 History
tablet (Vitamin C)
cyanocobalamin (vitamin B-12) 1,000 mcg PO DAILY Supplement 01/22/24 04/28/25 History
1,000 mcg tablet
valacyclovir 500 mg tablet 500 mg PO DAILY 04/28/25 04/28/25 History
(Valtrex)
warfarin 2 mg tablet 7 mg PO SUWEFRSA@199904/28/25 04/28/25 History
warfarin 5 mg tablet 5 mg PO MOTUTH@199904/28/25 04/28/25 History
Review of Systems
-
History Source: Patient
All other systems: Negative unless noted
Abdomen/GI: Black Stools (and gassy/bloating)
Physical Exam
Vital Signs
Temp Pulse Resp BP Pulse Ox
98.5 F 82 18 131/63 92
04/29/25 11:26 04/29/25 11:26 04/29/25 11:26 04/29/25 11:26 04/29/25 11:26
Lab Results
04/29/25 06:22
04/29/25 06:22
Physical Exam
General: Well Developed, Well Nourished and No Apparent Distress
HEENT: Normocephalic and Anicteric
Respiratory: Clear and Non Labored Respirations
Cardiac: Regular Rhythm, Murmur (II/ systolic) and Other (mechanical click present)
Musculoskeletal: No Edema
Skin: Warm and Dry
Neuro: AO x 3
Psych: Calm
Impression / Plan
-
GIB:
-plan per GI is endoscopy today
-warfarin held
-mild anemia noted- follow
Mechanical MVR:
-stable by recent echo as below
-warfarin held for GIB. Resume as soon as safe per GI. Follow INR's closely. INR goal 2.5-3.5
Moderate :
-monitor over time as OP
Hx PAF:
-stable in SR with hx ablation
-warfarin as above
Pacemaker:
-follow tele
-continue to monitor in device clinic
HTN:
-stable, monitor
LBBB:
-recently noted with w/u as below
Data:
Echo 04/01/25: EF 50-55%. Mechanical mitral valve replacement. The mean gradient across the valve is 3 mmHg. No significant mitral regurgitation. Moderate aortic stenosis. The peak gradient across the valve is 35 mmHg with a mean of 20 mmHg. Using a
LVOT diameter of 1.9 cm, the DAO is 1.0 cm sq. Moderate tricuspid regurgitation. Mildly elevated PASP. Estimated pulmonary artery pressure of 45 mmHg assuming a right atrial pressure of 3 mmHg.
Sarah stress test 04/21/25: Inconclusive ECG for ischemia given the pharmacological study. Normal Lexiscan nuclear stress test. Systolic function is normal. The ejection fraction is 64%.
Data Reviewed
-
EKG: Tracing Personally Visualized and interpreted (A paced, LBBB)
Medical Tests (Nuc Med, Echo etc): Report Reviewed by me (echo and stress)
Labs: Labs Reviewed by me
--- NOTE | 2025-04-29 11:44 | W.PN.HOSP.TC ---
Addendum entered and electronically signed by Shikha Nichole MD 04/29/25 15:34:
I saw and evaluated the patient independently. I reviewed the resident�s note and agree with findings and plan as documented by Dr. Majano.
GENERAL: well developed, well nourished, female in no apparent distress
HEENT: NC/AT
HEART: regular rate and rhythm, +S1, +S2, click, murmur
LUNGS : clear to auscultation bilaterally
ABDOM: soft, nontender, nondistended, + bowel sounds
EXT: no cyanosis, clubbing, or edema
NEUROLOGIC: grossly intact
presumed GI bleed--likely upper with dark stools--hx of ischemic colitis--etiologies include PUD, DUD--gastritis--heme + stool--apprec GI--holding coumadin--for EGD today--pt relates recent colonoscopy (01/2024) was unremarkable--currently on IV PPI
BID--holding on drip for now
acute anemia--presumed due to blood loss from presumed GI bleed--trend H&H--no indication for transfusion at this time--plan for EGD as above
mechanical mitral valve--follow INR--holding coumadin--may need heparin bridge--will evaluate
paroxysmal afib--atrial paced--coumadin on hold--follow INR--cont diltiazem
Congestive heart failure with preserved EF--no exacerbation--last echo 04/01/25 (EF 50-55%)--cont lasix, daily weights, I/Os--holding Januvia/Jardiance, toprol XL until after EGD
Hyperlipidemia- Continue rosuvastatin
Type 2 diabetes mellitus- AccuCheck before meals & at bedtime- SSI- hold Jardiance and Januvia
Depression- Continue venlafaxine
DVT proph--SCDs
Code status-- Full code
Original Note:
Today's Communication/Plan
-
Trend INR
Trend H&H
Cardiology consulted
GI consulted
Assessment / Plan
Assessment / Plan
80-year-old female with past medical history significant for hypertension, T2DM, hyperlipidemia, CHF, ischemic colitis, persistent atrial fibrillation, mechanical mitral valve on Coumadin and COPD who presented to [facility] ED for evaluation of abdominal
discomfort and dark stools since yesterday. The patient reports mild upper abdominal vague discomfort and dark stools for the past two days. Called her GI doctor with symptoms and they referred her to ED for evaluation. Patient has shortness of
breath at baseline. She denies any bloating, nausea, vomiting, or dizziness. Recently admitted for bright red blood per rectum in January 2025, colonoscopy showed no significant changes.
Assessment/Plan:�
# Dark stools�
# History of ischemic colitis
Patient on Coumadin for mechanical mitral valve.�INR 2.71 on 04/28/25.
- Hemeoccult positive,�
- Hemoglobin 11.9 on 04/29/25, decreased from 12.8 on 04/28/25. Trend H&H.
- Hold Coumadin.
- Clear liquid diet, NPO at midnight for potential endoscopy
- IV Protonix BID
- GI consulted.
- Repeat INR 1.98 today 04/29/25. Monitor- if subtherapeutic: heparin drip
- Consult Cardiology - given history of mechanical valve.
# Congestive heart failure
- Continue Lasix
- Daily weights, I & Os
# Hyperlipidemia
- Continue rosuvastatin
# Type 2 diabetes mellitus
- AccuCheck before meals & at bedtime
- SSI
- hold Jardiance and Januvia
# Persistent atrial fibrillation
- Continue diltiazem and metoprolol
- Hold Coumadin
#Depression
- Continue venlafaxine
Code status: Full code
DVT prophylaxis: SCDs
Anticipated Discharge: > 48 hours
Subjective/Interval History
-
Date of Service: April 29, 2025
Patient states she had right-sided abdominal discomfort overnight, but decrease this morning. No other complaints.
Objective Data
-
Labs:
Laboratory Results
04/29/25 04/29/25
06:22 09:20
WBC 5.2
Hgb 11.9 L
Hct 36.1 L
Plt Count 174
PT 23.0 H
INR 1.98
Sodium 140
Potassium 4.6
Chloride 105
Carbon Dioxide 30
BUN 16
Creatinine 0.8
Glucose 123 H
Calcium 9.1
Vital Signs:
Vital Signs
Temp Pulse Resp BP Pulse Ox
98.5 F 82 18 131/63 92
04/29/25 11:26 04/29/25 11:26 04/29/25 11:26 04/29/25 11:26 04/29/25 11:26
Review of Systems
-
History Source: Patient
Constitutional: Reports No Symptoms
EENT: Reports No Symptoms Reported
Respiratory: Reports No Symptoms
Cardiac: Reports No Symptoms
Abdomen/GI: Reports Abdominal Pain (Discomfort)
Genitourinary: Reports No Symptoms
Musculoskeletal: Reports No Symptoms
Skin: Reports No Symptoms
Neuro: Reports No Symptoms
Endocrine: Reports No Symptoms
Allergy / Immunology: Reports No Symptoms
Physical Exam
-
General: Well Developed, Well Nourished, No Apparent Distress, Comfortable and Conversant
HEENT: Normocephalic, Atraumatic, Moist Mucous Membranes and Anicteric
Respiratory: Crackles (Mild, diffusely)
Cardiac: Regular Rhythm and S1/S2
GI: Soft, Nontender, Nondistended, Normal Bowel Sounds and No Hepatosplenomegaly
Musculoskeletal: No Clubbing, No Cyanosis and No Edema
Neuro: Awake and AO x 3
Psych: Calm
Data Reviewed
-
Labs: Labs Reviewed by me and Discussed with Physician
Old Records: Reviewed
[2025-04-29 12:16] LABS: Glucose - Point of Care 162 mg/dl (70-99)
--- NOTE | 2025-04-29 14:19 | PTCARENOTE ---
pt reported right side abd discomfort pain this am, denied need for analgesia, NPO for upper endoscopy, no stools, independent in room, vss, will continue to monitor.
--- NOTE | 2025-04-29 14:42 | CM ---
Patient seen at bedside with physician on . Patient given OBS/SANTOS form and completed form placed on chart. Copy of form left with patient. Patient states that she lives with her in a 2 story home with one step to enter. Patient PCP is
Dr. Singletary and she uses the [facility] in [place]. Patient does not anticipate any discharge needs at this time but stated that she is for test later today. CM will continue to follow for discharge planning needs.
Plan; home with no needs vs home with VN
[2025-04-29 15:22] LABS: Glycohemoglobin (HgbA1c) 5.9 % (4.0-5.6)
[2025-04-29 15:34] VITALS: BP 110/56
--- NOTE | 2025-04-29 15:34 | W.PN.UPDATE ---
Update Note
Progress Note Update
EGD with small hiatal hernia otherwise normal. hgb normal and colonoscopy last year
would hold on other w/u as appears stable
will sign off, d/w primary
[2025-04-29 15:42] LABS: Glucose - Point of Care 131 mg/dl (70-99)
[2025-04-29 15:45] VITALS: BP 118/42
[2025-04-29 16:15] VITALS: BP 103/60
--- NOTE | 2025-04-29 16:15 | PTCARENOTE ---
patient returned from GI lab s/p upper endoscopy. aaaox3, no pain, lungs clear, no sob, remains paced on telemetry, abd soft, round, nabsx4 quads, nontender, nondistended, vss, will continue to monitor.
--- NOTE | 2025-04-29 17:45 | PTCARENOTE ---
pt tolerating regular diet
--- NOTE | 2025-04-29 17:47 | W.DCSUMMARY ---
Addendum entered and electronically signed by Shihka Nichole MD 04/29/25 18:52:
Read, reviewed, and agree. See same day progress note for additional details. Time spent coordinating care, DC planning, review of DC plan of care with resident, transition of care, review of records in EMR, med rec, consults, notes, d/w
consultants, nursing, family, and CM = 20 minutes
Original Note:
Discharge Summary
Discharge Data
Date of Admission: 04/28/25
Date of Discharge: 04/29/25
-
Pending Results: No
Hospital Course
Discharging Physician : Dr. Shikha Nichole, and Dr. Sonny Majano
Disposition : Home
Primary care physician : Dr. Milo Singletary
Principal Discharge diagnosis : Anemia possible due to transient GI bleed which is now resolved
Chronic Discharge diagnosis :
Non-insulin dependent diabetes mellitus
Hypertension
Paroxysmal atrial fibrillation
Mechanical mitral valve
CHF with preserved ejection fraction
Hypercholesterolemia
Mitral regurgitation
Hiatal hernia
COPD
Fibromyalgia
Depression
Hospital Course :
The patient is a 80-year-old female with a significant cardiac and gastrointestinal history who presented to the emergency department on 04/28/25 with 2 days of abdominal discomfort and dark stool. She contacted her [employer]er [employer] who advised her
to seek ED evaluation.
On arrival, she was hemodynamically stable. INR on 04/28/25 was 2.71; Coumadin was held due to concern for a possible GI bleed. Her hemoglobin dropped from 12.8 to 11.9 the following day. Cardiology was consulted due to her mechanical mitral valve
and atrial fibrillation; she was deemed clinically stable from a cardiac perspective.
GI was consulted and EGD was performed, which showed a small hiatal hernia but no evidence of active bleeding or other abnormalities. Prior colonoscopy performed last year was reportedly normal. No acute GI source of bleeding was identified, and no
intervention was deemed necessary.
Her INR trended down to 1.98 on 04/29/25. She remained hemodynamically stable, with stable hemoglobin, and no ongoing signs of bleeding. She was medically cleared for discharge with instructions to resume Coumadin, and follow up with her PCP within
1 week.
Procedure findings :
Esophagogastroduodenoscopy 04/29/25 Impression:
- Small hiatal hernia.
- Normal stomach.
- Normal examined duodenum.
- No specimens collected.
Discharge Plan
-
Patient Disposition: Home (Routine Discharge)
Discharge Diagnosis/Procedures: Anemia possible due to transient GI bleed which is now resolved
Condition: Good
Diet: Low Sodium and Diabetic, Carb Controlled
Activity: No restrictions
Driving Restrictions: As prior to admission
Bathing Restrictions: None
Blood Work: CBC, CMP, INR (obtain script from PCP)
Referrals:
Milo Singletary MD [Family Provider, Family Practice] - in less than 1 week
Prescriptions:
Continued
venlafaxine 37.5 MG tablet
37.5 mg PO BID
calcium citrate 200 MG tablet
600 mg PO HS
guaifenesin 400 MG tablet
400 mg PO BID
cinnamon bark [Cinnamon] 500 MG capsule
1,000 mg PO QPM
glucosamine HCl 1,500 MG tablet
1,500 mg PO QPM
B-complex with vitamin C 1 CAPLET tablet
1 cap PO HS
multivitamin with folic acid [Tab-A-Francisco] 1 TABLET tablet
1 tab PO QPM
turmeric 400 MG capsule
400 mg PO DAILY
rosuvastatin 5 MG tablet
5 mg PO HS
diltiazem HCl 240 mg Capsule,Extended Release 24 Hr
240 mg PO BID
furosemide 20 mg Tablet
20 mg PO MOTUWETHFR
metoprolol succinate 25 mg Tablet Extended Release 24 Hr
25 mg PO BID
Januvia 100 mg Tablet
100 mg PO DAILY
Jardiance 25 mg Tablet
25 mg PO HS
aspirin 81 MG tablet,chewable
81 mg PO HS
cholecalciferol (vitamin D3) [Vitamin D3] 50 mcg (2,000 unit) Tablet
50 mcg PO DAILY
cyanocobalamin (vitamin B-12) 1,000 mcg Tablet
1,000 mcg PO DAILY
ascorbic acid (vitamin C) [Vitamin C] 500 mg Tablet
500 mg PO DAILY
valacyclovir [Valtrex] 500 mg Tablet
500 mg PO DAILY
warfarin 2 mg Tablet
7 mg PO SUWEFRSA@1999
warfarin 5 mg Tablet
5 mg PO MOTUTH@1999
Discharge Orders:
Discharge Patient (As Directed); Ordered 04/29/25
Ordered By: Sonny Majano
Discharge Date and Time
Print Language: PASHTO
[2025-04-29 18:14] VITALS: BMI 27.4
== END 2025-04-29 18:00 | disposition home or self-care (01) ==
LOC: 3 WEST ACU 19:59
PROVIDERS: Emergency Medicine; Nurse Practitioner Family; ADMITTING PHYSICIAN Hospitalist; ATTENDING PHYSICIAN Internal Medicine; CONSULT PHYSICIAN Internal Medicine; EMERGENCY PHYSICIAN Emergency Medicine; FAMILY PHYSICIAN Family Medicine; OTHER PHYSICIAN Internal Medicine
DX: D50.0 Iron deficiency anemia secondary to blood loss (chronic) (principal); K92.1 Melena; K44.9 Diaphragmatic hernia without obstruction or gangrene; Z95.2 Presence of prosthetic heart valve; I48.19 Other persistent atrial fibrillation; E11.9 Type 2 diabetes mellitus without complications; I11.0 Hypertensive heart disease with heart failure; I50.30 Unspecified diastolic (congestive) heart failure; E78.00 Pure hypercholesterolemia, unspecified; J44.9 Chronic obstructive pulmonary disease, unspecified; K59.09 Other constipation; Z87.891 Personal history of nicotine dependence; Z79.899 Other long term (current) drug therapy; Z79.01 Long term (current) use of anticoagulants; F32.A Depression, unspecified; K21.9 Gastro-esophageal reflux disease without esophagitis; Z95.0 Presence of cardiac pacemaker
CPT/HCPCS: 43235; 80048; 80053; 82962; 83036; 85025; 85027; 85610; 85730; 86850; 86900; 86901; 87070; 93005; 96374; 99285; G0378

== ENCOUNTER → 2025-05-06 16:10 | Outpatient (REF) | payer MEDICARE, OTHER, SELFPAY ==
[2025-05-06 17:46] LABS: Hematocrit 32.5 % (37.0-47.0); Hemoglobin 10.6 g/dL (12.0-16.0); Mean Corp Hgb Conc. 32.6 g/dL (33.0-37.0); Mean Corpuscular Volume 88.3 fL (81.0-99.0); Nucleated Red Blood Cells % 0 %; Platelet Count 238 10^3/uL (130-400); Red Cell Dist. Width 13.9 % (11.5-14.5)
[2025-05-06 17:50] LABS: Blood Urea Nitrogen 18 mg/dl (7-17); Calcium 9.4 mg/dl (8.4-10.2); Carbon Dioxide 29 mmol/L (22-30); Chloride 102 mmol/L (98-107); Glucose 192 mg/dl (70-99); Potassium 4.7 mmol/L (3.5-5.1); Sodium 138 mmol/L (135-145); eGFR > 60.00
== END ==
LOC: REG 16:10
PROVIDERS: ATTENDING PHYSICIAN Family Medicine
DX: I48.19 Other persistent atrial fibrillation (principal); K92.1 Melena
CPT/HCPCS: 36415; 80048; 85025

== ENCOUNTER → 2025-05-20 14:52 | Outpatient (REF) | payer MEDICARE, OTHER, SELFPAY ==
[2025-05-20 16:05] LABS: Hematocrit 36.0 % (37.0-47.0); Hemoglobin 11.4 g/dL (12.0-16.0); Mean Corp Hgb Conc. 31.7 g/dL (33.0-37.0); Mean Corpuscular Volume 87.0 fL (81.0-99.0); Nucleated Red Blood Cells % 0 %; Platelet Count 247 10^3/uL (130-400); Red Cell Dist. Width 13.4 % (11.5-14.5)
== END ==
LOC: REG 14:52
PROVIDERS: ATTENDING PHYSICIAN Family Medicine
DX: D64.9 Anemia, unspecified (principal); E11.65 Type 2 diabetes mellitus with hyperglycemia
CPT/HCPCS: 36415; 85025

== ENCOUNTER 2025-05-26 12:22 | Inpatient (IN) | payer MEDICARE, OTHER, SELFPAY ==
[2025-05-24 17:18] VITALS: BP 146/90
[2025-05-24 17:40] LABS: Hematocrit 38.1 % (37.0-47.0); Hemoglobin 12.2 g/dL (12.0-16.0); Mean Corp Hgb Conc. 32.0 g/dL (33.0-37.0); Mean Corpuscular Volume 87.0 fL (81.0-99.0); Nucleated Red Blood Cells % 0 %; Platelet Count 230 10^3/uL (130-400); Red Cell Dist. Width 13.2 % (11.5-14.5)
[2025-05-24 17:56] LABS: ALT (SGPT) 21 U/L (0-35); AST (SGOT) 27 U/L (14-36); Albumin 4.8 g/dl (3.5-5.0); Alkaline Phosphatase 61 U/L (38-126); Blood Urea Nitrogen 15 mg/dl (7-17); Calcium 9.7 mg/dl (8.4-10.2); Chloride 103 mmol/L (98-107); Glucose 134 mg/dl (70-99); Potassium 4.4 mmol/L (3.5-5.1); Sodium 139 mmol/L (135-145); Total Protein 7.8 g/dl (6.3-8.2); eGFR > 60.00
[2025-05-24 17:58] LABS: Carbon Dioxide 28 mmol/L (22-30)
[2025-05-24 20:13] VITALS: BP 152/73
--- NOTE | 2025-05-24 20:31 | ED.CVA ---
History of Present Illness
General
Chief Complaint: CVA/TIA Symptoms
Source: patient
Time Seen by Provider: 05/24/25 20:12
Onset of Stroke Symptoms
Onset of symptoms known: No
Time pt last seen normal is known: Yes
Date last time pt seen normal: 06/22/25
History of Present Illness
History of Present Illness:
80-year-old female who presents to the emergency room for evaluation due to some difficulty maneuvering her right arm. Patient states that when she woke up Saturday, May 21. She went pressure teeth and recognized that her right hand is
not moving the way he normally should. Over the weekend patient has had multiple instances where she was unable to grab things or put things down properly with her right arm. Patient states her vision is not 'quite right'. No numbness. No
problems with her legs. She been able to ambulate without difficulty. Patient takes Coumadin. She had her INR checked today as an outpatient and it was 3.9.
Past History
Past History
ED Past Medical History: Arrthythmia (AFib prior to valve surgery), COPD, Fibromyalgia, HTN, Hypercholesterolemia, NIDDM, Valvular disease (MR) and Other (hiatal hernia)
ED Past Surgical History: Cardiac (mitral valve replacement March 2020; A-fib ablation September 2023), Gynecological (vaginal cyst removed), Orthopedic (bilateral total hip replacements, bilateral torn menisci) and Other (neuromas removed from feet,
TMJ surgery, L lumpectomy, esophageal cyst, deviated septum repair, cataract extraction bilaterally)
Social History
Tobacco: Former smoker
Alcohol: Chronic alcoholic
Drug: None and Other (unclear)
Personal:
Living: with family
Employment: Retired
Family History
Family History: Other (reviewed and non-contributory)
Phy Exam
Physical Exam
Physical Exam:
General: Awake, Alert, Oriented X3. No acute distress.
Vitals: unremarkable
Head: Atraumatic
Eyes: Pupils equal, EOMI
Throat: Airway intact, no exudates
Neck: Trachea midline
Lungs: Clear and equal b/l
Heart: Regular rate, no murmurs
Abd: Soft, Nontender, No pulsatile mass
Neuro: Cranial nerves intact, muscle strength equal bilaterally, mild right arm dysmetria
Skin: Warm, dry, no rash
Extremities: pulses equal b/l, no edema
Scores
NIH Stroke Score
Level of Consciousness: 0 - Alert
LOC Questions: 0-Answers both correctly
LOC Commands: 0-Performs both correctly
Best Horizontal Gaze: 0-Normal
Visual Daley: 0=Normal, no visual loss
Facial Palsy: 0=Normal, symmetrical
Motor - Right Arm: 0=No drift 10 seconds
Motor - Left Arm: 0=No drift 10 seconds
Motor - Right Le-No drift 5 seconds
Motor - Left Le-No drift 5 seconds
Limb Ataxia: 1-Present in one limb
Sensation: 0-Normal
Best Language: 0-No aphasia
Dysarthria: 0-Normal
Extinction and Inattention: 0-No abnormality
NIH Total Score:: 1
Course
Orders/Labs/Results
Orders:
Orders
05/24/25 17:20
CT Head W/o Iv Contrast Urgent
Comment:
Reason For Exam: right hand numbness
05/24/25 17:30
Complete Blood Count/With Diff Urgent
Comprehensive Metabolic Panel Urgent
05/24/25 20:36
Electrocardiogram (*1) Urgent
Reason for Study: TIA/Stroke
EKG- Treatment ONCE
05/24/25 20:37
PT/INR [Prothrombin Time] Urgent
05/24/25 22:39
Admit/Transfer Patient As Directed
Co-Sign Provider:
Level of Care: Observation services
Assign to:: Telemetry
Physician / Group: mir chahal
Diagnosis: right hand dysmetria conc cva
Reason for Telemetry: CVA/TIA
Date to Stop Telemetry: 05/27/25
Time to Stop Telemetry: 11:00
Reason for Hospitalization: right hand dysmetria conc cva
Code Status As Directed
Resuscitation Status: Full Code
05/24/25 22:43
Consult Neurology [NEUROLOGY CONSULT] Routine
Consulting Provider: Fede Britton
Was physician already notified: Yes
Reason for consult: right hand dysmetria
Warfarin [Coumadin] 5 mg PO NOW STA
PRN Pain Medication Management As Directed
May give lesser potent ordered pain med per pt: Yes
preference::
Protocol:: Medication orders for pain may be administered in a
manner that supports deferring to patient preference
when the pt is:
- Requesting an ordered lesser potent pain medication.
Least to most potent pain medications are defined
as: acetaminophen < NSAID < tramadol < opioids
(morphine, oxycodone, hydromorphone).
- Requesting a lesser dose of the same medication IF
ORDERED.
- Requesting a less intrusive route of administration
if both routes are prescribed by the provider (PO <
IV).
05/25/25 00:33
Acetaminophen [Tylenol/Feverall] 650 mg RECTAL Q4HPRN PRN
Acetaminophen [Tylenol] 650 mg PO Q4HPRN PRN
05/25/25 00:33
Case Management Consult ONCE
Case Management Consult: Discharge Planning
Comment: stroke/tia
DIETARY IP CONSULT Routine
Reason for Consult: stroke/TIA
Thermostat Repairer Urgent
VTE Contraindication Routine
VTE Mechanical Device Contraindication: Medical Contraindication
Pharmocologic Contraindication: Medical Contraindication
Comment: pt on coumadin
Comprehensive Metabolic Panel Routine
MR Brain Without Contrast Routine
Comment:
Reason For Exam: stroke/TIA
OK for patient to be off Cardiac Monitoring for MRI: Yes
Recent pill cam endoscopy?: No
Pacemaker/Defibrillator?: Yes
Is the pacemaker a conditional type?: Yes
Have you ever worked with metal? grinding metal? welding?: Stephanie XT 07/25/2020 [id number],
Activity As Directed
Activity Level: As Tolerated
NIH Stroke Scale As Directed
Directions: Per protocol
Comment: every shift and with any change in condition or mental status
Neurological Checks As Directed
Frequency: q4h
Additional Instructions:: q4h x 24h upon admission to the floor, then qshift & with any change in condition
and mental status
Patient Education As Directed
Type: Stroke education packet
Comment: provide to patient and family
Swallow Screening CVA/TIA ONLY As Directed
Comment: NPO until swallowing screening completed
If patient FAILS swallow screening:: NPO, Speech Therapy consult, Aspiration Precautions
If patient PASSES swallow screening, diet:: 1800 attila/ 15 CHO Diabetic
Vital Signs As Directed
Frequency: Per unit guidelines
Ot Eval And Treat Routine
Pt Eval And Treat Routine
Activity Level: As Tolerated
Speech Therapy Eval & Treat Routine
05/25/25 02:00
Aspirin Chewable [Low Strength Aspirin] 81 mg PO HS
Metoprolol Xl [Toprol Xl] 50 mg PO BID
Venlafaxine [Effexor] 37.5 mg PO BID
05/25/25 06:00
Cardiovascular Evaluation IN AM
Complete Blood Count/With Diff IN AM
INR [Prothrombin Time] IN AM
VerifyNow Aspirin IN AM
Pt on daily regimen OR been given initial dose of aspirin?: Yes
05/25/25 08:00
Cholecalciferol (Vitamin D3) [VITAMIN D3 (cholecalciferol)] 50 mcg PO DAILY
Cyanocobalamin [Vitamin B-12] 1,000 mcg PO DAILY
Diltiazem Extended Release [Cardizem Cd] 240 mg PO BID
Furosemide [Lasix] 20 mg PO Q48H
Guaifenesin Solution [Robitussin] 400 mg PO BID
Sitagliptin Phosphate [Januvia] 50 mg PO DAILY
Valacyclovir HCl [Valtrex] 500 mg PO DAILY
05/25/25 18:00
Calcium 200mg(Ca. Carb. 500mg) [Tums Chewable Tablet] 200 mg PO QPM
Multivitamin [Theragran] 1 tablet PO QPM
05/25/25 22:00
Rosuvastatin Calcium [Crestor] 5 mg PO HS
Vitamin B Complex with C [B COMPLEX w/VITAMIN C] 1 caplet PO HS
05/27/25 11:00
DC Protocol for Telemetry ONCE
Abnormal Lab Results
05/24/25 05/24/25
17:30 20:37
MCHC 32.0 L g/dL
(33.0-37.0)
MPV 10.9 H fL
(7.4-10.4)
PT 31.0 H Sec
(11.4-14.6)
Glucose 134 H mg/dl
(70-99)
05/24/25 17:30
05/24/25 17:30
Vital Signs
Initial and Last Documented VS:
Initial Vital Signs
Temp Pulse Resp BP Pulse Ox
98.0 F 88 20 146/90 99
05/24/25 17:18 05/24/25 17:18 05/24/25 17:18 05/24/25 17:18 05/24/25 17:18
Last Documented Vital Signs
Temp Pulse Resp BP Pulse Ox
99.9 F 78 16 130/73 97
05/25/25 00:46 05/25/25 00:46 05/25/25 00:46 05/25/25 00:46 05/25/25 00:46
MDM/Problems Addressed
Differential Diagnosis Includes:
CVA, radiculopathy, compression neuropraxia
MDM/Problems Addressed:
Patient presents with right arm dysmetria. No other significant neurologic findings. CT shows no acute abnormality. Symptoms began 3 days ago so certainly patient is out of the window for TNK or IAT. Patient had an echocardiogram performed just
a month or so ago. However it does not appear she has had any carotid imaging. Also would benefit from an MRI to confirm the presence of stroke. Patient may also have some rehab requirements given that dysmetria of her right arm. Will
hospitalize the patient for further neurologic workup. 4 baby aspirin given.
Chronic conditions affecting care: DM and HTN
*Radiology
Radiology exam reviewed: radiology read reviewed
*Pulse Oximetry
SaO2: 99
Oxygen Mode of Delivery: Room air
Patient hypoxic: no
*EKG
Interpreted by ED Provider?: Yes
Heart Rate: 73
Rate: normal
Rhythm: other (atrial paced)
QRS Pattern: left bundle branch block
Ischemia: non-specific ST changes
*Design Teacher Interpretation
Rate: normal
Interpretation: normal
Rhythm: sinus
*Critical Care Note
Total Time (30-74mins, 75-104mins- exclusive of procedures): Not Applicable
Patient Management
Social determinants of health affecting care: Living situation
ED Attending Note
-
Portions of this chart may have been created with voice recognition software.� Occasional wrong word or��sound alike� substitutions may have occurred due to the inherent limitations of voice recognition software.
Discharge Plan
Departure
Patient Disposition: Admit
Date of Disposition: 05/24/25
Time of Disposition: 21:22
Presentation/result/management discussed w/ accepting MD/DO: Hospitalist
Condition: Fair
Discharge Problem:
Acute CVA (cerebrovascular accident)
Interventions
Interventions:
*Risk Screen - Suicide Last Done: 05/25/25 00:58
*General Assessment Last Done: 05/24/25 17:18
*Neglect/Abuse Screening Last Done: 05/24/25 21:02
*ED- Fall Risk Assessment Last Done: 05/24/25 21:02
*ED COVID-19 Vaccine History Last Done: 05/25/25 00:58
*Nursing Disposition Last Done: 05/25/25 00:15
ED- Pulmonary Assessment Last Done: 05/24/25 21:44
ED- Neurological Assessment Last Done: 05/24/25 21:44
ED- Cardiac Assessment Last Done: 05/24/25 21:44
ED Swallowing Screen Last Done: 05/24/25 22:10
Discharge Date and Time
Discharge Date/Time: 05/25/25 00:16
[2025-05-24 21:06] LABS: INR 2.99; PT 31.0 Sec (11.4-14.6)
[2025-05-24 21:09] VITALS: BP 151/62
--- NOTE | 2025-05-24 21:35 | HPS.HSE ---
Addendum entered and electronically signed by Letha Ruiz MD 05/24/25 22:52:
This is an addendum to H&P written by Elvira Zhong on 05/24/2025. �Patient seen and examined independently with PYRIDINE OPERATOR.
80-year-old female past medical history of diabetes, hypertension, paroxysmal atrial fibrillation with pacemaker, mechanical mitral valve, CHF, hypercholesteremia, mitral regurgitation, hiatal hernia, COPD, fibromyalgia, depression, chronic
bilateral hand numbness, presenting with decreased ability to grasp/lack of coordination with the right hand 3 days ago. �No headache, blurry vision, slurred speech, weakness. �No vertigo.
Recently having INR fluctuations with her machine showing 3.99 this morning at home. �She was instructed to decrease her Coumadin from 7.5 to 5 mg starting today. �INRs are managed by Dr. Arevalo.
Vital signs unremarkable.
Labs unremarkable. �INR 2.99.
CT head shows no acute intracranial abnormalities.
Patient with concern for acute CVA. �Check A1c and lipid panel, MRI brain. �Neurology consulted. �Continue Coumadin 5 mg.
Original Note:
Family Physician
-
Family Physician: Milo Singletary
Chief Complaint
-
right hand dysmetria
History of Present Illness
80-year-old female from home who states that she woke up on Saturday a.m. with difficulty using her right hand to brush her teeth, scrap picker the toothpaste. She was also attempting to put make-up on and states that she was having a hard time finding
the right side of her face. She denies any headache recent illness blurred vision weakness in her arm, chest pain, palpitations, cough, shortness of breath, abdominal pain, nausea, vomiting, diarrhea, urinary symptoms. She has had persistent right
hand coordination difficulty picking up objects, doing her make-up. She has no weakness in her bilateral upper extremities strength is 5 out of 5 gait is steady she does complain of some dizziness with walking but no ataxia. She has family history
Sister CVA age 68 mother multiple CVAs in her 70s.
The patient had recent admission 04/28 - 04/29/2025 secondary to anemia from transient GI bleed on Coumadin self resolved
She has past medical history anemia from recent transient GI bleed 04/28/2025, daily glass of wine, Medtronic pacemaker 04/04/2020 SSS, persistent A-fib on Coumadin, A-fib ablation September 2023, HTN, HLD, DM2, CHF, COPD, mitral regurg/mechanical
mitral valve replacement March 2020, depression, hiatal hernia, former smoker
Medical History
Past Medical History
Past Medical History: Reports Other
Additional Past Medical History:
hypertension
hyperlipidemia
NIDDM
CHF
depression
persistent atrial fibrillation
Mechanical mitral valve replacement March 2020
Medtronic pacemaker 07/25/2020
COPD
Former smoker 25-year 1 pack a day
History of transient GI bleed April 2025
fibromyalgia
mitral regurgitation
hiatal hernia
Past Surgical History: Reports Other
Additional Past Surgical History:
Mechanical mitral valve replacement March 2020
A-fib ablation September 2023
vaginal cyst removed
neuromas removed from feet
TMJ surgery
L lumpectomy
esophageal cyst
deviated septum repair
cataract extraction bilaterally
bilateral total hip replacements
bilateral torn meniscus
Social History
Tobacco: Former Smoker (25 years 1 pack/day)
Alcohol: Daily (glass of wine per day )
Drug: None
Personal:
Living: With Family
Employment: Retired
Family History
Family History: Not pertinent
Allergies / Home Medications
Allergies reflects when Allergies were last updated in [facility].
Home Medications with original date entered in [facility]
Allergy/Medication List:
Allergies
Allergy/AdvReac Type Severity Reaction Status Date / Time
almond Allergy migraine Verified 05/24/25 17:18
amoxicillin (Amoxicillin) Allergy Hives Verified 05/24/25 17:18
banana Allergy migraine Verified 05/24/25 17:18
Cephalosporins Allergy Rash Verified 05/24/25 17:18
cheese Allergy MIGRAINE Verified 05/24/25 17:18
codeine Allergy nausea Verified 05/24/25 17:18
latex (Latex) Allergy rash and Verified 05/24/25 17:18
swelling
metformin Allergy Vomiting Verified 05/24/25 17:18
monosodium glutamate Allergy MIGRAINE Verified 05/24/25 17:18
Penicillins Allergy Rash Verified 05/24/25 17:18
sorbitol Allergy stomach Verified 05/24/25 17:18
upset
figs Allergy migraine Uncoded 05/24/25 17:18
Home Medications
calcium citrate 600 mg PO HS Supplement 04/10/19
cinnamon bark 500 mg capsule (Cinnamon) 1,000 mg PO BID Supplement 04/10/19
glucosamine HCl 1,500 mg tablet 1,500 mg PO BID Supplement 04/10/19
guaifenesin 400 mg tablet 400 mg PO BID Congestion 04/10/19
venlafaxine 37.5 mg tablet 75 mg PO DAILY Mental health 04/10/19
B-complex with vitamin C 1 cap PO HS Supplement 05/01/19
multivitamin with folic acid 400 mcg tablet (Tab-A-Francisco) 1 tab PO QPM Supplement 12/08/19
turmeric 400 mg capsule 400 mg PO BID Supplement 02/15/20
rosuvastatin 5 mg tablet 5 mg PO HS High Cholesterol 07/25/20
aspirin 81 mg chewable tablet 81 mg PO HS Blood Clot Prevention/Tx 09/26/23
cholecalciferol (vitamin D3) 50 mcg (2,000 unit) tablet (Vitamin D3) 50 mcg PO DAILY Supplement 09/26/23
furosemide 20 mg tablet 20 mg PO Q48H Fluid Retention/Swelling 09/26/23
metoprolol succinate 25 mg tablet,extended release 24 hr 50 mg PO BID Blood Pressure 09/26/23
sitagliptin phosphate 100 mg tablet (Januvia) 50 mg PO DAILY Diabetes 09/26/23
ascorbic acid (vitamin C) 500 mg tablet (Vitamin C) 500 mg PO DAILY Supplement 01/22/24
cyanocobalamin (vitamin B-12) 1,000 mcg tablet 1,000 mcg PO DAILY Supplement 01/22/24
valacyclovir 500 mg tablet (Valtrex) 500 mg PO DAILY 04/28/25
warfarin 5 mg tablet 5 mg PO DAILY@18 04/28/25
Cardizem CD 360 mg PO DAILY 05/24/25
Probiotic (B. coagulans) 1 tab PO DAILY 05/24/25
plant stanol cayla 450 mg PO QPM 05/24/25
potassium chloride 10 meq PO QPM 05/24/25
Review of Systems
-
History Source: Patient
A 12 point ROS was completed and negative except as noted: Yes
Constitutional: Denies Fever or Chills
EENT: Denies Sore Throat or Runny Nose
Respiratory: Denies Cough or Trouble Breathing
Cardiac: Denies Chest Pain, Diaphoresis, Palpitations or Syncope
Abdomen/GI: Denies Abdominal Pain, Nausea, Vomiting, Diarrhea or Constipated
: Denies Dysuria, Frequency, Flank Pain, Incontinence or Difficulty Voiding
Musculoskeletal: Reports Other (Right hand dysmetria difficulty with [id number] slow response); Denies Joint Pain or Edema
Skin: Denies Itching or Rash
Neurological: Reports Dizzy (Feels lightheaded with walking); Denies Headache or Weakness
Endocrine: Reports No Symptoms
Hematologic/Lymphatic: Reports No Symptoms
Psych: Reports Calm
Physical Exam
Vital Signs
Vital Signs
Temp Pulse Resp BP Pulse Ox
98.0 F 73 17 152/73 96
05/24/25 17:18 05/24/25 21:00 05/24/25 21:00 05/24/25 20:13 05/24/25 21:00
Physical Exam
General: Comfortable and Conversant; No Pain, Fever or Chills
HEENT: NormoCephalic, Anicteric, Moist mucous membranes, PERRLA, [place] Conjunctivae and No Ptosis
Respiratory: Clear; No Wheezes, Rales or Rhonchi
Cardiac: S1/S2 and Regular Rhythm; No Murmur, Rub, Gallop or Peripheral Edema
Breast: Deferred by me
GI: Soft, Non Tender, Non Distended, Normal Bowel Sounds and No Hepatosplenomegaly
Rectal: Deferred by Provider
Genito-urinary: Deferred by me
Musculoskeletal: No Clubbing, No Cyanosis and No Edema
Neuro: AO x 3, No Motor Deficits, Cranial Nerves Intact, No Sensory Deficits and Other (Right hand dysmetria difficulty with [id number] slow response); No Slurred Speech, Facial Droop or Tremors
Psych: Calm
Laboratory Results
-
05/24/25 17:30
05/24/25 17:30
Laboratory Results
PT 31.0 Sec (11.4-14.6) H 05/24/25 20:37
INR 2.99 05/24/25 20:37
Total Bilirubin 0.5 mg/dl (0.2-1.3) 05/24/25 17:30
AST 27 U/L (14-36) 05/24/25 17:30
ALT 21 U/L (0-35) 05/24/25 17:30
Alkaline Phosphatase 61 U/L (38-126) 05/24/25 17:30
Data Reviewed
-
CT Scan: Report Reviewed by me
Lab Data: Labs Reviewed by me
Impression/Plan
-
Impression/plan:
Observation telemetry
#Right hand dysmetria
#Patient reports symptoms 3 days ago 05/21/2025
- Check lipid profile, HgbA1c
- Patient currently on Coumadin with elevated INR
- Consult neuro
-PT/OT consult
-Continue aspirin 81 mg daily, rosuvastatin 5 mg at bedtime
- MRI brain
Patient with MRI conditional Medtronic pacemaker Stephanie XT 07/25/2020 [id number], model WD R011
CT head:
No acute intracranial abnormalities.
Findings again seen compatible with diffuse cortical atrophy with nonspecific white matter changes
#Recent anemia from transient GI bleed
Hgb stable 12.2
Esophagogastroduodenoscopy 04/29/25
- Small hiatal hernia.
- Normal stomach.
- Normal examined duodenum.
- No specimens collected.
# Medtronic dual-chamber permanent pacemaker 07/25/2020
[place] XT 07/25/2020 [id number], model WD R011
#Persistent A-fib
#A-fib ablation September 2023
INR 2.99(goal 2.5-3.5 due to mechanical valve)
- Coumadin 5 mg tonight patient had recent decrease to [address] Becker due to elevated home INR I advised patient to recheck her machine as it read 3.99 today however our lab read 2.99
-Check INR in a.m. to dose Coumadin
-Continue diltiazem 360 mg daily this was decreased from to 40 mg twice daily
#Hypertension
BP 152/73
Continue metoprolol succinate 25 mg twice daily
#Hyperlipidemia
Continue Crestor 5 mg at bedtime
#NIDDM
Accu-Cheks with SSI, check HgbA1c
- Continue Januvia 50 mg mg daily, patient no longer on Jardiance
#Chronic CHF
I/O, daily weight
-Continue furosemide 20 mg every 48 hours
#Depression
- Continue Effexor 75 mg twice daily
#COPD�no acute exacerbation
Former smoker 25 years 1 pack a day quit 1992
Other PMH:
fibromyalgia
mitral regurgitation S/P mitral valve replacement March 2020
hiatal hernia
DVT prophylaxis
Patient on current Coumadin
Full code
[2025-05-24 22:01] VITALS: BP 127/85
[2025-05-24 23:00] VITALS: BP 132/58
[2025-05-24 23:06] VITALS: BP 132/58
[2025-05-24 23:07] VITALS: BMI 28.4
[2025-05-24] MEDS: COUMADIN 5 MG PO (23:10)
[2025-05-25] VITALS (10 sets, daily range): BP systolic 125–163; BP diastolic 55–78; PULSE 69; O2SAT 96; BMI 27.8
[2025-05-25] MEDS: LOW STRENGTH ASPIRIN 81 MG PO ×2 (01:47→21:29)
[2025-05-25] MEDS: TOPROL XL 50 MG PO ×3 (01:48→20:34)
[2025-05-25] MEDS: EFFEXOR 37.5 MG PO ×3 (01:48→20:30)
[2025-05-25 02:37] LABS: ALT (SGPT) 19 U/L (0-35); AST (SGOT) 25 U/L (14-36); Albumin 4.3 g/dl (3.5-5.0); Alkaline Phosphatase 60 U/L (38-126); Blood Urea Nitrogen 14 mg/dl (7-17); Calcium 9.2 mg/dl (8.4-10.2); Carbon Dioxide 27 mmol/L (22-30); Chloride 106 mmol/L (98-107); Estimated Creatinine Clearance 60 ml/min; Glucose 112 mg/dl (70-99); Potassium 4.0 mmol/L (3.5-5.1); Sodium 139 mmol/L (135-145); Total Protein 6.6 g/dl (6.3-8.2); eGFR > 60.00
--- NOTE | 2025-05-25 04:00 | PTCARENOTE ---
Patient admitted to unit with R hand ataxia, r/u CVA/TIA. Patient is AAOx4, pleasant. NIH yields a 2 on admission. Scored for the R hand ataxia but also for slight asymmetry on L side of mouth. Per patient, she has hx of total jaw repair for TMJ.
Denies any other complaints or symptoms. Will continue to monitor.
[2025-05-25 07:22] LABS: Glucose - Point of Care 118 mg/dl (70-99)
[2025-05-25 08:02] LABS: INR 2.91; PT 30.3 Sec (11.4-14.6)
[2025-05-25 08:12] LABS: Hematocrit 34.8 % (37.0-47.0); Hemoglobin 11.5 g/dL (12.0-16.0); Mean Corp Hgb Conc. 33.0 g/dL (33.0-37.0); Mean Corpuscular Volume 85.3 fL (81.0-99.0); Nucleated Red Blood Cells % 0 %; Platelet Count 199 10^3/uL (130-400); Red Cell Dist. Width 13.2 % (11.5-14.5)
[2025-05-25] MEDS: VITAMIN D3 (cholecalciferol) 50 MCG PO (08:45)
[2025-05-25] MEDS: LASIX 20 MG PO (08:46)
[2025-05-25] MEDS: VALTREX 500 MG PO (08:46)
[2025-05-25] MEDS: VITAMIN B-12 1000 MCG PO (08:46)
[2025-05-25] MEDS: CARDIZEM CD 240 MG PO ×2 (08:46→20:30)
[2025-05-25] MEDS: JANUVIA 50 MG PO (08:47)
[2025-05-25] MEDS: ROBITUSSIN 400 MG PO ×2 (08:48→20:30)
--- NOTE | 2025-05-25 09:02 | CON.NEURO ---
Addendum entered and electronically signed by Fede Britton MD 05/25/25 15:10:
Studies reviewed.
I have personally examined the patient. I reviewed and agree with the OPTICAL ENGINEERING TECHNICIAN's Note.
My addenda:
Awake, alert, interactive. No acute distress.
Speech intact.
Follows 2-step requests w/o difficulty. No tremor.
Extra-ocular movements grossly intact.
Facial movements full and symmetric. Hearing intact to normal conversational volume.
Normal UE movements bilaterally.
Neck: full ROM.
Chest: no dyspnea
Heart: no JVD
Ext: (-) Clubbing, (-) Cyanosis, (-) Edema
IMPRESSIONS/RECOMMENDATIONS:
Abrupt onset of right hand ataxia
Differential diagnosis includes acute ischemic stroke involving the ipsilateral cerebellum as well as carpal tunnel syndrome
Continue anticoagulation as the likely size of the patient's lesion is exceedingly small and treatment should not be halted due to a higher risk for ischemic worsening if discontinued
Check CTA head and neck (completed and fails to demonstrate significant stenosis or abnormality).
Continue rosuvastatin as LDL less than 70
As onset of symptoms are greater than 24 hours, goal is normotension
D/W patient
All questions answered.
Will continue to follow pending results.
Original Note:
Documented by User: Janelle Tesfaye NP 05/25/25 12:06
Neuro Assessment/Plan
Assessment
Patient is a right handed 80 year old female with a past medical history anemia from recent transient GI bleed 04/28/2025, daily glass of wine, Medtronic pacemaker 04/04/2020 SSS, persistent A-fib on Coumadin, A-fib ablation September 2023, HTN, HLD,
DM2, CHF, COPD, mitral regurg/mechanical mitral valve replacement March 2020, depression, hiatal hernia, former smoker presented to [facility] on 05/24/2025 for the evaluation of right upper extremity ataxia that began on Saturday (5 days ago).
Head CT: No acute intracranial abnormalities. Findings again seen compatible with diffuse cortical atrophy with nonspecific white matter changes.
CTA head and neck: No acute vascular pathology. No M1 and M2 occlusion. Mild nonacute sinusitis. Multilevel degenerative disc disease. Progressed at all levels.
Labs: Cholesterol 152, LDL 41
Plan
Impression: abrupt onset of right upper extremity ataxia most likely due to acute ischemic stroke not a TNK candidate due to out of window
-check MRI brain without contrast to evaluate for stroke
-BP goal is normotension.
-continue warfarin for history of afib and secondary stroke prevention
-check blood work for metabolic disturbances
-check hemoglobin A1C. Goal is normoglycemia.
-goal LDL<70, current LDL 51 continue rosuvastatin 5 mg nightly
-PT/OT evaluations
-continue neurochecks and NIHSS per unit guidelines
-stroke education materials to be provided
All questions encouraged and answered, plan of care discussed with Dr. Britton, nurse and patient
Consultation
Order
Date of Consultation: 05/25/25
Requesting Provider: hospitalist
Reason for Consult: right upper extremity ataxia
Subjective/Objective
Subjective Data
Date of Service: May 25, 2025
Patient is a 71 year-old right-handed female with a past medical history of anemia from recent transient GI bleed 04/28/2025, daily glass of wine, Medtronic pacemaker 04/04/2020 SSS, persistent A-fib on Coumadin, A-fib ablation September 2023, HTN, HLD,
DM2, CHF, COPD, mitral regurg/mechanical mitral valve replacement March 2020, depression, hiatal hernia, former smoker presented to [facility] on 05/24/2025 for evaluation of right upper extremity ataxia that began on Saturday, roughly 5 days ago. She states
she awoke Saturday morning around 8 am in her normal state of health and went back to sleep. Awoke at 10 am went to the bathroom and when she washed her hands noticed right hand clumsiness. She notes she kept dropping items and had difficulty applying
makeup. Notes tingling sensation but denies numbness and weakness. Denies issues with her left upper extremity or lower extremities. Denies similar symptoms in the past. She notes some cognitive changes as well, was trying to balance her checkbook
on Saturday and was having difficulty. She denies changes in vision, issues with speech or swallow. Denies new issues with bladder/bowel but does note incontinence which is chronic. She notes family history of CVA in her sister at the age 68 and
mother multiple CVAs in her 70s. She was on warfarin and rosuvastatin 5 mg prior to admission. In the ED, vital signs stable, labs unremarkable her INR was 2.99. Her head CT showed no acute intracranial abnormalities. She was not a TNK candidate due
to being out of window. Current exam shows RUE ataxia.
Objective Data
Vital Signs
Temp Pulse Resp BP Pulse Ox
98 F 72 16 153/78 95
05/25/25 07:30 05/25/25 07:30 05/25/25 07:30 05/25/25 07:30 05/25/25 07:30
Lab Results
05/25/25 07:19
05/25/25 02:00
PT 30.3 Sec (11.4-14.6) H 05/25/25 07:19
INR 2.91 05/25/25 07:19
Sodium 139 mmol/L (135-145) 05/25/25 02:00
Potassium 4.0 mmol/L (3.5-5.1) 05/25/25 02:00
BUN 14 mg/dl (7-17) 05/25/25 02:00
Glucose 112 mg/dl (70-99) H 05/25/25 02:00
Calcium 9.2 mg/dl (8.4-10.2) 05/25/25 02:00
Patient Allergies
almond Allergy (Verified 05/24/25 23:08)
migraine
amoxicillin (Amoxicillin) Allergy (Verified 05/24/25 23:08)
Hives
banana Allergy (Verified 05/24/25 23:08)
migraine
Cephalosporins Allergy (Verified 05/24/25 23:08)
Rash
cheese Allergy (Verified 05/24/25 23:08)
MIGRAINE
codeine Allergy (Verified 05/24/25 23:08)
nausea
latex (Latex) Allergy (Verified 05/24/25 23:08)
rash and swelling
metformin Allergy (Verified 05/24/25 23:08)
Vomiting
monosodium glutamate Allergy (Verified 05/24/25 23:08)
MIGRAINE
Penicillins Allergy (Verified 05/24/25 23:08)
Rash
sorbitol Allergy (Verified 05/24/25 23:08)
stomach upset
figs Allergy (Uncoded 05/24/25 23:08)
migraine
CVA Assessment
Onset of Stroke Symptoms
Onset of symptoms known: Yes
Date of onset of symptoms: 05/21/25
Time of onset of symptoms: 10:00
Time pt last seen normal is known: Yes
Date last time pt seen normal: 05/21/25
Time last time pt seen normal: 10:00
NIH Stroke Score
Level of Consciousness: 0 - Alert
LOC Questions: 0-Answers both correctly
LOC Commands: 0-Performs both correctly
Best Horizontal Gaze: 0-Normal
Visual Daley: 0=Normal, no visual loss
Facial Palsy: 0=Normal, symmetrical
Motor - Right Arm: 0=No drift 10 seconds
Motor - Left Arm: 0=No drift 10 seconds
Motor - Right Le-No drift 5 seconds
Motor - Left Le-No drift 5 seconds
Limb Ataxia: 1-Present in one limb
Sensation: 0-Normal
Best Language: 0-No aphasia
Dysarthria: 0-Normal
Extinction and Inattention: 0-No abnormality
NIH Total Score:: 1
Tenecteplase Contraindications
Inclusion and Exclusion criteria reviewed: Yes
Reasons for NON-Tx with Thrombolytics ABSOLUTE Exclusions: Time-out of window
IAT Contraindications: >6 hrs from onset/last seen normal and NIHSS < 6
Physical Exam
-
General: No Apparent Distress, Comfortable and Appears Stated Age
HEENT: Normocephalic, Atraumatic and Anicteric
Neck: Full Range of Motion
Respiratory: No Dyspnea
Cardiac: No JVD
GI: Non-distended
Skin: Unremarkable
Extremities: No Clubbing, No Cyanosis and No Edema
Psych: Unremarkable
Extended Neurological Exam
Mood & Affect: Mood Unremarkable
Attention Span & Concentration: Awake, Alert, Interactive and Other (oriented to person place and time)
Memory: Unremarkable
Tremor: Hand Tremor Absent and Head Tremor Absent
Speech: Quality Unremarkable, Quantity Unremarkable and Rate of Production Unremarkable
Cranial Nerve II: Left Eye: Visual Daley Intact
Cranial Nerve II: Right Eye: Visual Daley Intact
Cranial Nerves III, IV, : Extraocular Movement: Extraocular Movement Full in all Directions
Cranial Nerve VII: Facial Symmetry: Normal Facial Symmetry
Cranial Nerve VIII: Hearing: Unremarkable Hearing to Normal Conversational Volume
Cranial Nerves IX, X: Palate Movement: Palate Elevation Symmetric
Cranial Nerve XI: Shoulder Shrug: Unremarkable
Muscle Strength, Overall: Full Throughout
Muscle Bulk & Tone: Bulk Unremarkable and Tone Unremarkable
Pronator Drift: No Drift in Upper Extremities and No Drift in Lower Extremities
Touch Sensation: Unremarkable and Double Simultaneous Stimulation Unremarkable
Coordination: Other (ataxia on RUE)
Medications
-
Active Medications
Generic Name Dose Route Start Last Admin
Trade Name Freq PRN Reason Stop Dose Admin
Acetaminophen 650 mg 05/25/25 00:33
Acetaminophen 650 Mg Rectal Suppository RECTAL 06/22/25 00:32
Q4HPRN PRN
JOHN, mild pain, or temp >100.4F
Acetaminophen 650 mg 05/25/25 00:33
Acetaminophen 325 Mg Tablet PO 06/22/25 00:32
Q4HPRN PRN
JOHN, mild pain, or temp >100.4F
Aspirin 81 mg 05/25/25 02:00 05/25/25 01:47
Aspirin 81 Mg Chewable Tablet PO 06/22/25 01:59 81 mg
HS ARTHUR Administration
Calcium Carbonate 200 mg 05/25/25 18:00
Calcium Antacid 200 Mg (Calcium Carbonate 500 Mg) Chew Tablet PO 06/22/25 17:59
QPM ARTHUR
Cholecalciferol 50 mcg 05/25/25 08:00 05/25/25 08:45
Cholecalciferol (Vitamin D3) 50 Mcg Tablet (2,000 Units) PO 06/22/25 07:59 50 mcg
DAILY ARTHUR Administration
Cyanocobalamin 1,000 mcg 05/25/25 08:00 05/25/25 08:46
Cyanocobalamin (Vitamin B-12) 500 Mcg Tablet PO 06/22/25 07:59 1,000 mcg
DAILY ARTHUR Administration
Dextrose 12.5 grams 05/25/25 08:56
Dextrose 50% (0.5 Grams/Ml) 50 Ml Syringe IV 06/22/25 08:55
[id number] PRN
hypoglycemia
Protocol
Diltiazem HCl 240 mg 05/25/25 08:00 05/25/25 08:46
Diltiazem 240 Mg Extended Release (24 H) Capsule PO 06/22/25 07:59 240 mg
BID ARTHUR Administration
Furosemide 20 mg 05/25/25 08:00 05/25/25 08:46
Furosemide 20 Mg Tablet PO 06/22/25 07:59 20 mg
Q48H ARTHUR Administration
Glucagon 1 mg 05/25/25 08:56
Glucagon 1 Mg Vial IM 06/22/25 08:55
PRN PRN
hypoglycemia
Protocol
Guaifenesin 400 mg 05/25/25 08:00 05/25/25 08:48
Guaifenesin Oral Solution (200 Mg/10 Ml) Cup PO 06/22/25 07:59 400 mg
BID ARTHUR Administration
Insulin Aspart 0 units 05/25/25 11:30
Insulin Aspart Low Resistance 300 Units/3 Ml Pen.Injctr SC 06/22/25 11:29
AC ARTHUR
Protocol
Metoprolol Succinate 50 mg 05/25/25 02:00 05/25/25 08:48
Metoprolol 50 Mg Extended Release Tablet PO 06/22/25 01:59 50 mg
BID ARTHUR Administration
Multivitamins Therapeutic 1 tablet 05/25/25 18:00
Multivitamin Tablet PO 06/22/25 17:59
QPM ARTHUR
Rosuvastatin Calcium 5 mg 05/25/25 22:00
Rosuvastatin (Crestor) 5 Mg Tablet PO 06/22/25 21:59
HS ARTHUR
Sitagliptin Phosphate 50 mg 05/25/25 08:00 05/25/25 08:47
Sitagliptin (Januvia) 100 Mg Tablet PO 06/22/25 07:59 50 mg
DAILY ARTHUR Administration
Valacyclovir HCl 500 mg 05/25/25 08:00 05/25/25 08:46
Valacyclovir Hcl 500 Mg Tablet PO 06/04/25 07:59 500 mg
DAILY ARTHUR Administration
Venlafaxine HCl 37.5 mg 05/25/25 02:00 05/25/25 08:47
Venlafaxine 37.5 Mg Regular Release Tablet PO 06/22/25 01:59 37.5 mg
BID ARTHUR Administration
Vitamin B Complex/Vitamin C 1 caplet 05/25/25 22:00
Vitamin B Complex With Vitamin C Caplet PO 06/22/25 21:59
HS ARTHUR
Home Medications
�Medication �Instructions �Recorded
calcium citrate 600 mg PO HS Supplement 04/10/19
cinnamon bark 500 mg capsule 1,000 mg PO BID Supplement 04/10/19
(Cinnamon)
glucosamine HCl 1,500 mg tablet 1,500 mg PO BID Supplement 04/10/19
guaifenesin 400 mg tablet 400 mg PO BID Congestion 04/10/19
venlafaxine 37.5 mg tablet 37.5 mg PO BID Mental health 04/10/19
B-complex with vitamin C 1 cap PO HS Supplement 05/01/19
multivitamin with folic acid 400 1 tab PO QPM Supplement 12/08/19
mcg tablet (Tab-A-Francisco)
turmeric 400 mg capsule 400 mg PO BID Supplement 02/15/20
rosuvastatin 5 mg tablet 5 mg PO HS High Cholesterol 07/25/20
aspirin 81 mg chewable tablet 81 mg PO HS Blood Clot 09/26/23
Prevention/Tx
cholecalciferol (vitamin D3) 50 50 mcg PO DAILY Supplement 09/26/23
mcg (2,000 unit) tablet (Vitamin
D3)
furosemide 20 mg tablet 20 mg PO Q48H Fluid 09/26/23
Retention/Swelling
metoprolol succinate 25 mg 50 mg PO BID Blood Pressure 09/26/23
tablet,extended release 24 hr
sitagliptin phosphate 100 mg 50 mg PO DAILY Diabetes 09/26/23
tablet (Januvia)
ascorbic acid (vitamin C) 500 mg 500 mg PO DAILY Supplement 01/22/24
tablet (Vitamin C)
cyanocobalamin (vitamin B-12) 1,000 mcg PO DAILY Supplement 01/22/24
1,000 mcg tablet
valacyclovir 500 mg tablet 500 mg PO DAILY 04/28/25
(Valtrex)
warfarin 5 mg tablet 5 mg PO DAILY@18 04/28/25
Cardizem CD 360 mg PO DAILY 05/24/25
Probiotic (B. coagulans) 1 tab PO DAILY 05/24/25
plant stanol cayla 450 mg PO QPM 05/24/25
potassium chloride 10 meq PO QPM 05/24/25
Past History
Past History
ED Past Medical History: Arrthythmia (AFib prior to valve surgery), COPD, Fibromyalgia, HTN, Hypercholesterolemia, NIDDM, Valvular disease (MR) and Other (hiatal hernia)
ED Past Surgical History: Cardiac (mitral valve replacement March 2020; A-fib ablation September 2023), Gynecological (vaginal cyst removed), Orthopedic (bilateral total hip replacements, bilateral torn menisci) and Other (neuromas removed from feet,
TMJ surgery, L lumpectomy, esophageal cyst, deviated septum repair, cataract extraction bilaterally)
Family/Social History
Tobacco: Former smoker
Alcohol: Chronic alcoholic
Drug: None and Other (unclear)
Personal:
Living: with family
Employment: Retired
Family History: Other (reviewed and non-contributory)

Documented by User: Fede Britton MD 05/25/25 14:57
CVA Assessment
NIH Stroke Score
NIH Total Score:: 1
[2025-05-25 09:33] LABS: HDL Cholesterol 60 mg/dl; LDL Cholesterol, Calculated 51 mg/dl; Very Low Density Lipoprotein 41 mg/dl (0-30)
--- NOTE | 2025-05-25 10:03 | PTOTSP ---
Speech Therapy Swallowing Assessment
Oral/pharyngeal swallow deemed within functional limits without overt signs of aspiration. Chronic left vocal fold paralysis is a risk factor for aspiration, though patient without symptoms of such and has been tolerating oral diet since
surgery/paralysis. Expressive and receptive language within functional limits.
Recommend
1. Continue regular solids and thin liquids.
2. Language/cognitive assessment pending results of brain MRI.
3. No ST follow up for swallowing.
[2025-05-25 10:04] LABS: VerifyNow Aspirin 470 ARU
[2025-05-25 11:44] LABS: Glucose - Point of Care 152 mg/dl (70-99)
--- NOTE | 2025-05-25 12:59 | CM ---
Patient seen at bedside
IA completed
SANT[facility] form explained & signed. In chart
CM consult completed stroke/tia
MRI pending
Lives with in 2 story home, 1 DINO, flight to bed/bath
PLOF: Independent, driving
DME: Walker, cane, shower chair, CPAP ([employer])
Has had [facility] in past, outpatient PT, [facility] in past
PT eval - likely no needs
PCP: Milo Singletary
Pharmacy: [facility], [facility], [place]
PLAN: home, no needs anticipated
to transport
--- NOTE | 2025-05-25 13:53 | W.PN.HOSP.TC ---
Today's Communication/Plan
-
MRI of the brain
Resume Coumadin
Assessment / Plan
Assessment / Plan
Impression:
80 years old female with history of mechanical mitral valve, A-fib anticoagulated with Coumadin presented with about 3 days with right upper extremity dysmetria/ataxia
Concern for CVA.
Other medical conditions:
Recent hospitalization with anemia and concern for gastrointestinal hemorrhage with unrevealing workup including unremarkable EGD
Mechanical RVR
Anticoagulation with Coumadin
Aortic stenosis, mild to moderate.
Paroxysmal atrial fibrillation.
Pacemaker/Medtronic 2019
Type 2 diabetes
Dyslipidemia
Chronic exertional dyspnea.
Plan:
Presentation with right upper extremity dysmetria/ataxia with no other focal findings on neurologic exam.
Patient reports symptoms onset about 3 days prior to presentation.
Remains on Coumadin with INR in therapeutic range
Initial evaluation including CT head/CTA with no acute abnormalities or vascular obstruction.
Was not a candidate for lytic treatment given timing of onset of symptoms.
PT/OT evaluation.
MRI of the brain.
Continue anticoagulation with Coumadin
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
Persistent atrial fibrillation
Status post PPM.
Mechanical mitral valve
Continue rate control with Cardizem and metoprolol
Continue anticoagulation with Coumadin with goal for INR 2.5�3.5
Essential hypertension
Goal normotension
Continue Preparation H
Pulm consult
Echo 04/09 LVEF 50-55%. Mechanical MV, moderate aortic stenosis.
Continue Lasix monitoring volume status closely
Type 2 diabetes
Most recent hemoglobin A1c 5.9
Carbohydrate controlled diet.
Resume preadmission regimen including Januvia
Anticipated Discharge: Within 24 hours
Subjective/Interval History
-
Date of Service: May 25, 2025
Objective Data
-
Labs:
Laboratory Results
05/25/25 05/25/25
02:00 07:19
WBC 5.3
Hgb 11.5 L
Hct 34.8 L
Plt Count 199
PT 30.3 H
INR 2.91
Sodium 139
Potassium 4.0
Chloride 106
Carbon Dioxide 27
BUN 14
Creatinine 0.8
Glucose 112 H
Calcium 9.2
Total Bilirubin 0.4
AST 25
ALT 19
Alkaline Phosphatase 60
Vital Signs:
Vital Signs
Temp Pulse Resp BP Pulse Ox
98.5 F 77 16 135/55 95
05/25/25 11:37 05/25/25 11:37 05/25/25 11:37 05/25/25 11:37 05/25/25 11:37
Physical Exam
-
General: Well Developed and No Apparent Distress
HEENT: Normocephalic, Atraumatic and Moist Mucous Membranes
Respiratory: Clear to Auscultation
Cardiac: Regular Rhythm and S1/S2; Negative Murmur, Rub or Gallop
GI: Soft, Nontender, Nondistended and Normal Bowel Sounds; Negative Organomegaly
Rectal: Deferred by Provider
Musculoskeletal: No Clubbing, No Cyanosis and No Edema
Skin: Negative Rash
Neuro: Nonfocal/Grossly Intact
[2025-05-25 14:38] LABS: C-Reactive Protein < 5.00 mg/L (0.0-10.00)
[2025-05-25 15:12] LABS: TSH 3.99 uIU/ml (0.47-4.68)
[2025-05-25 15:16] LABS: Ferritin 10.1 ng/ml (11.1-264.0)
[2025-05-25 15:48] LABS: Folate > 20.0 ng/ml (2.76-20); Vitamin B12 876 pg/ml (239-931)
[2025-05-25 17:10] LABS: Glucose - Point of Care 182 mg/dl (70-99)
[2025-05-25] MEDS: TUMS CHEWABLE TABLET 200 MG PO (17:26)
[2025-05-25] MEDS: THERAGRAN 1 TABLET PO (17:27)
[2025-05-25] MEDS: COUMADIN 5 MG PO (17:43)
[2025-05-25] MEDS: CRESTOR 5 MG PO (21:29)
[2025-05-25] MEDS: B COMPLEX w/VITAMIN C 1 CAPLET PO (21:29)
[2025-05-25 21:34] LABS: Glucose - Point of Care 188 mg/dl (70-99)
[2025-05-26 04:16] VITALS: BP 140/64
[2025-05-26 06:40] LABS: INR 2.83; PT 29.7 Sec (11.4-14.6)
[2025-05-26 07:35] VITALS: BP 149/76
[2025-05-26 08:16] LABS: Glucose - Point of Care 152 mg/dl (70-99)
[2025-05-26] MEDS: EFFEXOR 37.5 MG PO (08:18)
[2025-05-26] MEDS: TOPROL XL 50 MG PO (08:18)
[2025-05-26] MEDS: CARDIZEM CD 240 MG PO (08:18)
[2025-05-26] MEDS: JANUVIA 50 MG PO (08:18)
[2025-05-26] MEDS: VITAMIN B-12 1000 MCG PO (08:18)
[2025-05-26] MEDS: ROBITUSSIN 400 MG PO (08:18)
[2025-05-26] MEDS: VALTREX 500 MG PO (08:18)
[2025-05-26] MEDS: VITAMIN D3 (cholecalciferol) 50 MCG PO (08:19)
--- NOTE | 2025-05-26 10:00 | CM ---
Addendum entered by Alley Lewis 05/26/25 14:44:
patient discharged today
OT/ST rec outpatient therapy - tt hospitalist for scripts
IMM explained & signed. In chart
PLAN: Home with outpatient therapy
to transport
Original Note:
Patient chart reviewed
Brain MRI Today
PLAN: Home, no needs anticipated
[2025-05-26 11:32] VITALS: BP 132/87
--- NOTE | 2025-05-26 12:31 | W.DS.TRANS ---
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
-
Discharge Instructions:
Discharge Diagnosis/Procedures Acute CVA
Diet Diabetic, Carb Controlled
Instructions:
Stand-Alone Forms:
Changes to Home Medications: No
Discharge Medications:
DC Medications w/original date entered in [employer]
calcium citrate 600 mg PO HS Supplement 04/10/19
cinnamon bark 500 mg capsule (Cinnamon) 1,000 mg PO BID Supplement 04/10/19
glucosamine HCl 1,500 mg tablet 1,500 mg PO BID Supplement 04/10/19
guaifenesin 400 mg tablet 400 mg PO BID Congestion 04/10/19
venlafaxine 37.5 mg tablet 37.5 mg PO BID Mental health 04/10/19
B-complex with vitamin C 1 cap PO HS Supplement 05/01/19
multivitamin with folic acid 400 mcg tablet (Tab-A-Francisco) 1 tab PO QPM Supplement 12/08/19
turmeric 400 mg capsule 400 mg PO BID Supplement 02/15/20
rosuvastatin 5 mg tablet 5 mg PO HS High Cholesterol 07/25/20
aspirin 81 mg chewable tablet 81 mg PO HS Blood Clot Prevention/Tx 09/26/23
cholecalciferol (vitamin D3) 50 mcg (2,000 unit) tablet (Vitamin D3) 50 mcg PO DAILY Supplement 09/26/23
furosemide 20 mg tablet 20 mg PO Q48H Fluid Retention/Swelling 09/26/23
metoprolol succinate 25 mg tablet,extended release 24 hr 50 mg PO BID Blood Pressure 09/26/23
sitagliptin phosphate 100 mg tablet (Januvia) 50 mg PO DAILY Diabetes 09/26/23
ascorbic acid (vitamin C) 500 mg tablet (Vitamin C) 500 mg PO DAILY Supplement 01/22/24
cyanocobalamin (vitamin B-12) 1,000 mcg tablet 1,000 mcg PO DAILY Supplement 01/22/24
valacyclovir 500 mg tablet (Valtrex) 500 mg PO DAILY 04/28/25
warfarin 5 mg tablet 5 mg PO DAILY@18 04/28/25
Cardizem CD 360 mg PO DAILY 05/24/25
Probiotic (B. coagulans) 1 tab PO DAILY 05/24/25
plant stanol cayla 450 mg PO QPM 05/24/25
potassium chloride 10 meq PO QPM 05/24/25
Home Medication Changes
Pending Results: No
[2025-05-26 12:47] LABS: Glucose - Point of Care 174 mg/dl (70-99)
[2025-05-26 13:44] VITALS: BP 126/68; BP 130/72; PULSE 95; O2SAT 97
[2025-05-26 15:40] VITALS: BP 133/69
== END 2025-05-26 16:50 | disposition home or self-care (01) | DRG 65 ==
LOC: 4 WEST ACU 12:22
PROVIDERS: Clinical Nurse Specialist Family Health; Emergency Medicine; ADMITTING PHYSICIAN Hospitalist; ATTENDING PHYSICIAN Internal Medicine; CONSULT PHYSICIAN Psychiatry & Neurology Neurology; EMERGENCY PHYSICIAN Emergency Medicine; FAMILY PHYSICIAN Family Medicine
DX: I63.9 Cerebral infarction, unspecified (principal); I48.19 Other persistent atrial fibrillation; Z95.2 Presence of prosthetic heart valve; I35.0 Nonrheumatic aortic (valve) stenosis; Z95.0 Presence of cardiac pacemaker; E11.9 Type 2 diabetes mellitus without complications; E78.00 Pure hypercholesterolemia, unspecified; J44.9 Chronic obstructive pulmonary disease, unspecified; I50.9 Heart failure, unspecified; I11.0 Hypertensive heart disease with heart failure; M79.7 Fibromyalgia; F32.A Depression, unspecified; Z82.3 Family history of stroke; Z87.891 Personal history of nicotine dependence; Z96.643 Presence of artificial hip joint, bilateral; R29.701 NIHSS score 1; R79.1 Abnormal coagulation profile; Z79.01 Long term (current) use of anticoagulants; Z88.8 Allergy status to other drugs, medicaments and biological substances; Z88.0 Allergy status to penicillin; Z88.5 Allergy status to narcotic agent; Z79.82 Long term (current) use of aspirin; Z79.899 Other long term (current) drug therapy
CPT/HCPCS: 70450; 70496; 70498; 70551; 80053; 80061; 82607; 82728; 82746; 82962; 84439; 84443; 85025; 85576; 85610; 85652; 86140; 92523; 92610; 93005; 97162; 97167; 97530; 99285; Q9967

== ENCOUNTER 2025-06-15 07:01 | Outpatient (RCR) | payer MEDICARE, OTHER, SELFPAY | END 2025-06-15 23:59 | disposition home or self-care (01) | LOC: ROT 07:01 | PROVIDERS: ATTENDING PHYSICIAN Family Medicine | DX: I69.393 Ataxia following cerebral infarction (principal); I69.312 Visuospatial deficit and spatial neglect following cerebral infarction; I69.351 Hemiplegia and hemiparesis following cerebral infarction affecting right dominant side; Z73.6 Limitation of activities due to disability; R26.89 Other abnormalities of gait and mobility | CPT/HCPCS: 97167; 97537 ==

== ENCOUNTER 2025-06-28 13:13 | Outpatient (RCR) | payer MEDICARE, OTHER, SELFPAY | END 2025-07-14 23:59 | disposition home or self-care (01) | LOC: ROT 13:13 | PROVIDERS: ATTENDING PHYSICIAN Family Medicine | DX: I63.9 Cerebral infarction, unspecified (principal); I69.393 Ataxia following cerebral infarction (principal); I69.312 Visuospatial deficit and spatial neglect following cerebral infarction; I69.351 Hemiplegia and hemiparesis following cerebral infarction affecting right dominant side; Z73.6 Limitation of activities due to disability; R26.89 Other abnormalities of gait and mobility | CPT/HCPCS: 97112; 97530 ==

== ENCOUNTER 2025-07-06 15:21 | Inpatient (IN) | payer MEDICARE, OTHER, SELFPAY ==
[2025-07-06] VITALS (8 sets, daily range): BP systolic 119–156; BP diastolic 44–87; BMI 29.2; BMI 27.3; BMI 27.7
[2025-07-06 12:25] LABS: Hematocrit 29.7 % (37.0-47.0); Hemoglobin 8.8 g/dL (12.0-16.0); Mean Corp Hgb Conc. 29.6 g/dL (33.0-37.0); Mean Corpuscular Volume 88.7 fL (81.0-99.0); Nucleated Red Blood Cells % 0 %; Platelet Count 244 10^3/uL (130-400); Red Cell Dist. Width 15.8 % (11.5-14.5)
[2025-07-06 12:40] LABS: ALT (SGPT) 20 U/L (0-35); AST (SGOT) 25 U/L (14-36); Albumin 4.3 g/dl (3.5-5.0); Alkaline Phosphatase 57 U/L (38-126); Blood Urea Nitrogen 16 mg/dl (7-17); Calcium 8.9 mg/dl (8.4-10.2); Carbon Dioxide 27 mmol/L (22-30); Chloride 104 mmol/L (98-107); Glucose 180 mg/dl (70-99); Potassium 4.2 mmol/L (3.5-5.1); Sodium 135 mmol/L (135-145); Total Protein 6.7 g/dl (6.3-8.2); eGFR > 60.00
[2025-07-06 12:47] LABS: Troponin I 0.012 ng/ml
--- NOTE | 2025-07-06 12:54 | ED.GENMED ---
History of Present Illness
<Malou Avila CLINICAL SALES CONSULTANT - Last Filed: 07/06/25 19:34>
General
Chief Complaint: Breathing Problem
Source: patient
Exam Limitations: none
Time Seen by Provider: 07/06/25 12:50
Nursing documentation reviewed up to this point in time: agreed with
History of Present Illness
History of Present Illness:
80-year-old female with history of COPD, A-fib on Coumadin, CAD, HTN, HLD, mitral valve replacement, GERD, pacemaker, GERD, NIDDM, anemia, depression who presents for shortness of breath. She states she is chronically short of breath but in the
past month she has been more short of breath. She is on Coumadin and called Dr. Hall's nurse yesterday to report her INR which was 4.4. She states that last week she noted that her stools were dark but not recently. She was on Coumadin 7.5 mg
for 2 days of the week and then 5 mg every other day. Yesterday she was told to just take 5 mg daily due to her INR. Yesterday she sounded short of breath on the phone so the nurse called her back today to see how she was doing and she still
sounded short of breath so she sent her here to the ER for evaluation.
Patient denies chest pain. Denies abdominal pain. Denies N/V/D/C.
Past History
<Malou Avila, CLINICAL SALES CONSULTANT - Last Filed: 07/06/25 19:34>
Past History
ED Past Medical History: Arrthythmia (AFib prior to valve surgery), COPD, Fibromyalgia, HTN, Hypercholesterolemia, NIDDM, Valvular disease (Aortic stenosis) and Other (hiatal hernia)
ED Past Surgical History: Cardiac (mitral valve replacement March 2020; A-fib ablation September 2023), Gynecological (vaginal cyst removed), Orthopedic (bilateral total hip replacements, bilateral torn menisci) and Other (neuromas removed from feet,
TMJ surgery, L lumpectomy, esophageal cyst, deviated septum repair, cataract extraction bilaterally)
Social History
Tobacco: Former smoker
Alcohol: Chronic alcoholic
Drug: None and Other (unclear)
Personal:
Living: with family
Employment: Retired
Family History
Family History: Other (reviewed and non-contributory)
Phy Exam
<Malou Avila, CLINICAL SALES CONSULTANT - Last Filed: 07/06/25 19:34>
Physical Exam
Physical Exam:
GENERAL: No acute distress. A&Ox3.
CONSTITUTIONAL: Afebrile.
EYES: clear, conjunctivae normal
ENMT: moist mucus membranes, Pharynx nl
RESPIRATORY: Regular respirations, nonlabored, lungs clear. Pulse ox 98% room air
CARDIOVASCULAR: Regular rate and rhythm, no murmurs, no rubs.
GI: Soft, nontender, normal BS
Rectal: No stool in rectal vault, clear mucus hematest negative
MUSCULOSKELETAL: Moves with ease. Well perfused.
SKIN: Warm, dry, pink
PSYCH: Normal mood and affect. Well kept, interactive and appropriate
NEUROLOGIC: Awake, alert and oriented. No focal neurological deficits
Scores
<aMlou Avila, CLINICAL SALES CONSULTANT - Last Filed: 07/06/25 19:34>
Heart Failure Risk
Heart Failure Risk Score: Not Applicable
Course
<Malou Avila, CLINICAL SALES CONSULTANT - Last Filed: 07/06/25 19:34>
Orders/Labs/Results
Orders:
Orders
07/06/25 11:48
Electrocardiogram (*1) Urgent
Reason for Study: Shortness of Breath
EKG- Treatment ONCE
07/06/25 11:55
Complete Blood Count/With Diff Urgent
Comprehensive Metabolic Panel Urgent
NT-proBNP Urgent
Troponin I Urgent
07/06/25 13:22
PTT Urgent
Prothrombin Time Urgent
07/06/25 13:49
IV Insert/Care/Rem.- Treatment PRN
07/06/25 13:50
Type And Crossmatch [Type+Screen] Urgent
07/06/25 14:17
Pantoprazole [Protonix IV] 80 mg IV NOW STA
07/06/25 15:01
Admit/Transfer Patient As Directed
Co-Sign Provider:
Level of Care: Inpatient admission
Assign to:: Telemetry
Physician / Group: mir chahal
Diagnosis: anemia likely intermittent gi bleed on coumadin, mech valv
Reason for Telemetry: Arrhythmia
Date to Stop Telemetry: 07/09/25
Time to Stop Telemetry: 11:00
Reason for Hospitalization: anemia likely intermittent gi bleed on coumadin, mech valv
Expected length of stay greater than two midnights?: Yes
ELOS- Estimated Length of Stay in days: 3
I certify the patient meets the requirements for IP care: Yes
Code Status As Directed
Resuscitation Status: Full Code
07/06/25 15:03
PRN Pain Medication Management As Directed
May give lesser potent ordered pain med per pt: Yes
preference::
Protocol:: Medication orders for pain may be administered in a
manner that supports deferring to patient preference
when the pt is:
- Requesting an ordered lesser potent pain medication.
Least to most potent pain medications are defined
as: acetaminophen < NSAID < tramadol < opioids
(morphine, oxycodone, hydromorphone).
- Requesting a lesser dose of the same medication IF
ORDERED.
- Requesting a less intrusive route of administration
if both routes are prescribed by the provider (PO <
IV).
07/06/25 15:12
CARDIOLOGY CONSULT Routine
Consulting Provider: Rainer Woodward
Was physician already notified: Yes
Reason for consult: anemia gi bleed on coumadin/ mechan valve
GASTROINTESTINAL CONSULT Routine
Consulting Provider: Machelle Orourke
Was physician already notified: Yes
Reason for consult: anemia gi bleed on coumadin/ mechan valve
07/06/25 16:23
Activity As Directed
Activity Level: As Tolerated
Pneumatic Compression Sleeves As Directed
Type: Knee high
Vital Signs As Directed
Frequency: Per unit guidelines
Pulse Ox/spot Check [RESP] Routine
Quantity: 1
Pt Eval And Treat Routine
Activity Level: As Tolerated
DX Deep Vein Thrombosis Video Routine
07/06/25 22:00
Pantoprazole [Protonix IV] 40 mg IV BID
07/07/25 06:00
Complete Blood Count/With Diff IN AM
Comprehensive Metabolic Panel IN AM
PT/INR [Prothrombin Time] IN AM
07/08/25 06:00
Complete Blood Count/With Diff IN AM
Comprehensive Metabolic Panel IN AM
PT/INR [Prothrombin Time] IN AM
07/09/25 06:00
Complete Blood Count/With Diff IN AM
Comprehensive Metabolic Panel IN AM
07/09/25 11:00
DC Protocol for Telemetry ONCE
Abnormal Lab Results
07/06/25 07/06/25
11:55 13:22
RBC 3.35 L 10^6/uL
(4.20-5.40)
Hgb 8.8 L g/dL
(12.0-16.0)
Hct 29.7 L %
(37.0-47.0)
MCH 26.3 L pg
(27.0-31.0)
MCHC 29.6 L g/dL
(33.0-37.0)
RDW 15.8 H %
(11.5-14.5)
MPV 10.9 H fL
(7.4-10.4)
Absolute Lymphs (auto) 0.9 L 10^3/uL
(1.2-3.4)
Neutrophils % 77.9 H %
(42.2-75.2)
Lymphocytes % 12.0 L %
(20.5-51.1)
PT 33.6 H Sec
(11.4-14.6)
APTT 44.6 H Sec
(23.4-35.0)
Glucose 180 H mg/dl
(70-99)
07/06/25 11:55
07/06/25 11:55
Vital Signs
Initial and Last Documented VS:
Initial Vital Signs
Temp Pulse Resp BP Pulse Ox
97.9 F 93 22 142/62 100
07/06/25 11:46 07/06/25 11:46 07/06/25 11:46 07/06/25 11:46 07/06/25 11:46
Last Documented Vital Signs
Temp Pulse Resp BP Pulse Ox
98.7 F 72 16 132/47 95
07/06/25 19:06 07/06/25 19:06 07/06/25 19:06 07/06/25 19:06 07/06/25 19:06
<Francisco Khoury, DO - Last Filed: 07/06/25 14:12>
Orders/Labs/Results
Orders:
Orders
07/06/25 11:48
Electrocardiogram (*1) Urgent
Reason for Study: Shortness of Breath
EKG- Treatment ONCE
07/06/25 11:55
Complete Blood Count/With Diff Urgent
Comprehensive Metabolic Panel Urgent
NT-proBNP Urgent
Troponin I Urgent
07/06/25 13:22
PTT Urgent
Prothrombin Time Urgent
07/06/25 13:49
IV Insert/Care/Rem.- Treatment PRN
07/06/25 13:50
Type And Crossmatch [Type+Screen] Urgent
07/06/25 14:17
Pantoprazole [Protonix IV] 80 mg IV NOW STA
07/06/25 15:01
Admit/Transfer Patient As Directed
Co-Sign Provider:
Level of Care: Inpatient admission
Assign to:: Telemetry
Physician / Group: mir chahal
Diagnosis: anemia likely intermittent gi bleed on coumadin, mech valv
Reason for Telemetry: Arrhythmia
Date to Stop Telemetry: 07/09/25
Time to Stop Telemetry: 11:00
Reason for Hospitalization: anemia likely intermittent gi bleed on coumadin, mech valv
Expected length of stay greater than two midnights?: Yes
ELOS- Estimated Length of Stay in days: 3
I certify the patient meets the requirements for IP care: Yes
Code Status As Directed
Resuscitation Status: Full Code
07/06/25 15:03
PRN Pain Medication Management As Directed
May give lesser potent ordered pain med per pt: Yes
preference::
Protocol:: Medication orders for pain may be administered in a
manner that supports deferring to patient preference
when the pt is:
- Requesting an ordered lesser potent pain medication.
Least to most potent pain medications are defined
as: acetaminophen < NSAID < tramadol < opioids
(morphine, oxycodone, hydromorphone).
- Requesting a lesser dose of the same medication IF
ORDERED.
- Requesting a less intrusive route of administration
if both routes are prescribed by the provider (PO <
IV).
07/06/25 15:12
CARDIOLOGY CONSULT Routine
Consulting Provider: Rainer Woodward
Was physician already notified: Yes
Reason for consult: anemia gi bleed on coumadin/ mechan valve
GASTROINTESTINAL CONSULT Routine
Consulting Provider: Machelle Orourke
Was physician already notified: Yes
Reason for consult: anemia gi bleed on coumadin/ mechan valve
07/06/25 16:23
Activity As Directed
Activity Level: As Tolerated
Pneumatic Compression Sleeves As Directed
Type: Knee high
Vital Signs As Directed
Frequency: Per unit guidelines
Pulse Ox/spot Check [RESP] Routine
Quantity: 1
Pt Eval And Treat Routine
Activity Level: As Tolerated
DX Deep Vein Thrombosis Video Routine
07/06/25 22:00
Pantoprazole [Protonix IV] 40 mg IV BID
07/07/25 06:00
Complete Blood Count/With Diff IN AM
Comprehensive Metabolic Panel IN AM
PT/INR [Prothrombin Time] IN AM
07/08/25 06:00
Complete Blood Count/With Diff IN AM
Comprehensive Metabolic Panel IN AM
PT/INR [Prothrombin Time] IN AM
07/09/25 06:00
Complete Blood Count/With Diff IN AM
Comprehensive Metabolic Panel IN AM
07/09/25 11:00
DC Protocol for Telemetry ONCE
Abnormal Lab Results
07/06/25 07/06/25
11:55 13:22
RBC 3.35 L 10^6/uL
(4.20-5.40)
Hgb 8.8 L g/dL
(12.0-16.0)
Hct 29.7 L %
(37.0-47.0)
MCH 26.3 L pg
(27.0-31.0)
MCHC 29.6 L g/dL
(33.0-37.0)
RDW 15.8 H %
(11.5-14.5)
MPV 10.9 H fL
(7.4-10.4)
Absolute Lymphs (auto) 0.9 L 10^3/uL
(1.2-3.4)
Neutrophils % 77.9 H %
(42.2-75.2)
Lymphocytes % 12.0 L %
(20.5-51.1)
PT 33.6 H Sec
(11.4-14.6)
APTT 44.6 H Sec
(23.4-35.0)
Glucose 180 H mg/dl
(70-99)
07/06/25 11:55
07/06/25 11:55
Vital Signs
Initial and Last Documented VS:
Initial Vital Signs
Temp Pulse Resp BP Pulse Ox
97.9 F 93 22 142/62 100
07/06/25 11:46 07/06/25 11:46 07/06/25 11:46 07/06/25 11:46 07/06/25 11:46
Last Documented Vital Signs
Temp Pulse Resp BP Pulse Ox
98.7 F 72 16 132/47 95
07/06/25 19:06 07/06/25 19:06 07/06/25 19:06 07/06/25 19:06 07/06/25 19:06
<Malou Avila, CLINICAL SALES CONSULTANT - Last Filed: 07/06/25 19:34>
MDM/Problems Addressed
Differential Diagnosis Includes:
CHF, anemia, pneumonia
MDM/Problems Addressed:
80-year-old female with history of COPD, A-fib on Coumadin, CAD, HTN, HLD, mitral valve replacement, GERD, pacemaker, GERD, NIDDM, anemia, depression who presents for shortness of breath. She states she is chronically short of breath but in the
past month she has been more short of breath. She is on Coumadin and called Dr. Hall's nurse yesterday to report her INR which was 4.4. She states that last week she noted that her stools were dark but not recently. She was on Coumadin 7.5 mg
for 2 days of the week and then 5 mg every other day. Yesterday she was told to just take 5 mg daily due to her INR. Yesterday she sounded short of breath on the phone so the nurse called her back today to see how she was doing and she still
sounded short of breath so she sent her here to the ER for evaluation.
Patient denies chest pain. Denies abdominal pain. Denies N/V/D/C.
EKG: Atrial paced rhythm with prolonged AV conduction, LBBB, no change from previous.
1:00 PM:
CBC: Hemoglobin 8.8 down from 11.5 six weeks ago
CMP normal
Troponin normal
BNP 682
PT 33.6
PTT is 44.6 seconds
INR 3.33
2:15 PM:
Dr. Khoury in to see pt. She will be admitted to [facility], Protonix ordered. No evidence of active bleeding on exam
Spoke with pharmacist Eva,, patient allergic to bananas and latex, okay to give Protonix.
Hospitalist notified of admission
<Malou Avila CLINICAL SALES CONSULTANT - Last Filed: 07/06/25 19:34>
*Pulse Oximetry
SaO2: 99
Oxygen Mode of Delivery: Room air
Patient hypoxic: no
*EKG
EKG Intrepretation Date: 07/06/25
Interpretation: abnormal
Heart Rate: 79
Rate: normal
Rhythm: av sequential
[place]: normal axis
QRS Pattern: left bundle branch block
Ischemia: no ischemia
*Critical Care Note
Total Time (30-74mins, 75-104mins- exclusive of procedures): Not Applicable
ED Attending Note
<Malou Avila CLINICAL SALES CONSULTANT - Last Filed: 07/06/25 19:34>
-
Portions of this chart may have been created with voice recognition software.� Occasional wrong word or��sound alike� substitutions may have occurred due to the inherent limitations of voice recognition software.
<Francisco Khoury, DO - Last Filed: 07/06/25 14:12>
ED Attending Note
Patient seen and examined by attending physician: Yes
I performed the substantive portion of visit, reviewed & personally made and approve the management plan that is documented in note by myself or JONNA.: Yes
ED Attending Note:
I evaluated patient at bedside. The patient has increasing shortness of breath and hemoglobin 6 weeks ago was 12.2, the following day was 11.5 and now is down to 8.8. She did report some dark stools which may or may not be related to ingestion of
blueberries. She has mucoid stool but no definite evidence of upper GI bleed currently. As recently as August 2024 her hemoglobin was 14.4. She is on Coumadin. She has a history of mechanical mitral valve. She also questioned TAVR evaluation
as she reports worsening aortic stenosis. Given her complexity, would recommend her in the hospital for further evaluation
Discharge Plan
Departure
Patient Disposition: Admit
Date of Disposition: 07/06/25
Time of Disposition: 14:20
Admit to: Med/Surg
Presentation/result/management discussed w/ accepting MD/DO: Hospitalist
Condition: Fair
Discharge Problem:
Acute on chronic anemia
Interventions
Interventions:
*Risk Screen - Suicide Last Done: 07/06/25 11:45
*General Assessment Last Done: 07/06/25 13:20
*Neglect/Abuse Screening Last Done: 07/06/25 13:20
*ED- Fall Risk Assessment Last Done: 07/06/25 13:20
*ED COVID-19 Vaccine History Last Done: 07/06/25 13:20
*ED Influenza Vaccine History Last Done: 07/06/25 13:20
*Nursing Disposition Last Done: 07/06/25 16:21
ED- Cardiac Assessment Last Done: 07/06/25 12:46
ED- Pulmonary Assessment Last Done: 07/06/25 12:46
Discharge Date and Time
Discharge Date/Time: 07/06/25 16:21
[2025-07-06 13:52] LABS: INR 3.33; PT 33.6 Sec (11.4-14.6)
[2025-07-06 13:53] LABS: APTT 44.6 Sec (23.4-35.0)
[2025-07-06] MEDS: PROTONIX IV 80 MG IV (14:24)
--- NOTE | 2025-07-06 14:41 | HPS.HSE ---
Addendum entered and electronically signed by Letha Ruiz MD 07/06/25 15:41:
This is an addendum to H&P written by Elvira Zhong on 07/06/2025. �Patient seen and examined independently with INSTALLATION MANAGER.
80-year-old female past medical history of 80-year-old female past medical history of diabetes, hypertension, paroxysmal atrial fibrillation with pacemaker, mechanical mitral valve on coumadin, HFpEF, hypercholesteremia, mitral regurgitation, hiatal
hernia, COPD, fibromyalgia, depression, chronic bilateral hand numbness, transient GI bleeding in April presenting for shortness of breath. �He called cardiology Dr. Arevalo office yesterday to report INR 4.4. �Dark stools for the past week.
�Normally on 7.5 mg of Coumadin twice a week and 5 mg on the other days he was told to take 5 mg yesterday. �No abdominal pain or vomiting or diarrhea.
Patient complaining of worsening shortness of breath and slight lower extremity edema.
She was recently admitted on 05/26 for dysmetria of right upper extremity. �MRI showed small acute left frontoparietal infarct. �She was continued on Coumadin.
She was recently admitted earlier in April for transient GI bleeding and underwent EGD which showed small hiatal hernia but no active bleeding.
Vital signs normal.
Labs showed hemoglobin of 8.8 from 11.5 Blood sugar 180. �INR of 3.33. �Cardiac BNP 680.
Patient with recurrent upper GI bleeding and acute blood loss anemia in the setting of supratherapeutic INR. �Could be angioectasia bleeding. �Continue Coumadin 5 mg because she had a reduced dosage yesterday. �Protonix 40 twice daily IV. �Regular
diet. �GI consulted although. �Cardiology consulted for management of anticoagulation as she likely needs a reduced dosage of Coumadin moving forward.
Check chest x-ray.
Original Note:
Family Physician
-
Family Physician: Milo Singletary
Chief Complaint
-
Reported black stool last week, elevated INR on Coumadin
History of Present Illness
80-year-old female complaining of increased shortness of breath from baseline. She currently takes Coumadin for history of A-fib had reported INR yesterday 07/05/2025 of 4.4. She does report dark stools last week Saturday to Saturday. She reports
brown stool for the past 4 days. She did take Coumadin 5 mg yesterday. She was on alternating doses of 7.5 and 5 mg due to history of A-fib and mechanical heart valve. In the ER she was noted to have hemoglobin of 8.8 which dropped from 11.5 on
05/25/2025. Patient had recent admission on 05/24 - 05/26/2025 with right upper extremity dysmetria and MRI showing small acute left frontal parietal infarct she was continued on Coumadin. The patient states she still has problems with tracking and eye
convergence due to recent stroke. She denies headache, sore throat, fever, chills, chest pain, palpitations, cough, abdominal pain, nausea, vomiting, diarrhea, urinary symptoms.
The patient has past medical history of alcohol use 1 glass of wine daily, A-fib on Coumadin, A-fib ablation September 2023, CAD, HTN, HLD, mitral valve replacement March 2020, COPD, GERD, Medtronic permanent pacemaker 07/25/2020, DM2, anemia,
depression, former smoker 25-year 1 pack a day
Medical History
Past Medical History
Past Medical History: Reports Other
Additional Past Medical History:
CVA�05/2025 MRI showing small acute left frontal parietal infarct
hypertension
hyperlipidemia
NIDDM
CHF
depression
persistent atrial fibrillation
Mechanical mitral valve replacement March 2020
Medtronic pacemaker 07/25/2020
Patient reports transposition of heart to right side
COPD
Former smoker 25-year 1 pack a day
History of transient GI bleed April 2025
fibromyalgia
mitral regurgitation
hiatal hernia
Past Surgical History: Reports Other
Additional Past Surgical History:
Mechanical mitral valve replacement March 2020
A-fib ablation September 2023
vaginal cyst removed
neuromas removed from feet
TMJ surgery
L lumpectomy
esophageal cyst
deviated septum repair
cataract extraction bilaterally
bilateral total hip replacements
bilateral torn meniscus
Social History
Tobacco: Former Smoker (25 years 1 pack/day)
Alcohol: Daily (glass of wine per day )
Drug: None
Personal:
Living: With Family
Employment: Retired
Family History
Family History: Not pertinent
Allergies / Home Medications
Allergies reflects when Allergies were last updated in [facility].
Home Medications with original date entered in [facility]
Allergy/Medication List:
Allergies
Allergy/AdvReac Type Severity Reaction Status Date / Time
almond Allergy migraine Verified 05/24/25 23:08
amoxicillin (Amoxicillin) Allergy Hives Verified 05/24/25 23:08
banana Allergy migraine Verified 05/24/25 23:08
Cephalosporins Allergy Rash Verified 05/24/25 23:08
cheese Allergy MIGRAINE Verified 05/24/25 23:08
codeine Allergy nausea Verified 05/24/25 23:08
latex (Latex) Allergy rash and Verified 05/24/25 23:08
swelling
metformin Allergy Vomiting Verified 05/24/25 23:08
monosodium glutamate Allergy MIGRAINE Verified 05/24/25 23:08
Penicillins Allergy Rash Verified 05/24/25 23:08
sorbitol Allergy stomach Verified 05/24/25 23:08
upset
figs Allergy migraine Uncoded 05/24/25 23:08
Home Medications
calcium citrate 600 mg PO HS Supplement 04/10/19
cinnamon bark 500 mg capsule (Cinnamon) 1,000 mg PO QPM Supplement 04/10/19
glucosamine HCl 1,500 mg tablet 1,500 mg PO QPM Supplement 04/10/19
venlafaxine 37.5 mg tablet 37.5 mg PO BID Mental health 04/10/19
B-complex with vitamin C 1 cap PO HS Supplement 05/01/19
multivitamin with folic acid 400 mcg tablet (Tab-A-Francisco) 1 tab PO QPM Supplement 12/08/19
aspirin 81 mg chewable tablet 81 mg PO HS Blood Clot Prevention/Tx 09/26/23
cholecalciferol (vitamin D3) 50 mcg (2,000 unit) tablet (Vitamin D3) 50 mcg PO DAILY Supplement 09/26/23
furosemide 20 mg tablet 20 mg PO MOTUWETHFR Fluid Retention/Swelling 09/26/23
metoprolol succinate 25 mg tablet,extended release 24 hr 25 mg PO BID Blood Pressure 09/26/23
sitagliptin phosphate 100 mg tablet (Januvia) 50 mg PO DAILY Diabetes 09/26/23
ascorbic acid (vitamin C) 500 mg tablet (Vitamin C) 500 mg PO DAILY Supplement 01/22/24
cyanocobalamin (vitamin B-12) 1,000 mcg tablet 1,000 mcg PO DAILY Supplement 01/22/24
valacyclovir 500 mg tablet (Valtrex) 500 mg PO QPM ANTIVIRAL 04/28/25
warfarin 5 mg tablet 5 mg PO QPM Blood Clot Prevention/Tx 04/28/25
diltiazem HCl 240 mg capsule,extended release 24 hr (Cardizem CD) 240 mg PO BID Heart Disease/Condition ##0 05/24/25
rosuvastatin 10 mg tablet 10 mg PO HS 07/06/25
Review of Systems
-
History Source: Patient
A 12 point ROS was completed and negative except as noted: Yes
Constitutional: Denies Fever, Fatigue or Chills
EENT: Reports Other (Eyes do converge EOMs are intact); Denies Sore Throat or Runny Nose
Respiratory: Reports Trouble Breathing; Denies Cough
Cardiac: Denies Chest Pain, Diaphoresis, Palpitations or Syncope
Abdomen/GI: Reports Black Stools (Last week Saturday through Saturday); Denies Abdominal Pain, Nausea, Vomiting or Diarrhea
: Denies Dysuria, Frequency, Flank Pain, Incontinence, Difficulty Voiding, Urgency or Bleeding
Musculoskeletal: Denies Joint Pain or Edema
Skin: Denies Itching or Rash
Neurological: Denies Dizzy, Headache or Weakness
Endocrine: Reports No Symptoms
Hematologic/Lymphatic: Reports No Symptoms
Psych: Reports Calm
Physical Exam
Vital Signs
Vital Signs
Temp Pulse Resp BP Pulse Ox
97.9 F 72 13 119/57 95
07/06/25 11:46 07/06/25 14:15 07/06/25 14:15 07/06/25 14:00 07/06/25 13:30
Physical Exam
General: Comfortable and Conversant; No Pain, Fever or Chills
HEENT: NormoCephalic, Anicteric, Moist mucous membranes, PERRLA, [place] Conjunctivae and No Ptosis
Respiratory: Clear; No Wheezes, Rales or Rhonchi
Cardiac: S1/S2 and Other (Paced on monitor); No Murmur, Rub, Gallop or Peripheral Edema
Breast: Deferred by me
GI: Soft, Non Tender, Non Distended, Normal Bowel Sounds and No Hepatosplenomegaly
Rectal: Other (Per ER no stool in rectal vault)
Genito-urinary: Deferred by me
Musculoskeletal: No Clubbing, No Cyanosis and No Edema
Skin: Warm and Dry; No Rash or Jaundice
Neuro: AO x 3, No Motor Deficits, Nonfocal/grossly intact, Cranial Nerves Intact and No Sensory Deficits; No Slurred Speech, Facial Droop, Tremors or Sedated
Psych: Calm
Laboratory Results
-
07/06/25 11:55
07/06/25 11:55
Laboratory Results
PT 33.6 Sec (11.4-14.6) H 07/06/25 13:22
INR 3.33 07/06/25 13:22
APTT 44.6 Sec (23.4-35.0) H 07/06/25 13:22
Total Bilirubin 0.5 mg/dl (0.2-1.3) 07/06/25 11:55
AST 25 U/L (14-36) 07/06/25 11:55
ALT 20 U/L (0-35) 07/06/25 11:55
Alkaline Phosphatase 57 U/L (38-126) 07/06/25 11:55
Troponin I 0.012 ng/ml 07/06/25 11:55
Impression/Plan
-
Impression/plan:
Admit to telemetry
#Symptomatic anemia concern for recurrent Transient GI [id number] with supratherapeutic INR on Coumadin
#History of transient GI bleed on Coumadin 04/28 - 04/29/2025 self resolved(had prior admissions October, November, and January for same)
#hx Schatzki's ring of distal esophagus
- INR was 4.4 yesterday 07/05/2025 patient took Coumadin 5 mg
INR 3.33 patient's goal was 2.5-3.5 due to mechanical valve
-History of black stool x 3 days sat-saturday 4 days ago
-Current no stool in rectal vault per ER
- Consult GI- no plan to rescope
- IV Protonix 80 mg given in ER continue IV Protonix 40 mg twice daily
- 1800 ADA diet
-Will continue Coumadin 5 mg reduced dose and follow INR(this was reduced dose per cardiology)
Esophagogastroduodenoscopy 04/29/25
- Small hiatal hernia.
- Normal stomach.
- Normal examined duodenum.
- No specimens collected.
#Dyspnea likley 2/2 to anemia
bnp 680 check cxr cont lasix 40 mg q48h
-Check CXR
#Daily alcohol use
Drinks 12 ounces of wine a day last drink was midnight 07/05/2025
- Cessation advised
#Mechanical valve
INR goal 2.5-3.5 due to mechanical valve
-Will continue Coumadin 5 mg reduced dose and follow INR(this was reduced dose per cardiology)
-Check INR in a.m.
-Consult CBC cardiology regarding Coumadin
#Persistent A-fib
#A-fib ablation September 2023
INR 4.4 yesterday (goal 2.5-3.5 due to mechanical valve)
Patient took Coumadin 5 mg yesterday 06/2025
-Will continue Coumadin 5 mg reduced dose and follow INR(this was reduced dose per cardiology)
-Check INR in a.m.
-Continue diltiazem 360 mg daily this was decreased from 240 mg twice daily
#Recent dysmetria of right upper extremity with Small acute left frontal parietal INFARCT on MRI
#CVA 05/24/2025�small acute left frontal parietal infarct
#Chronic LBBB new [place] april 2025
# Medtronic dual-chamber permanent pacemaker 07/25/2020
[place] XT 07/25/2020 [id number], model WD [id number]
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
#Hypertension
BP 119/57
-Continue metoprolol succinate 25 mg twice daily
#Hyperlipidemia
-Continue Crestor 5 mg at bedtime
#NIDDM
Accu-Cheks with SSI, HgbA1c 5.1 on May 2025 admission
- HOLD Januvia 50 mg mg daily
#Chronic CHF
I/O, daily weight
-Continue furosemide 20 mg every 48 hours
#Depression
- Continue Effexor 75 mg twice daily
#COPD�no acute exacerbation
#Former smoker 25 years 1 pack a day quit 1992
Other PMH:
fibromyalgia
mitral regurgitation S/P mitral valve replacement March 2020
hiatal hernia
DVT prophylaxis
cont coumadin
Full code
--- NOTE | 2025-07-06 15:19 | CON.CAR ---
Addendum entered and electronically signed by Rainer Woodward MD 07/06/25 17:16:
I saw and evaluated the patient, and I provided the substantive portion of the medical decision making.
I reviewed and agree with the note by Ms Murray and it accurately reflects our care.
I personally performed the medical decision making of the this encounter and my assessment and plan is below:
80F with severe mitral stenosis status-post [employer] mechanical mitral valve replacement (03/22/20; on warfarin), postoperative pericardial effusion status-post pericardiocentesis, CVA (therapeutic warfarin, 05/2025), paroxysmal atrial
fibrillation/flutter status-post cardioversions (on 06/15/20 and 08/16/23) and subsequent ablation (09/26/2023), tachycardia-bradycardia syndrome status-post MRI conditional Medtronic dual-chamber pacemaker implantation (07/25/20), moderate aortic
stenosis, moderate tricuspid regurgitation, nonobstructive CAD, hypertension, hyperlipidemia, diabetes, COPD/paralyzed vocal cord, obstructive sleep apnea (on home CPAP), and history of Schatzki's ring of distal esophagus presented to the ER with a
chief complaint of shortness of breath.
Hold warfarin
Allow INR to come down
Endoscopy TBD
Optimize pulmonary status
R/o other causes of anemia ie iron deficiency vitamin deficiencies etc
We will cont to follow
Original Note:
Consultation
Consultation Request
Date/Time Consultation Requested: 07/06/2025 15:00
Date/Time Consultation Performed: 07/06/2025 15:20
Requesting Provider: MARIANA Jensen
Performing Provider: MARIANA Torre for Dr. Woodward
Reason for Consultation: Anemia on warfarin (mechanical MVR)
Medical History
-
Chief Complaint: Shortness of breath
History of Present Illness:
Alley Ng is a 80-year-old female with severe mitral stenosis status-post [employer] mechanical mitral valve replacement (03/22/20; on warfarin), postoperative pericardial effusion status-post pericardiocentesis, CVA (therapeutic warfarin,
05/2025), paroxysmal atrial fibrillation/flutter status-post cardioversions (on 06/15/20 and 08/16/23) and subsequent ablation (09/26/2023), tachycardia-bradycardia syndrome status-post MRI conditional Medtronic dual-chamber pacemaker implantation
(07/25/20), moderate aortic stenosis, moderate tricuspid regurgitation, nonobstructive CAD, hypertension, hyperlipidemia, diabetes, COPD/paralyzed vocal cord (followed by Pulmonary-Dr. Valdivia), obstructive sleep apnea (on home CPAP), and history of
Schatzki's ring of distal esophagus presented to the ER with a chief complaint of shortness of breath. She was found to have anemia with a hemoglobin of 8.8. INR 3.33. She had a similar presentation in April,. EGD was performed without any
acute findings.
Past Medical History
Past Medical History: Arrhythmias (Paroxysmal atrial fibrillation/flutter, tachycardia-bradycardia syndrome s/p PPM), CAD (Nonobstructive), COPD, CVA, HTN, Hypercholesterolemia and Valvular Disease ([employer] mechanical MVR [2019], aortic stenosis,
tricuspid regurgitation)
Past Surgical History: Cardiac and Orthopedic
Social History
Tobacco: Former Smoker
Alcohol: Daily
Employment: Retired
Family History
Family History: Reviewed & Not Pertinent
Allergies / Home Medications
Allergy/AdvReac Type Severity Reaction Status Date / Time
almond Allergy migraine Verified 05/24/25 23:08
amoxicillin (Amoxicillin) Allergy Hives Verified 05/24/25 23:08
banana Allergy migraine Verified 05/24/25 23:08
Cephalosporins Allergy Rash Verified 05/24/25 23:08
cheese Allergy MIGRAINE Verified 05/24/25 23:08
codeine Allergy nausea Verified 05/24/25 23:08
latex (Latex) Allergy rash and Verified 05/24/25 23:08
swelling
metformin Allergy Vomiting Verified 05/24/25 23:08
monosodium glutamate Allergy MIGRAINE Verified 05/24/25 23:08
Penicillins Allergy Rash Verified 05/24/25 23:08
sorbitol Allergy stomach Verified 05/24/25 23:08
upset
figs Allergy migraine Uncoded 05/24/25 23:08
�Medication �Instructions �Recorded �Confirmed �Type
calcium citrate 600 mg PO HS Supplement 04/10/19 07/06/25 History
cinnamon bark 500 mg capsule 1,000 mg PO QPM Supplement 04/10/19 07/06/25 History
(Cinnamon)
glucosamine HCl 1,500 mg tablet 1,500 mg PO QPM Supplement 04/10/19 07/06/25 History
venlafaxine 37.5 mg tablet 37.5 mg PO BID Mental health 04/10/19 07/06/25 History
B-complex with vitamin C 1 cap PO HS Supplement 05/01/19 07/06/25 History
multivitamin with folic acid 400 1 tab PO QPM Supplement 12/08/19 07/06/25 History
mcg tablet (Tab-A-Francisco)
aspirin 81 mg chewable tablet 81 mg PO HS Blood Clot 09/26/23 07/06/25 History
Prevention/Tx
cholecalciferol (vitamin D3) 50 50 mcg PO DAILY Supplement 09/26/23 07/06/25 History
mcg (2,000 unit) tablet (Vitamin
D3)
furosemide 20 mg tablet 20 mg PO MOTUWETHFR Fluid 09/26/23 07/06/25 History
Retention/Swelling
metoprolol succinate 25 mg 25 mg PO BID Blood Pressure 09/26/23 07/06/25 History
tablet,extended release 24 hr
sitagliptin phosphate 100 mg 50 mg PO DAILY Diabetes 09/26/23 07/06/25 History
tablet (Januvia)
ascorbic acid (vitamin C) 500 mg 500 mg PO DAILY Supplement 01/22/24 07/06/25 History
tablet (Vitamin C)
cyanocobalamin (vitamin B-12) 1,000 mcg PO DAILY Supplement 01/22/24 07/06/25 History
1,000 mcg tablet
valacyclovir 500 mg tablet 500 mg PO QPM ANTIVIRAL 04/28/25 07/06/25 History
(Valtrex)
warfarin 5 mg tablet 5 mg PO QPM Blood Clot 04/28/25 07/06/25 History
Prevention/Tx
diltiazem HCl 240 mg 240 mg PO BID Heart 05/24/25 07/06/25 History
capsule,extended release 24 hr Disease/Condition ##0
(Cardizem CD)
rosuvastatin 10 mg tablet 10 mg PO HS 07/06/25 07/06/25 History
Physical Exam
Vital Signs
Temp Pulse Resp BP Pulse Ox
97.9 F 72 13 119/57 95
07/06/25 11:46 07/06/25 14:15 07/06/25 14:15 07/06/25 14:00 07/06/25 13:30
Lab Results
07/06/25 11:55
07/06/25 11:55
Troponin I 0.012 ng/ml 07/06/25 11:55
Tqi-A-Gyblgkjgirv Pept 682 pg/ml 07/06/25 11:55
Physical Exam
General: Well Developed, Well Nourished, No Apparent Distress and Comfortable
HEENT: Normocephalic, Anicteric and Moist Mucous Membranes
Respiratory: Clear and Non Labored Respirations
Cardiac: S1/S2 and Irregular Rhythm
Breast: Deferred by me
GI: Soft, Non Tender, Non Distended and Normal Bowel Sounds
Rectal: Deferred by Provider
Genito-urinary: No Costovertebral Tender
Musculoskeletal: No Clubbing and No Cyanosis
Skin: Warm and Dry
Neuro: Awake and Alert
Hematologic/Lymphatic: No Lymphadenopathy
Psych: Calm
Impression / Plan
-
I/P: 80F with severe mitral stenosis status-post [facility] mechanical mitral valve replacement (03/22/20; on warfarin), postoperative pericardial effusion status-post pericardiocentesis, CVA (therapeutic warfarin, 05/2025), paroxysmal atrial
fibrillation/flutter status-post cardioversions (on 06/15/20 and 08/16/23) and subsequent ablation (09/26/2023), tachycardia-bradycardia syndrome status-post MRI conditional Medtronic dual-chamber pacemaker implantation (07/25/20), moderate aortic
stenosis, moderate tricuspid regurgitation, nonobstructive CAD, hypertension, hyperlipidemia, diabetes, COPD/paralyzed vocal cord, obstructive sleep apnea (on home CPAP), and history of Schatzki's ring of distal esophagus presented to the ER with a
chief complaint of shortness of breath.
Outpatient neck cutter: Dr. Arevalo
Shortness of breath, in the setting of anemia
Anemia, in the setting of suspected GI bleed
- Hemoccult stools, endorses dark stool at home
- Trend hemoglobin, transfusion per primary service
- GI consulted
- Hold warfarin, started on PPI
- Reduce EtOH intake
Severe mitral stenosis status post [employer] mechanical MVR 03/22/2020
- Goal INR 2.5�3.5, 3.33 today
- MG on recent echo 3 mmHg
Persistent atrial fibrillation
- Rate controlled on diltiazem and metoprolol succinate
- Oral Anticoagulation: Warfarin (mechanical MVR)
- [id number]: score 8 (HTN, age 75 or more, Diabetes Mellitus, prior Stroke/TIA, Vascular disease, female gender)
Aortic stenosis, moderate, peak/mean gradient 35/20 mmHg, DAO 1.0 cm�
Tricuspid regurgitation, moderate
CVA, 05/2025, on therapeutic warfarin
Tachycardia-bradycardia syndrome status post Medtronic DC PPM
LBBB, chronic, stable, normal perfusion on Lexiscan nuclear stress test in April,
Hyperlipidemia, rosuvastatin recently increased in the setting of CVA
Type 2 diabetes, controlled, most recent HgbA1c 5.9%
COPD, followed by Dr. Valdivia
JENNIFER, on CPAP
DATA:
Transthoracic echocardiogram, 04/01/2025:
CONCLUSIONS
Normal biventricular size and systolic function without regional wall motion
abnormality. Estimated LVEF 50-55%.
Mechanical mitral valve replacement. The mean gradient across the valve is 3
mmHg. No significant mitral regurgitation.
Moderate aortic stenosis. The peak gradient across the valve is 35 mmHg with a
mean of 20 mmHg. Using a LVOT diameter of 1.9 cm, the DAO is 1.0 cm sq.
Moderate tricuspid regurgitation. Mildly elevated PASP. Estimated pulmonary
artery pressure of 45 mmHg assuming a right atrial pressure of 3 mmHg.
Compared to 11/12/23: has progressed from mild/moderate to moderate. PASP has
decreased from 65 mmHg to 45 mmHg.
--- NOTE | 2025-07-06 15:20 | CM ---
CM reviewed chart and met with patient at ED bedside. IA completed
Lives in a 2 story home with . 1 DINO
Independent with ADLs and drives
DME current use CPAP [employer]
has walker, cane and shower chair after open heart surgery and hip surgery
PCP Dr. Milo Singletary
Has RX plan
Pharmacy [facility] in [place]
Hx of [facility] in the past
[facility] in the past
DCP anticipate to go home vs home with HHC if needed
CM will continue to follow up for dcp needs
--- NOTE | 2025-07-06 16:20 | CON.GI ---
Addendum entered and electronically signed by Machelle Orourke DO 07/06/25 20:57:
The patient was seen and examined by me independently in collaboration with the nurse practitioner.
Past medical history/social history/medications/allergies/family history reviewed.
Lab data and imaging data reviewed.
Alley Ng is a 80 y.o. female w/ pmhx moderate aortic stenosis, mechanical mitral valve on warfarin, PAH, constipation who presents with worsening SOB and generalized fatigue, found to be anemic with a hemoglobin of 8.8, down from 11.5 on
05/25/25. Her INR was 4.4 when she checked it yesterday, repeat in ER was 3.33. She does admit to recent labile INRs. She reports melenic stool for a few days, which stopped last saturday, and has since had brown stools. She has had 4 GI bleeds in the
past related to her supratherapeutic INRs, no source found. Most rrecently admitted to with similar presentation, EGD performed by Dr. Bruce on 04/29/25 showed a small hiatal hernia, otherwise, no bleeding source was identified. Colonoscopy was
deferred at that time due to stable hemoglobin, and last colonoscopy was performed in 2023, adequate prep, diverticulosis and internal hemorrhoids. This is the lowest her hemoglobin has gone in quite some time, during her admission in april, her
hgb dropped to 10.6.
Suspect UGI bleeding source vs. Small bowel vs. right colon-- I do not feel she is actively bleeding, now having brown stool. Likely bleeding due to supratherapeutic INR
-trend hgb and monitor stool
-okay for cholesterol lowering diet
-PPI IV BID
-hold coumadin
-plan for enteroscopy once INR <2, okay to start heparin gtt if needed
Original Note:
Consultation
-
Date/Time Consultation Requested: 07/06/25-1515
Date/Time Consultation Performed: 07/06/25 1620
Requesting Provider: MARIANA Jensen
Performing Provider: MARIANA Burgess, Awilda Orourke,
Reason for Consultation: anemia
Medical History
Chief Complaint / HPI
Chief Complaint: shortness of breath
History of Present Illness:
Alley is a 80-year-old female with severe mitral stenosis status post mechanical valve replacement in 2019 on warfarin, paroxysmal atrial fibrillation and flutter status post cardioversion in 2020, tachybradycardia syndrome status post
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
colitis versus infectious colitis presents to ER with worsening of chronic shortness of breath. She was noted with hbg 8.8 with normal BUN. down from 11.5 on 05/25 . She also reports black stools several days last week. In review of records pt was
admitted in 2023 with bright red blood per rectum and completed colonoscopy with diverticulosis and internal hemorrhoids. She was then admitted on April 2025 and had enteroscopy 04/2025- small HH, normal stomach, duodenum. Last EGD 2013 with non
obstructing Schatzki's ring, HH, normal stomach and duodenum with neg biopsy. Colonoscopy: 2023 Dr. Samaniego adequate prep diverticulosis and internal hemorrhoids.
Per patient she admits to recent black stools and gassiness. She also reported constipation on prior evaluation but otherwise denies dysphagia, odynophagia, nausea, vomiting, wt loss, or red blood in stool.
Past Medical History
Past Medical History: Arrhythmias (PAF, a flutter, tachy alanna syndrome), CAD, COPD, Fibromyalgia, HTN, NIDDM, Valvular Disease and Other (Sleep apnea on CPAP, pulmonary hypertension, hsevere mitral stenosis, mechanical mitral valve replacement on
warfarin, diabetes, COPD, paralyzed vocal cords, schatzki's ring, ischemic vs infectious colitis, constipation, HH,difficulty intubation in past, prior PNA, panc divisum anatomy per imaging )
Past Surgical History: Cardiac (prior cardioversion, pacer, MVR), Gynecological (vaginal cyst removal, lumpectomy), Orthopedic (foot neuroma removal, TMJ surgery, b/l THR, b/l torn meniscus ) and Other (Recent PVI, pacemaker, left total hip
replacement, deviated septum repair, cataract extraction, esophageal cyst removal )
Social History
Tobacco: Former Smoker (quit 1992)
Alcohol: Occasional
Drug: None
Personal:
Living: With Family
Employment: Retired
Family History
Family History: Other (multiple sibling with malignant melanoma, Cardiac disease, prostate cancer(father) no GI malignancies)
Allergies / Home Medications
Allergy/AdvReac Type Severity Reaction Status Date / Time
almond Allergy migraine Verified 05/24/25 23:08
amoxicillin (Amoxicillin) Allergy Hives Verified 05/24/25 23:08
banana Allergy migraine Verified 05/24/25 23:08
Cephalosporins Allergy Rash Verified 05/24/25 23:08
cheese Allergy MIGRAINE Verified 05/24/25 23:08
codeine Allergy nausea Verified 05/24/25 23:08
latex (Latex) Allergy rash and Verified 05/24/25 23:08
swelling
metformin Allergy Vomiting Verified 05/24/25 23:08
monosodium glutamate Allergy MIGRAINE Verified 05/24/25 23:08
Penicillins Allergy Rash Verified 05/24/25 23:08
sorbitol Allergy stomach Verified 05/24/25 23:08
upset
figs Allergy migraine Uncoded 05/24/25 23:08
�Medication �Instructions �Recorded
calcium citrate 600 mg PO HS Supplement 04/10/19
cinnamon bark 500 mg capsule 1,000 mg PO QPM Supplement 04/10/19
(Cinnamon)
glucosamine HCl 1,500 mg tablet 1,500 mg PO QPM Supplement 04/10/19
venlafaxine 37.5 mg tablet 37.5 mg PO BID Mental health 04/10/19
B-complex with vitamin C 1 cap PO HS Supplement 05/01/19
multivitamin with folic acid 400 1 tab PO QPM Supplement 12/08/19
mcg tablet (Tab-A-Francisco)
aspirin 81 mg chewable tablet 81 mg PO HS Blood Clot 09/26/23
Prevention/Tx
cholecalciferol (vitamin D3) 50 50 mcg PO DAILY Supplement 09/26/23
mcg (2,000 unit) tablet (Vitamin
D3)
furosemide 20 mg tablet 20 mg PO MOTUWETHFR Fluid 09/26/23
Retention/Swelling
metoprolol succinate 25 mg 25 mg PO BID Blood Pressure 09/26/23
tablet,extended release 24 hr
sitagliptin phosphate 100 mg 50 mg PO DAILY Diabetes 09/26/23
tablet (Januvia)
ascorbic acid (vitamin C) 500 mg 500 mg PO DAILY Supplement 01/22/24
tablet (Vitamin C)
cyanocobalamin (vitamin B-12) 1,000 mcg PO DAILY Supplement 01/22/24
1,000 mcg tablet
valacyclovir 500 mg tablet 500 mg PO QPM ANTIVIRAL 04/28/25
(Valtrex)
warfarin 5 mg tablet 5 mg PO QPM Blood Clot 04/28/25
Prevention/Tx
diltiazem HCl 240 mg 240 mg PO BID Heart 05/24/25
capsule,extended release 24 hr Disease/Condition ##0
(Cardizem CD)
rosuvastatin 10 mg tablet 10 mg PO HS 07/06/25
Review of Systems
-
History Source: Patient
Constitutional: Reports Fatigue
EENT: Reports No Symptoms
Respiratory: Reports Trouble Breathing (with worsening symptoms )
Cardiac: Reports No Symptoms
Abdomen/GI: Reports Black Stools and Other (gassiness )
: Reports No Symptoms
Musculoskeletal: Reports No Symptoms
Skin: Reports No Symptoms
Neurological: Reports Weakness
Endocrine: Reports No Symptoms
Hematologic/Lymphatic: Reports Bleeding
Vital Signs
Temp Pulse Resp BP Pulse Ox
97.9 F 65 21 126/87 93
07/06/25 11:46 07/06/25 15:30 07/06/25 15:30 07/06/25 15:00 07/06/25 15:30
Physical Exam
Exam
General: Well Developed, Well Nourished, No Apparent Distress and Comfortable
Respiratory: Clear
Cardiac: Regular Rhythm
GI: Soft, Non Tender and Non Distended
Rectal: Other (neg neg in ER no stool to test)
Musculoskeletal: No Clubbing and No Cyanosis
Skin: Warm and Dry
Neuro: Awake, Alert and AO x 3
Psych: Calm
Results
WBC 7.3 10^3/uL (4.8-10.8) 07/06/25 11:55
Hgb 8.8 g/dL (12.0-16.0) L 07/06/25 11:55
Hct 29.7 % (37.0-47.0) L 07/06/25 11:55
MCV 88.7 fL (81.0-99.0) 07/06/25 11:55
Plt Count 244 10^3/uL (130-400) 07/06/25 11:55
Absolute Neuts (auto) 5.7 10^3/uL (1.4-6.5) 07/06/25 11:55
PT 33.6 Sec (11.4-14.6) H 07/06/25 13:22
INR 3.33 07/06/25 13:22
APTT 44.6 Sec (23.4-35.0) H 07/06/25 13:22
Sodium 135 mmol/L (135-145) 07/06/25 11:55
Potassium 4.2 mmol/L (3.5-5.1) 07/06/25 11:55
Chloride 104 mmol/L (98-107) 07/06/25 11:55
Carbon Dioxide 27 mmol/L (22-30) 07/06/25 11:55
BUN 16 mg/dl (7-17) 07/06/25 11:55
Creatinine 0.8 mg/dL (0.6-1.0) 07/06/25 11:55
Calcium 8.9 mg/dl (8.4-10.2) 07/06/25 11:55
Total Bilirubin 0.5 mg/dl (0.2-1.3) 07/06/25 11:55
AST 25 U/L (14-36) 07/06/25 11:55
ALT 20 U/L (0-35) 07/06/25 11:55
Alkaline Phosphatase 57 U/L (38-126) 07/06/25 11:55
Diagnostic Image Results:
Prior GI Procedures:
04/2025 EGD - Small hiatal hernia.
- Normal stomach.
- Normal examined duodenum.
- No specimens collected.
EGD: 2013- mitzy - - Non-obstructing Schatzki ring.
- Hiatus hernia.
- Normal stomach.
- Normal examined duodenum.
bx neg
Colonoscopy: 2023 Dr. Samaniego adequate prep diverticulosis and internal hemorrhoids.
Assessment / Plan
-
Alley is a 80-year-old female with severe mitral stenosis status post mechanical valve replacement in 2019 on warfarin, paroxysmal atrial fibrillation and flutter status post cardioversion in 2019, tachybradycardia syndrome status post
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
colitis versus infectious colitis presents to ER with worsening of chronic shortness of breath. She was noted with hbg 8.8 with normal BUN. down from 11.5 on 05/25 . She also reports black stools several days last week. In review of records pt was
admitted in 2023 with bright red blood per rectum and completed colonoscopy with diverticulosis and internal hemorrhoids. She was then admitted on April 2025 and had enteroscopy 04/2025- small HH, normal stomach, duodenum. Last EGD 2014 with non
obstructing Schatzki's ring, HH, normal stomach and duodenum with neg biopsy. Colonoscopy: [address] Dr. Samaniego adequate prep diverticulosis and internal hemorrhoids.
-symptomatic anemia
-recent black stools
-hx HH per prior EGD
-schatzki's ring with prior dilation
-severe mitral stenosis status post mechanical valve replacement in 2019 on warfarin
-vocal cord paralysis and hx difficulty intubation
other med problems:
-hx colitis
- paroxysmal atrial fibrillation and flutter status post cardioversion in 2019
- tachybradycardia syndrome status post dual-chamber pacemaker
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
-fibromyalgia,
- NIDDM,
-hypertension
-COPD
-sleep apnea on CPAP
panc divisum anatomy per imaging
PLAN:
Etiology of melena related , ectasia/ SB source with hx valve disease further down in GI tract vs colon as EGD just completed in April vs other
Plan for enteroscopy when INR down
cont PPI BID
ok for diet with wash out
appreciate cards input
trend hbg
coumadin hold - bridge per cards in needed with valve
hx difficulty intubation and vocal cord issues but did well with EGD last admission
-
-
Thank you for consultation and allowing me to participate in the patient's care. Please call the relations director GI physician during the after hours with any questions or concerns.
[2025-07-06] MEDS: VALTREX 500 MG PO (18:35)
[2025-07-06] MEDS: THERAGRAN 1 TABLET PO (18:35)
[2025-07-06 21:42] LABS: Glucose - Point of Care 206 mg/dl (70-99)
[2025-07-06] MEDS: EFFEXOR XR 37.5 MG PO (22:39)
[2025-07-06] MEDS: CARDIZEM CD 240 MG PO (22:39)
[2025-07-06] MEDS: B COMPLEX w/VITAMIN C 1 CAPLET PO (22:40)
[2025-07-06] MEDS: CRESTOR 10 MG PO (22:40)
[2025-07-06] MEDS: TOPROL XL 25 MG PO (22:42)
[2025-07-06] MEDS: LOW STRENGTH ASPIRIN 81 MG PO (22:43)
[2025-07-06] MEDS: OSCAL 500 + D 500 MG PO (22:43)
[2025-07-06] MEDS: PROTONIX IV 40 MG IV (22:49)
[2025-07-06] MEDS: NSS (PRESERVATIVE FREE) 10 ML IV (22:49)
[2025-07-07] VITALS (7 sets, daily range): BP systolic 130–144; BP diastolic 44–64; PULSE 82; O2SAT 94; BMI 27.7
--- NOTE | 2025-07-07 02:31 | DOWNTIME ---
There was a [employer] Downtime on 07/07/2025 from 0100 to 07/07/2025 at 0215. Downtime documentation of patient's care, including medication administrations, has been reconciled in the electronic record per guidelines. Refer to the
patient's paper chart under the miscellaneous tab to see printed paper medication records and downtime forms.
[2025-07-07 07:21] LABS: Glucose - Point of Care 155 mg/dl (70-99)
[2025-07-07 07:43] LABS: Hematocrit 28.6 % (37.0-47.0); Hemoglobin 8.8 g/dL (12.0-16.0); Mean Corp Hgb Conc. 30.8 g/dL (33.0-37.0); Mean Corpuscular Volume 86.4 fL (81.0-99.0); Nucleated Red Blood Cells % 0 %; Platelet Count 226 10^3/uL (130-400); Red Cell Dist. Width 15.8 % (11.5-14.5)
[2025-07-07 07:58] LABS: INR 2.71; PT 29.1 Sec (11.4-14.6)
[2025-07-07 08:21] LABS: ALT (SGPT) 18 U/L (0-35); AST (SGOT) 23 U/L (14-36); Albumin 3.8 g/dl (3.5-5.0); Alkaline Phosphatase 60 U/L (38-126); Blood Urea Nitrogen 11 mg/dl (7-17); Calcium 8.4 mg/dl (8.4-10.2); Carbon Dioxide 28 mmol/L (22-30); Chloride 107 mmol/L (98-107); Estimated Creatinine Clearance 69 ml/min; Glucose 150 mg/dl (70-99); Potassium 4.2 mmol/L (3.5-5.1); Sodium 140 mmol/L (135-145); Total Protein 6.2 g/dl (6.3-8.2); eGFR > 60.00
[2025-07-07 09:16] LABS: Glycohemoglobin (HgbA1c) 5.9 % (4.0-5.6)
--- NOTE | 2025-07-07 09:33 | W.PN.GI.CBS2 ---
Today's Communication / Plan
-
Trend Hgb, await INR to come down. Okay for diet while we await washout. No signs of active GI bleeding
Assessment / Plan
-
Alley is a 80-year-old female with severe mitral stenosis status post mechanical valve replacement in 2019 on warfarin, paroxysmal atrial fibrillation and flutter status post cardioversion in 2019, tachybradycardia syndrome status post
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
colitis versus infectious colitis presents to ER with worsening of chronic shortness of breath. She was noted with hbg 8.8 with normal BUN. down from 11.5 on 05/25 . She also reports black stools several days last week. In review of records pt was
admitted in 2023 with bright red blood per rectum and completed colonoscopy with diverticulosis and internal hemorrhoids. She was then admitted on April 2025 and had enteroscopy 04/2025- small HH, normal stomach, duodenum. Last EGD 2013 with non
obstructing Schatzki's ring, HH, normal stomach and duodenum with neg biopsy. Colonoscopy: [address] Dr. Samaniego adequate prep diverticulosis and internal hemorrhoids.
-symptomatic anemia
-recent black stools
-hx HH per prior EGD
-schatzki's ring with prior dilation
-severe mitral stenosis status post mechanical valve replacement in 2019 on warfarin
-vocal cord paralysis and hx difficulty intubation
other med problems:
-hx colitis
- paroxysmal atrial fibrillation and flutter status post cardioversion in 2019
- tachybradycardia syndrome status post dual-chamber pacemaker
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
-fibromyalgia,
- NIDDM,
-hypertension
-COPD
-sleep apnea on CPAP
panc divisum anatomy per imaging
PLAN:
Etiology of melena related , ectasia/ SB source with hx valve disease further down in GI tract vs colon as EGD just completed in April vs other
Plan for enteroscopy when INR down --INR 2.71 today
cont PPI BID
ok for diet with wash out
appreciate cards input
trend hbg-- stable at 8.8 today
coumadin hold - bridge per cards in needed with valve
hx difficulty intubation and vocal cord issues but did well with EGD last admission
Subjective
Subjective
Date of Service: July 07, 2025
Patient seen in follow-up. No overnight events. She offers no complaints. No BMs overnight. Hemoglobin stable at 8.8, INR 2.71.
Objective
Data Reviewed
Laboratory Data:
Laboratory Results
07/07/25 07:24
07/07/25 07:24
Laboratory Results
PT 29.1 Sec (11.4-14.6) H 07/07/25 07:24
INR 2.71 07/07/25 07:24
APTT 44.6 Sec (23.4-35.0) H 07/06/25 13:22
Total Bilirubin 0.5 mg/dl (0.2-1.3) 07/07/25 07:24
AST 23 U/L (14-36) 07/07/25 07:24
ALT 18 U/L (0-35) 07/07/25 07:24
Alkaline Phosphatase 60 U/L (38-126) 07/07/25 07:24
Vital Signs and I&O:
Vital Signs
Temp Pulse Resp BP Pulse Ox
98.5 F 88 20 131/61 95
07/07/25 07:10 07/07/25 07:10 07/07/25 07:10 07/07/25 07:10 07/07/25 07:10
I&O
07/06/25 07/07/25 07/08/25
06:59 06:59 06:59
Intake Total 240 / 240
Balance 240 / 240
Physical Exam
Physical Exam
HEENT: Anicteric and Moist mucous membranes
Cardiology: Murmur
GI: Soft, Non Distended and Non Tender
[2025-07-07] MEDS: VITAMIN B-12 1000 MCG PO (09:44)
[2025-07-07] MEDS: CARDIZEM CD 240 MG PO ×2 (09:45→19:22)
[2025-07-07] MEDS: VITAMIN D3 (cholecalciferol) 50 MCG PO (09:45)
[2025-07-07] MEDS: PROTONIX IV 40 MG IV ×2 (09:46→19:23)
[2025-07-07] MEDS: TOPROL XL 25 MG PO ×2 (09:46→19:32)
[2025-07-07] MEDS: VITAMIN C 500 MG PO (09:46)
[2025-07-07] MEDS: EFFEXOR XR 37.5 MG PO ×2 (09:46→19:22)
--- NOTE | 2025-07-07 09:46 | W.PN.CD ---
Today's Communication / Plan
-
- Patient with active wheezing on examination.
- Recommend Pulmonary evaluation; known to Dr. Valdivia.
- GI consulted; plan is to scope once INR is less than 2.
- Per GI, okay to start heparin drip once INR is subtherapeutic.
Impression / Plan
-
I/P: 80F with severe mitral stenosis status-post [facility] mechanical mitral valve replacement (03/22/20; on warfarin), postoperative pericardial effusion status-post pericardiocentesis, CVA (therapeutic warfarin, 05/2025), paroxysmal atrial
fibrillation/flutter status-post cardioversions (on 06/15/20 and 08/16/23) and subsequent ablation (09/26/2023), tachycardia-bradycardia syndrome status-post MRI conditional Medtronic dual-chamber pacemaker implantation (07/25/20), moderate aortic
stenosis, moderate tricuspid regurgitation, nonobstructive CAD, hypertension, hyperlipidemia, diabetes, COPD/paralyzed vocal cord, obstructive sleep apnea (on home CPAP), and history of Schatzki's ring of distal esophagus presented to the ER with a
chief complaint of shortness of breath.
Outpatient house mover helper: Dr. Arevalo
Shortness of breath/COPD exacerbation
- Patient with active wheezing on examination.
- Recommend Pulmonary evaluation; known to Dr. Valdivia.
Anemia, in the setting of suspected GI bleed
- Hemoccult stools, endorses dark stool at home.
- Continue to trend hemoglobin; transfuse as needed.
- GI consulted; plan is to scope once INR is less than 2.
- Hold warfarin, started on PPI
- Reduce EtOH intake
Severe mitral stenosis status post [facility] mechanical MVR 03/22/2020
- Goal INR 2.5�3.5; 3.33 yesterday --> 2.7 today.
- MG on recent echo 3 mmHg
- Per GI, okay to start heparin drip once INR is subtherapeutic.
Persistent atrial fibrillation
- Rremains rate controlled on diltiazem and metoprolol succinate.
- Oral Anticoagulation: Warfarin (mechanical MVR)
- [id number]: score 8 (HTN, age 75 or more, Diabetes Mellitus, prior Stroke/TIA, Vascular disease, female gender)
Aortic stenosis, moderate, peak/mean gradient 35/20 mmHg, DAO 1.0 cm�
Tricuspid regurgitation, moderate
CVA, 05/2025, on therapeutic warfarin
Tachycardia-bradycardia syndrome status post Medtronic DC PPM--stable.
LBBB, chronic, stable, normal perfusion on Lexiscan nuclear stress test in April,
Hyperlipidemia, rosuvastatin recently increased in the setting of CVA
Type 2 diabetes, controlled, most recent HgbA1c 5.9%
JENNIFER, on CPAP
DATA:
Transthoracic echocardiogram, 04/01/2025:
CONCLUSIONS
Normal biventricular size and systolic function without regional wall motion
abnormality. Estimated LVEF 50-55%.
Mechanical mitral valve replacement. The mean gradient across the valve is 3
mmHg. No significant mitral regurgitation.
Moderate aortic stenosis. The peak gradient across the valve is 35 mmHg with a
mean of 20 mmHg. Using a LVOT diameter of 1.9 cm, the DOA is 1.0 cm sq.
Moderate tricuspid regurgitation. Mildly elevated PASP. Estimated pulmonary
artery pressure of 45 mmHg assuming a right atrial pressure of 3 mmHg.
Compared to 11/12/23: has progressed from mild/moderate to moderate. PASP has
decreased from 65 mmHg to 45 mmHg.
Physical Exam
Vital Signs/Labs
Vital Signs
Temp Pulse Resp BP Pulse Ox
98.5 F 88 20 131/61 95
07/07/25 07:10 07/07/25 07:10 07/07/25 07:10 07/07/25 07:10 07/07/25 07:10
07/06/25 07/07/25 07/08/25
06:59 06:59 06:59
Actual Weight 78.063 kg
07/07/25 07:24
07/07/25 07:24
PT 29.1 Sec (11.4-14.6) H 07/07/25 07:24
INR 2.71 07/07/25 07:24
APTT 44.6 Sec (23.4-35.0) H 07/06/25 13:22
07/06/25
11:55
Bmp-[id number] Pept 682
LAB Results
07/06/25
11:55
Troponin I 0.012
Physical Exam
Constitutional: No acute distress and Comfortable
EENT: Anicteric
Cardiovascular: Rhythm & rate is regular, Pedal edema is absent, Systolic murmur present (2/) and Other (Mechanical S1/S2)
Respiratory: Respiratory effort normal, Wheeze Present and Rhonchi Present
GI: Soft
Neuro/Psych: AO x 3
Other: Skin (Warm, dry, intact)
Data Reviewed
-
Date of Service: July 07, 2025
EKG: Tracing Personally Visualized and interpreted (Telemetry: Paced)
Echo: Report Reviewed by me (Echo 04/01/2025: LVEF 50-55%; mechanical mitral valve, mean gradient 3 mmHg; moderate AAS, peak/mean gradients 35/20 mmHg, DAO 1.0 cm2.)
Medical Tests (PFT, Pathology etc): Discussed with Nurse and Discussed with Patient
Labs: Labs Reviewed by me
[2025-07-07] MEDS: NSS (PRESERVATIVE FREE) 10 ML IV ×2 (09:47→19:23)
[2025-07-07 11:52] LABS: Glucose - Point of Care 237 mg/dl (70-99)
[2025-07-07] MEDS: DUONEB 3 ML INH (11:57)
[2025-07-07] MEDS: PULMICORT 0.5 MG INH (11:58)
--- NOTE | 2025-07-07 12:01 | CON.PUL ---
Consultation
Consultation Request
Date/Time Consultation Requested: 07/07/25
Date/Time Consultation Performed: 07/07/25
Performing Provider: Gal
Reason for Consultation: SOB
Medical History
-
History of Present Illness:
80-year-old female past medical history of 80-year-old female past medical history of diabetes, hypertension, paroxysmal atrial fibrillation with pacemaker, mechanical mitral valve on coumadin, HFpEF, hypercholesteremia, mitral regurgitation, hiatal
hernia, COPD, fibromyalgia, depression, chronic bilateral hand numbness, transient GI bleeding in April presenting for shortness of breath. He called cardiology Dr. Arevalo office yesterday to report INR 4.4. Dark stools for the past week. This
has occurred about 3 times in the past.
Patient complaining of worsening shortness of breath and slight lower extremity edema. She was recently admitted on 05/26 for dysmetria of right upper extremity. MRI showed small acute left frontoparietal infarct. She was continued on Coumadin. She
was recently admitted earlier in April for transient GI bleeding and underwent EGD which showed small hiatal hernia but no active bleeding. Vital signs normal. Labs showed hemoglobin of 8.8 from 11.5; INR of 3.33; Cardiac BNP 680.
Followed by Dr Valdivia for mild COPD, last seen this past January. CXR showing mild edema, effusions. She notes that prior to bleeding she has felt progressive decline in her SOB and function. This is not improved with inhalers. When she has anemia
from GIB her SOB is acutely worsened.
Past Medical History
Past Medical History: Other (see list below)
Social History
Tobacco: Non-smoker
Alcohol: None
Drug: None
Family History
Family History: Reviewed & Not Pertinent
Allergies / Home Medications
Allergies
Allergy/AdvReac Type Severity Reaction Status Date / Time
almond Allergy migraine Verified 05/24/25 23:08
amoxicillin (Amoxicillin) Allergy Hives Verified 05/24/25 23:08
banana Allergy migraine Verified 05/24/25 23:08
Cephalosporins Allergy Rash Verified 05/24/25 23:08
cheese Allergy MIGRAINE Verified 05/24/25 23:08
codeine Allergy nausea Verified 05/24/25 23:08
latex (Latex) Allergy rash and Verified 05/24/25 23:08
swelling
metformin Allergy Vomiting Verified 05/24/25 23:08
monosodium glutamate Allergy MIGRAINE Verified 05/24/25 23:08
Penicillins Allergy Rash Verified 05/24/25 23:08
sorbitol Allergy stomach Verified 05/24/25 23:08
upset
figs Allergy migraine Uncoded 05/24/25 23:08
Home Medications
�Medication �Instructions �Recorded �Confirmed �Last Taken �Type
calcium citrate 600 mg PO HS Supplement 04/10/19 07/06/25 05/23/25 21:00 History
cinnamon bark 500 mg capsule 1,000 mg PO QPM Supplement 04/10/19 07/06/25 05/24/25 08:00 History
(Cinnamon)
glucosamine HCl 1,500 mg tablet 1,500 mg PO QPM Supplement 04/10/19 07/06/25 05/24/25 08:00 History
venlafaxine 37.5 mg tablet 37.5 mg PO BID Mental health 04/10/19 07/06/25 05/24/25 08:00 History
B-complex with vitamin C 1 cap PO HS Supplement 05/01/19 07/06/25 05/24/25 08:00 History
multivitamin with folic acid 400 1 tab PO QPM Supplement 12/08/19 07/06/25 05/23/25 18:00 History
mcg tablet (Tab-A-Francisco)
aspirin 81 mg chewable tablet 81 mg PO HS Blood Clot 09/26/23 07/06/25 05/24/25 08:00 History
Prevention/Tx
cholecalciferol (vitamin D3) 50 50 mcg PO DAILY Supplement 09/26/23 07/06/25 05/24/25 08:00 History
mcg (2,000 unit) tablet (Vitamin
D3)
furosemide 20 mg tablet 20 mg PO MOTUWETHFR Fluid 09/26/23 07/06/25 04/28/25 History
Retention/Swelling
metoprolol succinate 25 mg 25 mg PO BID Blood Pressure 09/26/23 07/06/25 05/24/25 08:00 History
tablet,extended release 24 hr
sitagliptin phosphate 100 mg 50 mg PO DAILY Diabetes 09/26/23 07/06/25 05/24/25 08:00 History
tablet (Januvia)
ascorbic acid (vitamin C) 500 mg 500 mg PO DAILY Supplement 01/22/24 07/06/25 05/24/25 08:00 History
tablet (Vitamin C)
cyanocobalamin (vitamin B-12) 1,000 mcg PO DAILY Supplement 01/22/24 07/06/25 05/24/25 08:00 History
1,000 mcg tablet
valacyclovir 500 mg tablet 500 mg PO QPM ANTIVIRAL 04/28/25 07/06/25 05/24/25 08:00 History
(Valtrex)
warfarin 5 mg tablet 5 mg PO QPM Blood Clot 04/28/25 07/06/25 07/05/25 History
Prevention/Tx
diltiazem HCl 240 mg 240 mg PO BID Heart 05/24/25 07/06/25 05/24/25 08:00 History
capsule,extended release 24 hr Disease/Condition ##0
(Cardizem CD)
rosuvastatin 10 mg tablet 10 mg PO HS 07/06/25 07/06/25 Unknown History
Review of Systems
-
History Source: Patient
All other systems: Negative unless noted
Vitals / Labs / Diagnostic Testing
Vital Signs
Temp Pulse Resp BP Pulse Ox
98.1 F 76 18 132/45 95
07/07/25 11:10 07/07/25 11:10 07/07/25 11:10 07/07/25 11:10 07/07/25 11:10
Lab Data
07/07/25 07:24
07/07/25 07:24
Laboratory Results
07/06/25 07/07/25
13 07:24
PT 33.6 H 29.1 H
INR 3.33 2.71
APTT 44.6 H
Diagnostic Testing:
Physical Exam
-
HEENT: Normocephalic, Anicteric, Moist Mucous Membranes and Other (upper airway wheeze/chronic )
Cardiovascular: S1/S2, Regular Rhythm and Murmur
Respiratory: Clear and Non-Labored Respirations
GI: Soft, Non Distended and Non Tender
Neurology: Awake, Alert, AO x 3 and No Motor Deficits
Skin: Warm, Dry and Good Color
General: Comfortable and Other (NAD)
Assessment
-
80-year-old female past medical history of 80-year-old female past medical history of diabetes, hypertension, paroxysmal atrial fibrillation with pacemaker, mechanical mitral valve on coumadin, HFpEF, hypercholesteremia, mitral regurgitation, hiatal
hernia, COPD, fibromyalgia, depression, chronic bilateral hand numbness, transient GI bleeding in April presenting for shortness of breath. He called cardiology Dr. Arevalo office yesterday to report INR 4.4. Dark stools for the past week. This
has occurred about 3 times in the past. Patient complaining of worsening shortness of breath and slight lower extremity edema. She was recently admitted on 05/26 for dysmetria of right upper extremity. MRI showed small acute left frontoparietal
infarct. She was continued on Coumadin. She was recently admitted earlier in April for transient GI bleeding and underwent EGD which showed small hiatal hernia but no active bleeding. Vital signs normal. Labs showed hemoglobin of 8.8 from 11.5;
INR of 3.33; Cardiac BNP 680. We are consulted for eval of SOB.
Acute on chronic SOB
Acute GIB, history of angioectasia/prior GIB
Supratherapeutic INR
ABLA due to above
Conditions present [employer]
Chronic obstructive pulmonary disease
Atrial fibrillation
Pulmonary hypertension
Nonrheumatic aortic (valve) stenosis
Obstructive sleep apnea
Pulmonary nodule
Mitral stenosis
Restrictive lung disease
Kyphoscoliosis
History of mitral valve replacement with mechanical valve
Essential (primary) hypertension
Nonischemic cardiomyopathy
Pacemaker/Sick sinus syndrome
Plan
No oxygen was needed on admission, currently saturating 96% on RA
Prior history of lung disease is noted including--
Followed by Dr Valdivia for mild COPD, last seen this past January.
She notes that prior to bleeding she has felt progressive decline in her SOB and function. This is not improved with inhalers.
When she has anemia from GIB her SOB is acutely worsened--gives very clear history regarding this
Suspect patient has multifactorial causes for shortness of breath including COPD, valvular heart disease, cardiomyopathy
She has acute on chronic complaints due to acute blood loss anemia from supratherapeutic INR, which she gives very clear history about
CXR/CT obtained indicating mild edema, effusions.
Other imaging reviewed as well
She had prior pulmonary function testing with stable findings of mild obstruction
She does not feel that her shortness of breath is relieved with inhalers
I do not think that her pulmonary issues are the largest contributor in this situation in terms of shortness of breath
If there needs to be further evaluation, may consider right heart catheterization as well
Prior ECHO results are reviewed indicating moderate valvular disease
s/p MVR
She is being considered for TAVR but told her degree of cardiomyopathy is not severe enough
proBNP is 682
Her level of dyspnea is out of proportion to the level of her COPD
I can change her medications to more daily regiment rather than nebulizers
But again her level of dyspnea does not improve tremendously with use of inhalers
Would need to consider alternative causes including treatment of underlying anemia
We will follow
Diagnostic Data
Chest X-Ray:
CXR 07/06/25- 1. Mild interstitial cardiogenic pulmonary edema.
2. Minimal bilateral pleural effusions.
3. Mild cardiomegaly.
4. Previous mitral valve replacement.
5. Severe calcific atherosclerotic plaque in the thoracic and abdominal aorta.
6. Left-sided cardiac pacemaker in place.
CT Scan: CHEST 11/12/23- There are no abnormal pleural or parenchymal masses. There are moderate bilateral pleural effusions. There is moderate bibasilar consolidation. There are moderate bibasilar groundglass opacities concerning for pneumonia. The
mediastinum is normal. There is mild right hilar lymphadenopathy measuring 1.5 cm. There is no axillary lymphadenopathy.
Echo: 04/01/25- Normal biventricular size and systolic function without regional wall motion abnormality. Estimated LVEF 50-55%. Mechanical mitral valve replacement. The mean gradient across the valve is 3 mmHg. No significant mitral regurgitation.
Moderate aortic stenosis. The peak gradient across the valve is 35 mmHg with a mean of 20 mmHg. Using a LVOT diameter of 1.9 cm, the DAO is 1.0 cm sq. Moderate tricuspid regurgitation. Mildly elevated PASP. Estimated pulmonary artery pressure of
45 mmHg assuming a right atrial pressure of 3 mmHg. Compared to 11/12/23: has progressed from mild/moderate to moderate. PASP has decreased from 65 mmHg to 45 mmHg.
PFT's:
Reports and relevant images were personally reviewed.
Total time spent on this consultation __75__ minutes which includes review of history, physical exam, medications, laboratory data, personal review of imaging, extensive review of outpatient records, discussion with care team and respiratory therapy.
--- NOTE | 2025-07-07 12:43 | W.PN.HOSP.TC ---
Today's Communication/Plan
-
Monitor vital signs see plan
Start DuoNeb, Pulmicort
Pulmonary evaluation
Cardiology following
Monitor INR
Monitor hemoglobin
Lasix
Assessment / Plan
Assessment / Plan
General: Comfortable and Conversant; No Pain, Fever or Chills
HEENT: NormoCephalic, Anicteric, Moist mucous membranes, PERRLA, [place] Conjunctivae and No Ptosis
Respiratory: Clear; + wheezing
Cardiac: S1/S2 and Other (Paced on monitor); No Murmur, Rub, Gallop or Peripheral Edema
GI: Soft, Non Tender, Non Distended, Normal Bowel Sounds
Musculoskeletal: No Edema
Neuro: AO x 3, No Motor Deficits, Nonfocal/grossly intact
Psych: calm
Symptomatic anemia concern for recurrent Transient GI bleed likely 2/2 Angioectesia with supratherapeutic INR on Coumadin
#History of transient GI bleed on Coumadin 04/28 - 04/29/2025 self resolved(had prior admissions October, November, and January for same)
#hx Schatzki's ring of distal esophagus
- INR was 4.4 07/05/2025 patient took Coumadin 5 mg
INR now 2.7, GI following. Plan for enteroscopy when INR is low
Can start IV heparin when INR is less than 2.5 per cardiology
Continue with IV Protonix
Continue with diet
Hold Coumadin
Esophagogastroduodenoscopy 04/29/25
- Small hiatal hernia.
- Normal stomach.
- Normal examined duodenum.
- No specimens collected.
#Dyspnea likley multifactorial 2/2 to anemia with possible COPD
Continue with Lasix
Cardiology believe this is pulmonary in nature, follows up with Dr. Valdivia outpatient. Consulted pulmonary
Start DuoNeb and Pulmicort and monitor response.
#Daily alcohol use
Drinks 12 ounces of wine a day last drink was midnight 07/05/2025
- Cessation advised
#Mechanical valve
INR goal 2.5-3.5 due to mechanical valve
INR daily, Coumadin on hold. Start IV heparin when INR is less than 2.5
Cardiology following
#Persistent A-fib
#A-fib ablation September 2023
Coumadin on hold, INR goal 2.5-3.5
INR daily
-Continue diltiazem
#Recent dysmetria of right upper extremity with Small acute left frontal parietal INFARCT on MRI
#CVA 05/24/2025�small acute left frontal parietal infarct
#Chronic LBBB [place] april 2025
# Medtronic dual-chamber permanent pacemaker 07/25/2020
Stephanie XT 07/25/2020 [id number], model WD R011
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
#Hypertension
-Continue metoprolol succinate 25 mg twice daily
#Hyperlipidemia
-Continue Crestor 5 mg at bedtime
#NIDDM
Accu-Cheks with SSI, HgbA1c 5.1 on May 2025 admission
- HOLD Januvia 50 mg mg daily
#Chronic CHF
I/O, daily weight
-Continue furosemide 20 mg every 48 hours
#Depression
- Continue Effexor 75 mg twice daily
#COPD
#Former smoker 25 years 1 pack a day quit 1992
Other PMH:
fibromyalgia
mitral regurgitation S/P mitral valve replacement March 2020
hiatal hernia
DVT prophylaxis
INR therapeutic
Full code
I spent a total of 52 minutes with the patient or on the floor. More than 50% of this time involved counseling and coordination of care.
Anticipated Discharge: > 48 hours
Subjective/Interval History
-
Date of Service: July 07, 2025
Shortness of breath
Objective Data
-
Labs:
Laboratory Results
10/22/25
07:24
WBC 7.1
Hgb 8.8 L
Hct 28.6 L
Plt Count 226
PT 29.1 H
INR 2.71
Sodium 140
Potassium 4.2
Chloride 107
Carbon Dioxide 28
BUN 11
Creatinine 0.7
Glucose 150 H
Calcium 8.4
Total Bilirubin 0.5
AST 23
ALT 18
Alkaline Phosphatase 60
Vital Signs:
Vital Signs
Temp Pulse Resp BP Pulse Ox
98.1 F 75 16 132/45 96
07/07/25 11:10 07/07/25 12:03 07/07/25 12:03 07/07/25 11:10 07/07/25 12:03
I&O
07/06/25 07/07/25 07/08/25
06:59 06:59 06:59
Intake Total 240 / 240
Balance 240 / 240
[2025-07-07] MEDS: LASIX 20 MG PO (13:07)
[2025-07-07 16:57] LABS: Glucose - Point of Care 213 mg/dl (70-99)
[2025-07-07] MEDS: THERAGRAN 1 TABLET PO (17:31)
[2025-07-07] MEDS: VALTREX 500 MG PO (17:31)
[2025-07-07] MEDS: ADVAIR HFA 45/21 MCG INHALER 2 PUFF INH (19:32)
[2025-07-07] MEDS: OSCAL 500 + D 500 MG PO (21:20)
[2025-07-07] MEDS: CRESTOR 10 MG PO (21:20)
[2025-07-07] MEDS: B COMPLEX w/VITAMIN C 1 CAPLET PO (21:20)
[2025-07-07] MEDS: LOW STRENGTH ASPIRIN 81 MG PO (21:20)
[2025-07-07 21:43] LABS: Glucose - Point of Care 287 mg/dl (70-99)
[2025-07-08] VITALS (7 sets, daily range): BP systolic 120–152; BP diastolic 37–56; BMI 27.7
[2025-07-08 05:46] LABS: Glucose - Point of Care 155 mg/dl (70-99)
[2025-07-08] MEDS: ADVAIR HFA 45/21 MCG INHALER 2 PUFF INH ×2 (07:42→20:35)
--- NOTE | 2025-07-08 07:44 | W.PN.CD ---
Today's Communication / Plan
-
- GI following; plan is to scope once INR is less than 2.
- Start heparin drip once INR is less than 2.5; monitor for close signs of bleeding.
Impression / Plan
-
I/P: 80F with severe mitral stenosis status-post [facility] mechanical mitral valve replacement (03/22/20; on warfarin), postoperative pericardial effusion status-post pericardiocentesis, CVA (therapeutic warfarin, 05/2025), paroxysmal atrial
fibrillation/flutter status-post cardioversions (on 06/15/20 and 08/16/23) and subsequent ablation (09/26/2023), tachycardia-bradycardia syndrome status-post MRI conditional Medtronic dual-chamber pacemaker implantation (07/25/20), moderate aortic
stenosis, moderate tricuspid regurgitation, nonobstructive CAD, hypertension, hyperlipidemia, diabetes, COPD/paralyzed vocal cord, obstructive sleep apnea (on home CPAP), and history of Schatzki's ring of distal esophagus presented to the ER with a
chief complaint of shortness of breath.
Outpatient knuckler: Dr. Arevalo
Shortness of breath/COPD/anemia
- Pulmonary consulted.
- Patient states breathing status has improved with supplemental oxygen.
- Hemoglobin today pending.
Anemia, in the setting of suspected GI bleed
- Hemoccult stools, endorses dark stool at home.
- Continue to trend hemoglobin; transfuse as needed.
- GI following; plan is to scope once INR is less than 2.
- Holding warfarin, started on PPI
- Reduce EtOH intake
Severe mitral stenosis status post [facility] mechanical MVR 03/22/2020
- Goal INR 2.5�3.5; 3.33 yesterday --> 2.7 today.
- MG on recent echo 3 mmHg
- Per GI, okay to start heparin drip once INR is subtherapeutic.
Persistent atrial fibrillation
- Rremains rate controlled on diltiazem and metoprolol succinate.
- Oral Anticoagulation: Warfarin (mechanical MVR)
- [id number]: score 8 (HTN, age 75 or more, Diabetes Mellitus, prior Stroke/TIA, Vascular disease, female gender)
- Start heparin drip once INR is less than 2.5; monitor for close signs of bleeding.
Aortic stenosis, moderate, peak/mean gradient 35/20 mmHg, DAO 1.0 cm�
Tricuspid regurgitation, moderate
CVA, 05/2025, on therapeutic warfarin
Tachycardia-bradycardia syndrome status post Medtronic DC PPM--stable.
LBBB, chronic, stable, normal perfusion on Lexiscan nuclear stress test in April,
Hyperlipidemia, rosuvastatin recently increased in the setting of CVA
Type 2 diabetes, controlled, most recent HgbA1c 5.9%
JENNIFER, on CPAP
DATA:
Transthoracic echocardiogram, 04/01/2025:
CONCLUSIONS
Normal biventricular size and systolic function without regional wall motion
abnormality. Estimated LVEF 50-55%.
Mechanical mitral valve replacement. The mean gradient across the valve is 3
mmHg. No significant mitral regurgitation.
Moderate aortic stenosis. The peak gradient across the valve is 35 mmHg with a
mean of 20 mmHg. Using a LVOT diameter of 1.9 cm, the DAO is 1.0 cm sq.
Moderate tricuspid regurgitation. Mildly elevated PASP. Estimated pulmonary
artery pressure of 45 mmHg assuming a right atrial pressure of 3 mmHg.
Compared to 11/12/23: has progressed from mild/moderate to moderate. PASP has
decreased from 65 mmHg to 45 mmHg.
Physical Exam
Vital Signs/Labs
Vital Signs
Temp Pulse Resp BP Pulse Ox
99.0 F 83 18 149/54 1
07/08/25 07:41 07/08/25 07:41 07/08/25 07:41 07/08/25 07:41 07/08/25 07:41
07/07/25 07/08/25 07/09/25
06:59 06:59 06:59
Actual Weight 78.063 kg 78.154 kg
PT 29.1 Sec (11.4-14.6) H 07/07/25 07:24
INR 2.71 07/07/25 07:24
APTT 44.6 Sec (23.4-35.0) H 07/06/25 13:22
07/06/25
11:55
[id number] Pept 682
LAB Results
07/06/25
11:55
Troponin I 0.012
Physical Exam
Constitutional: No acute distress and Comfortable
EENT: Anicteric
Cardiovascular: Rhythm & rate is regular, Pedal edema is absent, Systolic murmur present (10/22) and Other (Mechanical S1-S2)
Respiratory: Respiratory effort normal and Lungs clear to auscul.
GI: Soft
Neuro/Psych: AO x 3
Other: Skin (Warm, dry, intact)
Data Reviewed
-
Date of Service: July 08, 2025
EKG: Tracing Personally Visualized and interpreted (Telemetry: A paced)
Echo: Tracing Personally Visualized and interpreted (As above (03/2025: Normal LVEF, moderate ).)
X-Ray/CT/US/MRI/NUC/PET: Discussed with Patient
Labs: Labs Reviewed by me
[2025-07-08 07:53] LABS: INR 1.62; PT 19.5 Sec (11.4-14.6)
[2025-07-08 08:11] LABS: Blood Urea Nitrogen 12 mg/dl (7-17); Calcium 8.5 mg/dl (8.4-10.2); Carbon Dioxide 27 mmol/L (22-30); Chloride 105 mmol/L (98-107); Estimated Creatinine Clearance 60 ml/min; Glucose 138 mg/dl (70-99); Hematocrit 28.2 % (37.0-47.0); Hemoglobin 8.5 g/dL (12.0-16.0); Mean Corp Hgb Conc. 30.1 g/dL (33.0-37.0); Mean Corpuscular Volume 86.0 fL (81.0-99.0); Nucleated Red Blood Cells % 0 %; Platelet Count 226 10^3/uL (130-400); Potassium 3.8 mmol/L (3.5-5.1); Red Cell Dist. Width 15.4 % (11.5-14.5); Sodium 135 mmol/L (135-145); eGFR > 60.00
--- NOTE | 2025-07-08 08:13 | W.PN.UPDATE ---
Update Note
Progress Note Update
Hgb 8.5, INR 1.62
Plan for EGD today
[2025-07-08 08:22] LABS: APTT 36.8 Sec (23.4-35.0)
[2025-07-08] MEDS: HEPARIN 4000 UNITS IV (08:33)
[2025-07-08] MEDS: HEPARIN 25000 UNITS/250 ML IV (08:38)
[2025-07-08] MEDS: CARDIZEM CD 240 MG PO ×2 (08:45→21:01)
[2025-07-08] MEDS: TOPROL XL 25 MG PO ×2 (08:45→21:02)
[2025-07-08] MEDS: VITAMIN C 500 MG PO (08:45)
[2025-07-08] MEDS: EFFEXOR XR 37.5 MG PO ×2 (08:45→21:02)
[2025-07-08] MEDS: VITAMIN B-12 1000 MCG PO (08:45)
[2025-07-08] MEDS: VITAMIN D3 (cholecalciferol) 50 MCG PO (08:46)
[2025-07-08] MEDS: LASIX 20 MG PO (08:46)
[2025-07-08] MEDS: NSS (PRESERVATIVE FREE) 10 ML IV ×2 (08:46→21:03)
[2025-07-08] MEDS: PROTONIX IV 40 MG IV ×2 (08:47→21:03)
--- NOTE | 2025-07-08 10:57 | W.PN.PUL3 ---
Today's Communication / Plan
-
Inhalers changed but no change in SOB
s/p EGD noted, anemia stable
PT/OT evals for rehab/JUAREZ
Consideration for RHC if indicated per cards
Otherwise, monitor and treat anemia for now
Assessment
-
80-year-old female past medical history of 80-year-old female past medical history of diabetes, hypertension, paroxysmal atrial fibrillation with pacemaker, mechanical mitral valve on coumadin, HFpEF, hypercholesteremia, mitral regurgitation, hiatal
hernia, COPD, fibromyalgia, depression, chronic bilateral hand numbness, transient GI bleeding in April presenting for shortness of breath. He called cardiology Dr. Arevalo office yesterday to report INR 4.4. Dark stools for the past week. This
has occurred about 3 times in the past. Patient complaining of worsening shortness of breath and slight lower extremity edema. She was recently admitted on 05/26 for dysmetria of right upper extremity. MRI showed small acute left frontoparietal
infarct. She was continued on Coumadin. She was recently admitted earlier in April for transient GI bleeding and underwent EGD which showed small hiatal hernia but no active bleeding. Vital signs normal. Labs showed hemoglobin of 8.8 from 11.5;
INR of 3.33; Cardiac BNP 680. We are consulted for eval of SOB.
Acute on chronic SOB
Acute GIB, history of angioectasia/prior GIB
Supratherapeutic INR
ABLA due to above
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
Chronic obstructive pulmonary disease
Atrial fibrillation
Pulmonary hypertension
Nonrheumatic aortic (valve) stenosis
Obstructive sleep apnea
Pulmonary nodule
Mitral stenosis
Restrictive lung disease
Kyphoscoliosis
History of mitral valve replacement with mechanical valve
Essential (primary) hypertension
Nonischemic cardiomyopathy
Pacemaker/Sick sinus syndrome
Plan
No oxygen was needed on admission, currently saturating 96% on RA
Prior history of lung disease is noted including--
Followed by Dr Szekely for mild COPD, last seen this past January.
She notes that prior to bleeding she has felt progressive decline in her SOB and function. This is not improved with inhalers.
When she has anemia from GIB her SOB is acutely worsened--gives very clear history regarding this
Suspect patient has multifactorial causes for shortness of breath including COPD, valvular heart disease, cardiomyopathy
She has acute on chronic complaints due to acute blood loss anemia from supratherapeutic INR
CXR/CT obtained indicating mild edema, effusions.
Other imaging reviewed as well
She had prior pulmonary function testing with stable findings of mild obstruction
She does not feel that her shortness of breath is relieved with inhalers
Changed her medications to more daily regiment rather than nebulizers--for easier treatments
I do not think that her pulmonary issues are the largest contributor in this situation in terms of shortness of breath
If there needs to be further evaluation, may consider right heart catheterization as well
Prior ECHO results are reviewed indicating moderate valvular disease
s/p MVR
She is being considered for TAVR but told her degree of cardiomyopathy is not severe enough
proBNP is 682
Her level of dyspnea is out of proportion to the level of her COPD
s/p EGD 07/08: Erosive gastropathy with stigmata of recent bleeding. Hematin (altered blood/jkfxeh-abpecf-nvkn material) in the gastric body.
- Atrophic and erythematous mucosa in the gastric body and antrum.
- A few non-bleeding angioectasias in the stomach. Treated with argon plasma coagulation (APC).
- A single recently bleeding angioectasia in the duodenum. Treated with argon plasma coagulation (APC). Injected. Clips were placed.
Hb stable 8.5-8.8 (BL 12.2)
GI following
PT/OT evals ongoing
Can rehab with SOB complaints
If doing well can assess for d/c planning if RHC does not seem indicated
Diagnostic Data
Chest X-Ray:
CXR 07/06/25- 1. Mild interstitial cardiogenic pulmonary edema.
2. Minimal bilateral pleural effusions.
3. Mild cardiomegaly.
4. Previous mitral valve replacement.
5. Severe calcific atherosclerotic plaque in the thoracic and abdominal aorta.
6. Left-sided cardiac pacemaker in place.
CT Scan: CHEST 11/12/23- There are no abnormal pleural or parenchymal masses. There are moderate bilateral pleural effusions. There is moderate bibasilar consolidation. There are moderate bibasilar groundglass opacities concerning for pneumonia. The
mediastinum is normal. There is mild right hilar lymphadenopathy measuring 1.5 cm. There is no axillary lymphadenopathy.
Echo: 04/01/25- Normal biventricular size and systolic function without regional wall motion abnormality. Estimated LVEF 50-55%. Mechanical mitral valve replacement. The mean gradient across the valve is 3 mmHg. No significant mitral regurgitation.
Moderate aortic stenosis. The peak gradient across the valve is 35 mmHg with a mean of 20 mmHg. Using a LVOT diameter of 1.9 cm, the DAO is 1.0 cm sq. Moderate tricuspid regurgitation. Mildly elevated PASP. Estimated pulmonary artery pressure of
45 mmHg assuming a right atrial pressure of 3 mmHg. Compared to 11/12/23: has progressed from mild/moderate to moderate. PASP has decreased from 65 mmHg to 45 mmHg.
PFT's:
Reports and relevant images were personally reviewed.
Total time spent on this consultation __51__ minutes which includes review of history, physical exam, medications, laboratory data, personal review of imaging, extensive review of outpatient records, discussion with care team and respiratory therapy.
Subjective Data
-
Date of Service:
Date of Service: July 08, 2025
Chief Complaint: Pulmonary Follow Up
Subjective:
No new complaints, SOB remains the same
s/p EGD with intervention
She is now on RA, stable
Objective Data
Data Reviewed
Vital Signs / I&O / Oxygen:
Vital Signs
Temp Pulse Resp BP Pulse Ox
99.0 F 77 18 149/54 97
07/08/25 07:41 07/08/25 07:46 07/08/25 07:46 07/08/25 07:41 07/08/25 07:46
Intake and Output
07/07/25 07/08/25 07/09/25
06:59 06:59 06:59
Intake Total 240 / 240 960 / 960
Balance 240 / 240 960 / 960
SaO2 97
Nasal Cannula flow liters per 1
minute
Physical Exam
General: Comfortable and Other (NAD)
HEENT: Normocephalic, Anicteric and Moist Mucous Membranes
Cardiovascular: S1-S2 and Regular Rhythm
Respiratory: Clear and Non-Labored Respirations
GI: Soft, Non Distended and Non Tender
Neurology: Awake, Alert, Oriented and No Motor Deficits
Skin: Warm, Dry and Good Color
Labs/Micro/Reports
Lab Data
07/08/25 08:11
07/08/25 07:16
Laboratory Results
07/08/25 07/08/25
07:16 08:11
PT 19.5 H
INR 1.62
APTT 36.8 H Cancelled
--- NOTE | 2025-07-08 11:24 | W.PN.HOSP.TC ---
Today's Communication/Plan
-
Monitor vital signs see plan
IV heparin on hold per GI for EGD
Advair
Assessment / Plan
Assessment / Plan
General: Comfortable and Conversant; No Pain, Fever or Chills
HEENT: NormoCephalic, Anicteric, Moist mucous membranes, PERRLA, [place] Conjunctivae and No Ptosis
Respiratory: Clear; + wheezing
Cardiac: S1/S2 and Other (Paced on monitor); No Murmur, Rub, Gallop or Peripheral Edema
GI: Soft, Non Tender, Non Distended, Normal Bowel Sounds
Musculoskeletal: No Edema
Neuro: AO x 3, No Motor Deficits, Nonfocal/grossly intact
Psych: calm
Symptomatic anemia concern for recurrent Transient GI bleed likely 2/2 Angioectesia with supratherapeutic INR on Coumadin
#History of transient GI bleed on Coumadin 04/28 - 04/29/2025 self resolved(had prior admissions October, November, and January for same)
#hx Schatzki's ring of distal esophagus
- INR was 4.4 07/05/2025 patient took Coumadin 5 mg
INR now 1.6; plan for EGD 07/08. hep gtt on hold for 4 hrs per GI
Can start IV heparin when INR is less than 2.5 per cardiology
Continue with IV Protonix
NPO for EGD
Hold Coumadin
Esophagogastroduodenoscopy 04/29/25
- Small hiatal hernia.
- Normal stomach.
- Normal examined duodenum.
- No specimens collected.
#Dyspnea likley multifactorial 2/2 to anemia with possible COPD and CHF
Continue with Lasix
Cardiology believe this is pulmonary in nature, follows up with Dr. Valdivia outpatient. pulmonary following
started on advair
#Daily alcohol use
Drinks 12 ounces of wine a day last drink was midnight 07/05/2025
- Cessation advised
#Mechanical valve
INR goal 2.5-3.5 due to mechanical valve
INR daily, Coumadin on hold. Start IV heparin when INR is less than 2.5
Cardiology following
#Persistent A-fib
#A-fib ablation September 2023
Coumadin on hold, INR goal 2.5-3.5
INR daily
-Continue diltiazem
#Recent dysmetria of right upper extremity with Small acute left frontal parietal INFARCT on MRI
#CVA 05/24/2025�small acute left frontal parietal infarct
#Chronic LBBB [place] april 2025
# Medtronic dual-chamber permanent pacemaker 07/25/2020
[place] XT 07/25/2020 [id number], model WD R011
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
#Hypertension
-Continue metoprolol succinate 25 mg twice daily
#Hyperlipidemia
-Continue Crestor 5 mg at bedtime
#NIDDM
Accu-Cheks with SSI, HgbA1c 5.1 on May 2025 admission
- HOLD Januvia 50 mg mg daily
#Chronic CHF
I/O, daily weight
-Continue furosemide 20 mg every 48 hours
#Depression
- Continue Effexor 75 mg twice daily
#COPD
#Former smoker 25 years 1 pack a day quit 1992
Other PMH:
fibromyalgia
mitral regurgitation S/P mitral valve replacement March 2020
hiatal hernia
DVT prophylaxis
INR therapeutic
Full code
I spent a total of 52 minutes with the patient or on the floor. More than 50% of this time involved counseling and coordination of care.
Anticipated Discharge: 24 - 48 hours
Subjective/Interval History
-
Date of Service: July 08, 2025
denies pain
Objective Data
-
Labs:
Laboratory Results
07/08/25 07/08/25 07/08/25
07:16 08:11 14:30
WBC 7.6 Cancelled
Hgb 8.5 L Cancelled
Hct 28.2 L Cancelled
Plt Count 226 Cancelled
PT 19.5 H
INR 1.62
APTT 36.8 H Cancelled Cancelled
Sodium 135
Potassium 3.8
Chloride 105
Carbon Dioxide 27
BUN 12
Creatinine 0.8
Glucose 138 H
Calcium 8.5
Vital Signs:
Vital Signs
Temp Pulse Resp BP Pulse Ox
99.0 F 77 18 149/54 97
07/08/25 07:41 07/08/25 07:46 07/08/25 07:46 07/08/25 07:41 07/08/25 07:46
I&O
07/07/25 07/08/25 07/09/25
06:59 06:59 06:59
Intake Total 240 / 240 960 / 960
Balance 240 / 240 960 / 960
[2025-07-08] MEDS: TYLENOL 650 MG PO ×2 (11:57→23:06)
[2025-07-08 12:18] LABS: Glucose - Point of Care 171 mg/dl (70-99)
[2025-07-08 12:25] LABS: COVID-19 Antigen Negative (Negative)
[2025-07-08 14:59] LABS: Urine Character Clear (Clear)
[2025-07-08 16:20] LABS: Glucose - Point of Care 145 mg/dl (70-99)
--- NOTE | 2025-07-08 16:37 | CM ---
Patient seen at bedside in 1 acute. patient for egd today per patient. CM will continue to follow for discharge planning needs.
Plan;home with VN vs home with no needs.
[2025-07-08] MEDS: THERAGRAN 1 TABLET PO (17:43)
[2025-07-08] MEDS: VALTREX 500 MG PO (17:44)
[2025-07-08] MEDS: CRESTOR 10 MG PO (21:01)
[2025-07-08] MEDS: LOW STRENGTH ASPIRIN 81 MG PO (21:01)
[2025-07-08] MEDS: B COMPLEX w/VITAMIN C 1 CAPLET PO (21:02)
[2025-07-08] MEDS: OSCAL 500 + D 500 MG PO (21:02)
[2025-07-08 21:49] LABS: Glucose - Point of Care 229 mg/dl (70-99)
[2025-07-09] VITALS (7 sets, daily range): BP systolic 111–151; BP diastolic 46–60; PULSE 74; O2SAT 96; BMI 27.5
[2025-07-09 04:16] LABS: APTT 95.8 Sec (23.4-35.0)
[2025-07-09 07:24] LABS: Glucose - Point of Care 164 mg/dl (70-99)
[2025-07-09] MEDS: ADVAIR HFA 45/21 MCG INHALER 2 PUFF INH ×2 (07:41→20:57)
--- NOTE | 2025-07-09 07:53 | W.PN.CD ---
Today's Communication / Plan
-
plan is heparin bridge, which has been started
-monitor Hgb
to discuss with GI if OK to restart warfarin tonight: she takes 5mg qHS
Impression / Plan
-
I/P: 80F with severe mitral stenosis status-post [facility] mechanical mitral valve replacement (03/22/20; on warfarin), postoperative pericardial effusion status-post pericardiocentesis, CVA (therapeutic warfarin, 05/2025), paroxysmal atrial
fibrillation/flutter status-post cardioversions (on 06/15/20 and 08/16/23) and subsequent ablation (09/26/2023), tachycardia-bradycardia syndrome status-post MRI conditional Medtronic dual-chamber pacemaker implantation (07/25/20), moderate aortic
stenosis, moderate tricuspid regurgitation, nonobstructive CAD, hypertension, hyperlipidemia, diabetes, COPD/paralyzed vocal cord, obstructive sleep apnea (on home CPAP), and history of Schatzki's ring of distal esophagus presented to the ER with a
chief complaint of shortness of breath.
Outpatient manager public: Dr. Arevalo
Shortness of breath/COPD/anemia
- Pulmonary consulted.
- Patient states breathing status has improved with supplemental oxygen.
- Hemoglobin today pending.
Anemia, in the setting of GI bleed, severe
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
-monitor Hgb
Severe mitral stenosis status post [facility] mechanical MVR 03/22/2020
- Goal INR 2.5�3.5
- MG on recent echo 3 mmHg
- plan is heparin bridge, which has been started
-monitor Hgb
- to discuss with GI if OK to restart warfarin tonight
Persistent atrial fibrillation
- Apaced today; continues on diltiazem and metoprolol succinate.
- Oral Anticoagulation: Warfarin (mechanical MVR)
- [id number]: score 8 (HTN, age 75 or more, Diabetes Mellitus, prior Stroke/TIA, Vascular disease, female gender)
- heparin bridge
Aortic stenosis, moderate, peak/mean gradient 35/20 mmHg, DAO 1.0 cm�
Tricuspid regurgitation, moderate
CVA, 05/2025, on therapeutic warfarin
Tachycardia-bradycardia syndrome status post Medtronic DC PPM--stable.
LBBB, chronic, stable, normal perfusion on Lexiscan nuclear stress test in April,
Hyperlipidemia, rosuvastatin recently increased in the setting of CVA
Type 2 diabetes, controlled, most recent HgbA1c 5.9%
JENNIFER, on CPAP
DATA:
Transthoracic echocardiogram, 04/01/2025:
CONCLUSIONS
Normal biventricular size and systolic function without regional wall motion
abnormality. Estimated LVEF 50-55%.
Mechanical mitral valve replacement. The mean gradient across the valve is 3
mmHg. No significant mitral regurgitation.
Moderate aortic stenosis. The peak gradient across the valve is 35 mmHg with a
mean of 20 mmHg. Using a LVOT diameter of 1.9 cm, the DAO is 1.0 cm sq.
Moderate tricuspid regurgitation. Mildly elevated PASP. Estimated pulmonary
artery pressure of 45 mmHg assuming a right atrial pressure of 3 mmHg.
Compared to 11/12/23: has progressed from mild/moderate to moderate. PASP has
decreased from 65 mmHg to 45 mmHg.
Physical Exam
Vital Signs/Labs
Vital Signs
Temp Pulse Resp BP Pulse Ox
98.7 F 67 18 123/46 94
07/09/25 03:15 07/09/25 07:46 07/09/25 07:46 07/09/25 03:15 07/09/25 07:46
07/08/25 07/09/25 07/10/25
06:59 06:59 06:59
Actual Weight 78.154 kg 77.649 kg
PT 19.5 Sec (11.4-14.6) H 07/08/25 07:16
INR 1.62 07/08/25 07:16
APTT 95.8 Sec (23.4-35.0) H 07/09/25 03:55
07/06/25
11:55
[id number] Pept 682
LAB Results
07/06/25
11:55
Troponin I 0.012
Physical Exam
Constitutional: No acute distress and Comfortable
EENT: Moist mucous membranes
Cardiovascular: Rhythm & rate is regular, Pedal edema is absent, JVD pressure is normal and Other (+mechanical valve click)
Respiratory: Respiratory effort normal
Neuro/Psych: AO x 3
Data Reviewed
-
Date of Service: July 09, 2025
EKG: Other (Tele: A paced)
Labs: Other (labs pending)
[2025-07-09] MEDS: CARDIZEM CD 240 MG PO ×2 (08:36→19:41)
[2025-07-09] MEDS: EFFEXOR XR 37.5 MG PO ×2 (08:36→19:41)
[2025-07-09] MEDS: VITAMIN D3 (cholecalciferol) 50 MCG PO (08:36)
[2025-07-09] MEDS: VITAMIN C 500 MG PO (08:36)
[2025-07-09] MEDS: VITAMIN B-12 1000 MCG PO (08:36)
[2025-07-09] MEDS: TOPROL XL 25 MG PO ×2 (08:38→19:41)
[2025-07-09] MEDS: PROTONIX IV 40 MG IV ×2 (08:39→19:42)
[2025-07-09] MEDS: NSS (PRESERVATIVE FREE) 10 ML IV ×2 (08:39→19:41)
[2025-07-09] MEDS: LASIX 20 MG PO (08:39)
--- NOTE | 2025-07-09 09:10 | PTOTSP ---
Speech Language Pathology
Pt seen for clinical bedside swallow evaluation. Stridor noted at rest, which pt stated is baseline from chronic L vocal fold paralysis. Suspect vocal fold paralyzed in paramedian position given adequate voicing in addition to stridor. Unable to
access ENT documents in [facility]. Pt reported ENT stated there is nothing to for vocal fold at this stage. Pt denies any baseline dysphagia, and was recommended for regular solids/thin liquids on most recent admission in May. This date, P.O.
trials of regular solids and thin liquids observed from breakfast tray. Adequate mastication, bolus formation, and A-P transit noted with no oral residue. No overt signs of aspiration.
Recommend:
(1) Regular solids/thin liquids
(2) General aspiration precautions
(3) Meds as tolerated
(4) PUBLIC HEALTH SANITARIAN to sign off. Please reconsult as indicated
--- NOTE | 2025-07-09 09:21 | W.PN.PUL3 ---
Today's Communication / Plan
-
Remains stable on RA, SOB related to anemia
Transfusion per team, patient requesting
Fever noted, could be related to recent GIB/cautery, w/u ongoing, monitor next 24 hours
Hep bridge back to coumadin
Continue inhalers, encouraged OOB/Rehab
OP FU to be scheduled
Discharge planning per team
Assessment
-
80-year-old female past medical history of 80-year-old female past medical history of diabetes, hypertension, paroxysmal atrial fibrillation with pacemaker, mechanical mitral valve on coumadin, HFpEF, hypercholesteremia, mitral regurgitation, hiatal
hernia, COPD, fibromyalgia, depression, chronic bilateral hand numbness, transient GI bleeding in April presenting for shortness of breath. He called cardiology Dr. Arevalo office yesterday to report INR 4.4. Dark stools for the past week. This
has occurred about 3 times in the past. Patient complaining of worsening shortness of breath and slight lower extremity edema. She was recently admitted on 05/26 for dysmetria of right upper extremity. MRI showed small acute left frontoparietal
infarct. She was continued on Coumadin. She was recently admitted earlier in April for transient GI bleeding and underwent EGD which showed small hiatal hernia but no active bleeding. Vital signs normal. Labs showed hemoglobin of 8.8 from 11.5;
INR of 3.33; Cardiac BNP 680. We are consulted for eval of SOB.
Acute on chronic SOB
Acute GIB, history of angioectasia/prior GIB
Supratherapeutic INR
ABLA due to above
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
Chronic obstructive pulmonary disease
Atrial fibrillation
Pulmonary hypertension
Nonrheumatic aortic (valve) stenosis
Obstructive sleep apnea
Pulmonary nodule
Mitral stenosis
Restrictive lung disease
Kyphoscoliosis
History of mitral valve replacement with mechanical valve
Essential (primary) hypertension
Nonischemic cardiomyopathy
Pacemaker/Sick sinus syndrome
Plan
No oxygen was needed on admission, currently saturating 96% on RA
Prior history of lung disease is noted including--
Followed by Dr Valdivia for mild COPD, last seen this past January.
She notes that prior to bleeding she has felt progressive decline in her SOB and function. This is not improved with inhalers.
When she has anemia from GIB her SOB is acutely worsened--gives very clear history regarding this
Suspect patient has multifactorial causes for shortness of breath including COPD, valvular heart disease, cardiomyopathy
She has acute on chronic complaints due to acute blood loss anemia from supratherapeutic INR
CXR/CT obtained indicating mild edema, effusions.
Other imaging reviewed as well
She had prior pulmonary function testing with stable findings of mild obstruction
She does not feel that her shortness of breath is relieved with inhalers
Changed her medications to more daily regiment rather than nebulizers--for easier treatments
I do not think that her pulmonary issues are the largest contributor in this situation in terms of shortness of breath
If there needs to be further evaluation, may consider right heart catheterization as well
Prior ECHO results are reviewed indicating moderate valvular disease
s/p MVR
She is being considered for TAVR but told her degree of cardiomyopathy is not severe enough
proBNP is 682
Her level of dyspnea is out of proportion to the level of her COPD
s/p EGD 07/08: Erosive gastropathy with stigmata of recent bleeding. Hematin (altered blood/bitsyj-dutcsf-ujrr material) in the gastric body.
- Atrophic and erythematous mucosa in the gastric body and antrum.
- A few non-bleeding angioectasias in the stomach. Treated with argon plasma coagulation (APC).
- A single recently bleeding angioectasia in the duodenum. Treated with argon plasma coagulation (APC). Injected. Clips were placed.
Hb stable 8.5-8.8 (BL 12.2)
GI following
Fevers noted ON, work up per team
Could be related to bleed/EGD
PT/OT evals ongoing
Can rehab with SOB complaints
If doing well can assess for d/c planning if RHC does not seem indicated
Diagnostic Data
Chest X-Ray:
CXR 07/06/25- 1. Mild interstitial cardiogenic pulmonary edema.
2. Minimal bilateral pleural effusions.
3. Mild cardiomegaly.
4. Previous mitral valve replacement.
5. Severe calcific atherosclerotic plaque in the thoracic and abdominal aorta.
6. Left-sided cardiac pacemaker in place.
CT Scan: CHEST 11/12/23- There are no abnormal pleural or parenchymal masses. There are moderate bilateral pleural effusions. There is moderate bibasilar consolidation. There are moderate bibasilar groundglass opacities concerning for pneumonia. The
mediastinum is normal. There is mild right hilar lymphadenopathy measuring 1.5 cm. There is no axillary lymphadenopathy.
Echo: 04/01/25- Normal biventricular size and systolic function without regional wall motion abnormality. Estimated LVEF 50-55%. Mechanical mitral valve replacement. The mean gradient across the valve is 3 mmHg. No significant mitral regurgitation.
Moderate aortic stenosis. The peak gradient across the valve is 35 mmHg with a mean of 20 mmHg. Using a LVOT diameter of 1.9 cm, the DAO is 1.0 cm sq. Moderate tricuspid regurgitation. Mildly elevated PASP. Estimated pulmonary artery pressure of
45 mmHg assuming a right atrial pressure of 3 mmHg. Compared to 11/12/23: has progressed from mild/moderate to moderate. PASP has decreased from 65 mmHg to 45 mmHg.
PFT's:
Reports and relevant images were personally reviewed.
Total time spent on this consultation __51__ minutes which includes review of history, physical exam, medications, laboratory data, personal review of imaging, extensive review of outpatient records, discussion with care team and respiratory therapy.
Subjective Data
-
Date of Service:
Date of Service: July 09, 2025
Chief Complaint: Pulmonary Follow Up
Subjective:
No acute events, stable on RA
Asking to go home, fever noted overnight
Objective Data
Data Reviewed
Vital Signs / I&O / Oxygen:
Vital Signs
Temp Pulse Resp BP Pulse Ox
98.7 F 87 18 134/58 95
07/09/25 07:55 07/09/25 08:38 07/09/25 07:55 07/09/25 08:38 07/09/25 07:55
Intake and Output
07/08/25 07/09/25 07/10/25
06:59 06:59 06:59
Intake Total 960 / 960 2014 240 / 240
Balance 960 / 960 2014 240 / 240
SaO2 95
Nasal Cannula flow liters per 1
minute
Physical Exam
General: Comfortable and Other (NAD)
HEENT: Normocephalic, Anicteric and Moist Mucous Membranes
Cardiovascular: S1-S2 and Regular Rhythm
Respiratory: Clear and Non-Labored Respirations
GI: Soft, Non Distended and Non Tender
Neurology: Awake, Alert, Oriented and No Motor Deficits
Skin: Warm, Dry and Good Color
Labs/Micro/Reports
Laboratory Results
07/08/25 07/09/25 07/09/25
14:30 03:13 03:55
APTT Cancelled Cancelled 95.8 H
Microbiology
07/08/25 11:53 Nasal Swab Influenza Types A & B (JUAN) - Final
Negative for Influenza A & B, NAAT
Negative results must be combined with clinical observations
and patient history.
Nucleic Acid Amplification test (NAAT)performed on the
Aframe platform.
[2025-07-09 10:35] LABS: INR 1.30; PT 16.4 Sec (11.4-14.6)
[2025-07-09 10:36] LABS: APTT 81.8 Sec (23.4-35.0)
[2025-07-09 10:50] LABS: Hematocrit 26.2 % (37.0-47.0); Hemoglobin 8.1 g/dL (12.0-16.0); Mean Corp Hgb Conc. 30.9 g/dL (33.0-37.0); Mean Corpuscular Volume 84.8 fL (81.0-99.0); Nucleated Red Blood Cells % 0 %; Platelet Count 226 10^3/uL (130-400); Red Cell Dist. Width 15.5 % (11.5-14.5)
[2025-07-09 10:58] LABS: Blood Urea Nitrogen 12 mg/dl (7-17); Calcium 8.4 mg/dl (8.4-10.2); Carbon Dioxide 25 mmol/L (22-30); Chloride 104 mmol/L (98-107); Estimated Creatinine Clearance 60 ml/min; Glucose 273 mg/dl (70-99); Potassium 3.6 mmol/L (3.5-5.1); Sodium 132 mmol/L (135-145); eGFR > 60.00
--- NOTE | 2025-07-09 11:19 | W.PN.HOSP.TC ---
Today's Communication/Plan
-
Monitor vital signs and see plan
Restart Coumadin tonight if okay with GI
Continue with IV heparin
Follow fever curve, if persistent will need blood culture and ID evaluation
Speech eval
Assessment / Plan
Assessment / Plan
General: Comfortable and Conversant; No Pain, Fever or Chills
HEENT: NormoCephalic, Anicteric, Moist mucous membranes, PERRLA, [place] Conjunctivae and No Ptosis
Respiratory: Clear; + wheezing
Cardiac: S1/S2 and Other (Paced on monitor); No Murmur, Rub, Gallop or Peripheral Edema
GI: Soft, Non Tender, Non Distended, Normal Bowel Sounds
Musculoskeletal: No Edema
Neuro: AO x 3, No Motor Deficits, Nonfocal/grossly intact
Psych: calm
Symptomatic anemia concern for recurrent Transient GI bleed likely 2/2 Angioectesia with supratherapeutic INR on Coumadin
#History of transient GI bleed on Coumadin 04/28 - 04/29/2025 self resolved(had prior admissions October, November, and January for same)
#hx Schatzki's ring of distal esophagus
- INR was 4.4 07/05/2025 patient took Coumadin 5 mg
INR now 1.6; s/p EGD 07/08 with AVM. currently on hep gtt; restart coumadin tonite if ok with GI
Continue with Protonix
Esophagogastroduodenoscopy 04/29/25
- Small hiatal hernia.
- Normal stomach.
- Normal examined duodenum.
- No specimens collected.
#Dyspnea likely multifactorial 2/2 to anemia with possible COPD and CHF
Continue with Lasix
Cardiology believe this is pulmonary in nature, follows up with Dr. Valdivia outpatient. pulmonary following
started on advair
2 episodes of fever
Ua neg, flu,covid neg
Follow fever curve, if persistent will order blood culture and ID evaluation
speech eval
#Daily alcohol use
Drinks 12 ounces of wine a day last drink was midnight 07/05/2025
- Cessation advised
#Mechanical valve
INR goal 2.5-3.5 due to mechanical valve
INR daily, currently on hep gtt; restart coumadin tonite if ok with GI
Cardiology following
#Persistent A-fib
#A-fib ablation September 2023
Coumadin on hold, INR goal 2.5-3.5
INR daily
-Continue diltiazem
Hyponatremia
Monitor
#Recent dysmetria of right upper extremity with Small acute left frontal parietal INFARCT on MRI
#CVA 05/24/2025�small acute left frontal parietal infarct
#Chronic LBBB new singe april 2025
# Medtronic dual-chamber permanent pacemaker 07/25/2020
[place] XT 07/25/2020 [id number], model WD R011
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
#Hypertension
-Continue metoprolol succinate 25 mg twice daily
#Hyperlipidemia
-Continue Crestor 5 mg at bedtime
#NIDDM
Accu-Cheks with SSI, HgbA1c 5.1 on May 2025 admission
- HOLD Januvia 50 mg mg daily
#Chronic CHF
I/O, daily weight
-Continue furosemide 20 mg every 48 hours
#Depression
- Continue Effexor 75 mg twice daily
#COPD
#Former smoker 25 years 1 pack a day quit 1992
Other PMH:
fibromyalgia
mitral regurgitation S/P mitral valve replacement March 2020
hiatal hernia
DVT prophylaxis
INR therapeutic
Full code
I spent a total of 52 minutes with the patient or on the floor. More than 50% of this time involved counseling and coordination of care.
Anticipated Discharge: 24 - 48 hours
Subjective/Interval History
-
Date of Service: July 09, 2025
denies pain
Objective Data
-
Labs:
Laboratory Results
07/09/25 07/09/25 07/09/25
03:13 03:55 10:06
WBC 8.2
Hgb 8.1 L
Hct 26.2 L
Plt Count 226
PT Cancelled
INR
APTT Cancelled 95.8 H
Sodium
Potassium
Chloride
Carbon Dioxide
BUN
Creatinine
Glucose
Calcium
07/09/25 07/09/25
10:06 10:06
WBC
Hgb
Hct
Plt Count
PT 16.4 H
INR Cancelled 1.30
APTT 81.8 H
Sodium 132 L
Potassium 3.6
Chloride 104
Carbon Dioxide 25
BUN 12
Creatinine 0.8
Glucose 273 H
Calcium 8.4
Vital Signs:
Vital Signs
Temp Pulse Resp BP Pulse Ox
98.7 F 87 18 134/58 95
07/09/25 07:55 07/09/25 08:38 07/09/25 07:55 07/09/25 08:38 07/09/25 07:55
I&O
07/08/25 07/09/25 07/10/25
06:59 06:59 06:59
Intake Total 960 / 960 2014 420 / 420
Balance 960 / 960 2014 420 / 420
[2025-07-09 11:21] LABS: Glucose - Point of Care 354 mg/dl (70-99)
[2025-07-09 12:46] LABS: Glucose - Point of Care 287 mg/dl (70-99)
--- NOTE | 2025-07-09 14:37 | W.PN.GI.CBS2 ---
Today's Communication / Plan
-
Hgb down a little from 8.5 to 8.1
Continue heparin gtt and hold off on coumadin tonight
If stable, OK to start coumadin tomorrow
Assessment / Plan
-
Alley is a 80-year-old female with severe mitral stenosis status post mechanical valve replacement in 2019 on warfarin, paroxysmal atrial fibrillation and flutter status post cardioversion in 2019, tachybradycardia syndrome status post
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
colitis versus infectious colitis presents to ER with worsening of chronic shortness of breath. She was noted with hbg 8.8 with normal BUN. down from 11.5 on 05/25 . She also reports black stools several days last week. In review of records pt was
admitted in 2023 with bright red blood per rectum and completed colonoscopy with diverticulosis and internal hemorrhoids. She was then admitted on April 2025 and had enteroscopy 04/2025- small HH, normal stomach, duodenum. Last EGD 2013 with non
obstructing Schatzki's ring, HH, normal stomach and duodenum with neg biopsy. Colonoscopy: [address] Dr. Samaniego adequate prep diverticulosis and internal hemorrhoids.
-symptomatic anemia
-recent black stools
-hx HH per prior EGD
-schatzki's ring with prior dilation
-severe mitral stenosis status post mechanical valve replacement in 2019 on warfarin
-vocal cord paralysis and hx difficulty intubation
other med problems:
-hx colitis
- paroxysmal atrial fibrillation and flutter status post cardioversion in 2019
- tachybradycardia syndrome status post dual-chamber pacemaker
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
-fibromyalgia,
- NIDDM,
-hypertension
-COPD
-sleep apnea on CPAP
panc divisum anatomy per imaging
Subjective
Subjective
Date of Service: July 09, 2025
Denies bloody BMs. No complaints
Objective
Data Reviewed
Laboratory Data:
Laboratory Results
07/09/25 10:06
Laboratory Results
PT 16.4 Sec (11.4-14.6) H 07/09/25 10:06
PT Cancelled 07/09/25 10:06
INR 1.30 07/09/25 10:06
INR Cancelled 07/09/25 10:06
APTT 81.8 Sec (23.4-35.0) H 07/09/25 10:06
Total Bilirubin 0.5 mg/dl (0.2-1.3) 07/07/25 07:24
AST 23 U/L (14-36) 07/07/25 07:24
ALT 18 U/L (0-35) 07/07/25 07:24
Alkaline Phosphatase 60 U/L (38-126) 07/07/25 07:24
Vital Signs and I&O:
Vital Signs
Temp Pulse Resp BP Pulse Ox
99.1 F 79 17 123/60 99
07/09/25 11:23 07/09/25 11:23 07/09/25 11:23 07/09/25 11:23 07/09/25 11:23
I&O
07/08/25 07/09/25 07/10/25
06:59 06:59 06:59
Intake Total 960 / 960 2014 840 / 840
Balance 960 / 960 2014 840 / 840
Physical Exam
Physical Exam
GI: Soft, Non Distended and Non Tender
[2025-07-09 17:07] LABS: Glucose - Point of Care 241 mg/dl (70-99)
[2025-07-09] MEDS: THERAGRAN 1 TABLET PO (17:27)
[2025-07-09] MEDS: VALTREX 500 MG PO (17:27)
[2025-07-09 18:18] LABS: Hematocrit 28.1 % (37.0-47.0); Hemoglobin 8.5 g/dL (12.0-16.0)
[2025-07-09] MEDS: ROBITUSSIN 400 MG PO (19:41)
[2025-07-09] MEDS: HEPARIN 25000 UNITS/250 ML IV (19:42)
[2025-07-09] MEDS: B COMPLEX w/VITAMIN C 1 CAPLET PO (21:36)
[2025-07-09] MEDS: OSCAL 500 + D 500 MG PO (21:37)
[2025-07-09] MEDS: LOW STRENGTH ASPIRIN 81 MG PO (21:37)
[2025-07-09] MEDS: CRESTOR 10 MG PO (21:37)
[2025-07-09 21:43] LABS: Glucose - Point of Care 211 mg/dl (70-99)
--- NOTE | 2025-07-09 23:00 | PTCARENOTE ---
Room air sat when just being awakened in the 80s. Placed on O2 2L NC for sleep. Sat 92% with O2.
[2025-07-10] VITALS (9 sets, daily range): BP systolic 123–157; BP diastolic 46–63; BMI 27.6
[2025-07-10] MEDS: ADVAIR HFA 45/21 MCG INHALER 2 PUFF INH ×2 (07:08→19:44)
[2025-07-10 07:32] LABS: Glucose - Point of Care 162 mg/dl (70-99)
[2025-07-10] MEDS: ROBITUSSIN 400 MG PO ×2 (08:06→21:14)
[2025-07-10] MEDS: EFFEXOR XR 37.5 MG PO ×2 (08:06→21:15)
[2025-07-10] MEDS: VITAMIN D3 (cholecalciferol) 50 MCG PO (08:06)
[2025-07-10] MEDS: TOPROL XL 25 MG PO ×2 (08:06→21:15)
[2025-07-10] MEDS: VITAMIN C 500 MG PO (08:06)
[2025-07-10] MEDS: VITAMIN B-12 1000 MCG PO (08:06)
[2025-07-10] MEDS: PROTONIX IV 40 MG IV ×2 (08:07→21:15)
[2025-07-10] MEDS: CARDIZEM CD 240 MG PO ×2 (08:07→21:14)
[2025-07-10] MEDS: NSS (PRESERVATIVE FREE) 10 ML IV ×2 (08:07→21:15)
[2025-07-10 08:18] LABS: Hematocrit 25.2 % (37.0-47.0); Hemoglobin 7.7 g/dL (12.0-16.0); Mean Corp Hgb Conc. 30.6 g/dL (33.0-37.0); Mean Corpuscular Volume 84.0 fL (81.0-99.0); Nucleated Red Blood Cells % 0 %; Platelet Count 206 10^3/uL (130-400); Red Cell Dist. Width 15.3 % (11.5-14.5)
[2025-07-10 08:32] LABS: INR 1.17; PT 15.2 Sec (11.4-14.6)
[2025-07-10 08:34] LABS: APTT 83.3 Sec (23.4-35.0)
[2025-07-10 09:04] LABS: Blood Urea Nitrogen 11 mg/dl (7-17); Calcium 8.5 mg/dl (8.4-10.2); Carbon Dioxide 28 mmol/L (22-30); Chloride 103 mmol/L (98-107); Estimated Creatinine Clearance 60 ml/min; Glucose 160 mg/dl (70-99); Potassium 3.8 mmol/L (3.5-5.1); Sodium 133 mmol/L (135-145); eGFR > 60.00
--- NOTE | 2025-07-10 09:42 | W.PN.GI.CBS2 ---
Today's Communication / Plan
-
Hgb up to 8.5 yesterday evening from 8.1, down to 7.7 this am
Check repeat Hgb in am
If further drop, will repeat EGD to assess bleeding ectasias in stomach, duodenum (epi, cautery, clip on 07/08)
Assessment / Plan
-
Summary: 80-year-old female with severe mitral stenosis status post mechanical valve replacement in 2019 on warfarin, paroxysmal atrial fibrillation and flutter status post cardioversion in 2020, tachybradycardia syndrome status post dual-chamber
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
infectious colitis presents to ER with worsening of chronic shortness of breath. She was noted with hbg 8.8 with normal BUN. down from 11.5 on 05/25 . She also reports black stools several days last week. In review of records pt was admitted in
2023 with bright red blood per rectum and completed colonoscopy with diverticulosis and internal hemorrhoids. She was then admitted on April 2025 and had enteroscopy 04/2025- small HH, normal stomach, duodenum. Last EGD 2013 with non obstructing
Schatzki's ring, HH, normal stomach and duodenum with neg biopsy. Colonoscopy: [address] Dr. Samaniego adequate prep diverticulosis and internal hemorrhoids.
07/08/24 EGD- Hematin in gastric body. Few nonbleeding AVMs stomach cauterized w APC. Single recently bleeding AVM duodenal bulb with associated clot cauterized w APC and injected w epi, cliipped x 3
Impression:
UGIB due to gastric/duodenal ectasias s/p cautery
-schatzki's ring with prior dilation
-severe mitral stenosis status post mechanical valve replacement in 2019 on warfarin
-vocal cord paralysis and hx difficulty intubation
other med problems:
-hx colitis
- paroxysmal atrial fibrillation and flutter status post cardioversion in 2020
- tachybradycardia syndrome status post dual-chamber pacemaker
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
-COPD
-sleep apnea on CPAP
panc divisum anatomy per imaging
Subjective
Subjective
Date of Service: July 10, 2025
No BMs, no complaints
Objective
Data Reviewed
Laboratory Data:
Laboratory Results
07/10/25 07:46
07/10/25 07:46
Laboratory Results
PT 15.2 Sec (11.4-14.6) H 07/10/25 07:46
INR 1.17 07/10/25 07:46
APTT 83.3 Sec (23.4-35.0) H 07/10/25 07:46
Total Bilirubin 0.5 mg/dl (0.2-1.3) 07/07/25 07:24
AST 23 U/L (14-36) 07/07/25 07:24
ALT 18 U/L (0-35) 07/07/25 07:24
Alkaline Phosphatase 60 U/L (38-126) 07/07/25 07:24
Vital Signs and I&O:
Vital Signs
Temp Pulse Resp BP Pulse Ox
98.7 F 97 16 123/59 99
07/10/25 07:00 07/10/25 07:17 07/10/25 07:17 07/10/25 07:00 07/10/25 07:17
I&O
07/09/25 07/10/25 07/11/25
06:59 06:59 06:59
Intake Total 2014 1320 / 1320 240 / 240
Balance 2014 1320 / 1320 240 / 240
Physical Exam
Physical Exam
GI: Soft, Non Distended and Non Tender
--- NOTE | 2025-07-10 11:19 | W.PN.HOSP.TC ---
Today's Communication/Plan
-
Monitor vital signs see plan
EGD tomorrow
Discussed with GI, will give 1 unit of PRBC today
Continue PPI
on hep; coumadin on hold
Assessment / Plan
Assessment / Plan
General: Comfortable and Conversant; No Pain, Fever or Chills
HEENT: NormoCephalic, Anicteric, Moist mucous membranes, PERRLA, [place] Conjunctivae and No Ptosis
Respiratory: Clear; + wheezing
Cardiac: S1/S2 and Other (Paced on monitor); No Murmur, Rub, Gallop or Peripheral Edema
GI: Soft, Non Tender, Non Distended, Normal Bowel Sounds
Musculoskeletal: No Edema
Neuro: AO x 3, No Motor Deficits, Nonfocal/grossly intact
Psych: calm
Symptomatic anemia concern for recurrent Transient GI bleed likely 2/2 Angioectesia with supratherapeutic INR on Coumadin
#History of transient GI bleed on Coumadin 04/28 - 04/29/2025 self resolved(had prior admissions October, November, and January for same)
#hx Schatzki's ring of distal esophagus
- INR was 4.4 07/05/2025 patient took Coumadin 5 mg
INR now 1.1; s/p EGD 07/08 with AVM. currently on hep gtt; restart coumadin when ok with GI
Continue with Protonix
Hemoglobin 7.7, plan for repeat EGD per GI. Discussed with GI and will give 1 unit of PRBC today. Blood consented
Esophagogastroduodenoscopy 04/29/25
- Small hiatal hernia.
- Normal stomach.
- Normal examined duodenum.
- No specimens collected.
#Dyspnea likely multifactorial 2/2 to anemia with possible COPD and CHF
Continue with Lasix
Cardiology believe this is pulmonary in nature, follows up with Dr. Valdivia outpatient. pulmonary following
started on advair
2 episodes of fever
Ua neg, flu,covid neg
Follow fever curve, if persistent will order blood culture and ID evaluation
speech evaluated; ok for regular
#Daily alcohol use
Drinks 12 ounces of wine a day last drink was midnight 07/05/2025
- Cessation advised
#Mechanical valve
INR goal 2.5-3.5 due to mechanical valve
INR daily, currently on hep gtt; coumadin on hold
Cardiology following
#Persistent A-fib
#A-fib ablation September 2023
Coumadin on hold, INR goal 2.5-3.5
INR daily
-Continue diltiazem
Hyponatremia
Monitor
#Recent dysmetria of right upper extremity with Small acute left frontal parietal INFARCT on MRI
#CVA 05/24/2025�small acute left frontal parietal infarct
#Chronic LBBB new singe april 2025
# Medtronic dual-chamber permanent pacemaker 07/25/2020
[place] XT 07/25/2020 [id number], model WD R011
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
#Hypertension
-Continue metoprolol succinate 25 mg twice daily
#Hyperlipidemia
-Continue Crestor 5 mg at bedtime
#NIDDM
Accu-Cheks with SSI, HgbA1c 5.1 on May 2025 admission
- HOLD Januvia 50 mg mg daily
#Chronic CHF
I/O, daily weight
-Continue furosemide 20 mg every 48 hours
#Depression
- Continue Effexor 75 mg twice daily
#COPD
#Former smoker 25 years 1 pack a day quit 1992
Other PMH:
fibromyalgia
mitral regurgitation S/P mitral valve replacement March 2020
hiatal hernia
DVT prophylaxis
INR therapeutic
Full code
I spent a total of 53 minutes with the patient or on the floor. More than 50% of this time involved counseling and coordination of care.
Anticipated Discharge: > 48 hours
Subjective/Interval History
-
Date of Service: July 10, 2025
Denies pain
Objective Data
-
Labs:
Laboratory Results
07/10/25
07:46
WBC 6.5
Hgb 7.7 L
Hct 25.2 L
Plt Count 206
PT 15.2 H
INR 1.17
APTT 83.3 H
Sodium 133 L
Potassium 3.8
Chloride 103
Carbon Dioxide 28
BUN 11
Creatinine 0.8
Glucose 160 H
Calcium 8.5
Vital Signs:
Vital Signs
Temp Pulse Resp BP Pulse Ox
98 F 73 20 138/47 96
07/10/25 11:00 07/10/25 11:00 07/10/25 11:00 07/10/25 11:00 07/10/25 11:00
I&O
07/09/25 07/10/25 07/11/25
06:59 06:59 06:59
Intake Total 2014 1320 / 1320 480 / 480
Balance 2014 1320 / 1320 480 / 480
--- NOTE | 2025-07-10 12:04 | W.PN.CD ---
Today's Communication / Plan
-
heparin gtt
holding warfarin
GI possible egd tomorrow
monitor hgb
Impression / Plan
-
I/P: 80F with severe mitral stenosis status-post [facility] mechanical mitral valve replacement (03/22/20; on warfarin), postoperative pericardial effusion status-post pericardiocentesis, CVA (therapeutic warfarin, 05/2025), paroxysmal atrial
fibrillation/flutter status-post cardioversions (on 06/15/20 and 08/16/23) and subsequent ablation (09/26/2023), tachycardia-bradycardia syndrome status-post MRI conditional Medtronic dual-chamber pacemaker implantation (07/25/20), moderate aortic
stenosis, moderate tricuspid regurgitation, nonobstructive CAD, hypertension, hyperlipidemia, diabetes, COPD/paralyzed vocal cord, obstructive sleep apnea (on home CPAP), and history of Schatzki's ring of distal esophagus presented to the ER with a
chief complaint of shortness of breath.
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 Arevalo
Shortness of breath/COPD/anemia
- Pulmonary consulted.
- Patient states breathing status has improved with supplemental oxygen.
- Hemoglobin dip to 7.7
Anemia, in the setting of GI bleed, severe
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
-monitor Hgb
Severe mitral stenosis status post [facility] mechanical MVR 03/22/2020
- Goal INR 2.5�3.5
- MG on recent echo 3 mmHg
- plan is heparin bridge, which has been started
-monitor Hgb
- holding warfarin given dip in Hgb
Persistent atrial fibrillation
- Apaced today; continues on diltiazem and metoprolol succinate.
- Oral Anticoagulation: Warfarin (mechanical MVR)
- [id number]: score 8 (HTN, age 75 or more, Diabetes Mellitus, prior Stroke/TIA, Vascular disease, female gender)
- heparin bridge
Aortic stenosis, moderate, peak/mean gradient 35/20 mmHg, DAO 1.0 cm�
Tricuspid regurgitation, moderate
CVA, 05/2025, on therapeutic warfarin
Tachycardia-bradycardia syndrome status post Medtronic DC PPM--stable.
LBBB, chronic, stable, normal perfusion on Lexiscan nuclear stress test in April,
Hyperlipidemia, rosuvastatin recently increased in the setting of CVA
Type 2 diabetes, controlled, most recent HgbA1c 5.9%
JENNIFER, on CPAP
DATA:
Transthoracic echocardiogram, 04/01/2025:
CONCLUSIONS
Normal biventricular size and systolic function without regional wall motion
abnormality. Estimated LVEF 50-55%.
Mechanical mitral valve replacement. The mean gradient across the valve is 3
mmHg. No significant mitral regurgitation.
Moderate aortic stenosis. The peak gradient across the valve is 35 mmHg with a
mean of 20 mmHg. Using a LVOT diameter of 1.9 cm, the DAO is 1.0 cm sq.
Moderate tricuspid regurgitation. Mildly elevated PASP. Estimated pulmonary
artery pressure of 45 mmHg assuming a right atrial pressure of 3 mmHg.
Compared to 11/12/23: has progressed from mild/moderate to moderate. PASP has
decreased from 65 mmHg to 45 mmHg.
Physical Exam
Vital Signs/Labs
Vital Signs
Temp Pulse Resp BP Pulse Ox
98 F 73 20 138/47 96
07/10/25 11:00 07/10/25 11:00 07/10/25 11:00 07/10/25 11:00 07/10/25 11:00
07/09/25 07/10/25 07/11/25
06:59 06:59 06:59
Actual Weight 171 lb 3 oz 171 lb 12.8 oz
07/10/25 07:46
07/10/25 07:46
PT 15.2 Sec (11.4-14.6) H 07/10/25 07:46
INR 1.17 07/10/25 07:46
APTT 83.3 Sec (23.4-35.0) H 07/10/25 07:46
07/06/25
11:55
[id number] Pept 682
Physical Exam
Constitutional: No acute distress
EENT: Anicteric
Cardiovascular: Rhythm & rate is regular, Pedal edema is absent and Systolic murmur present
Respiratory: Respiratory effort normal and Lungs clear to auscul.
GI: Soft
Neuro/Psych: Alert and Oriented
Data Reviewed
-
Date of Service: July 10, 2025
EKG: Tracing Personally Visualized and interpreted (sr)
Echo: Report Reviewed by me
Labs: Labs Reviewed by me
[2025-07-10 12:17] LABS: Glucose - Point of Care 273 mg/dl (70-99)
--- NOTE | 2025-07-10 14:22 | W.PN.PUL3 ---
Today's Communication / Plan
-
Remains stable on RA, SOB related to anemia
Continue PPI 40 mg IV BID
Transfusion per team - plan for 1 U PRBC today especially given drop in Hb of 7.7 today
Continue trending H&H s/p transfusion and may need repeat EGD if no appropriate rise � defer to GI
Heparin gtt
Continue inhalers, encouraged OOB/Rehab
OP FU to be scheduled
Discharge planning per team
Assessment
-
80-year-old female past medical history of 80-year-old female past medical history of diabetes, hypertension, paroxysmal atrial fibrillation with pacemaker, mechanical mitral valve on coumadin, HFpEF, hypercholesteremia, mitral regurgitation, hiatal
hernia, COPD, fibromyalgia, depression, chronic bilateral hand numbness, transient GI bleeding in April presenting for shortness of breath. He called cardiology Dr. Arevalo office yesterday to report INR 4.4. Dark stools for the past week. This
has occurred about 3 times in the past. Patient complaining of worsening shortness of breath and slight lower extremity edema. She was recently admitted on 05/26 for dysmetria of right upper extremity. MRI showed small acute left frontoparietal
infarct. She was continued on Coumadin. She was recently admitted earlier in April for transient GI bleeding and underwent EGD which showed small hiatal hernia but no active bleeding. Vital signs normal. Labs showed hemoglobin of 8.8 from 11.5;
INR of 3.33; Cardiac BNP 680. We are consulted for eval of SOB.
Acute on chronic SOB
Acute GIB, history of angioectasia/prior GIB
Supratherapeutic INR
ABLA due to above
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
Chronic obstructive pulmonary disease
Atrial fibrillation
Pulmonary hypertension
Nonrheumatic aortic (valve) stenosis
Obstructive sleep apnea
Pulmonary nodule
Mitral stenosis
Restrictive lung disease
Kyphoscoliosis
History of mitral valve replacement with mechanical valve
Essential (primary) hypertension
Nonischemic cardiomyopathy
Pacemaker/Sick sinus syndrome
Plan
No oxygen was needed on admission, currently saturating 96% on RA
Prior history of lung disease is noted including--
Followed by Dr Valdivia for mild COPD, last seen this past January.
She notes that prior to bleeding she has felt progressive decline in her SOB and function. This is not improved with inhalers.
When she has anemia from GIB her SOB is acutely worsened--gives very clear history regarding this
Suspect patient has multifactorial causes for shortness of breath including COPD, valvular heart disease, cardiomyopathy
She has acute on chronic complaints due to acute blood loss anemia from supratherapeutic INR
CXR/CT obtained indicating mild edema, effusions.
Other imaging reviewed as well
She had prior pulmonary function testing with stable findings of mild obstruction
She does not feel that her shortness of breath is relieved with inhalers
Changed her medications to more daily regiment rather than nebulizers--for easier treatments
I do not think that her pulmonary issues are the largest contributor in this situation in terms of shortness of breath
If there needs to be further evaluation, may consider right heart catheterization as well
Prior ECHO results are reviewed indicating moderate valvular disease
s/p MVR
She is being considered for TAVR but told her degree of cardiomyopathy is not severe enough
proBNP is 682
Her level of dyspnea is out of proportion to the level of her COPD
s/p EGD 07/08: Erosive gastropathy with stigmata of recent bleeding. Hematin (altered blood/dmerkx-hfahwu-bhef material) in the gastric body.
- Atrophic and erythematous mucosa in the gastric body and antrum.
- A few non-bleeding angioectasias in the stomach. Treated with argon plasma coagulation (APC).
- A single recently bleeding angioectasia in the duodenum. Treated with argon plasma coagulation (APC). Injected. Clips were placed.
Hb stable 8.5-8.8 (BL 12.2)
GI following -if further instability seen in hemoglobin then she may get repeat EGD � defer to GI
PPI 40mg IV BID
She has been afebrile since evening of 10/23
Monitor off Abx
Trend WBC and monitor temperature curve
PT/OT
Pulmonary service will continue to follow along
Diagnostic Data
Chest X-Ray:
CXR 07/06/25- 1. Mild interstitial cardiogenic pulmonary edema.
2. Minimal bilateral pleural effusions.
3. Mild cardiomegaly.
4. Previous mitral valve replacement.
5. Severe calcific atherosclerotic plaque in the thoracic and abdominal aorta.
6. Left-sided cardiac pacemaker in place.
CT Scan: CHEST 11/12/23- There are no abnormal pleural or parenchymal masses. There are moderate bilateral pleural effusions. There is moderate bibasilar consolidation. There are moderate bibasilar groundglass opacities concerning for pneumonia. The
mediastinum is normal. There is mild right hilar lymphadenopathy measuring 1.5 cm. There is no axillary lymphadenopathy.
Echo: 04/01/25- Normal biventricular size and systolic function without regional wall motion abnormality. Estimated LVEF 50-55%. Mechanical mitral valve replacement. The mean gradient across the valve is 3 mmHg. No significant mitral regurgitation.
Moderate aortic stenosis. The peak gradient across the valve is 35 mmHg with a mean of 20 mmHg. Using a LVOT diameter of 1.9 cm, the DAO is 1.0 cm sq. Moderate tricuspid regurgitation. Mildly elevated PASP. Estimated pulmonary artery pressure of
45 mmHg assuming a right atrial pressure of 3 mmHg. Compared to 11/12/23: has progressed from mild/moderate to moderate. PASP has decreased from 65 mmHg to 45 mmHg.
PFT's:
Reports and relevant images were personally reviewed.
Total time spent on this consultation __51__ minutes which includes review of history, physical exam, medications, laboratory data, personal review of imaging, extensive review of outpatient records, discussion with care team and respiratory therapy.
Subjective Data
-
Date of Service:
Date of Service: July 10, 2025
Chief Complaint: Pulmonary Follow Up
Subjective:
Afebrile overnight. No acute events reported from overnight. In no acute distress
Review of Systems
General: Other (Negative unless mentioned above)
Objective Data
Data Reviewed
Vital Signs / I&O / Oxygen:
Vital Signs
Temp Pulse Resp BP Pulse Ox
98.7 F 97 16 123/59 99
07/10/25 07:00 07/10/25 07:17 07/10/25 07:17 07/10/25 07:00 07/10/25 07:17
Intake and Output
07/09/25 07/10/25 07/11/25
06:59 06:59 06:59
Intake Total 2014 1320 / 1320 480 / 480
Balance 2014 1320 / 1320 480 / 480
SaO2 99
Nasal Cannula flow liters per 2
minute
Physical Exam
General: Comfortable and Other (NAD)
HEENT: Normocephalic, Anicteric and Moist Mucous Membranes
Cardiovascular: S1-S2 and Regular Rhythm
Respiratory: Clear and Non-Labored Respirations
GI: Soft, Non Distended and Non Tender
Neurology: Awake, Alert, Oriented and No Motor Deficits
Skin: Warm, Dry and Good Color
Labs/Micro/Reports
Lab Data
07/10/25 07:46
07/10/25 07:46
Laboratory Results
07/09/25 07/10/25
10:06 07:46
PT 16.4 H 15.2 H
INR 1.30 1.17
APTT 81.8 H 83.3 H
Microbiology
07/08/25 11:53 Nasal Swab Influenza Types A & B (JUAN) - Final
Negative for Influenza A & B, NAAT
Negative results must be combined with clinical observations
and patient history.
Nucleic Acid Amplification test (NAAT)performed on the
[employer] platform.
[2025-07-10 16:25] LABS: Glucose - Point of Care 253 mg/dl (70-99)
[2025-07-10] MEDS: THERAGRAN 1 TABLET PO (18:45)
[2025-07-10] MEDS: VALTREX 500 MG PO (18:45)
--- NOTE | 2025-07-10 19:59 | PTCARENOTE ---
Assumed care of patient from previous RN, patient is s/p 1 unit PRBCs today, no complaints at this time and is alert and oriented. Heparin drip is maintained at 950 units/hour with next PTT to be drawn 07/11 0600am, was therapeutic today. Call rice
is in reach, will monitor.
[2025-07-10 21:06] LABS: Glucose - Point of Care 285 mg/dl (70-99)
[2025-07-10] MEDS: LOW STRENGTH ASPIRIN 81 MG PO (21:14)
[2025-07-10] MEDS: B COMPLEX w/VITAMIN C 1 CAPLET PO (21:16)
[2025-07-10] MEDS: OSCAL 500 + D 500 MG PO (21:16)
[2025-07-10] MEDS: CRESTOR 10 MG PO (21:16)
[2025-07-10] MEDS: HEPARIN 25000 UNITS/250 ML IV (23:19)
[2025-07-11] VITALS (8 sets, daily range): BP systolic 113–147; BP diastolic 51–57; PULSE 68; BMI 27.8
[2025-07-11 05:52] LABS: Glucose - Point of Care 191 mg/dl (70-99)
[2025-07-11 07:13] LABS: INR 1.06; PT 14.1 Sec (11.4-14.6)
[2025-07-11 07:14] LABS: APTT 65.8 Sec (23.4-35.0)
[2025-07-11 07:22] LABS: Hematocrit 29.1 % (37.0-47.0); Hemoglobin 9.1 g/dL (12.0-16.0); Mean Corp Hgb Conc. 31.3 g/dL (33.0-37.0); Mean Corpuscular Volume 86.6 fL (81.0-99.0); Nucleated Red Blood Cells % 0 %; Platelet Count 229 10^3/uL (130-400); Red Cell Dist. Width 15.3 % (11.5-14.5)
[2025-07-11 07:30] LABS: Blood Urea Nitrogen 11 mg/dl (7-17); Calcium 8.5 mg/dl (8.4-10.2); Carbon Dioxide 29 mmol/L (22-30); Chloride 107 mmol/L (98-107); Estimated Creatinine Clearance 69 ml/min; Glucose 180 mg/dl (70-99); Potassium 4.0 mmol/L (3.5-5.1); Sodium 135 mmol/L (135-145); eGFR > 60.00
[2025-07-11] MEDS: ADVAIR HFA 45/21 MCG INHALER INH (07:47)
[2025-07-11] MEDS: NSS (PRESERVATIVE FREE) 10 ML IV ×2 (08:24→21:00)
[2025-07-11] MEDS: VITAMIN B-12 1000 MCG PO (08:25)
[2025-07-11] MEDS: PROTONIX IV 40 MG IV ×2 (08:25→21:00)
[2025-07-11] MEDS: ROBITUSSIN 400 MG PO ×2 (08:25→21:00)
[2025-07-11] MEDS: VITAMIN C 500 MG PO (08:25)
[2025-07-11] MEDS: EFFEXOR XR 37.5 MG PO ×2 (08:25→21:00)
[2025-07-11] MEDS: VITAMIN D3 (cholecalciferol) 50 MCG PO (08:25)
[2025-07-11] MEDS: TOPROL XL 25 MG PO ×2 (08:25→21:00)
[2025-07-11] MEDS: CARDIZEM CD 240 MG PO ×2 (08:26→21:00)
--- NOTE | 2025-07-11 11:16 | W.PN.HOSP.TC ---
Today's Communication/Plan
-
Monitor vitals
See plan
EGD today
Continue with IV heparin
Coumadin when okay with GI
Monitor INR
Assessment / Plan
Assessment / Plan
General: Comfortable and Conversant; No Pain, Fever or Chills
HEENT: NormoCephalic, Anicteric, Moist mucous membranes, PERRLA, [place] Conjunctivae and No Ptosis
Respiratory: Clear; + wheezing
Cardiac: S1/S2 and Other (Paced on monitor); No Murmur, Rub, Gallop or Peripheral Edema
GI: Soft, Non Tender, Non Distended, Normal Bowel Sounds
Musculoskeletal: No Edema
Neuro: AO x 3, No Motor Deficits, Nonfocal/grossly intact
Psych: calm
Symptomatic anemia concern for recurrent Transient GI bleed likely 2/2 Angioectesia with supratherapeutic INR on Coumadin
#History of transient GI bleed on Coumadin 04/28 - 04/29/2025 self resolved(had prior admissions October, November, and January for same)
#hx Schatzki's ring of distal esophagus
- INR was 4.4 07/05/2025 patient took Coumadin 5 mg
INR now 1.06; s/p EGD 07/08 with AVM. currently on hep gtt; restart coumadin when ok with GI
Continue with Protonix
Hemoglobin 7.7 07/10, status post 1 unit PRBC. Hemoglobin now 9.1. plan for repeat EGD per GI 07/11.
Esophagogastroduodenoscopy 04/29/25
- Small hiatal hernia.
- Normal stomach.
- Normal examined duodenum.
- No specimens collected.
#Dyspnea likely multifactorial 2/2 to anemia with possible COPD and CHF
Continue with Lasix
Cardiology believe this is pulmonary in nature, follows up with Dr. Valdivia outpatient. pulmonary following
started on advair
2 episodes of fever
Ua neg, flu,covid neg
Follow fever curve, if persistent will order blood culture and ID evaluation
speech evaluated; ok for regular
#Daily alcohol use
Drinks 12 ounces of wine a day last drink was midnight 07/05/2025
- Cessation advised
#Mechanical valve
INR goal 2.5-3.5 due to mechanical valve
INR daily, currently on hep gtt; coumadin on hold
Cardiology following
#Persistent A-fib
#A-fib ablation September 2023
Coumadin on hold, INR goal 2.5-3.5
INR daily
-Continue diltiazem
Hyponatremia
Monitor
#Recent dysmetria of right upper extremity with Small acute left frontal parietal INFARCT on MRI
#CVA 05/24/2025�small acute left frontal parietal infarct
#Chronic LBBB [place] april 2025
# Medtronic dual-chamber permanent pacemaker 07/25/2020
[facility] XT 07/25/2020 [id number], model WD R011
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
#Hypertension
-Continue metoprolol succinate 25 mg twice daily
#Hyperlipidemia
-Continue Crestor 5 mg at bedtime
#NIDDM
Accu-Cheks with SSI, HgbA1c 5.1 on May 2025 admission
- HOLD Januvia 50 mg mg daily
#Chronic CHF
I/O, daily weight
-Continue furosemide 20 mg every 48 hours
#Depression
- Continue Effexor 75 mg twice daily
#COPD
#Former smoker 25 years 1 pack a day quit 1992
Other PMH:
fibromyalgia
mitral regurgitation S/P mitral valve replacement March 2020
hiatal hernia
DVT prophylaxis
INR therapeutic
Full code
I spent a total of 52 minutes with the patient or on the floor. More than 50% of this time involved counseling and coordination of care.
Anticipated Discharge: > 48 hours
Subjective/Interval History
-
Date of Service: July 11, 2025
Denies nausea
Objective Data
-
Labs:
Laboratory Results
07/11/25
06:54
WBC 6.6
Hgb 9.1 L
Hct 29.1 L
Plt Count 229
PT 14.1
INR 1.06
APTT 65.8 H
Sodium 135
Potassium 4.0
Chloride 107
Carbon Dioxide 29
BUN 11
Creatinine 0.7
Glucose 180 H
Calcium 8.5
Vital Signs:
Vital Signs
Temp Pulse Resp BP Pulse Ox
100.2 F 68 18 113/53 92
07/11/25 11:00 07/11/25 11:00 07/11/25 11:00 07/11/25 11:00 07/11/25 11:00
I&O
07/10/25 07/11/25 07/12/25
06:59 06:59 06:59
Intake Total 1320 / 1320 1210 / 1210
Balance 1320 / 1320 1210 / 1210
--- NOTE | 2025-07-11 11:54 | W.PN.GI.CBS2 ---
Today's Communication / Plan
-
Hgb increased from 7.7 to 9.1 after 1 unit PRBC yesterday
This is appropriate increase arguing against ongoing bleeding
Will resume diet today
Check CBC in AM and if stable, ok to resume coumadin
If drop in Hgb will do EGD tomorrow after holding heparin gtt
I believe bleeding has stopped
Assessment / Plan
-
Summary: 80-year-old female with severe mitral stenosis status post mechanical valve replacement in 2019 on warfarin, paroxysmal atrial fibrillation and flutter status post cardioversion in 2020, tachybradycardia syndrome status post dual-chamber
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
infectious colitis presents to ER with worsening of chronic shortness of breath. She was noted with hbg 8.8 with normal BUN. down from 11.5 on 05/25 . She also reports black stools several days last week. In review of records pt was admitted in
2023 with bright red blood per rectum and completed colonoscopy with diverticulosis and internal hemorrhoids. She was then admitted on April 2025 and had enteroscopy 04/2025- small HH, normal stomach, duodenum. Last EGD 2013 with non obstructing
Schatzki's ring, HH, normal stomach and duodenum with neg biopsy. Colonoscopy: 2023 Dr. Samaniego adequate prep diverticulosis and internal hemorrhoids.
07/08/24 EGD- Hematin in gastric body. Few nonbleeding AVMs stomach cauterized w APC. Single recently bleeding AVM duodenal bulb with associated clot cauterized w APC and injected w epi, cliipped x 3
Impression:
UGIB due to gastric/duodenal ectasias s/p cautery
-schatzki's ring with prior dilation
-severe mitral stenosis status post mechanical valve replacement in 2019 on warfarin
-vocal cord paralysis and hx difficulty intubation
other med problems:
-hx colitis
- paroxysmal atrial fibrillation and flutter status post cardioversion in 2019
- tachybradycardia syndrome status post dual-chamber pacemaker
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
-COPD
-sleep apnea on CPAP
panc divisum anatomy per imaging
Subjective
Subjective
Date of Service: July 11, 2025
NO complaints
Objective
Data Reviewed
Laboratory Data:
Laboratory Results
07/11/25 06:54
07/11/25 06:54
Laboratory Results
PT 14.1 Sec (11.4-14.6) 07/11/25 06:54
INR 1.06 07/11/25 06:54
APTT 65.8 Sec (23.4-35.0) H 07/11/25 06:54
Total Bilirubin 0.5 mg/dl (0.2-1.3) 07/07/25 07:24
AST 23 U/L (14-36) 07/07/25 07:24
ALT 18 U/L (0-35) 07/07/25 07:24
Alkaline Phosphatase 60 U/L (38-126) 07/07/25 07:24
Vital Signs and I&O:
Vital Signs
Temp Pulse Resp BP Pulse Ox
100.2 F 68 18 113/53 92
07/11/25 11:00 07/11/25 11:00 07/11/25 11:00 07/11/25 11:00 07/11/25 11:00
I&O
07/10/25 07/11/25 07/12/25
06:59 06:59 06:59
Intake Total 1320 / 1320 1210 / 1210
Balance 1320 / 1320 1210 / 1210
Physical Exam
Physical Exam
GI: Soft, Non Distended and Non Tender
[2025-07-11 12:00] LABS: Glucose - Point of Care 186 mg/dl (70-99)
--- NOTE | 2025-07-11 12:32 | W.PN.CD ---
Today's Communication / Plan
-
Resume warfarin when OK from GI perspective
Impression / Plan
-
I/P: 80F with severe mitral stenosis status-post [facility] mechanical mitral valve replacement (03/22/20; on warfarin), postoperative pericardial effusion status-post pericardiocentesis, CVA (therapeutic warfarin, 05/2025), paroxysmal atrial
fibrillation/flutter status-post cardioversions (on 06/15/20 and 08/16/23) and subsequent ablation (09/26/2023), tachycardia-bradycardia syndrome status-post MRI conditional Medtronic dual-chamber pacemaker implantation (07/25/20), moderate aortic
stenosis, moderate tricuspid regurgitation, nonobstructive CAD, hypertension, hyperlipidemia, diabetes, COPD/paralyzed vocal cord, obstructive sleep apnea (on home CPAP), and history of Schatzki's ring of distal esophagus presented to the ER with a
chief complaint of shortness of breath.
Outpatient pond supervisor: Dr. Arevalo
Shortness of breath/COPD/anemia
- Pulmonary consulted.
- Patient states breathing status has improved with supplemental oxygen.
- Hemoglobin dip to 7.7
Anemia, in the setting of GI bleed, severe
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
-monitor Hgb
Severe mitral stenosis status post [facility] mechanical MVR 03/22/2020
- Goal INR 2.5�3.5
- MG on recent echo 3 mmHg
- plan is heparin bridge, which has been started
-monitor Hgb
- holding warfarin in light of Hgb drops; resume warfarin once OK from GI perspective
Persistent atrial fibrillation
- Apaced today; continues on diltiazem and metoprolol succinate.
- Oral Anticoagulation: Warfarin (mechanical MVR)
- [id number]: score 8 (HTN, age 75 or more, Diabetes Mellitus, prior Stroke/TIA, Vascular disease, female gender)
- heparin bridge
Aortic stenosis, moderate, peak/mean gradient 35/20 mmHg, DAO 1.0 cm�
Tricuspid regurgitation, moderate
CVA, 05/2025, on therapeutic warfarin
Tachycardia-bradycardia syndrome status post Medtronic DC PPM--stable.
LBBB, chronic, stable, normal perfusion on Lexiscan nuclear stress test in April,
Hyperlipidemia, rosuvastatin recently increased in the setting of CVA
Type 2 diabetes, controlled, most recent HgbA1c 5.9%
JENNIFER, on CPAP
Subjective: Breathing better
DATA:
Transthoracic echocardiogram, 04/01/2025:
CONCLUSIONS
Normal biventricular size and systolic function without regional wall motion
abnormality. Estimated LVEF 50-55%.
Mechanical mitral valve replacement. The mean gradient across the valve is 3
mmHg. No significant mitral regurgitation.
Moderate aortic stenosis. The peak gradient across the valve is 35 mmHg with a
mean of 20 mmHg. Using a LVOT diameter of 1.9 cm, the DAO is 1.0 cm sq.
Moderate tricuspid regurgitation. Mildly elevated PASP. Estimated pulmonary
artery pressure of 45 mmHg assuming a right atrial pressure of 3 mmHg.
Compared to 11/12/23: has progressed from mild/moderate to moderate. PASP has
decreased from 65 mmHg to 45 mmHg.
Physical Exam
Vital Signs/Labs
Vital Signs
Temp Pulse Resp BP Pulse Ox
100.2 F 68 18 113/53 92
07/11/25 11:00 07/11/25 11:00 07/11/25 11:00 07/11/25 11:00 07/11/25 11:00
07/10/25 07/11/25 07/12/25
06:59 06:59 06:59
Actual Weight 171 lb 12.8 oz 172 lb 11.2 oz
07/11/25 06:54
07/11/25 06:54
PT 14.1 Sec (11.4-14.6) 07/11/25 06:54
INR 1.06 07/11/25 06:54
APTT 65.8 Sec (23.4-35.0) H 07/11/25 06:54
07/06/25
11:55
Xnx-X-Loelgedrveh Pept 682
Physical Exam
Constitutional: No acute distress
EENT: Anicteric
Cardiovascular: Rhythm & rate is regular, Systolic murmur present and Other (mechanical click)
Respiratory: Respiratory effort normal and Lungs clear to auscul.
GI: Soft
Neuro/Psych: Alert and Oriented
Data Reviewed
-
Date of Service: July 11, 2025
Medical Decision Making: Reviewed Test Results
EKG: Tracing Personally Visualized and interpreted (sr)
Echo: Report Reviewed by me
Labs: Labs Reviewed by me
--- NOTE | 2025-07-11 14:22 | W.PN.PUL3 ---
Today's Communication / Plan
-
SOB related to anemia; currently on 2 L/min nasal cannula, continue weaning down as clinically tolerated
Continue PPI 40 mg IV BID
Transfusion per team - s/p 1 U PRBC on 07/10 with rise of hemoglobin from 7.7 to 9.1
Continue trending H&H s/p transfusion and may need repeat EGD if no appropriate rise � defer to GI
Heparin gtt
Will DC inhalers as she feels worse with her breathing when she gets them; Encouraged OOB/Rehab
OP FU to be scheduled
Continue CPAP with sleep
Discharge planning per team
Pulmonary service will continue to briefly follow along
Assessment
-
80-year-old female past medical history of 80-year-old female past medical history of diabetes, hypertension, paroxysmal atrial fibrillation with pacemaker, mechanical mitral valve on coumadin, HFpEF, hypercholesteremia, mitral regurgitation, hiatal
hernia, COPD, fibromyalgia, depression, chronic bilateral hand numbness, transient GI bleeding in April presenting for shortness of breath. He called cardiology Dr. Arevalo office yesterday to report INR 4.4. Dark stools for the past week. This
has occurred about 3 times in the past. Patient complaining of worsening shortness of breath and slight lower extremity edema. She was recently admitted on 05/26 for dysmetria of right upper extremity. MRI showed small acute left frontoparietal
infarct. She was continued on Coumadin. She was recently admitted earlier in April for transient GI bleeding and underwent EGD which showed small hiatal hernia but no active bleeding. Vital signs normal. Labs showed hemoglobin of 8.8 from 11.5;
INR of 3.33; Cardiac BNP 680. We are consulted for eval of SOB.
Acute on chronic SOB
Acute GIB, history of angioectasia/prior GIB
Supratherapeutic INR
ABLA due to above
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
Chronic obstructive pulmonary disease
Atrial fibrillation
Pulmonary hypertension
Nonrheumatic aortic (valve) stenosis
Obstructive sleep apnea
Pulmonary nodule
Mitral stenosis
Restrictive lung disease
Kyphoscoliosis
History of mitral valve replacement with mechanical valve
Essential (primary) hypertension
Nonischemic cardiomyopathy
Pacemaker/Sick sinus syndrome
Plan
No oxygen was needed on admission, although now on 2 L/min nasal cannula, saturating 96%
Prior history of lung disease is noted including--
Followed by Dr Valdivia for mild COPD, last seen this past January.
She notes that prior to bleeding she has felt progressive decline in her SOB and function. This is not improved with inhalers.
When she has anemia from GIB her SOB is acutely worsened--gives very clear history regarding this
Suspect patient has multifactorial causes for shortness of breath including COPD, valvular heart disease, cardiomyopathy
She has acute on chronic complaints due to acute blood loss anemia from supratherapeutic INR
CXR/CT obtained indicating mild edema, effusions.
Other imaging reviewed as well
She had prior pulmonary function testing with stable findings of mild obstruction
She does not feel that her shortness of breath is relieved with inhalers
Dr. Gunderson had changed her medications to more daily regiment rather than nebulizers--for easier treatments , but again this made her breathing worse and she does not want to take any inhalers at all.
I will DC Advair and make DuoNebs prn
I do not think that her pulmonary issues are the largest contributor in this situation in terms of shortness of breath
If there needs to be further evaluation, may consider right heart catheterization as well
Prior ECHO results are reviewed indicating moderate valvular disease
s/p MVR
She is being considered for TAVR but told her degree of cardiomyopathy is not severe enough
proBNP is 682
Her level of dyspnea is out of proportion to the level of her COPD
s/p EGD 07/08: Erosive gastropathy with stigmata of recent bleeding. Hematin (altered blood/bebjvq-yhruqy-tcan material) in the gastric body.
- Atrophic and erythematous mucosa in the gastric body and antrum.
- A few non-bleeding angioectasias in the stomach. Treated with argon plasma coagulation (APC).
- A single recently bleeding angioectasia in the duodenum. Treated with argon plasma coagulation (APC). Injected. Clips were placed.
Hb stable 8.5-8.8 (BL 12.2)
GI following -if further instability seen in hemoglobin then she may get repeat EGD � defer to GI
PPI 40mg IV BID
She has been afebrile since evening of 07/08
Monitor off Abx
Trend WBC and monitor temperature curve
Continue CPAP with sleep
PT/OT
Pulmonary service will continue to briefly follow along
Diagnostic Data
Chest X-Ray:
CXR 07/06/25- 1. Mild interstitial cardiogenic pulmonary edema.
2. Minimal bilateral pleural effusions.
3. Mild cardiomegaly.
4. Previous mitral valve replacement.
5. Severe calcific atherosclerotic plaque in the thoracic and abdominal aorta.
6. Left-sided cardiac pacemaker in place.
CT Scan: CHEST 11/12/23- There are no abnormal pleural or parenchymal masses. There are moderate bilateral pleural effusions. There is moderate bibasilar consolidation. There are moderate bibasilar groundglass opacities concerning for pneumonia. The
mediastinum is normal. There is mild right hilar lymphadenopathy measuring 1.5 cm. There is no axillary lymphadenopathy.
Echo: 04/01/25- Normal biventricular size and systolic function without regional wall motion abnormality. Estimated LVEF 50-55%. Mechanical mitral valve replacement. The mean gradient across the valve is 3 mmHg. No significant mitral regurgitation.
Moderate aortic stenosis. The peak gradient across the valve is 35 mmHg with a mean of 20 mmHg. Using a LVOT diameter of 1.9 cm, the DAO is 1.0 cm sq. Moderate tricuspid regurgitation. Mildly elevated PASP. Estimated pulmonary artery pressure of
45 mmHg assuming a right atrial pressure of 3 mmHg. Compared to 11/12/23: has progressed from mild/moderate to moderate. PASP has decreased from 65 mmHg to 45 mmHg.
Reports and relevant images were personally reviewed.
Total time spent on this consultation __38__ minutes which includes review of history, physical exam, medications, laboratory data, personal review of imaging, extensive review of outpatient records, discussion with care team and respiratory therapy.
Subjective Data
-
Date of Service:
Date of Service: July 11, 2025
Chief Complaint: Pulmonary Follow Up
Subjective:
Patient seen today at bedside (late note entry). Feels like the inhalers are making her more short of breath and she feels better with her breathing when out taking them. Currently on 2 L/min nasal cannula, breathing comfortably. Afebrile
overnight.
Review of Systems
General: Other (Negative unless mentioned above)
Objective Data
Data Reviewed
Vital Signs / I&O / Oxygen:
Vital Signs
Temp Pulse Resp BP Pulse Ox
99.7 F 66 18 145/51 92
07/11/25 03:31 07/11/25 03:31 07/11/25 03:31 07/11/25 03:31 07/11/25 03:31
Intake and Output
07/10/25 07/11/25 07/12/25
06:59 06:59 06:59
Intake Total 1320 / 1320 1210 / 1210
Balance 1320 / 1320 1210 / 1210
SaO2 92
Nasal Cannula flow liters per 2
minute
Physical Exam
General: Respiratory Distress (negative), Comfortable and Other (NAD)
HEENT: Normocephalic, Anicteric and Moist Mucous Membranes
Cardiovascular: S1-S2, Regular Rhythm, Murmur (KAIT heard at RUSB, class IV/) and Peripheral Edema (negative)
Respiratory: Clear, Wheeze (negative), Crackles (negative), Rhonchi (negative) and Non-Labored Respirations
GI: Soft, Non Distended and Non Tender
Neurology: Awake, Alert, Oriented and No Motor Deficits
Skin: Warm, Dry and Good Color
Labs/Micro/Reports
Lab Data
07/11/25 06:54
07/11/25 06:54
Laboratory Results
07/10/25 07/11/25
07:46 06:54
PT 15.2 H 14.1
INR 1.17 1.06
APTT 83.3 H 65.8 H
Microbiology
07/08/25 11:53 Nasal Swab Influenza Types A & B (JUAN) - Final
Negative for Influenza A & B, NAAT
Negative results must be combined with clinical observations
and patient history.
Nucleic Acid Amplification test (NAAT)performed on the
Back[employer] platform.
[2025-07-11 16:47] LABS: Glucose - Point of Care 223 mg/dl (70-99)
[2025-07-11] MEDS: VALTREX 500 MG PO (17:12)
[2025-07-11] MEDS: THERAGRAN 1 TABLET PO (17:12)
[2025-07-11] MEDS: LOW STRENGTH ASPIRIN 81 MG PO (21:00)
[2025-07-11] MEDS: B COMPLEX w/VITAMIN C 1 CAPLET PO (21:00)
[2025-07-11] MEDS: CRESTOR 10 MG PO (21:00)
[2025-07-11] MEDS: OSCAL 500 + D 500 MG PO (21:00)
[2025-07-11 22:04] LABS: Glucose - Point of Care 226 mg/dl (70-99)
[2025-07-12] VITALS (7 sets, daily range): BP systolic 96–156; BP diastolic 42–75; PULSE 69; BMI 27.6
[2025-07-12] MEDS: HEPARIN 25000 UNITS/250 ML IV (01:47)
[2025-07-12 07:42] LABS: Hematocrit 28.3 % (37.0-47.0); Hemoglobin 8.8 g/dL (12.0-16.0); Mean Corp Hgb Conc. 31.1 g/dL (33.0-37.0); Mean Corpuscular Volume 86.5 fL (81.0-99.0); Nucleated Red Blood Cells % 0 %; Platelet Count 237 10^3/uL (130-400); Red Cell Dist. Width 15.6 % (11.5-14.5)
[2025-07-12 07:44] LABS: INR 1.04; PT 13.9 Sec (11.4-14.6)
[2025-07-12 08:19] LABS: Blood Urea Nitrogen 10 mg/dl (7-17); Calcium 8.6 mg/dl (8.4-10.2); Carbon Dioxide 28 mmol/L (22-30); Chloride 107 mmol/L (98-107); Estimated Creatinine Clearance 69 ml/min; Glucose 169 mg/dl (70-99); Potassium 3.8 mmol/L (3.5-5.1); Sodium 136 mmol/L (135-145); eGFR > 60.00
--- NOTE | 2025-07-12 08:25 | W.PN.CD ---
Today's Communication / Plan
-
- Slight dip in hemoglobin from 9.1 to 8.8; await GI input.
- Currently on a heparin bridge
- Holding warfarin; resume warfarin once OK from GI perspective.
Impression / Plan
-
I/P: 80F with severe mitral stenosis status-post [facility] mechanical mitral valve replacement (03/22/20; on warfarin), postoperative pericardial effusion status-post pericardiocentesis, CVA (therapeutic warfarin, 05/2025), paroxysmal atrial
fibrillation/flutter status-post cardioversions (on 06/15/20 and 08/16/23) and subsequent ablation (09/26/2023), tachycardia-bradycardia syndrome status-post MRI conditional Medtronic dual-chamber pacemaker implantation (07/25/20), moderate aortic
stenosis, moderate tricuspid regurgitation, nonobstructive CAD, hypertension, hyperlipidemia, diabetes, COPD/paralyzed vocal cord, obstructive sleep apnea (on home CPAP), and history of Schatzki's ring of distal esophagus presented to the ER with a
chief complaint of shortness of breath.
Outpatient counselling psychologist: Dr. Arevalo
Shortness of breath/COPD/anemia
- Pulmonary consulted.
- Patient states breathing status has improved with supplemental oxygen.
Anemia, in the setting of GI bleed, severe
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
- Slight dip in hemoglobin from 9.1 to 8.8; await GI input.
Severe mitral stenosis status post [facility] [employer] mechanical MVR 03/22/2020
- Goal INR 2.5�3.5
- MG on recent echo 3 mmHg
- Currently on a heparin bridge
- Holding warfarin; resume warfarin once OK from GI perspective.
Persistent atrial fibrillation
- Apaced today; continues on diltiazem and metoprolol succinate.
- Oral Anticoagulation: Warfarin (mechanical MVR)
- [id number]: score 8 (HTN, age 75 or more, Diabetes Mellitus, prior Stroke/TIA, Vascular disease, female gender)
- Heparin bridge as above.
Aortic stenosis, moderate, peak/mean gradient 35/20 mmHg, DAO 1.0 cm�
Tricuspid regurgitation, moderate
CVA, 05/2025, on therapeutic warfarin
Tachycardia-bradycardia syndrome status post Medtronic DC PPM--stable.
LBBB, chronic, stable, normal perfusion on Lexiscan nuclear stress test in April,
Hyperlipidemia, rosuvastatin recently increased in the setting of CVA
Type 2 diabetes, controlled, most recent HgbA1c 5.9%
JENNIFER, on CPAP
DATA:
Transthoracic echocardiogram, 04/01/2025:
CONCLUSIONS
Normal biventricular size and systolic function without regional wall motion
abnormality. Estimated LVEF 50-55%.
Mechanical mitral valve replacement. The mean gradient across the valve is 3
mmHg. No significant mitral regurgitation.
Moderate aortic stenosis. The peak gradient across the valve is 35 mmHg with a
mean of 20 mmHg. Using a LVOT diameter of 1.9 cm, the DAO is 1.0 cm sq.
Moderate tricuspid regurgitation. Mildly elevated PASP. Estimated pulmonary
artery pressure of 45 mmHg assuming a right atrial pressure of 3 mmHg.
Compared to 11/12/23: has progressed from mild/moderate to moderate. PASP has
decreased from 65 mmHg to 45 mmHg.
Physical Exam
Vital Signs/Labs
Vital Signs
Temp Pulse Resp BP Pulse Ox
98.3 F 85 14 128/75 98
07/12/25 07:46 07/12/25 07:46 07/12/25 07:46 07/12/25 07:46 07/12/25 07:46
07/11/25 07/12/25 07/13/25
06:59 06:59 06:59
Actual Weight 78.335 kg 77.836 kg
07/12/25 06:46
07/12/25 06:46
PT 13.9 Sec (11.4-14.6) 07/12/25 06:46
INR 1.04 07/12/25 06:46
APTT Cancelled 07/12/25 07:45
07/06/25
11:55
Yld-F-Xavclqovuci Pept 682
Physical Exam
Constitutional: No acute distress and Comfortable
EENT: Anicteric
Cardiovascular: Pedal edema is absent, Rhythm/rate is irregular, Systolic murmur present (2/) and Other (Mechanical S1/S2)
Respiratory: Respiratory effort normal and Lungs clear to auscul.
GI: Soft
Neuro/Psych: AO x 3
Other: Skin (Warm, dry, intact)
Data Reviewed
-
Date of Service: July 12, 2025
EKG: Tracing Personally Visualized and interpreted (Telemetry: Sinus rhythm, paced rhythm)
Medical Tests (PFT, Pathology etc): Discussed with Patient
Labs: Labs Reviewed by me
[2025-07-12 08:26] LABS: APTT 56.2 Sec (23.4-35.0)
[2025-07-12] MEDS: CARDIZEM CD 240 MG PO ×2 (08:54→21:06)
[2025-07-12] MEDS: ROBITUSSIN 400 MG PO ×2 (08:54→21:06)
[2025-07-12] MEDS: VITAMIN C 500 MG PO (08:54)
[2025-07-12] MEDS: VITAMIN D3 (cholecalciferol) 50 MCG PO (08:55)
[2025-07-12] MEDS: TOPROL XL 25 MG PO ×2 (08:55→21:07)
[2025-07-12] MEDS: PROTONIX IV 40 MG IV ×2 (08:55→21:07)
[2025-07-12] MEDS: VITAMIN B-12 1000 MCG PO (08:55)
[2025-07-12] MEDS: NSS (PRESERVATIVE FREE) 10 ML IV ×2 (08:55→21:07)
[2025-07-12] MEDS: EFFEXOR XR 37.5 MG PO ×2 (08:55→21:07)
[2025-07-12] MEDS: LASIX 20 MG PO (08:58)
[2025-07-12 09:01] LABS: Glucose - Point of Care 175 mg/dl (70-99)
--- NOTE | 2025-07-12 09:18 | W.PN.GI.CBS2 ---
Today's Communication / Plan
-
Hgb 8.8 from 9.1 yesterday. No signs of bleeding
Will hold off on EGD. Resume diet
OK to restart coumadin
Will sign off. Please call back if needed
Assessment / Plan
-
Summary: 80-year-old female with severe mitral stenosis status post mechanical valve replacement in 2019 on warfarin, paroxysmal atrial fibrillation and flutter status post cardioversion in 2020, tachybradycardia syndrome status post dual-chamber
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
infectious colitis presents to ER with worsening of chronic shortness of breath. She was noted with hbg 8.8 with normal BUN. down from 11.5 on 05/25 . She also reports black stools several days last week. In review of records pt was admitted in
2023 with bright red blood per rectum and completed colonoscopy with diverticulosis and internal hemorrhoids. She was then admitted on April 2025 and had enteroscopy 04/2025- small HH, normal stomach, duodenum. Last EGD 2013 with non obstructing
Schatzki's ring, HH, normal stomach and duodenum with neg biopsy. Colonoscopy: [address]23 Dr. Samaniego adequate prep diverticulosis and internal hemorrhoids.
07/08/25 EGD- Hematin in gastric body. Few nonbleeding AVMs stomach cauterized w APC. Single recently bleeding AVM duodenal bulb with associated clot cauterized w APC and injected w epi, cliipped x 3
07/10/25 1 unit PRBC
Impression:
UGIB due to gastric/duodenal ectasias s/p cautery
-schatzki's ring with prior dilation
-severe mitral stenosis status post mechanical valve replacement in 2019 on warfarin
-vocal cord paralysis and hx difficulty intubation
other med problems:
-hx colitis
- paroxysmal atrial fibrillation and flutter status post cardioversion in 2020
- tachybradycardia syndrome status post dual-chamber pacemaker
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
-COPD
-sleep apnea on CPAP
panc divisum anatomy per imaging
Subjective
Subjective
Date of Service: July 12, 2025
No complaints
Objective
Data Reviewed
Laboratory Data:
Laboratory Results
07/12/25 06:46
07/12/25 06:46
Laboratory Results
PT 13.9 Sec (11.4-14.6) 07/12/25 06:46
INR 1.04 07/12/25 06:46
APTT Cancelled 07/12/25 07:45
Total Bilirubin 0.5 mg/dl (0.2-1.3) 07/07/25 07:24
AST 23 U/L (14-36) 07/07/25 07:24
ALT 18 U/L (0-35) 07/07/25 07:24
Alkaline Phosphatase 60 U/L (38-126) 07/07/25 07:24
Vital Signs and I&O:
Vital Signs
Temp Pulse Resp BP Pulse Ox
98.3 F 85 14 128/75 98
07/12/25 07:46 07/12/25 08:58 07/12/25 07:46 07/12/25 08:58 07/12/25 07:46
I&O
07/11/25 07/12/25 07/13/25
06:59 06:59 06:59
Intake Total 1210 / 1210 2160 / 2160
Balance 1210 / 1210 2160 / 2160
Physical Exam
Physical Exam
GI: Soft, Non Distended and Non Tender
[2025-07-12] MEDS: NOVOLOG FLEXPEN-LOW RESISTANCE SC ×3 (09:49→17:15)
--- NOTE | 2025-07-12 10:23 | W.PN.PUL3 ---
Today's Communication / Plan
-
- Continue nightly CPAP as ordered
- THOMSON Albuterol if develops any wheezing
- Out patient follow up with Pulmonary clinic, Dr. Valdivia.
- Pulmonary team will sign off, please call as needed.
Assessment
-
80-year-old female past medical history of 80-year-old female past medical history of diabetes, hypertension, paroxysmal atrial fibrillation with pacemaker, mechanical mitral valve on coumadin, HFpEF, hypercholesteremia, mitral regurgitation, hiatal
hernia, COPD, fibromyalgia, depression, chronic bilateral hand numbness, transient GI bleeding in April presenting for shortness of breath. He called cardiology Dr. Arevalo office yesterday to report INR 4.4. Dark stools for the past week. This
has occurred about 3 times in the past. Patient complaining of worsening shortness of breath and slight lower extremity edema. She was recently admitted on 05/26 for dysmetria of right upper extremity. MRI showed small acute left frontoparietal
infarct. She was continued on Coumadin. She was recently admitted earlier in April for transient GI bleeding and underwent EGD which showed small hiatal hernia but no active bleeding. Vital signs normal. Labs showed hemoglobin of 8.8 from 11.5;
INR of 3.33; Cardiac BNP 680. We are consulted for eval of SOB.
Acute on chronic SOB
Acute GIB, history of angioectasia/prior GIB
Supratherapeutic INR
ABLA due to above
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
Chronic obstructive pulmonary disease
Atrial fibrillation
Pulmonary hypertension
Nonrheumatic aortic (valve) stenosis
Obstructive sleep apnea
Pulmonary nodule
Mitral stenosis
Restrictive lung disease
Kyphoscoliosis
History of mitral valve replacement with mechanical valve
Essential (primary) hypertension
Nonischemic cardiomyopathy
Pacemaker/Sick sinus syndrome
Plan
Prior history of lung disease is noted including--
Followed by Dr Valdivia for mild COPD, last seen this past January.
She notes that prior to bleeding she has felt progressive decline in her SOB and function. This is not improved with inhalers.
When she has anemia from GIB her SOB is acutely worsened--gives very clear history regarding this
Suspect patient has multifactorial causes for shortness of breath including COPD, valvular heart disease, cardiomyopathy
She has acute on chronic complaints due to acute blood loss anemia from supratherapeutic INR
CXR/CT obtained indicating mild edema, effusions.
Other imaging reviewed as well
She had prior pulmonary function testing with stable findings of mild obstruction
She does not feel that her shortness of breath is relieved with inhalers
Use albuterol only as needed. Staying off maintenance inhalers.
If there needs to be further evaluation, may consider right heart catheterization as well
Prior ECHO results are reviewed indicating moderate valvular disease
s/p MVR
She is being considered for TAVR but told her degree of cardiomyopathy is not severe enough
proBNP is 682
Her level of dyspnea is out of proportion to the level of her COPD
s/p EGD 07/08: Erosive gastropathy with stigmata of recent bleeding. Hematin (altered blood/ligcgx-muvled-sncj material) in the gastric body.
- Atrophic and erythematous mucosa in the gastric body and antrum.
- A few non-bleeding angioectasias in the stomach. Treated with argon plasma coagulation (APC).
- A single recently bleeding angioectasia in the duodenum. Treated with argon plasma coagulation (APC). Injected. Clips were placed.
Hb stable 8.5-8.8 (BL 12.2)
GI following -if further instability seen in hemoglobin then she may get repeat EGD � defer to GI
PPI 40mg IV BID
She has been afebrile since evening of 07/08
Monitor off Abx
Trend WBC and monitor temperature curve
Continue CPAP with sleep
PT/OT
Pulmonary service will sign off, please call as needed.
Diagnostic Data
Chest X-Ray:
CXR 07/06/25- 1. Mild interstitial cardiogenic pulmonary edema.
2. Minimal bilateral pleural effusions.
3. Mild cardiomegaly.
4. Previous mitral valve replacement.
5. Severe calcific atherosclerotic plaque in the thoracic and abdominal aorta.
6. Left-sided cardiac pacemaker in place.
CT Scan: CHEST 11/12/23- There are no abnormal pleural or parenchymal masses. There are moderate bilateral pleural effusions. There is moderate bibasilar consolidation. There are moderate bibasilar groundglass opacities concerning for pneumonia. The
mediastinum is normal. There is mild right hilar lymphadenopathy measuring 1.5 cm. There is no axillary lymphadenopathy.
Echo: 04/01/25- Normal biventricular size and systolic function without regional wall motion abnormality. Estimated LVEF 50-55%. Mechanical mitral valve replacement. The mean gradient across the valve is 3 mmHg. No significant mitral regurgitation.
Moderate aortic stenosis. The peak gradient across the valve is 35 mmHg with a mean of 20 mmHg. Using a LVOT diameter of 1.9 cm, the DAO is 1.0 cm sq. Moderate tricuspid regurgitation. Mildly elevated PASP. Estimated pulmonary artery pressure of
45 mmHg assuming a right atrial pressure of 3 mmHg. Compared to 11/12/23: has progressed from mild/moderate to moderate. PASP has decreased from 65 mmHg to 45 mmHg.
Reports and relevant images were personally reviewed.
Total time spent on this consultation __38__ minutes which includes review of history, physical exam, medications, laboratory data, personal review of imaging, extensive review of outpatient records, discussion with care team and respiratory therapy.
Subjective Data
-
Date of Service:
Date of Service: July 12, 2025
Chief Complaint: Pulmonary Follow Up
Subjective:
Patient comfortably lying in bed in no acute distress.
Review of Systems
Genitourinary: Other (All 14 systems reviewed and negative except as stated above in the history of present illness.)
Objective Data
Data Reviewed
Vital Signs / I&O / Oxygen:
Vital Signs
Temp Pulse Resp BP Pulse Ox
98.3 F 85 14 128/75 98
07/12/25 07:46 07/12/25 08:58 07/12/25 07:46 07/12/25 08:58 07/12/25 07:46
Intake and Output
07/11/25 07/12/25 07/13/25
06:59 06:59 06:59
Intake Total 1210 / 1210 2160 / 2160
Balance 1210 / 1210 2160 / 2160
SaO2 98
Nasal Cannula flow liters per 2
minute
Physical Exam
General: Respiratory Distress (negative), Comfortable and Other (NAD)
HEENT: Normocephalic, Anicteric and Moist Mucous Membranes
Cardiovascular: S1-S2, Regular Rhythm, Murmur (KAIT heard at RUSB, class IV/) and Peripheral Edema (negative)
Respiratory: Clear, Wheeze (negative), Crackles (negative), Rhonchi (negative) and Non-Labored Respirations
GI: Soft, Non Distended and Non Tender
Neurology: Awake, Alert, Oriented and No Motor Deficits
Skin: Warm, Dry and Good Color
Labs/Micro/Reports
Lab Data
07/12/25 06:46
07/12/25 06:46
Laboratory Results
07/12/25 07/12/25
06:46 07:45
PT 13.9
INR 1.04
APTT 56.2 H Cancelled
--- NOTE | 2025-07-12 10:27 | W.PN.HOSP.TC ---
Today's Communication/Plan
-
see AP
Assessment / Plan
Assessment / Plan
A/P:
# Symptomatic anemia, recurrent transient GI bleed 2/2 Angioectasia with supratherapeutic INR on admission
# History of transient GI bleed on Coumadin 04/28 - 04/29/2025, self resolved (had prior admissions October, November, and January for same)
# hx Schatzki's ring of distal esophagus
INR was 4.4 on 07/05/2025 patient took Coumadin 5 mg
s/p EGD 07/08, noted few nonbleeding AVMs stomach, cauterized w APC. Single recently bleeding AVM duodenal bulb with associated clot cauterized w APC and injected w epi, clipped x 3
s/p 1 unit PRBC transfusion
Hgb stable today at 8.8,
GI holding off repeat EGD
OK to restart Coumadin with current heparin bridge , follow daily INR (goal 2.5 to 3.5)
Continue with Protonix
# Dyspnea likely 2/2 to anemia
# Acute hypoxic resp insufficiency
Placed on 2L NC, wean as tolerated, pt not on home O2
COPD ruled out by pulm, CHF ruled out by Card
Continue with FIBERGLASS QUALITY TECHNICIAN Lasix
Appreciate Card and pulm input
Duonebs PRN
# 2 episodes of fever documented 07/08, resolved
Flu and COVID negative
UA neg
# Daily alcohol use
Drinks 12 ounces of wine a day last drink was midnight 07/05/2025
Cessation advised
# mitral regurgitation S/P mitral valve replacement March 2020
INR goal 2.5-3.5 due to mechanical valve
INR daily, currently on hep gtt; coumadin on hold
Cardiology following
# Persistent A-fib
# A-fib ablation September 2023
# mechanical mitral valve replacement March 2020
Cont FIBERGLASS QUALITY TECHNICIAN Toprol and Cardizem with holding parameter
resumed Coumadin, INR goal 2.5-3.5
INR daily
# Hyponatremia, resolved
# Recent dysmetria of right upper extremity with Small acute left frontal parietal INFARCT on MRI
# CVA 05/24/2025�small acute left frontal parietal infarct
# Chronic LBBB
# Medtronic dual-chamber permanent pacemaker 07/25/2020
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
# Hypertension
Cont FIBERGLASS QUALITY TECHNICIAN Toprol and Cardizem with holding parameter
BP stable
# Hyperlipidemia
Continue Crestor 5 mg at bedtime
# NIDDM
HgbA1c 5.1 % on May 2025 admission
Accu-Cheks with SSI
HOLD Januvia 50 mg mg daily
# Chronic CHF
I/O, daily weight
Continue furosemide 20 mg every 48 hours
# COPD
# Former smoker 25 years 1 pack a day quit 1992
# Depression
Continue Effexor 75 mg twice daily
Other PMH:
# fibromyalgia
# hiatal hernia
DVT prophylaxis: heparin bridge back to Coumadin, daily INR
Full code
DW Pulm
DW RN
total time 51 min
Anticipated Discharge: 24 - 48 hours
Subjective/Interval History
-
Date of Service: July 12, 2025
Objective Data
-
Labs:
Laboratory Results
07/12/25 07/12/25 07/12/25
06:46 07:45 14:45
WBC 5.0
Hgb 8.8 L
Hct 28.3 L
Plt Count 237
PT 13.9
INR 1.04
APTT 56.2 H Cancelled Pending
Sodium 136
Potassium 3.8
Chloride 107
Carbon Dioxide 28
BUN 10
Creatinine 0.7
Glucose 169 H
Calcium 8.6
Vital Signs:
Vital Signs
Temp Pulse Resp BP Pulse Ox
36.8 C 85 14 128/75 98
07/12/25 07:46 07/12/25 08:58 07/12/25 07:46 07/12/25 08:58 07/12/25 07:46
I&O
07/11/25 07/12/25 07/13/25
06:59 06:59 06:59
Intake Total 1210 / 1210 2159
Balance 1210 / 1210 2159
Review of Systems
-
History Source: Patient
Respiratory: Reports Trouble Breathing (JUAREZ)
Physical Exam
-
General: Well Developed, Comfortable and Conversant
HEENT: Normocephalic, Atraumatic, Moist Mucous Membranes and Oxygen (2L NC)
Respiratory: Clear to Auscultation and Non Labored Respirations; Negative Accessory Resp Muscle Use
Cardiac: Regular Rhythm and S1/S2; Negative Murmur, Rub or Gallop
GI: Soft, Nontender, Nondistended and Normal Bowel Sounds; Negative Organomegaly
Rectal: Deferred by Provider
Musculoskeletal: No Clubbing, No Cyanosis and No Edema
Neuro: Awake and Alert
Psych: Intact Judgement/Insight
Data Reviewed
-
Diagnostic Radiology: Report Reviewed by me
Labs: Labs Reviewed by me
[2025-07-12 12:02] LABS: Glucose - Point of Care 293 mg/dl (70-99)
[2025-07-12 16:37] LABS: Glucose - Point of Care 137 mg/dl (70-99)
[2025-07-12] MEDS: THERAGRAN 1 TABLET PO (17:15)
[2025-07-12] MEDS: VALTREX 500 MG PO (17:15)
[2025-07-12] MEDS: COUMADIN 5 MG PO (17:15)
[2025-07-12 17:48] LABS: APTT 75.4 Sec (23.4-35.0)
[2025-07-12] MEDS: LOW STRENGTH ASPIRIN 81 MG PO (21:07)
[2025-07-12] MEDS: CRESTOR 10 MG PO (21:07)
[2025-07-12] MEDS: B COMPLEX w/VITAMIN C 1 CAPLET PO (21:07)
[2025-07-12] MEDS: OSCAL 500 + D 500 MG PO (21:07)
[2025-07-12 22:03] LABS: Glucose - Point of Care 201 mg/dl (70-99)
[2025-07-13 00:47] LABS: APTT 67.0 Sec (23.4-35.0)
[2025-07-13] MEDS: HEPARIN 25000 UNITS/250 ML IV ×2 (01:08→23:12)
[2025-07-13 03:05] VITALS: BP 132/50
[2025-07-13 05:03] VITALS: BMI 27.4
[2025-07-13 07:28] VITALS: BP 145/65
[2025-07-13 07:41] LABS: Hematocrit 30.3 % (37.0-47.0); Hemoglobin 9.7 g/dL (12.0-16.0); INR 1.12; Mean Corp Hgb Conc. 32.0 g/dL (33.0-37.0); Mean Corpuscular Volume 81.7 fL (81.0-99.0); PT 14.7 Sec (11.4-14.6); Platelet Count 233 10^3/uL (130-400); Red Cell Dist. Width 15.9 % (11.5-14.5)
[2025-07-13] MEDS: NSS (PRESERVATIVE FREE) 10 ML IV ×2 (07:42→21:58)
[2025-07-13 07:43] LABS: APTT 89.8 Sec (23.4-35.0)
[2025-07-13] MEDS: PROTONIX IV 40 MG IV ×2 (07:43→21:58)
[2025-07-13] MEDS: VITAMIN B-12 1000 MCG PO (07:43)
[2025-07-13] MEDS: CARDIZEM CD 240 MG PO ×2 (07:43→21:57)
[2025-07-13] MEDS: ROBITUSSIN 400 MG PO ×2 (07:44→21:57)
[2025-07-13] MEDS: VITAMIN D3 (cholecalciferol) 50 MCG PO (07:44)
[2025-07-13] MEDS: VITAMIN C 500 MG PO (07:44)
[2025-07-13] MEDS: TOPROL XL 25 MG PO ×2 (07:44→21:57)
[2025-07-13] MEDS: EFFEXOR XR 37.5 MG PO ×2 (07:44→21:57)
[2025-07-13] MEDS: NOVOLOG FLEXPEN-LOW RESISTANCE SC ×3 (07:45→16:56)
[2025-07-13 07:51] LABS: Glucose - Point of Care 177 mg/dl (70-99)
[2025-07-13] MEDS: LASIX 20 MG PO (08:11)
--- NOTE | 2025-07-13 08:28 | W.PN.CD ---
Today's Communication / Plan
-
- Hemoglobin stable, improved from 8.8 to 9.7; no active signs of bleeding, per GI.
- Continue heparin bridge.
- Coumadin resumed.
Impression / Plan
-
I/P: 80F with severe mitral stenosis status-post [facility] mechanical mitral valve replacement (03/22/20; on warfarin), postoperative pericardial effusion status-post pericardiocentesis, CVA (therapeutic warfarin, 05/2025), paroxysmal atrial
fibrillation/flutter status-post cardioversions (on 06/15/20 and 08/16/23) and subsequent ablation (09/26/2023), tachycardia-bradycardia syndrome status-post MRI conditional Medtronic dual-chamber pacemaker implantation (07/25/20), moderate aortic
stenosis, moderate tricuspid regurgitation, nonobstructive CAD, hypertension, hyperlipidemia, diabetes, COPD/paralyzed vocal cord, obstructive sleep apnea (on home CPAP), and history of Schatzki's ring of distal esophagus presented to the ER with a
chief complaint of shortness of breath.
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 Arevalo
Shortness of breath/COPD/anemia
- Pulmonary consulted.
- Patient states breathing status has improved with supplemental oxygen.
Anemia, in the setting of GI bleed, severe
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
- Hemoglobin stable, improved from 8.8 to 9.7; no active signs of bleeding, per GI.
Severe mitral stenosis status post [facility] mechanical MVR 03/22/2020
- Goal INR 2.5�3.5
- MG on recent echo 3 mmHg
- Continue heparin bridge.
- Coumadin resumed.
Persistent atrial fibrillation
- Apaced today; continues on diltiazem and metoprolol succinate.
- Oral Anticoagulation: Warfarin (mechanical MVR)
- [id number]: score 8 (HTN, age 75 or more, Diabetes Mellitus, prior Stroke/TIA, Vascular disease, female gender)
- Continue heparin bridge as above.
Aortic stenosis, moderate, peak/mean gradient 35/20 mmHg, DAO 1.0 cm�
Tricuspid regurgitation, moderate
CVA, 05/2025, on therapeutic warfarin
Tachycardia-bradycardia syndrome status post Medtronic DC PPM--stable.
LBBB, chronic, stable, normal perfusion on Lexiscan nuclear stress test in April,
Hyperlipidemia, rosuvastatin recently increased in the setting of CVA
Type 2 diabetes, controlled, most recent HgbA1c 5.9%
JENNIFER, on CPAP
DATA:
Transthoracic echocardiogram, 04/01/2025:
CONCLUSIONS
Normal biventricular size and systolic function without regional wall motion
abnormality. Estimated LVEF 50-55%.
Mechanical mitral valve replacement. The mean gradient across the valve is 3
mmHg. No significant mitral regurgitation.
Moderate aortic stenosis. The peak gradient across the valve is 35 mmHg with a
mean of 20 mmHg. Using a LVOT diameter of 1.9 cm, the DAO is 1.0 cm sq.
Moderate tricuspid regurgitation. Mildly elevated PASP. Estimated pulmonary
artery pressure of 45 mmHg assuming a right atrial pressure of 3 mmHg.
Compared to 11/12/23: has progressed from mild/moderate to moderate. PASP has
decreased from 65 mmHg to 45 mmHg.
Physical Exam
Vital Signs/Labs
Vital Signs
Temp Pulse Resp BP Pulse Ox
98.3 F 76 18 145/65 96
07/13/25 07:28 07/13/25 07:28 07/13/25 07:28 07/13/25 07:28 07/13/25 07:28
07/12/25 07/13/25 07/14/25
06:59 06:59 06:59
Actual Weight 77.836 kg 77.247 kg
07/13/25 07:10
07/12/25 06:46
PT 14.7 Sec (11.4-14.6) H 07/13/25 07:10
INR 1.12 07/13/25 07:10
APTT 89.8 Sec (23.4-35.0) H 07/13/25 07:10
APTT Cancelled 07/13/25 07:10
07/06/25
11:55
[id number] Pept 682
Physical Exam
Constitutional: No acute distress and Comfortable
EENT: Anicteric
Cardiovascular: Rhythm & rate is regular, Pedal edema is absent, Systolic murmur present (2/) and Other (Mechanical S1/S2)
Respiratory: Respiratory effort normal and Lungs clear to auscul.
GI: Soft
Neuro/Psych: AO x 3
Other: Skin (Warm, dry, intact)
Data Reviewed
-
Date of Service: July 13, 2025
EKG: Tracing Personally Visualized and interpreted (Telemetry: Sinus rhythm)
Labs: Labs Reviewed by me
--- NOTE | 2025-07-13 09:46 | W.PN.HOSP.TC ---
Today's Communication/Plan
-
see AP
Assessment / Plan
Assessment / Plan
A/P:
# Symptomatic anemia, recurrent transient GI bleed 2/2 Angioectasia with supratherapeutic INR on admission
# History of transient GI bleed on Coumadin 04/28 - 04/29/2025, self resolved (had prior admissions October, November, and January for same)
# hx Schatzki's ring of distal esophagus
INR was 4.4 on 07/05/2025 patient took Coumadin 5 mg
s/p EGD 07/08, noted few nonbleeding AVMs stomach, cauterized w APC. Single recently bleeding AVM duodenal bulb with associated clot cauterized w APC and injected w epi, clipped x 3
s/p 1 unit PRBC transfusion
Hgb stable today at 9.7
GI holding off repeat EGD
restarted Coumadin with current heparin bridge , follow daily INR (goal 2.5 to 3.5)
Continue with Protonix
# Dyspnea likely 2/2 to anemia
# Acute hypoxic resp insufficiency
Placed on 2L NC, wean as tolerated, pt not on home O2
COPD ruled out by pulm, CHF ruled out by Card
Continue with YARD PIPE GRADER Lasix
Appreciate Card and pulm input
Duonebs PRN
# 2 episodes of fever documented on 07/08, none since
Flu and COVID negative , UA neg
# Daily alcohol use
Drinks 12 ounces of wine a day last drink was midnight 07/05/2025
Cessation advised
# mitral regurgitation S/P mitral valve replacement March 2020
INR goal 2.5-3.5 due to mechanical valve
hep gtt bridge back to Coumadin
Cardiology following
# Persistent A-fib
# A-fib ablation September 2023
# mechanical mitral valve replacement March 2020
Cont YARD PIPE GRADER Toprol and Cardizem with holding parameter
resumed Coumadin, INR daily
# Hyponatremia, resolved
# Recent dysmetria of right upper extremity with Small acute left frontal parietal INFARCT on MRI
# CVA 05/24/2025�small acute left frontal parietal infarct
# Chronic LBBB
# Medtronic dual-chamber permanent pacemaker 07/25/2020
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
# Hypertension
Cont YARD PIPE GRADER Toprol and Cardizem with holding parameter
BP stable
# Hyperlipidemia
Continue Crestor 5 mg at bedtime
# NIDDM
HgbA1c 5.1% on May 2025 admission
Accu-Cheks with SSI
HOLD Januvia 50 mg mg daily
# Chronic CHF
I/O, daily weight
Continue furosemide 20 mg every 48 hours
# COPD
# Former smoker 25 years 1 pack a day quit 1992
# Depression
Continue Effexor 75 mg twice daily
Other PMH:
# fibromyalgia
# hiatal hernia
DVT prophylaxis: heparin bridge back to Coumadin, daily INR
Full code
DW Card
DW RN
Anticipated Discharge: 24 - 48 hours
Subjective/Interval History
-
Date of Service: July 13, 2025
Objective Data
-
Labs:
Laboratory Results
07/13/25 07/13/25 07/13/25
00:22 07:10 07:10
WBC 4.7 L
Hgb 9.7 L
Hct 30.3 L
Plt Count 233
PT 14.7 H
INR 1.12
APTT 67.0 H 89.8 H Cancelled
07/13/25
14:00
WBC
Hgb
Hct
Plt Count
PT
INR
APTT Pending
Vital Signs:
Vital Signs
Temp Pulse Resp BP Pulse Ox
36.8 C 76 18 145/65 96
07/13/25 07:28 07/13/25 07:28 07/13/25 07:28 07/13/25 07:28 07/13/25 09:02
I&O
07/12/25 07/13/25 07/14/25
06:59 06:59 06:59
Intake Total 2160 / 2160 1180 / 1180
Balance 2160 / 2160 1180 / 1180
Review of Systems
-
History Source: Patient
All other systems: Reviewed and negative
Physical Exam
-
General: Well Developed, Comfortable and Conversant
HEENT: Normocephalic, Atraumatic, Moist Mucous Membranes and Oxygen (2L NC)
Respiratory: Clear to Auscultation and Non Labored Respirations; Negative Accessory Resp Muscle Use
Cardiac: Regular Rhythm and S1/S2; Negative Murmur, Rub or Gallop
GI: Soft, Nontender, Nondistended and Normal Bowel Sounds; Negative Organomegaly
Rectal: Deferred by Provider
Musculoskeletal: No Clubbing, No Cyanosis and No Edema
Neuro: Awake and Alert
Psych: Intact Judgement/Insight
Data Reviewed
-
Diagnostic Radiology: Report Reviewed by me
Labs: Labs Reviewed by me
[2025-07-13 11:00] VITALS: BP 135/46
[2025-07-13 11:24] LABS: Glucose - Point of Care 225 mg/dl (70-99)
[2025-07-13 14:03] LABS: APTT 120.7 Sec (23.4-35.0)
--- NOTE | 2025-07-13 14:03 | PTCARENOTE ---
Pt. is a current diabetic with sliding scale insulin ordered based on blood sugars. Pt. educated on necessity of checking sugar and receiving insulin based on those sugars. On previous admission, pt. had what she describes as a 'bad' reaction to
insulin. Since then pt. has been refusing insulin. Pt. educated on importance, however still refuses.
--- NOTE | 2025-07-13 14:05 | CM ---
Patient seen at bedside
on room air
hep gtt bridge back to Coumadin
stated was going outpatient therapy
PT note 07/09 rec outpatient therapy
declines VN
PLAN: Home, outpatient therapy, declines vn
[2025-07-13 14:47] VITALS: BP 148/68
[2025-07-13 16:53] LABS: Glucose - Point of Care 291 mg/dl (70-99)
[2025-07-13] MEDS: THERAGRAN 1 TABLET PO (17:43)
[2025-07-13] MEDS: VALTREX 500 MG PO (17:43)
[2025-07-13] MEDS: COUMADIN 5 MG PO (17:43)
[2025-07-13 19:37] VITALS: BP 106/63
[2025-07-13 20:47] LABS: APTT 95.3 Sec (23.4-35.0)
[2025-07-13 21:44] LABS: Glucose - Point of Care 198 mg/dl (70-99)
[2025-07-13] MEDS: OSCAL 500 + D 500 MG PO (21:57)
[2025-07-13] MEDS: B COMPLEX w/VITAMIN C 1 CAPLET PO (21:57)
[2025-07-13] MEDS: CRESTOR 10 MG PO (21:57)
[2025-07-13] MEDS: LOW STRENGTH ASPIRIN 81 MG PO (21:57)
[2025-07-13 22:52] VITALS: BP 141/45
[2025-07-14] VITALS (7 sets, daily range): BP systolic 125–162; BP diastolic 45–70; BMI 27.2
[2025-07-14 03:38] LABS: APTT 72.3 Sec (23.4-35.0)
[2025-07-14 07:37] LABS: Glucose - Point of Care 188 mg/dl (70-99)
[2025-07-14] MEDS: NOVOLOG FLEXPEN-LOW RESISTANCE SC ×3 (07:40→17:13)
[2025-07-14] MEDS: VITAMIN B-12 1000 MCG PO (08:22)
[2025-07-14] MEDS: VITAMIN D3 (cholecalciferol) 50 MCG PO (08:22)
[2025-07-14] MEDS: EFFEXOR XR 37.5 MG PO ×2 (08:22→22:42)
[2025-07-14] MEDS: ROBITUSSIN 400 MG PO ×2 (08:22→22:50)
[2025-07-14] MEDS: TOPROL XL 25 MG PO ×2 (08:23→22:41)
[2025-07-14] MEDS: VITAMIN C 500 MG PO (08:23)
[2025-07-14] MEDS: CARDIZEM CD 240 MG PO ×2 (08:23→22:40)
[2025-07-14] MEDS: LASIX 20 MG PO (08:24)
[2025-07-14] MEDS: NSS (PRESERVATIVE FREE) 10 ML IV ×2 (08:24→22:44)
[2025-07-14] MEDS: PROTONIX IV 40 MG IV ×2 (08:24→22:44)
--- NOTE | 2025-07-14 09:01 | W.PN.HOSP.TC ---
Today's Communication/Plan
-
pending today's blood work
cont heparin bridge to coumadin
Assessment / Plan
Assessment / Plan
A/P:
# Symptomatic anemia, recurrent transient GI bleed 2/2 Angioectasia with supratherapeutic INR on admission
# History of transient GI bleed on Coumadin 04/28 - 04/29/2025, self resolved (had prior admissions October, November, and January for same)
# hx Schatzki's ring of distal esophagus
INR was 4.4 on 07/05/2025 patient took Coumadin 5 mg
s/p EGD 07/08, noted few nonbleeding AVMs stomach, cauterized w APC. Single recently bleeding AVM duodenal bulb with associated clot cauterized w APC and injected w epi, clipped x 3
s/p 1 unit PRBC transfusion
Hgb stable, was at 9.7 yesterday, pending today's lab
GI holding off repeat EGD
restarted Coumadin with current heparin bridge , follow daily INR (goal 2.5 to 3.5)
Continue with Protonix
# Dyspnea likely 2/2 to anemia
# Acute hypoxic resp insufficiency, resolved
Was placed on 2L NC, weaned to RA, pt not on home O2
COPD ruled out by pulm, CHF ruled out by Card
Continue with DATA REPORT ANALYST Lasix
Appreciate Card and pulm input
Duonebs PRN
# 2 episodes of fever documented on 07/08, none since
Flu and COVID negative , UA neg
# Daily alcohol use
Drinks 12 ounces of wine a day last drink was midnight 07/05/2025
Cessation advised
# mitral regurgitation S/P mitral valve replacement March 2020
INR goal 2.5-3.5 due to mechanical valve
hep gtt bridge back to Coumadin
Cardiology following, d/w Dr Arevalo, does NOT feel pt would be a good candidate for Lovenox SQ bridge at home
# Persistent A-fib
# A-fib ablation September 2023
# mechanical mitral valve replacement March 2020
Cont DATA REPORT ANALYST Toprol and Cardizem with holding parameter
resumed Coumadin, INR daily
# Hyponatremia, resolved
# Recent dysmetria of right upper extremity with Small acute left frontal parietal INFARCT on MRI
# CVA 05/24/2025�small acute left frontal parietal infarct
# Chronic LBBB
# Medtronic dual-chamber permanent pacemaker 07/25/2020
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
# Hypertension
Cont DATA REPORT ANALYST Toprol and Cardizem with holding parameter
BP stable
# Hyperlipidemia
Continue Crestor 5 mg at bedtime
# NIDDM
HgbA1c 5.1% on May 2025 admission
Accu-Cheks with SSI
HOLD Januvia 50 mg mg daily
# Chronic CHF
I/O, daily weight
Continue furosemide 20 mg every 48 hours
# COPD
# Former smoker 25 years 1 pack a day quit 1992
# Depression
Continue Effexor 75 mg twice daily
Other PMH:
# fibromyalgia
# hiatal hernia
DVT prophylaxis: heparin bridge back to Coumadin, daily INR
Full code
Anticipated Discharge: > 48 hours
Subjective/Interval History
-
Date of Service: July 14, 2025
Objective Data
-
Labs:
Laboratory Results
07/14/25 07/14/25 07/14/25
02:49 06:00 10:00
WBC Pending
Hgb Pending
Hct Pending
Plt Count Pending
PT Pending
INR Pending
APTT 72.3 H Pending
Vital Signs:
Vital Signs
Temp Pulse Resp BP Pulse Ox
37.1 C 87 17 142/69 97
07/14/25 07:20 07/14/25 08:23 07/14/25 07:20 07/14/25 08:24 07/14/25 08:52
I&O
07/13/25 07/14/25 07/15/25
06:59 06:59 06:59
Intake Total 1180 / 1180 720 / 720
Balance 1180 / 1180 720 / 720
Review of Systems
-
History Source: Patient
All other systems: Reviewed and negative
Physical Exam
-
General: Well Developed, Well Nourished, Comfortable and Conversant
HEENT: Normocephalic, Atraumatic and Moist Mucous Membranes; Negative Oxygen
Respiratory: Clear to Auscultation and Non Labored Respirations; Negative Accessory Resp Muscle Use
Cardiac: Regular Rhythm and S1/S2; Negative Murmur, Rub or Gallop
GI: Soft, Nontender, Nondistended and Normal Bowel Sounds; Negative Organomegaly
Rectal: Deferred by Provider
Musculoskeletal: No Clubbing, No Cyanosis and No Edema
Neuro: Awake and Alert
Psych: Calm and Intact Judgement/Insight
Data Reviewed
-
Diagnostic Radiology: Report Reviewed by me
Labs: Labs Reviewed by me
--- NOTE | 2025-07-14 09:21 | W.PN.CD ---
Today's Communication / Plan
-
- Patient's underlying cardiac issues are not the cause of her dyspnea.
- Hemoglobin remains stable (today's results pending); no active signs of bleeding.
- Continue heparin bridge; goal INR 2.5-3.5.
- Coumadin resumed; can give 10 mg tonight, then resume routine dose of 5 mg daily.
- Cardiology will remain available on an as needed basis; outpatient follow-up with Cardiology.
Impression / Plan
-
I/P: 80F with severe mitral stenosis status-post [facility] [employer] mechanical mitral valve replacement (03/22/20; on warfarin), postoperative pericardial effusion status-post pericardiocentesis, CVA (therapeutic warfarin, 05/2025), paroxysmal atrial
fibrillation/flutter status-post cardioversions (on 06/15/20 and 08/16/23) and subsequent ablation (09/26/2023), tachycardia-bradycardia syndrome status-post MRI conditional Medtronic dual-chamber pacemaker implantation (07/25/20), moderate aortic
stenosis, moderate tricuspid regurgitation, nonobstructive CAD, hypertension, hyperlipidemia, diabetes, COPD/paralyzed vocal cord, obstructive sleep apnea (on home CPAP), and history of Schatzki's ring of distal esophagus presented to the ER with a
chief complaint of shortness of breath.
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 Arevalo
Shortness of breath/COPD/anemia
- Pulmonary consulted.
- Breathing status has improved.
- Patient's underlying cardiac issues are not the cause of her dyspnea.
Anemia, in the setting of GI bleed, severe
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
- Hemoglobin remains stable (today's results pending); no active signs of bleeding.
Severe mitral stenosis status post [facility] mechanical MVR 03/22/2020
- Goal INR 2.5�3.5
- MG on recent echo 3 mmHg
- Continue heparin bridge; goal INR 2.5-3.5.
- Coumadin resumed; can give 10 mg tonight, then resume routine dose of 5 mg daily.
Persistent atrial fibrillation
- Apaced today; continues on diltiazem and metoprolol succinate.
- Oral Anticoagulation: Warfarin (mechanical MVR)
- [id number]: score 8 (HTN, age 75 or more, Diabetes Mellitus, prior Stroke/TIA, Vascular disease, female gender)
- Continue heparin bridge as above until INR therapeutic.
Aortic stenosis, moderate, peak/mean gradient 35/20 mmHg, DAO 1.0 cm�
Tricuspid regurgitation, moderate
CVA, 05/2025, on therapeutic warfarin
Tachycardia-bradycardia syndrome status post Medtronic DC PPM--stable.
LBBB, chronic, stable, normal perfusion on Lexiscan nuclear stress test in April,
Hyperlipidemia, rosuvastatin recently increased in the setting of CVA
Type 2 diabetes, controlled, most recent HgbA1c 5.9%
JENNIFER, on CPAP
DATA:
Transthoracic echocardiogram, 04/01/2025:
CONCLUSIONS
Normal biventricular size and systolic function without regional wall motion
abnormality. Estimated LVEF 50-55%.
Mechanical mitral valve replacement. The mean gradient across the valve is 3
mmHg. No significant mitral regurgitation.
Moderate aortic stenosis. The peak gradient across the valve is 35 mmHg with a
mean of 20 mmHg. Using a LVOT diameter of 1.9 cm, the DAO is 1.0 cm sq.
Moderate tricuspid regurgitation. Mildly elevated PASP. Estimated pulmonary
artery pressure of 45 mmHg assuming a right atrial pressure of 3 mmHg.
Compared to 11/12/23: has progressed from mild/moderate to moderate. PASP has
decreased from 65 mmHg to 45 mmHg.
Physical Exam
Vital Signs/Labs
Vital Signs
Temp Pulse Resp BP Pulse Ox
98.8 F 87 17 142/69 97
07/14/25 07:20 07/14/25 08:23 07/14/25 07:20 07/14/25 08:24 07/14/25 08:52
07/13/25 07/14/25 07/15/25
06:59 06:59 06:59
Actual Weight 77.247 kg 76.702 kg
07/12/25 06:46
PT 14.7 Sec (11.4-14.6) H 07/13/25 07:10
INR 1.12 07/13/25 07:10
APTT 72.3 Sec (23.4-35.0) H 07/14/25 02:49
07/06/25
11:55
[id number] Pept 682
Physical Exam
Constitutional: No acute distress and Comfortable
EENT: Anicteric
Cardiovascular: Rhythm & rate is regular, Pedal edema is absent, Systolic murmur present (2/6) and S1S2 is normal
Respiratory: Respiratory effort normal, Crackles Absent and Wheeze Present (Mild)
GI: Soft
Neuro/Psych: AO x 3
Other: Skin (Warm, dry, intact)
Data Reviewed
-
Date of Service: July 14, 2025
EKG: Tracing Personally Visualized and interpreted (Telemetry: Atrial paced)
Medical Tests (PFT, Pathology etc): Discussed with Patient
Labs: Labs Reviewed by me
[2025-07-14 10:17] LABS: Hematocrit 31.5 % (37.0-47.0); Hemoglobin 10.2 g/dL (12.0-16.0); Mean Corp Hgb Conc. 32.4 g/dL (33.0-37.0); Mean Corpuscular Volume 83.3 fL (81.0-99.0); Platelet Count 258 10^3/uL (130-400); Red Cell Dist. Width 15.6 % (11.5-14.5)
[2025-07-14 10:34] LABS: APTT 100.1 Sec (23.4-35.0); INR 1.04; PT 14.1 Sec (11.4-14.6)
--- NOTE | 2025-07-14 11:26 | CM ---
Patient seen at bedside
cont heparin bridge to coumadin
declines vn
refused PT yesterday
PLAN: Home, declines VN
[2025-07-14 11:34] LABS: Glucose - Point of Care 292 mg/dl (70-99)
[2025-07-14 16:30] LABS: Glucose - Point of Care 280 mg/dl (70-99)
[2025-07-14] MEDS: COUMADIN 5 MG PO (17:14)
[2025-07-14] MEDS: THERAGRAN 1 TABLET PO (17:14)
[2025-07-14] MEDS: VALTREX 500 MG PO (17:14)
[2025-07-14 17:16] LABS: APTT 110.7 Sec (23.4-35.0)
[2025-07-14] MEDS: HEPARIN 25000 UNITS/250 ML IV (17:56)
[2025-07-14 21:20] LABS: Glucose - Point of Care 250 mg/dl (70-99)
[2025-07-14] MEDS: B COMPLEX w/VITAMIN C 1 CAPLET PO (22:41)
[2025-07-14] MEDS: OSCAL 500 + D 500 MG PO (22:42)
[2025-07-14] MEDS: LOW STRENGTH ASPIRIN 81 MG PO (22:42)
[2025-07-14] MEDS: CRESTOR 10 MG PO (22:42)
[2025-07-15] VITALS (8 sets, daily range): BP systolic 128–170; BP diastolic 39–69; BMI 27.0
[2025-07-15 06:46] LABS: Hematocrit 30.0 % (37.0-47.0); Hemoglobin 9.3 g/dL (12.0-16.0); Mean Corp Hgb Conc. 31.0 g/dL (33.0-37.0); Mean Corpuscular Volume 85.7 fL (81.0-99.0); Platelet Count 244 10^3/uL (130-400); Red Cell Dist. Width 15.5 % (11.5-14.5)
[2025-07-15 06:55] LABS: INR 1.09; PT 14.6 Sec (11.4-14.6)
[2025-07-15 06:57] LABS: APTT 111.3 Sec (23.4-35.0)
[2025-07-15 07:49] LABS: Glucose - Point of Care 205 mg/dl (70-99)
[2025-07-15] MEDS: CARDIZEM CD 240 MG PO ×2 (09:08→20:27)
[2025-07-15] MEDS: ROBITUSSIN 400 MG PO ×2 (09:08→20:27)
[2025-07-15] MEDS: VITAMIN C 500 MG PO (09:09)
[2025-07-15] MEDS: VITAMIN B-12 1000 MCG PO (09:09)
[2025-07-15] MEDS: NSS (PRESERVATIVE FREE) 10 ML IV (09:09)
[2025-07-15] MEDS: VITAMIN D3 (cholecalciferol) 50 MCG PO (09:09)
[2025-07-15] MEDS: EFFEXOR XR 37.5 MG PO ×2 (09:09→20:28)
[2025-07-15] MEDS: TOPROL XL 25 MG PO ×2 (09:10→20:27)
[2025-07-15] MEDS: PROTONIX IV 40 MG IV (09:10)
[2025-07-15] MEDS: LASIX 20 MG PO (09:13)
[2025-07-15] MEDS: NOVOLOG FLEXPEN-LOW RESISTANCE SC ×3 (09:18→17:04)
--- NOTE | 2025-07-15 10:15 | W.PN.HOSP.TC ---
Today's Communication/Plan
-
Pt feeling frustrated that she is still in the hospital for heparin bridge.
Explained at great length, and answered all questions.
Provided emotional support
Assessment / Plan
Assessment / Plan
A/P:
# Symptomatic anemia, recurrent transient GI bleed 2/2 Angioectasia with supratherapeutic INR on admission
# History of transient GI bleed on Coumadin 04/28 - 04/29/2025, self resolved (had prior admissions October, November, and January for same)
# hx Schatzki's ring of distal esophagus
INR was 4.4 on 07/05/2025 patient took Coumadin 5 mg
s/p EGD 07/08, noted few nonbleeding AVMs stomach, cauterized w APC. Single recently bleeding AVM duodenal bulb with associated clot cauterized w APC and injected w epi, clipped x 3
s/p 1 unit PRBC transfusion
Hgb stable, today at 9.3
GI holding off repeat EGD
Cont heparin bridge back to Coumadin, now at 10 mg HS
follow daily INR (goal 2.5 to 3.5)
Continue with Protonix
# Dyspnea likely 2/2 to anemia
# Acute hypoxic resp insufficiency, resolved
2L NC weaned back to RA, pt not on home O2
COPD ruled out by pulm, CHF ruled out by Card
Continue with [employer] Lasix
Appreciate Card and pulm input
Duonebs PRN
# 2 episodes of fever documented on 07/08, none since
Flu and COVID negative , UA neg
# Daily alcohol use
Drinks 12 ounces of wine a day last drink was midnight 07/05/2025
Cessation advised
# mitral regurgitation S/P mitral valve replacement March 2020
INR goal 2.5-3.5 due to mechanical valve
hep gtt bridge back to Coumadin
Cardiology following, d/w Dr Arevalo, he does NOT feel pt would be a good candidate for Lovenox SQ bridge at home , prefers heparin bridge in the hospital- relayed this message to pt
# Persistent A-fib
# A-fib ablation September 2023
# mechanical mitral valve replacement March 2020
Cont [employer] Toprol and Cardizem with holding parameter
resumed Coumadin, INR daily
# Hyponatremia, resolved
# Recent dysmetria of right upper extremity with Small acute left frontal parietal INFARCT on MRI
# CVA 05/24/2025�small acute left frontal parietal infarct
# Chronic LBBB
# Medtronic dual-chamber permanent pacemaker 07/25/2020
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
# Hypertension
Cont [employer] Toprol and Cardizem with holding parameter
BP stable
# Hyperlipidemia
Continue Crestor 5 mg at bedtime
# NIDDM
HgbA1c 5.1% on May 2025 admission
Accu-Cheks with SSI
resumed Januvia 50 mg mg daily
# Chronic CHF
I/O, daily weight
Continue furosemide 20 mg every 48 hours
# COPD
# Former smoker 25 years 1 pack a day quit 1992
# Depression
Continue Effexor 75 mg twice daily
Other PMH:
# fibromyalgia
# hiatal hernia
DVT prophylaxis: heparin bridge back to Coumadin, daily INR
Full code
DW on the phone
total time 51 min
Anticipated Discharge: > 48 hours
Subjective/Interval History
-
Date of Service: July 15, 2025
Objective Data
-
Labs:
Laboratory Results
07/15/25 07/15/25
06:24 14:00
WBC 5.5
Hgb 9.3 L
Hct 30.0 L
Plt Count 244
PT 14.6
INR 1.09
APTT 111.3 H Pending
Vital Signs:
Vital Signs
Temp Pulse Resp BP Pulse Ox
36.5 C 88 18 128/69 95
07/15/25 07:12 07/15/25 07:12 07/15/25 07:12 07/15/25 07:12 07/15/25 07:12
I&O
07/14/25 07/15/25 07/16/25
06:59 06:59 06:59
Intake Total 720 / 720 720 / 720
Balance 720 / 720 720 / 720
Review of Systems
-
History Source: Patient
All other systems: Reviewed and negative
Physical Exam
-
General: Well Developed, Well Nourished, Comfortable and Conversant
HEENT: Normocephalic, Atraumatic and Moist Mucous Membranes; Negative Oxygen
Respiratory: Clear to Auscultation and Non Labored Respirations; Negative Accessory Resp Muscle Use
Cardiac: Regular Rhythm and S1/S2; Negative Murmur, Rub or Gallop
GI: Soft, Nontender, Nondistended and Normal Bowel Sounds; Negative Organomegaly
Rectal: Deferred by Provider
Musculoskeletal: No Clubbing, No Cyanosis and No Edema
Neuro: Awake and Alert
Psych: Calm and Intact Judgement/Insight
Data Reviewed
-
Diagnostic Radiology: Report Reviewed by me
Labs: Labs Reviewed by me
[2025-07-15] MEDS: ZOFRAN 4 MG IV ×2 (11:29→20:26)
[2025-07-15 12:12] LABS: Glucose - Point of Care 242 mg/dl (70-99)
[2025-07-15] MEDS: JANUVIA 50 MG PO (12:21)
[2025-07-15] MEDS: COMPAZINE 10 MG IV (14:14)
[2025-07-15 14:20] LABS: APTT 95.2 Sec (23.4-35.0)
--- NOTE | 2025-07-15 14:26 | CM ---
patient seen at bedside
cont heparin bridge to coumadin
declines vn
declined PT today
PLAN: Home, declines VN
--- NOTE | 2025-07-15 15:10 | W.PN.GI.CBS2 ---
Addendum entered and electronically signed by Marcia Jones DO 07/15/25 17:05:
Patient seen examined of MARIANA. I agree with her note with my additions below
Has to come back because of patient.
Alley is a 80-year-old female with moderate aortic stenosis, mechanical mitral valve admitted on warfarin who is admitted for worsening shortness of breath and generalized fatigue found to be anemic with hemoglobin of 8.8 down from 11.5 from
May. INR supratherapeutic on admission. She did report melenic stool as an outpatient but had been brown since. Prior to this admission she has had 4 GI bleeds in the past with no source found negative endoscopy in April, last colonoscopy
in 2023 and endoscopy done with Dr. Orourke on 07/08/2025 showed coffee-ground material in the gastric body, few angiectasia's in the stomach that were treated with APC and a recently bleeding angiectasia in the duodenum that was treated with APC
injection and clips otherwise normal. Her hemoglobin had maintained and we signed off on Saturday.
Apparently the patient has vomited multiple times since around 11 AM today. She is pale. Upon dumping out the vomitus it appears to contain dark red blood, roughly 500 cc total of mixed blood. She does not feel well. She is nauseous. She has
received Zofran.
We will hold the heparin. Holding the 10 mg warfarin tonight. Cardiology aware and okay with holding the heparin in the setting of active bleeding. Rechecking hemoglobin is 8.5 from 9.3 this morning. Hemodynamically she is stable, blood pressure
168/62 with a heart rate of 79.
Recommended IMU transfer, EGD in the morning.
If she continues to vomit will need NG tube for decompression
Steffany started ppi gtt
And sure she has 2 good IVs, will give her Reglan prior to the scope to help remove any stomach contents
Steffany discussed with her daughter
Addendum entered and electronically signed by MARIANA Mcdonnell 07/15/25 16:12:
daughter updated on bleeding
Original Note:
Today's Communication / Plan
-
reconsulted as pt current awaiting heparin to Coumadin conversion to go home s/p UGI bleeding and noted now with about 500ml red/dark red emesis over last 4 hours
concern for recurrent UGI bleeding
pt pale and not feeling well
Pt ate few bites of sausage this am at 8 AM cont NPO
change on PPI gtt
check H/H now then in 6 hours
transfuse as needed
bedrest til bleeding improved
reviewed with Dr. Millan and Dr. Up consider transfer, ok to hold heparin ( stopped at 1545 07/15) and coumadin -- INR 1.09 this am
s/p Compazine and Zofran
t/c repeat EGD will review timing with Dr. Jones - t/c Reglan dose prior to scope
reviewed with nursing staff
Assessment / Plan
-
Summary: 80-year-old female with severe mitral stenosis status post mechanical valve replacement in 2019 on warfarin, paroxysmal atrial fibrillation and flutter status post cardioversion in 2020, tachybradycardia syndrome status post dual-chamber
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
infectious colitis presents to ER with worsening of chronic shortness of breath. After admission hbg with drop to 7.7 with transfusion and completed enteroscopy 07/08/25 EGD- small HH, Hematin in gastric body. benign polyps erosive gastropathy
Few nonbleeding AVMs stomach cauterized w APC. Single recently bleeding AVM duodenal bulb with associated clot cauterized w APC and injected w epi, cliipped x 3. Pt was awaiting discharge with heparin to Coumadin conversion and noted with
rebleeding 07/15. . Last Colonoscopy: [address] Dr. Samaniego adequate prep diverticulosis and internal hemorrhoids.
07/08/25 EGD- small HH, Hematin in gastric body. benign polyps erosive gastropathy Few nonbleeding AVMs stomach cauterized w APC. Single recently bleeding AVM duodenal bulb with associated clot cauterized w APC and injected w epi, cliipped x 3
total 1 unit transfused since admission
current repeat-- vitals BP 168/82 and HR 79
Impression:
07/15 concern for recurrent UGI bleeding with about 500ml dark emesis
recent UGIB due to gastric/duodenal ectasias s/p cautery
-schatzki's ring with prior dilation
-severe mitral stenosis status post mechanical valve replacement in 2019 on warfarin
-vocal cord paralysis and hx difficulty intubation
-chronic shortness of breath
-fever 07/08 etiology unclear
other med problems:
-hx colitis
- paroxysmal atrial fibrillation and flutter status post cardioversion in 2019
- tachybradycardia syndrome status post dual-chamber pacemaker
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
-COPD
-sleep apnea on CPAP
panc divisum anatomy per imaging
PLAN:
reconsulted as pt current awaiting heparin to Coumadin conversion to go home s/p UGI bleeding and noted now with about 500ml red/dark red emesis over last 4 hours
concern for recurrent UGI bleeding
pt pale and not feeling well
Pt ate few bites of sausage this am at 8 AM cont NPO
change on PPI gtt
check H/H now then in 6 hours
transfuse as needed
bedrest til bleeding improved
reviewed with Dr. Millan and Dr. Up consider transfer, ok to hold heparin ( stopped at 1545 07/15) and coumadin -- INR 1.09 this am
s/p Compazine and Zofran
t/c repeat EGD will review timing with Dr. Jones - t/c Reglan dose prior to scope
reviewed with nursing staff
Subjective
Subjective
Date of Service: July 15, 2025
07/15 brown stool heme +, NPO
Objective
Data Reviewed
Laboratory Data:
Laboratory Results
07/15/25 06:24
07/12/25 06:46
Laboratory Results
PT 14.6 Sec (11.4-14.6) 07/15/25 06:24
INR 1.09 07/15/25 06:24
APTT 95.2 Sec (23.4-35.0) H 07/15/25 13:59
Total Bilirubin 0.5 mg/dl (0.2-1.3) 07/07/25 07:24
AST 23 U/L (14-36) 07/07/25 07:24
ALT 18 U/L (0-35) 07/07/25 07:24
Alkaline Phosphatase 60 U/L (38-126) 07/07/25 07:24
Vital Signs and I&O:
Vital Signs
Temp Pulse Resp BP Pulse Ox
98.1 F 83 20 132/67 97
07/15/25 14:12 07/15/25 14:12 07/15/25 14:12 07/15/25 14:12 07/15/25 14:12
I&O
07/14/25 07/15/25 07/16/25
06:59 06:59 06:59
Intake Total 720 / 720 720 / 720
Balance 720 / 720 720 / 720
Physical Exam
Physical Exam
HEENT: Anicteric, Moist mucous membranes and Other (pale appearing )
Cardiology: Normal Sinus Rhythm
Pulmonary: Clear
GI: Soft, Non Distended and Tender (mild nausea )
Extremities: No Edema
Neuro: Non Focal and Other (feels weak)
--- NOTE | 2025-07-15 16:05 | W.PN.UPDATE ---
Addendum entered and electronically signed by Keiry Millan MD 07/15/25 16:11:
PPI drip also restarted
Original Note:
Update Note
Progress Note Update
Pt vomited twice since this morning. First time clear, second time bloody tinged.
Zofran PRN ordered. s/p Compazine x1 dose.
GI reconsulted for possible recurrent GIB.
Stat HH ordered.
Hold current heparin drip and Coumadin. Make NPO.
GI plan for repeat scope tmr.
Upgrade to IMU with change in clinical condition and concern of recurrent GIB.
Updated on the phone.
CC time 40 min
[2025-07-15 16:25] LABS: Hematocrit 27.7 % (37.0-47.0); Hemoglobin 8.5 g/dL (12.0-16.0)
[2025-07-15 16:34] LABS: Glucose - Point of Care 348 mg/dl (70-99)
[2025-07-15] MEDS: PROTONIX 100 IV (17:18)
[2025-07-15] MEDS: THERAGRAN PO (17:19)
[2025-07-15] MEDS: VALTREX PO (17:19)
--- NOTE | 2025-07-15 18:40 | PTCARENOTE ---
Received patient by bed to IMU. Patient pale and states feels very weak. VSS. 2L NC placed due to sats at 90% on RA. Protonix gtt infusing per orders, second IV access obtained. Patient NPO. Daughter at bedside, update provided. Will closely monitor.
[2025-07-15] MEDS: CRESTOR 10 MG PO (20:27)
[2025-07-15] MEDS: LOW STRENGTH ASPIRIN 81 MG PO (20:28)
[2025-07-15] MEDS: B COMPLEX w/VITAMIN C 1 CAPLET PO (20:28)
[2025-07-15] MEDS: OSCAL 500 + D 500 MG PO (20:28)
[2025-07-16] VITALS (25 sets, daily range): BP systolic 95–150; BP diastolic 36–117; BMI 27.0
[2025-07-16 00:39] LABS: Hematocrit 24.0 % (37.0-47.0); Hemoglobin 7.8 g/dL (12.0-16.0)
[2025-07-16] MEDS: PROTONIX 100 IV ×3 (02:56→23:40)
--- NOTE | 2025-07-16 04:05 | PTCARENOTE ---
repeat hgb 7.8 @00:00 from 8.5 earlier that afternoon. MILD DISABILITIES TEACHER notified via tiger text. 1 unit PRBC ordered. New type and screen drawn. Consent in electronic chart.
--- NOTE | 2025-07-16 04:32 | PTCARENOTE ---
1unit PRBC hung at 04:21
--- NOTE | 2025-07-16 05:34 | W.PN.UPDATE ---
Update Note
Progress Note Update
Patient feeling better overall, no further vomiting, no bowel movements overnight, hemodynamics have remained stable. Her hemoglobin did drift down further, now receiving 1 unit PRBCs. Will await posttransfusion labs, continue PPI and plan EGD
today, suspect ulceration at previous treatment sites.
--- NOTE | 2025-07-16 07:57 | W.PN.CD ---
Today's Communication / Plan
-
EGD planned for today
Resume Heparin and warfarin once OK from GI perspective
We will follow along peripherally over the weekend
Impression / Plan
-
I/P: 80F with severe mitral stenosis status-post [facility] mechanical mitral valve replacement (03/22/20; on warfarin), postoperative pericardial effusion status-post pericardiocentesis, CVA (therapeutic warfarin, 05/2025), paroxysmal atrial
fibrillation/flutter status-post cardioversions (on 06/15/20 and 08/16/23) and subsequent ablation (09/26/2023), tachycardia-bradycardia syndrome status-post MRI conditional Medtronic dual-chamber pacemaker implantation (07/25/20), moderate aortic
stenosis, moderate tricuspid regurgitation, nonobstructive CAD, hypertension, hyperlipidemia, diabetes, COPD/paralyzed vocal cord, obstructive sleep apnea (on home CPAP), and history of Schatzki's ring of distal esophagus presented to the ER with a
chief complaint of shortness of breath.
Outpatient mover helper: Dr. Arevalo
Shortness of breath/COPD/anemia
- Pulmonary consulted.
- Breathing status has improved.
- Patient's underlying cardiac issues are not the cause of her dyspnea.
Anemia, in the setting of GI bleed, severe
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
- Small amount of hematemesis yesterday; heparin and warfarin on hold EGD plan for today
Severe mitral stenosis status post [facility] [employer] mechanical MVR 03/22/2020
- Goal INR 2.5�3.5
- MG on recent echo 3 mmHg
- Holding heparin bridge; goal INR 2.5-3.5.
- Coumadin on hold
Persistent atrial fibrillation
- Apaced today; continues on diltiazem and metoprolol succinate.
- Oral Anticoagulation: Warfarin (mechanical MVR)
- [id number]: score 8 (HTN, age 75 or more, Diabetes Mellitus, prior Stroke/TIA, Vascular disease, female gender)
- Continue heparin bridge as above until INR therapeutic.
Aortic stenosis, moderate, peak/mean gradient 35/20 mmHg, DAO 1.0 cm�
Tricuspid regurgitation, moderate
CVA, 05/2025, on therapeutic warfarin
Tachycardia-bradycardia syndrome status post Medtronic DC PPM--stable.
LBBB, chronic, stable, normal perfusion on Lexiscan nuclear stress test in April,
Hyperlipidemia, rosuvastatin recently increased in the setting of CVA
Type 2 diabetes, controlled, most recent HgbA1c 5.9%
JENNIFER, on CPAP
Subjective: stable
DATA:
Transthoracic echocardiogram, 04/01/2025:
CONCLUSIONS
Normal biventricular size and systolic function without regional wall motion
abnormality. Estimated LVEF 50-55%.
Mechanical mitral valve replacement. The mean gradient across the valve is 3
mmHg. No significant mitral regurgitation.
Moderate aortic stenosis. The peak gradient across the valve is 35 mmHg with a
mean of 20 mmHg. Using a LVOT diameter of 1.9 cm, the DAO is 1.0 cm sq.
Moderate tricuspid regurgitation. Mildly elevated PASP. Estimated pulmonary
artery pressure of 45 mmHg assuming a right atrial pressure of 3 mmHg.
Compared to 11/12/23: has progressed from mild/moderate to moderate. PASP has
decreased from 65 mmHg to 45 mmHg.
Physical Exam
Vital Signs/Labs
Vital Signs
Temp Pulse Resp BP Pulse Ox
98.5 F 79 18 129/44 98
07/16/25 07:51 07/16/25 06:00 07/16/25 06:00 07/16/25 06:00 07/16/25 06:00
07/15/25 07/16/25 07/17/25
06:59 06:59 06:59
Actual Weight 168 lb 3.403 oz
07/12/25 06:46
PT 14.6 Sec (11.4-14.6) 07/15/25 06:24
INR 1.09 07/15/25 06:24
APTT Cancelled 07/15/25 20:50
07/06/25
11:55
[id number] Pept 682
Physical Exam
Constitutional: No acute distress
EENT: Anicteric
Cardiovascular: Other (systolic murmur and mechanical clicking )
Respiratory: Respiratory effort normal
GI: Soft
Neuro/Psych: AO x 3
Data Reviewed
-
Date of Service: July 16, 2025
EKG: Tracing Personally Visualized and interpreted (af)
Echo: Report Reviewed by me
Labs: Labs Reviewed by me
--- NOTE | 2025-07-16 08:00 | PTCARENOTE ---
One unit of blood transfused without incident. VS stable. Protonix drip infusing as ordered. Patient remains NPO except for some ice chips. Patient to get EGD.
--- NOTE | 2025-07-16 08:19 | W.PN.HOSP.TC ---
Today's Communication/Plan
-
see A/P
Assessment / Plan
Assessment / Plan
A/P:
# Symptomatic anemia, recurrent transient GI bleed 2/2 Angioectasia with supratherapeutic INR on admission
# History of transient GI bleed on Coumadin 04/28 - 04/29/2025, self resolved (had prior admissions October, November, and January for same)
# hx Schatzki's ring of distal esophagus
INR was 4.4 on 07/05/2025 patient took Coumadin 5 mg
s/p EGD 07/08, noted few nonbleeding AVMs stomach, cauterized w APC. Single recently bleeding AVM duodenal bulb with associated clot cauterized w APC and injected w epi, clipped x 3
Pt had been stable until 07/15 when she started to vomit and developed hematemesis again
restarted Protonix drip
transfuse 1 unit PRBC 07/16 (total 2 units PRBC so far)
GI plan for repeat EGD 07/16
Hold further heparin drip, PO Coumadin
Cont to follow daily INR (eventual goal 2.5 to 3.5)
# Dyspnea likely 2/2 to anemia
# Acute hypoxic resp insufficiency
Placed back on 2L NC, wean as tolerated, pt not on home O2
COPD ruled out by pulm, CHF ruled out by Card
Continue with [employer] Lasix, Duonebs PRN
Appreciate Card and pulm input
# 2 episodes of fever documented on 07/08, none since
Flu and COVID negative , UA neg
# Daily alcohol use
Drinks 12 ounces of wine a day last drink was midnight 07/05/2025
Cessation advised
# mitral regurgitation S/P mitral valve replacement March 2020
INR goal 2.5-3.5 due to mechanical valve
holding AC hep gtt bridge and Coumadin with recurrent hematemesis
# Persistent A-fib
# A-fib ablation September 2023
# mechanical mitral valve replacement March 2020
Cont [employer] Toprol and Cardizem with holding parameter
eventual OAC with Coumadin, INR daily
# Hyponatremia, resolved
# Recent dysmetria of right upper extremity with Small acute left frontal parietal INFARCT on MRI
# CVA 05/24/2025�small acute left frontal parietal infarct
# Chronic LBBB
# Medtronic dual-chamber permanent pacemaker 07/25/2020
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
# Hypertension
Cont [employer] Toprol and Cardizem with holding parameter
BP stable
# Hyperlipidemia
Continue Crestor 5 mg at bedtime
# NIDDM
HgbA1c 5.1% on May 2025 admission
Accu-Cheks with SSI
resumed Januvia 50 mg mg daily
# Chronic CHF
I/O, daily weight
Continue furosemide 20 mg every 48 hours
# COPD
# Former smoker 25 years 1 pack a day quit 1992
# Depression
Continue Effexor 75 mg twice daily
Other PMH:
# fibromyalgia
# hiatal hernia
DVT prophylaxis: Now SCD, holding AC hep gtt bridge and Coumadin with recurrent hematemesis
Full code
DW RN
Anticipated Discharge: > 48 hours
Subjective/Interval History
-
Date of Service: July 16, 2025
Objective Data
-
Labs:
Laboratory Results
07/16/25 07/16/25
00:04 06:00
WBC Pending
Hgb 7.8 L Pending
Hct 24.0 L Pending
Plt Count Pending
PT Pending
INR Pending
Vital Signs:
Vital Signs
Temp Pulse Resp BP Pulse Ox
36.9 C 79 18 129/44 98
07/16/25 07:51 07/16/25 06:00 07/16/25 06:00 07/16/25 06:00 07/16/25 06:00
I&O
07/15/25 07/16/25 07/17/25
06:59 06:59 06:59
Intake Total 720 / 720 120 / 120
Balance 720 / 720 120 / 120
Review of Systems
-
History Source: Patient
All other systems: Reviewed and negative
Physical Exam
-
General: Well Developed, Well Nourished, Comfortable and Conversant
HEENT: Normocephalic, Atraumatic, Moist Mucous Membranes and Oxygen (2L NC)
Respiratory: Clear to Auscultation and Non Labored Respirations; Negative Accessory Resp Muscle Use
Cardiac: Regular Rhythm and S1/S2; Negative Murmur, Rub or Gallop
GI: Soft, Nontender, Nondistended and Normal Bowel Sounds; Negative Organomegaly
Rectal: Deferred by Provider
Musculoskeletal: No Clubbing, No Cyanosis and No Edema
Neuro: Awake and Alert
Psych: Calm and Intact Judgement/Insight
Data Reviewed
-
Diagnostic Radiology: Report Reviewed by me
Labs: Labs Reviewed by me
--- NOTE | 2025-07-16 08:49 | PTOTSP ---
Reviewed chart and noted pt transferred to IMU overnight and PT order was not continued upon transfer. Will need updated PT order when stable to participate, IF SHE IS WILLING TO PARTICIPATE (she has been refusing for several days).
--- NOTE | 2025-07-16 10:14 | PTCARENOTE ---
Patient had two loose burgundy stools this AM. Patient currently pff unit to GI lab.
[2025-07-16 10:16] LABS: Glucose - Point of Care 336 mg/dl (70-99)
[2025-07-16 10:23] LABS: Hematocrit 26.2 % (37.0-47.0); Hemoglobin 8.5 g/dL (12.0-16.0); Mean Corp Hgb Conc. 32.4 g/dL (33.0-37.0); Mean Corpuscular Volume 81.6 fL (81.0-99.0); Platelet Count 238 10^3/uL (130-400); Red Cell Dist. Width 15.5 % (11.5-14.5)
[2025-07-16 10:29] LABS: INR 1.20; PT 15.5 Sec (11.4-14.6)
[2025-07-16 10:49] LABS: Glucose - Point of Care 337 mg/dl (70-99)
[2025-07-16] MEDS: NOVOLOG vial 6 UNITS SC (10:56)
[2025-07-16] MEDS: NOVOLOG FLEXPEN-LOW RESISTANCE 6 UNITS SC (11:28)
[2025-07-16] MEDS: VITAMIN D3 (cholecalciferol) 50 MCG PO (11:29)
[2025-07-16] MEDS: CARDIZEM CD 240 MG PO ×2 (11:29→19:35)
[2025-07-16] MEDS: EFFEXOR XR 37.5 MG PO ×2 (11:29→19:32)
[2025-07-16] MEDS: VITAMIN C 500 MG PO (11:29)
[2025-07-16] MEDS: VITAMIN B-12 1000 MCG PO (11:29)
[2025-07-16] MEDS: TOPROL XL 25 MG PO ×2 (11:29→19:35)
[2025-07-16] MEDS: ROBITUSSIN 400 MG PO ×2 (11:30→19:31)
[2025-07-16] MEDS: JANUVIA 50 MG PO (11:30)
[2025-07-16 12:46] LABS: Glucose - Point of Care 270 mg/dl (70-99)
[2025-07-16] MEDS: NOVOLOG FLEXPEN-LOW RESISTANCE 3 UNITS SC ×2 (13:07→18:03)
[2025-07-16] MEDS: LASIX 20 MG PO (13:07)
--- NOTE | 2025-07-16 16:11 | CM ---
Discharge POC: Home with no needs. Declined MAZIN RN.
[2025-07-16] MEDS: VALTREX 500 MG PO (17:23)
[2025-07-16] MEDS: THERAGRAN 1 TABLET PO (17:23)
[2025-07-16 17:49] LABS: Glucose - Point of Care 246 mg/dl (70-99)
--- NOTE | 2025-07-16 19:00 | PTCARENOTE ---
Patient tolerating clear liquid diet. Denies any abdominal pain or discomfort. Denies N/V. No bleeding noted in EGD. Patient was not ordered any coumadin this evening and patient upset about that. Order for coumadin obtained by cardiology.
Patient to receive 7.5 mg tonight.
[2025-07-16] MEDS: OSCAL 500 + D 500 MG PO (19:32)
[2025-07-16] MEDS: LOW STRENGTH ASPIRIN 81 MG PO (19:32)
[2025-07-16] MEDS: B COMPLEX w/VITAMIN C 1 CAPLET PO (19:32)
[2025-07-16] MEDS: COUMADIN 7.5 MG PO (19:32)
[2025-07-16] MEDS: CRESTOR 10 MG PO (19:32)
[2025-07-16 21:27] LABS: Glucose - Point of Care 317 mg/dl (70-99)
[2025-07-16] MEDS: NOVOLOG FLEXPEN 4 UNITS SC (21:56)
[2025-07-16 22:20] LABS: Hematocrit 22.8 % (37.0-47.0); Hemoglobin 7.5 g/dL (12.0-16.0); Mean Corp Hgb Conc. 32.9 g/dL (33.0-37.0); Mean Corpuscular Volume 79.2 fL (81.0-99.0); Platelet Count 200 10^3/uL (130-400); Red Cell Dist. Width 15.7 % (11.5-14.5)
--- NOTE | 2025-07-16 23:30 | PTCARENOTE ---
Pt with 1 episode of liquid burgundy stool this shift. Field Artillery Radar Operator updated. Plan to hold off on heparin gtt due to burgundy stools. H&H ordered and drawn. Repeat hgb 7.5. Field Artillery Radar Operator updated, GI updated. SKIVER BLOCKERS notified. VSS. Order placed for 1 unit
PRBC. Transfusion started @ 23:25.
[2025-07-17] VITALS (12 sets, daily range): BP systolic 113–145; BP diastolic 41–101; BMI 27.1
[2025-07-17 01:59] LABS: Glucose - Point of Care 168 mg/dl (70-99)
[2025-07-17 06:37] LABS: INR 1.35; PT 17.0 Sec (11.4-14.6)
[2025-07-17 07:02] LABS: Hematocrit 29.6 % (37.0-47.0); Hemoglobin 9.4 g/dL (12.0-16.0); Mean Corp Hgb Conc. 31.8 g/dL (33.0-37.0); Mean Corpuscular Volume 81.5 fL (81.0-99.0); Platelet Count 194 10^3/uL (130-400); Red Cell Dist. Width 15.6 % (11.5-14.5)
--- NOTE | 2025-07-17 07:13 | W.PN.UPDATE ---
Update Note
Progress Note Update
~ 21:30 HS Accucheck 317, ordered Novolog 4 units SC x 1. Repeat 2 hour accucheck, 168.
~ 22:30 Hgb 7.5, pt continues w/ joseph stools. Ordered one unit PRBC's. Repeat AM labs, Hgb 9.4.
--- NOTE | 2025-07-17 07:33 | W.PN.GI.CBS2 ---
Today's Communication / Plan
-
Please see assessment and plan for details.
Assessment / Plan
-
1. GI bleed : Acutely secondary to ulceration from APC sites, with larger ulcer at the pyloric channel with 1 mm flat red spot, though no other signs of recent bleeding on endoscopy yesterday. Her burgundy stool last night was likely old blood,
responded more than appropriately to transfusion and has been hemodynamically stable. At this point we will advance diet to low residue. Would be okay from GI standpoint if needed given mechanical mitral valve for heparin, with close observation
and continued Coumadin dosing. If remains stable will likely change PPI to twice daily tomorrow. Has chronic episodes of bleeding when has supratherapeutic INR secondary to angiectasia, though when in the therapeutic range does well. Would
continue outpatient iron supplementation if needed.
Subjective
Subjective
Date of Service: July 17, 2025
Patient feeling well, had 1 burgundy stool early last evening, though none since. No nausea or vomiting, tolerated clears that difficulty. Received 1 unit of PRBCs overnight, has been hemodynamically stable.
Objective
Data Reviewed
Laboratory Data:
Laboratory Results
07/17/25 06:20
07/12/25 06:46
Laboratory Results
PT 17.0 Sec (11.4-14.6) H 07/17/25 06:20
INR 1.35 07/17/25 06:20
APTT Cancelled 07/15/25 20:50
Total Bilirubin 0.5 mg/dl (0.2-1.3) 07/07/25 07:24
AST 23 U/L (14-36) 07/07/25 07:24
ALT 18 U/L (0-35) 07/07/25 07:24
Alkaline Phosphatase 60 U/L (38-126) 07/07/25 07:24
Vital Signs and I&O:
Vital Signs
Temp Pulse Resp BP Pulse Ox
98.7 F 79 12 119/42 93
07/17/25 03:44 07/17/25 06:00 07/17/25 06:00 07/17/25 06:00 07/16/25 23:40
I&O
07/16/25 07/17/25 07/18/25
06:59 06:59 05:59
Intake Total 120 / 120 1100 / 1100
Output Total 1300 / 1300
Balance 120 / 120 -200 / -200
Physical Exam
Physical Exam
General: NAD
Abdomen: normal bowel sounds, soft, no tenderness, no masses or bruits, no ascites
[2025-07-17 08:08] LABS: Glucose - Point of Care 198 mg/dl (70-99)
--- NOTE | 2025-07-17 08:50 | W.PN.HOSP.TC ---
Today's Communication/Plan
-
see A/P
Assessment / Plan
Assessment / Plan
A/P:
# Symptomatic anemia, recurrent GI bleed 2/2 Angioectasia with supratherapeutic INR on admission
# History of transient GI bleed on Coumadin 04/28 - 04/29/2025, self resolved (had prior admissions October, November, and January for same)
# hx Schatzki's ring of distal esophagus
INR was 4.4 on 07/05/2025, patient took Coumadin 5 mg
s/p initial EGD 07/08 this admission, noted few nonbleeding AVMs stomach, cauterized w APC. Single recently bleeding AVM duodenal bulb with associated clot cauterized w APC and injected w epi, clipped x 3
Pt had been stable until 07/15 when she started to have hematemesis again
restarted Protonix drip
s/p repeat EGD 07/16, noted GIB at ulceration from APC sites, with larger ulcer at the pyloric channel
GI OK to restart heparin drip with Coumadin bridge, follow daily INR (goal 2.5 to 3.5)
noted, now s/p 3 units PRBC
# Dyspnea likely 2/2 to anemia, much resolved
# Acute hypoxic resp insufficiency, resolved
weaned to RA, pt not on home O2
COPD ruled out by pulm, CHF ruled out by Card
Continue with [employer] Lasix, Duonebs PRN
Appreciate Card and pulm input
# 2 episodes of fever documented on 07/08, none since
Flu and COVID negative , UA neg
# Daily alcohol use
Drinks 12 ounces of wine a day last drink was midnight 07/05/2025
Cessation advised
# mitral regurgitation S/P mitral valve replacement March 2020
INR goal 2.5-3.5 due to mechanical valve
hep gtt bridge to Coumadin, dose 7.5 mg HS ([employer] 5 mg HS)
# Persistent A-fib
# A-fib ablation September 2023
# mechanical mitral valve replacement March 2020
Cont [employer] Toprol and Cardizem with holding parameter
OAC with Coumadin, INR daily
# Hyponatremia, resolved
# Recent dysmetria of right upper extremity with Small acute left frontal parietal INFARCT on MRI
# CVA 05/24/2025�small acute left frontal parietal infarct
# Chronic LBBB
# Medtronic dual-chamber permanent pacemaker 07/25/2020
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
# Hypertension
Cont [employer] Toprol and Cardizem with holding parameter
BP stable
# Hyperlipidemia
Continue Crestor 5 mg at bedtime
# NIDDM
HgbA1c 5.1% on May 2025 admission
Accu-Cheks with SSI
resumed Januvia 50 mg mg daily
# Chronic CHF
I/O, daily weight
Continue furosemide 20 mg every 48 hours
# COPD
# Former smoker 25 years 1 pack a day quit 1992
# Depression
Continue Effexor 75 mg twice daily
Other PMH:
# fibromyalgia
# hiatal hernia
DVT prophylaxis: restart heparin gtt to bridge back to Coumadin, daily INR
Full code
DW RN
lef tvoice mail to daughter
Anticipated Discharge: > 48 hours
Subjective/Interval History
-
Date of Service: July 17, 2025
Objective Data
-
Labs:
Laboratory Results
07/16/25 07/17/25
22:06 06:20
WBC 9.6 10.2
Hgb 7.5 L 9.4 L D
Hct 22.8 L 29.6 L
Plt Count 200 194
PT 17.0 H
INR 1.35
Vital Signs:
Vital Signs
Temp Pulse Resp BP Pulse Ox
37.4 C 79 12 119/42 93
07/17/25 07:35 07/17/25 06:00 07/17/25 06:00 07/17/25 06:00 07/16/25 23:40
I&O
07/16/25 07/17/25 07/18/25
06:59 06:59 05:59
Intake Total 120 / 120 1100 / 1100
Output Total 1300 / 1300
Balance 120 / 120 -200 / -200
Review of Systems
-
History Source: Patient
All other systems: Reviewed and negative
Physical Exam
-
General: Well Developed, Well Nourished, Comfortable and Conversant
HEENT: Normocephalic, Atraumatic and Moist Mucous Membranes
Respiratory: Clear to Auscultation and Non Labored Respirations; Negative Accessory Resp Muscle Use
Cardiac: Regular Rhythm and S1/S2; Negative Murmur, Rub or Gallop
GI: Soft, Nontender, Nondistended and Normal Bowel Sounds; Negative Organomegaly
Rectal: Deferred by Provider
Musculoskeletal: No Clubbing, No Cyanosis and No Edema
Neuro: Awake and Alert
Psych: Calm and Intact Judgement/Insight
Data Reviewed
-
Diagnostic Radiology: Report Reviewed by me
Labs: Labs Reviewed by me
[2025-07-17] MEDS: VITAMIN B-12 1000 MCG PO (08:59)
[2025-07-17] MEDS: VITAMIN C 500 MG PO (08:59)
[2025-07-17] MEDS: TOPROL XL 25 MG PO ×2 (08:59→20:27)
[2025-07-17] MEDS: JANUVIA 50 MG PO (08:59)
[2025-07-17] MEDS: VITAMIN D3 (cholecalciferol) 50 MCG PO (08:59)
[2025-07-17] MEDS: NOVOLOG FLEXPEN-LOW RESISTANCE 1 UNITS SC ×2 (09:00→17:25)
[2025-07-17] MEDS: CARDIZEM CD 240 MG PO ×2 (09:00→20:25)
[2025-07-17] MEDS: EFFEXOR XR 37.5 MG PO ×2 (09:00→20:25)
[2025-07-17] MEDS: ROBITUSSIN 400 MG PO ×2 (09:00→20:26)
[2025-07-17 09:50] LABS: APTT 30.0 Sec (23.4-35.0)
[2025-07-17] MEDS: HEPARIN 25000 UNITS/250 ML IV (09:51)
--- NOTE | 2025-07-17 10:10 | PTCARENOTE ---
Pt received from shift engineer RN, reported 1 burgundy stool overnight and after 1 unit PRBC's, hgb is now 9.4. Pt is Ox3 and appropriate, has some residual R sided weakness after CVA. 100% A Paced on tele, audible click. 94% on RA, breath sounds are
clear. Purewick in place draining anabela urine. Pt tolerating LRD with no nausea. Heparin gtt restarted at 950 units/hr through L FA 20G. Next PTT at 1600. Pt is motivated to get up today, wants to get OOB after breakfast.
--- NOTE | 2025-07-17 10:31 | W.PN.CD ---
Today's Communication / Plan
-
Small amount of hematemesis 07/15/2025 patient was being bridged. Heparin held. Patient had follow-up EGD 07/16/2025 with no additional intervention required. Suspected to be related to ulceration from APC sites. Issues reviewed with GI.
Patient received 1 additional unit of blood overnight. No evidence of bleeding this morning. GI felt that patient could be restarted on bridging heparin without a bolus. Patient has been off therapeutic anticoagulation for about 48 hours.
Coumadin was reinitiated yesterday.
- Coumadin 7.5 mg given on 07/16/2025. Normal dosing is Coumadin 5 mg daily will give 5 mg today
.
Impression / Plan
-
I/P: 80F with severe mitral stenosis status-post [facility] mechanical mitral valve replacement (03/22/20; on warfarin), postoperative pericardial effusion status-post pericardiocentesis, CVA (therapeutic warfarin, 05/2025), paroxysmal atrial
fibrillation/flutter status-post cardioversions (on 06/15/20 and 08/16/23) and subsequent ablation (09/26/2023), tachycardia-bradycardia syndrome status-post MRI conditional Medtronic dual-chamber pacemaker implantation (07/25/20), moderate aortic
stenosis, moderate tricuspid regurgitation, nonobstructive CAD, hypertension, hyperlipidemia, diabetes, COPD/paralyzed vocal cord, obstructive sleep apnea (on home CPAP), and history of Schatzki's ring of distal esophagus presented to the ER with a
chief complaint of shortness of breath.
Outpatient econometrician: Dr. Arevalo
Shortness of breath/COPD/anemia
- Pulmonary consulted.
- Breathing status has improved.
Anemia, in the setting of GI bleed, severe
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
- Small amount of hematemesis 07/15/2025 patient was being bridged. Heparin held. Patient had follow-up EGD 07/16/2025 with no additional intervention required. Suspected to be related to ulceration from APC sites. Issues reviewed with
GI. Patient received 1 additional unit of blood overnight. No evidence of bleeding this morning. GI felt that patient could be restarted on bridging heparin without a bolus. Patient has been off therapeutic anticoagulation for about 48 hours.
Coumadin was reinitiated yesterday.
- Coumadin 7.5 mg given on 07/16/2025. Normal dosing is Coumadin 5 mg daily will give 5 mg today
.
[facility] mechanical MVR 03/22/2020
- Mitral gradient recent echo 3 mmHg
- Target INR 2.5-3.5.
Persistent atrial fibrillation
- Currently in sinus
- Oral Anticoagulation: Warfarin (mechanical MVR)
- [id number]: score 8 (HTN, age 75 or more, Diabetes Mellitus, prior Stroke/TIA, Vascular disease, female gender)
- Issues related to anticoagulation as noted.
Aortic stenosis, moderate, peak/mean gradient 35/20 mmHg, DAO 1.0 cm�
Tricuspid regurgitation, moderate
CVA, 05/2025, on therapeutic warfarin
Tachycardia-bradycardia syndrome status post Medtronic DC PPM--stable.
LBBB, chronic, stable, normal perfusion on Lexiscan nuclear stress test in April,
Hyperlipidemia, rosuvastatin recently increased in the setting of CVA
Type 2 diabetes, controlled, most recent HgbA1c 5.9%
JENNIFER, on CPAP
Subjective: stable
DATA:
Transthoracic echocardiogram, 04/01/2025:
CONCLUSIONS
Normal biventricular size and systolic function without regional wall motion
abnormality. Estimated LVEF 50-55%.
Mechanical mitral valve replacement. The mean gradient across the valve is 3
mmHg. No significant mitral regurgitation.
Moderate aortic stenosis. The peak gradient across the valve is 35 mmHg with a
mean of 20 mmHg. Using a LVOT diameter of 1.9 cm, the DAO is 1.0 cm sq.
Moderate tricuspid regurgitation. Mildly elevated PASP. Estimated pulmonary
artery pressure of 45 mmHg assuming a right atrial pressure of 3 mmHg.
Compared to 11/12/23: has progressed from mild/moderate to moderate. PASP has
decreased from 65 mmHg to 45 mmHg.
Physical Exam
Vital Signs/Labs
Vital Signs
Temp Pulse Resp BP Pulse Ox
99.3 F 92 18 145/51 95
07/17/25 07:35 07/17/25 08:00 07/17/25 08:00 07/17/25 08:00 07/17/25 08:00
07/16/25 07/17/25 07/18/25
06:59 06:59 05:59
Actual Weight 76.204 kg 76.459 kg
07/12/25 06:46
PT 17.0 Sec (11.4-14.6) H 07/17/25 06:20
INR 1.35 07/17/25 06:20
APTT 30.0 Sec (23.4-35.0) 07/17/25 06:20
07/06/25
11:55
Dvx-B-Ubumljedcaf Pept 682
Physical Exam
Constitutional: No acute distress
Cardiovascular: Rhythm & rate is regular and Other (Mechanical S1)
Respiratory: Wheeze Absent and Rhonchi Absent
GI: Soft and Non tender
Neuro/Psych: Alert and Oriented
Data Reviewed
-
Date of Service: July 17, 2025
Medical Decision Making: Reviewed Test Results
Echo: Report Reviewed by me
Medical Tests (PFT, Pathology etc): Report Reviewed by me
Labs: Labs Reviewed by me
[2025-07-17 12:45] LABS: Glucose - Point of Care 291 mg/dl (70-99)
[2025-07-17] MEDS: PROTONIX 100 IV ×2 (12:53→23:28)
[2025-07-17] MEDS: NOVOLOG FLEXPEN-LOW RESISTANCE 3 UNITS SC (13:06)
[2025-07-17 17:11] LABS: Glucose - Point of Care 196 mg/dl (70-99)
[2025-07-17] MEDS: COUMADIN 7.5 MG PO (17:28)
[2025-07-17] MEDS: THERAGRAN 1 TABLET PO (17:28)
[2025-07-17] MEDS: VALTREX 500 MG PO (17:28)
[2025-07-17 18:07] LABS: APTT 59.5 Sec (23.4-35.0)
[2025-07-17] MEDS: B COMPLEX w/VITAMIN C 1 CAPLET PO (20:28)
[2025-07-17] MEDS: LOW STRENGTH ASPIRIN 81 MG PO (20:28)
[2025-07-17] MEDS: CRESTOR 10 MG PO (20:28)
[2025-07-17] MEDS: OSCAL 500 + D 500 MG PO (20:29)
[2025-07-17 22:26] LABS: Glucose - Point of Care 208 mg/dl (70-99)
[2025-07-18] VITALS (14 sets, daily range): BP systolic 112–154; BP diastolic 38–98; BMI 27.1
[2025-07-18 01:03] LABS: APTT 121.8 Sec (23.4-35.0)
[2025-07-18 06:50] LABS: Hematocrit 28.3 % (37.0-47.0); Hemoglobin 9.2 g/dL (12.0-16.0); Mean Corp Hgb Conc. 32.5 g/dL (33.0-37.0); Mean Corpuscular Volume 79.3 fL (81.0-99.0); Platelet Count 195 10^3/uL (130-400); Red Cell Dist. Width 15.5 % (11.5-14.5)
[2025-07-18 06:53] LABS: INR 1.83; PT 21.4 Sec (11.4-14.6)
[2025-07-18 06:56] LABS: APTT 144.2 Sec (23.4-35.0)
[2025-07-18] MEDS: TOPROL XL 25 MG PO ×2 (07:22→20:13)
[2025-07-18] MEDS: ROBITUSSIN 400 MG PO ×2 (07:22→20:17)
[2025-07-18] MEDS: EFFEXOR XR 37.5 MG PO ×2 (07:23→20:13)
--- NOTE | 2025-07-18 07:23 | W.PN.GI.CBS2 ---
Today's Communication / Plan
-
Please see assessment and plan for details.
Assessment / Plan
-
1. GI bleed : Acutely secondary to ulceration from APC sites, with larger ulcer at the pyloric channel with 1 mm flat red spot, though no other signs of recent bleeding on endoscopy Saturday. She has not had any further signs of bleeding,
hemoglobin remained stable and tolerated diet. Her INR is 1.8, on heparin, and again no further signs of bleeding. At this point we will change PPI to twice daily which would continue for 6 weeks, then daily indefinitely. Would continue tight
therapeutic range of warfarin as she likely will have other oozing from angiectasia when she is supratherapeutic as she has in the past. Would continue outpatient monitoring and iron supplementation as needed.
We will sign off for now, please call back with any further questions.
Subjective
Subjective
Date of Service: July 18, 2025
No events overnight, no bowel movements. No nausea or vomiting, tolerated low residue diet without difficulty.
Objective
Data Reviewed
Laboratory Data:
Laboratory Results
07/18/25 06:36
07/12/25 06:46
Laboratory Results
PT 21.4 Sec (11.4-14.6) H 07/18/25 06:36
INR 1.83 07/18/25 06:36
APTT 144.2 Sec (23.4-35.0) H 07/18/25 06:36
Total Bilirubin 0.5 mg/dl (0.2-1.3) 07/07/25 07:24
AST 23 U/L (14-36) 07/07/25 07:24
ALT 18 U/L (0-35) 07/07/25 07:24
Alkaline Phosphatase 60 U/L (38-126) 07/07/25 07:24
Vital Signs and I&O:
Vital Signs
Temp Pulse Resp BP Pulse Ox
99.2 F 71 13 130/50 91
07/18/25 03:44 07/18/25 06:00 07/18/25 06:00 07/18/25 06:00 07/18/25 02:00
I&O
07/17/25 07/18/25 07/19/25
06:59 05:59 06:59
Intake Total 1100 / 1100 1175 / 1175
Output Total 1300 / 1300 1500 / 1500
Balance -200 / -200 -325 / -325
Physical Exam
Physical Exam
General: NAD
Abdomen: normal bowel sounds, soft, no tenderness, no masses or bruits, no ascites
[2025-07-18] MEDS: JANUVIA 50 MG PO (07:24)
[2025-07-18] MEDS: CARDIZEM CD 240 MG PO ×2 (07:24→20:17)
[2025-07-18] MEDS: VITAMIN C 500 MG PO (07:27)
[2025-07-18] MEDS: VITAMIN D3 (cholecalciferol) 50 MCG PO (07:27)
[2025-07-18] MEDS: VITAMIN B-12 1000 MCG PO (07:27)
--- NOTE | 2025-07-18 08:21 | W.PN.HOSP.TC ---
Today's Communication/Plan
-
see A/P
Assessment / Plan
Assessment / Plan
A/P:
# Symptomatic anemia, recurrent GI bleed 2/2 Angioectasia with supratherapeutic INR on admission
# History of transient GI bleed on Coumadin 04/28 - 04/29/2025, self resolved (had prior admissions October, November, and January for same)
# hx Schatzki's ring of distal esophagus
INR was 4.4 on 07/05/2025, patient took Coumadin 5 mg
s/p initial EGD 07/08 this admission, noted few nonbleeding AVMs stomach, cauterized w APC. Single recently bleeding AVM duodenal bulb with associated clot cauterized w APC and injected w epi, clipped x 3
Pt had been stable until 07/15 when she started to have hematemesis again
s/p repeat EGD 07/16, noted GIB at ulceration from APC sites, with larger ulcer at the pyloric channel
Protonix drip -> PO BID
GI OK to restart heparin drip with Coumadin bridge, follow daily INR (goal 2.5 to 3.5)
noted, now s/p 3 units PRBC
# Dyspnea likely 2/2 to anemia, much resolved
# Acute hypoxic resp insufficiency, resolved
weaned to RA, pt not on home O2
COPD ruled out by pulm, CHF ruled out by Card
Continue with [employer] Lasix, Duonebs PRN
Appreciate Card and pulm input
# 2 episodes of fever documented on 07/08, none since
Flu and COVID negative , UA neg
# Daily alcohol use
Drinks 12 ounces of wine a day last drink was midnight 07/05/2025
Cessation advised
# mitral regurgitation S/P mitral valve replacement March 2020
INR goal 2.5-3.5 due to mechanical valve
hep gtt bridge to Coumadin dose 7.5 mg HS ([facility] 5 mg HS)
# Persistent A-fib
# A-fib ablation September 2023
# mechanical mitral valve replacement March 2020
Cont [facility] Toprol and Cardizem with holding parameter
OAC with Coumadin, INR daily
# Hyponatremia, resolved
# Recent dysmetria of right upper extremity with Small acute left frontal parietal INFARCT on MRI
# CVA 05/24/2025�small acute left frontal parietal infarct
# Chronic LBBB
# Medtronic dual-chamber permanent pacemaker 07/25/2020
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
# Hypertension
Cont [facility] Toprol and Cardizem with holding parameter
BP stable
# Hyperlipidemia
Continue Crestor 5 mg at bedtime
# NIDDM
HgbA1c 5.1% on May 2025 admission
Accu-Cheks with SSI
resumed Januvia 50 mg mg daily
# Chronic CHF
I/O, daily weight
Continue furosemide 20 mg every 48 hours
# COPD
# Former smoker 25 years 1 pack a day quit 1992
# Depression
Continue Effexor 75 mg twice daily
Other PMH:
# fibromyalgia
# hiatal hernia
DVT prophylaxis: heparin gtt to bridge back to Coumadin, daily INR
Full code
DW RN
DW GI
updated daughter on the phone
Anticipated Discharge: 24 - 48 hours
Subjective/Interval History
-
Date of Service: July 18, 2025
Objective Data
-
Labs:
Laboratory Results
07/18/25 07/18/25
00:44 06:36
WBC 7.4
Hgb 9.2 L
Hct 28.3 L
Plt Count 195
PT 21.4 H
INR 1.83
APTT 121.8 H 144.2 H
Vital Signs:
Vital Signs
Temp Pulse Resp BP Pulse Ox
37.3 C 71 13 130/50 91
07/18/25 03:44 07/18/25 06:00 07/18/25 06:00 07/18/25 06:00 07/18/25 02:00
I&O
07/17/25 07/18/25 07/19/25
06:59 05:59 06:59
Intake Total 1100 / 1100 1175 / 1175
Output Total 1300 / 1300 1500 / 1500
Balance -200 / -200 -325 / -325
Review of Systems
-
History Source: Patient
All other systems: Reviewed and negative
Physical Exam
-
General: Well Developed, Well Nourished, Comfortable and Conversant
HEENT: Normocephalic, Atraumatic and Moist Mucous Membranes
Respiratory: Clear to Auscultation and Non Labored Respirations; Negative Accessory Resp Muscle Use
Cardiac: Regular Rhythm and S1/S2; Negative Murmur, Rub or Gallop
GI: Soft, Nontender, Nondistended and Normal Bowel Sounds; Negative Organomegaly
Rectal: Deferred by Provider
Musculoskeletal: No Clubbing, No Cyanosis and No Edema
Neuro: Awake and Alert
Psych: Calm and Intact Judgement/Insight
Data Reviewed
-
Diagnostic Radiology: Report Reviewed by me
Labs: Labs Reviewed by me
[2025-07-18 08:28] LABS: Glucose - Point of Care 203 mg/dl (70-99)
[2025-07-18] MEDS: HEPARIN 25000 UNITS/250 ML IV (08:28)
[2025-07-18] MEDS: PROTONIX IV (08:33)
[2025-07-18] MEDS: NOVOLOG FLEXPEN-LOW RESISTANCE 2 UNITS SC ×2 (10:53→18:07)
[2025-07-18] MEDS: PROTONIX 40 MG PO ×2 (10:53→20:16)
--- NOTE | 2025-07-18 11:22 | W.PN.UPDATE ---
Update Note
Progress Note Update
Reviewed with GI. Hemoglobin remained stable. Patient remains on bridge with heparin. INR trending up and currently 1.83. Coumadin already dosed. Would need to be cautious with bridge considering recent bleeding. Reassess INR in a.m.
[2025-07-18 13:00] LABS: Glucose - Point of Care 351 mg/dl (70-99)
[2025-07-18] MEDS: NOVOLOG FLEXPEN-LOW RESISTANCE 5 UNITS SC (13:37)
[2025-07-18 15:30] LABS: APTT 71.6 Sec (23.4-35.0)
[2025-07-18 17:51] LABS: Glucose - Point of Care 212 mg/dl (70-99)
[2025-07-18] MEDS: THERAGRAN 1 TABLET PO (18:07)
[2025-07-18] MEDS: COUMADIN 7.5 MG PO (18:07)
[2025-07-18] MEDS: VALTREX 500 MG PO (18:07)
[2025-07-18] MEDS: OSCAL 500 + D 500 MG PO (20:21)
[2025-07-18] MEDS: B COMPLEX w/VITAMIN C 1 CAPLET PO (20:21)
[2025-07-18] MEDS: CRESTOR 10 MG PO (20:21)
[2025-07-18] MEDS: LOW STRENGTH ASPIRIN 81 MG PO (20:21)
[2025-07-18 21:38] LABS: Glucose - Point of Care 199 mg/dl (70-99)
--- NOTE | 2025-07-18 22:00 | PTCARENOTE ---
Assumed care of Pt from dayshift RN after change of shift report. pt is aaox3. Pt is a paced on monitor, HR 70 bpm. satting 96% on RA. lungs clear. No BM's thus far in this RN's shift. using bsc with assistance of 1. Heparin gtt is currently at 950
u/hr per heparin titration protocol, see mar and work list intervention. assessment as documented. call light in reach.
[2025-07-18 23:04] LABS: APTT 98.3 Sec (23.4-35.0)
[2025-07-19] VITALS (12 sets, daily range): BP systolic 114–151; BP diastolic 39–102; BMI 26.7
--- NOTE | 2025-07-19 01:43 | PTCARENOTE ---
Pt c/o burning with urination. Urine yellow in color, not observed to be cloudy at this time. HOUSE CALLS NURSE made aware of assessment findings. order received for UA.
[2025-07-19 05:23] LABS: Hematocrit 27.2 % (37.0-47.0); Hemoglobin 8.8 g/dL (12.0-16.0); Mean Corp Hgb Conc. 32.4 g/dL (33.0-37.0); Mean Corpuscular Volume 79.5 fL (81.0-99.0); Platelet Count 217 10^3/uL (130-400); Red Cell Dist. Width 15.5 % (11.5-14.5)
[2025-07-19 05:26] LABS: Urine Character Clear (Clear)
[2025-07-19 05:30] LABS: APTT 112.6 Sec (23.4-35.0)
[2025-07-19 05:48] LABS: Urine White Cell 30-40 /HPF (0-5)
[2025-07-19 05:49] LABS: Urine Red Blood Cell 0-2 /HPF (0-2); Urine Squamous Cell 0-2 /LPF (Few)
[2025-07-19] MEDS: VITAMIN D3 (cholecalciferol) 50 MCG PO (08:20)
[2025-07-19] MEDS: EFFEXOR XR 37.5 MG PO ×2 (08:20→20:25)
[2025-07-19] MEDS: VITAMIN C 500 MG PO (08:20)
[2025-07-19] MEDS: PROTONIX 40 MG PO ×2 (08:20→20:25)
[2025-07-19] MEDS: VITAMIN B-12 1000 MCG PO (08:20)
[2025-07-19] MEDS: TOPROL XL 25 MG PO ×2 (08:20→20:25)
[2025-07-19] MEDS: CARDIZEM CD 240 MG PO ×2 (08:20→20:24)
[2025-07-19] MEDS: JANUVIA 50 MG PO (08:20)
[2025-07-19] MEDS: ROBITUSSIN 400 MG PO ×2 (08:21→20:24)
[2025-07-19] MEDS: LASIX 20 MG PO (08:25)
--- NOTE | 2025-07-19 09:09 | PTOTSP ---
Reviewed chart. Pt transferred to IMU 07/15. PT/OT orders not continued upon transfer. Will need updated PT and OT orders if needed for dc and if pt willing to participate (pt was refusing prior to transfer to IMU).
[2025-07-19 09:28] LABS: Glucose - Point of Care 198 mg/dl (70-99)
--- NOTE | 2025-07-19 10:08 | W.PN.CD ---
Today's Communication / Plan
-
Awaiting INR
Coumadin dosing
monitor Hgb
Impression / Plan
-
I/P: 80F with severe mitral stenosis status-post [facility] mechanical mitral valve replacement (03/22/20; on warfarin), postoperative pericardial effusion status-post pericardiocentesis, CVA (therapeutic warfarin, 05/2025), paroxysmal atrial
fibrillation/flutter status-post cardioversions (on 06/15/20 and 08/16/23) and subsequent ablation (09/26/2023), tachycardia-bradycardia syndrome status-post MRI conditional Medtronic dual-chamber pacemaker implantation (07/25/20), moderate aortic
stenosis, moderate tricuspid regurgitation, nonobstructive CAD, hypertension, hyperlipidemia, diabetes, COPD/paralyzed vocal cord, obstructive sleep apnea (on home CPAP), and history of Schatzki's ring of distal esophagus presented to the ER with a
chief complaint of shortness of breath.
Outpatient fire alarm inspector: Dr. Arevalo
Shortness of breath/COPD/anemia
- Pulmonary consulted.
- Breathing status has improved.
Anemia, in the setting of GI bleed, severe
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
- Heparin bridge for now if INR > 2 favor stopping given recent bleeding and allow INR to drift therapeutic
- continue coumadin
- update echo to assess AV
.
[facility] mechanical MVR 03/22/2020
- Mitral gradient recent echo 3 mmHg
- Target INR 2.5-3.5.
Persistent atrial fibrillation
- Currently in sinus
- Oral Anticoagulation: Warfarin (mechanical MVR)
- [id number]: score 8 (HTN, age 75 or more, Diabetes Mellitus, prior Stroke/TIA, Vascular disease, female gender)
- Issues related to anticoagulation as noted.
Aortic stenosis, moderate, peak/mean gradient 35/20 mmHg, DAO 1.0 cm�
Tricuspid regurgitation, moderate
CVA, 05/2025, on therapeutic warfarin
Tachycardia-bradycardia syndrome status post Medtronic DC PPM--stable.
LBBB, chronic, stable, normal perfusion on Lexiscan nuclear stress test in April,
Hyperlipidemia, rosuvastatin recently increased in the setting of CVA
Type 2 diabetes, controlled, most recent HgbA1c 5.9%
JENNIFER, on CPAP
Subjective: stable
DATA:
Transthoracic echocardiogram, 04/01/2025:
CONCLUSIONS
Normal biventricular size and systolic function without regional wall motion
abnormality. Estimated LVEF 50-55%.
Mechanical mitral valve replacement. The mean gradient across the valve is 3
mmHg. No significant mitral regurgitation.
Moderate aortic stenosis. The peak gradient across the valve is 35 mmHg with a
mean of 20 mmHg. Using a LVOT diameter of 1.9 cm, the DAO is 1.0 cm sq.
Moderate tricuspid regurgitation. Mildly elevated PASP. Estimated pulmonary
artery pressure of 45 mmHg assuming a right atrial pressure of 3 mmHg.
Compared to 11/12/23: has progressed from mild/moderate to moderate. PASP has
decreased from 65 mmHg to 45 mmHg.
Physical Exam
Vital Signs/Labs
Vital Signs
Temp Pulse Resp BP Pulse Ox
98.6 F 91 17 143/61 98
07/19/25 08:27 07/19/25 08:20 07/18/25 16:00 07/19/25 08:20 07/19/25 01:30
07/18/25 07/19/25 07/20/25
05:59 06:59 06:59
Actual Weight 168 lb 9.012 oz 166 lb 3.657 oz
07/19/25 05:08
07/12/25 06:46
PT 21.4 Sec (11.4-14.6) H 07/18/25 06:36
INR 1.83 07/18/25 06:36
APTT 112.6 Sec (23.4-35.0) H 07/19/25 05:08
07/06/25
11:55
Ouh-S-Feuftsibies Pept 682
Physical Exam
Constitutional: No acute distress and Comfortable
EENT: Anicteric
Cardiovascular: Rhythm/rate is irregular
Respiratory: Respiratory effort normal and Lungs clear to auscul.
GI: Soft
Neuro/Psych: AO x 3
Data Reviewed
-
Date of Service: July 19, 2025
EKG: Tracing Personally Visualized and interpreted (af)
Echo: Tracing Personally Visualized and interpreted and Report Reviewed by me
Labs: Labs Reviewed by me
[2025-07-19] MEDS: NOVOLOG FLEXPEN-LOW RESISTANCE 1 UNITS SC (10:13)
[2025-07-19 10:25] LABS: INR 1.83; PT 21.4 Sec (11.4-14.6)
[2025-07-19 12:20] LABS: Glucose - Point of Care 259 mg/dl (70-99)
[2025-07-19] MEDS: NOVOLOG FLEXPEN-LOW RESISTANCE 3 UNITS SC (12:24)
--- NOTE | 2025-07-19 14:22 | W.PN.HOSP.TC ---
Today's Communication/Plan
-
Monitor vital signs and see plan
Monitor INR
Monitor hemoglobin
Continue with PPI
Monitor urine culture
Assessment / Plan
Assessment / Plan
A/P:
# Symptomatic anemia, recurrent GI bleed 2/2 Angioectasia with supratherapeutic INR on admission
# History of transient GI bleed on Coumadin 04/28 - 04/29/2025, self resolved (had prior admissions October, November, and January for same)
# hx Schatzki's ring of distal esophagus
INR was 4.4 on 07/05/2025, patient took Coumadin 5 mg
s/p initial EGD 07/08 this admission, noted few nonbleeding AVMs stomach, cauterized w APC. Single recently bleeding AVM duodenal bulb with associated clot cauterized w APC and injected w epi, clipped x 3
Pt had been stable until 07/15 when she started to have hematemesis again
s/p repeat EGD 07/16, noted GIB at ulceration from APC sites, with larger ulcer at the pyloric channel
Protonix drip -> PO BID
GI OK to restart heparin drip with Coumadin bridge, follow daily INR (goal 2.5 to 3.5)
noted, now s/p 3 units PRBC
# Dyspnea likely 2/2 to anemia, much resolved
# Acute hypoxic resp insufficiency, resolved
weaned to RA, pt not on home O2
COPD ruled out by pulm, CHF ruled out by Card
Continue with [employer] Lasix, Duonebs PRN
Appreciate Card and pulm input
Mild dysuria, now appears to be improving per patient
UA with pyuria. Discussed with patient and she wants to hold off on antibiotics and see if it gets better. Urine culture pending
# 2 episodes of fever documented on 07/08, none since
Flu and COVID negative , UA neg
# Daily alcohol use
Drinks 12 ounces of wine a day last drink was midnight 07/05/2025
Cessation advised
# mitral regurgitation S/P mitral valve replacement March 2020
INR goal 2.5-3.5 due to mechanical valve
hep gtt bridge to Coumadin dose 7.5 mg HS ([employer] 5 mg HS)
# Persistent A-fib
# A-fib ablation September 2023
# mechanical mitral valve replacement March 2020
Cont [employer] Toprol and Cardizem with holding parameter
OAC with Coumadin, INR daily
# Hyponatremia, resolved
# Recent dysmetria of right upper extremity with Small acute left frontal parietal INFARCT on MRI
# CVA 05/24/2025�small acute left frontal parietal infarct
# Chronic LBBB
# Medtronic dual-chamber permanent pacemaker 07/25/2020
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
# Hypertension
Cont [employer] Toprol and Cardizem with holding parameter
BP stable
# Hyperlipidemia
Continue Crestor 5 mg at bedtime
# NIDDM
HgbA1c 5.1% on May 2025 admission
Accu-Cheks with SSI
resumed Januvia 50 mg mg daily
# Chronic CHF
I/O, daily weight
Continue furosemide 20 mg every 48 hours
# COPD
# Former smoker 25 years 1 pack a day quit 1992
# Depression
Continue Effexor 75 mg twice daily
Other PMH:
# fibromyalgia
# hiatal hernia
DVT prophylaxis: heparin gtt to bridge back to Coumadin, daily INR
Full code
General: Well Developed, Well Nourished, Comfortable and Conversant
HEENT: Normocephalic, Atraumatic and Moist Mucous Membranes
Respiratory: Clear to Auscultation and Non Labored Respirations
Cardiac: Regular Rhythm and S1/S2; Negative Murmur, Rub or Gallop
GI: Soft, Nontender, Nondistended and Normal Bowel Sounds
Musculoskeletal: No Edema
Neuro: Awake and Alert
Psych: Calm and Intact Judgement/Insight
Anticipated Discharge: 24 - 48 hours
Subjective/Interval History
-
Date of Service: July 19, 2025
Denies pain
Objective Data
-
Labs:
Laboratory Results
07/19/25 07/19/25 07/19/25
05:08 10:07 12:03
WBC 5.9
Hgb 8.8 L
Hct 27.2 L
Plt Count 217
PT 21.4 H
INR 1.83
APTT 112.6 H Cancelled
07/19/25
14:15
WBC
Hgb
Hct
Plt Count
PT
INR
APTT Pending
Vital Signs:
Vital Signs
Temp Pulse Resp BP Pulse Ox
98.3 F 63 17 121/46 96
07/19/25 12:23 07/19/25 10:00 07/18/25 16:00 07/19/25 10:00 07/19/25 08:00
I&O
07/18/25 07/19/25 07/20/25
05:59 06:59 06:59
Intake Total 1175 / 1175 480 / 480 480 / 480
Output Total 1500 / 1500 2150 / 2150
Balance -325 / -325 -1670 / -1670 480 / 480
[2025-07-19 14:48] LABS: APTT 57.9 Sec (23.4-35.0)
[2025-07-19] MEDS: HEPARIN 25000 UNITS/250 ML IV (15:03)
--- NOTE | 2025-07-19 15:30 | PTCARENOTE ---
Patient AOx3. On RA with SpO2 greater than 92%. A paced with first degree on monitor. BP stable. Assist x1 to bedside commode. Tolerating oral diet. Heparin gtt infusing per order. Call rice within reach, bed in lowest position, and bed of wheels
locked.
[2025-07-19 16:58] LABS: Glucose - Point of Care 212 mg/dl (70-99)
[2025-07-19] MEDS: VALTREX 500 MG PO (17:32)
[2025-07-19] MEDS: COUMADIN 7.5 MG PO (17:32)
[2025-07-19] MEDS: NOVOLOG FLEXPEN-LOW RESISTANCE 2 UNITS SC (17:33)
[2025-07-19] MEDS: THERAGRAN 1 TABLET PO (17:33)
--- NOTE | 2025-07-19 18:01 | CM ---
F/U: Patient still being monitored with her INR, HBG, and urine culture, PT/OT still evaluating. PLAN: TBD, Home PT vs. SNF.
[2025-07-19] MEDS: LOW STRENGTH ASPIRIN 81 MG PO (20:24)
[2025-07-19] MEDS: OSCAL 500 + D 500 MG PO (20:24)
[2025-07-19] MEDS: B COMPLEX w/VITAMIN C 1 CAPLET PO (20:25)
[2025-07-19] MEDS: CRESTOR 10 MG PO (20:25)
[2025-07-19 21:27] LABS: Glucose - Point of Care 164 mg/dl (70-99)
[2025-07-19 21:41] LABS: APTT 118.0 Sec (23.4-35.0)
[2025-07-20] VITALS (15 sets, daily range): BP systolic 116–146; BP diastolic 39–92; PULSE 94; BMI 26.8
[2025-07-20 04:46] LABS: Hematocrit 28.8 % (37.0-47.0); Hemoglobin 9.2 g/dL (12.0-16.0); Mean Corp Hgb Conc. 31.9 g/dL (33.0-37.0); Mean Corpuscular Volume 79.8 fL (81.0-99.0); Nucleated Red Blood Cells % 0 %; Platelet Count 260 10^3/uL (130-400); Red Cell Dist. Width 15.1 % (11.5-14.5)
[2025-07-20 04:57] LABS: INR 1.96; PT 22.5 Sec (11.4-14.6)
[2025-07-20 04:58] LABS: APTT 90.1 Sec (23.4-35.0)
[2025-07-20 05:10] LABS: Blood Urea Nitrogen 10 mg/dl (7-17); Calcium 8.7 mg/dl (8.4-10.2); Carbon Dioxide 27 mmol/L (22-30); Chloride 104 mmol/L (98-107); Estimated Creatinine Clearance 61 ml/min; Glucose 191 mg/dl (70-99); Potassium 4.1 mmol/L (3.5-5.1); Sodium 134 mmol/L (135-145); eGFR > 60.00
[2025-07-20 08:19] LABS: Glucose - Point of Care 206 mg/dl (70-99)
[2025-07-20] MEDS: NOVOLOG FLEXPEN-LOW RESISTANCE 2 UNITS SC (08:20)
[2025-07-20] MEDS: JANUVIA 50 MG PO (08:21)
[2025-07-20] MEDS: TOPROL XL 25 MG PO ×2 (08:21→20:13)
[2025-07-20] MEDS: PROTONIX 40 MG PO ×2 (08:21→20:13)
[2025-07-20] MEDS: VITAMIN B-12 1000 MCG PO (08:21)
[2025-07-20] MEDS: VITAMIN D3 (cholecalciferol) 50 MCG PO (08:21)
[2025-07-20] MEDS: VITAMIN C 500 MG PO (08:21)
[2025-07-20] MEDS: ROBITUSSIN 400 MG PO ×2 (08:21→20:13)
[2025-07-20] MEDS: CARDIZEM CD 240 MG PO ×2 (08:21→20:12)
[2025-07-20] MEDS: EFFEXOR XR 37.5 MG PO ×2 (08:21→20:12)
[2025-07-20] MEDS: LASIX 20 MG PO (08:22)
--- NOTE | 2025-07-20 08:55 | W.PN.CD ---
Today's Communication / Plan
-
- Continue heparin bridge; if INR > 2.0, then relatively reasonable to stop given recent bleeding and allow INR to drift therapeutic.
- Continue coumadin.
- Update echo ordered today to reassess AV.
- Target INR 2.5-3.5.
Impression / Plan
-
I/P: 80F with severe mitral stenosis status-post [facility] mechanical mitral valve replacement (03/22/20; on warfarin), postoperative pericardial effusion status-post pericardiocentesis, CVA (therapeutic warfarin, 05/2025), paroxysmal atrial
fibrillation/flutter status-post cardioversions (on 06/15/20 and 08/16/23) and subsequent ablation (09/26/2023), tachycardia-bradycardia syndrome status-post MRI conditional Medtronic dual-chamber pacemaker implantation (07/25/20), moderate aortic
stenosis, moderate tricuspid regurgitation, nonobstructive CAD, hypertension, hyperlipidemia, diabetes, COPD/paralyzed vocal cord, obstructive sleep apnea (on home CPAP), and history of Schatzki's ring of distal esophagus presented to the ER with a
chief complaint of shortness of breath.
Outpatient Safety Security Officer: Dr. Arevalo
Shortness of breath/COPD/anemia
- Pulmonary consulted.
- Breathing status has improved.
Anemia, in the setting of GI bleed, severe
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
- Continue heparin bridge; if INR > 2.0, then relatively reasonable to stop given recent bleeding and allow INR to drift therapeutic.
- Continue coumadin.
- Update echo ordered today to reassess AV.
[facility] mechanical MVR 03/22/2020
- Mitral gradient recent echo 3 mmHg
- Target INR 2.5-3.5.
- Repeat echo ordered as above.
Paroxysmal atrial fibrillation
- Currently in sinus/paced.
- Oral Anticoagulation: Warfarin (mechanical MVR)
- [id number]: score 8 (HTN, age 75 or more, Diabetes Mellitus, prior Stroke/TIA, Vascular disease, female gender)
- Issues related to anticoagulation as noted.
Aortic stenosis, moderate, peak/mean gradient 35/20 mmHg, DAO 1.0 cm� in 03/2025:
- Repeat echocardiogram ordered as above.
Tricuspid regurgitation, moderate
- Repeat echocardiogram ordered as above.
CVA, 05/2025, on therapeutic warfarin
Tachycardia-bradycardia syndrome status post Medtronic DC PPM--stable.
LBBB, chronic, stable, normal perfusion on Lexiscan nuclear stress test in April,
Hyperlipidemia, rosuvastatin recently increased in the setting of CVA
Type 2 diabetes, controlled, most recent HgbA1c 5.9%
JENNIFER, on CPAP
Subjective: No major events overnight.
DATA:
Transthoracic echocardiogram, 04/01/2025:
CONCLUSIONS
Normal biventricular size and systolic function without regional wall motion
abnormality. Estimated LVEF 50-55%.
Mechanical mitral valve replacement. The mean gradient across the valve is 3
mmHg. No significant mitral regurgitation.
Moderate aortic stenosis. The peak gradient across the valve is 35 mmHg with a
mean of 20 mmHg. Using a LVOT diameter of 1.9 cm, the DAO is 1.0 cm sq.
Moderate tricuspid regurgitation. Mildly elevated PASP. Estimated pulmonary
artery pressure of 45 mmHg assuming a right atrial pressure of 3 mmHg.
Compared to 11/12/23: has progressed from mild/moderate to moderate. PASP has
decreased from 65 mmHg to 45 mmHg.
Physical Exam
Vital Signs/Labs
Vital Signs
Temp Pulse Resp BP Pulse Ox
98.5 F 82 18 131/52 96
07/20/25 07:37 07/20/25 08:21 07/19/25 15:30 07/20/25 08:21 07/19/25 20:15
07/19/25 07/20/25 07/21/25
06:59 06:59 06:59
Actual Weight 75.6 kg
07/20/25 04:21
07/20/25 04:21
PT 22.5 Sec (11.4-14.6) H 07/20/25 04:21
PT Cancelled 07/20/25 04:21
INR 1.96 07/20/25 04:21
INR Cancelled 07/20/25 04:21
APTT 90.1 Sec (23.4-35.0) H 07/20/25 04:21
07/06/25
11:55
Ozd-K-Ttxotpnztdm Pept 682
Physical Exam
Constitutional: No acute distress and Comfortable
EENT: Anicteric
Cardiovascular: Rhythm & rate is regular, Pedal edema is absent, Systolic murmur present (2/6) and S1S2 is normal (Mechanical S1/S2)
Respiratory: Respiratory effort normal and Rhonchi Present (Minimal bibasilar)
GI: Soft
Neuro/Psych: AO x 3
Other: Skin (Warm, dry, intact)
Data Reviewed
-
Date of Service: July 20, 2025
EKG: Tracing Personally Visualized and interpreted (Telemetry: Paced)
Echo: Report Reviewed by me (03/2025: EF 50-55%)
Labs: Labs Reviewed by me
--- NOTE | 2025-07-20 09:02 | PTCARENOTE ---
Assumed care of patient at beginning of this shift from previous RN with heparin infusing at 950 units/hr; cannot verify accuracy of vital signs. Patient ordered stat PT/INR; confirmed with Dr Woodward that this may be drawn with patient's PTT at
10:20.
[2025-07-20 11:23] LABS: INR 1.92; PT 22.1 Sec (11.4-14.6)
[2025-07-20 11:24] LABS: APTT 64.7 Sec (23.4-35.0)
[2025-07-20] MEDS: NOVOLOG FLEXPEN-LOW RESISTANCE 1 UNITS SC (13:24)
[2025-07-20 13:33] LABS: Glucose - Point of Care 186 mg/dl (70-99)
--- NOTE | 2025-07-20 13:50 | W.PN.HOSP.TC ---
Today's Communication/Plan
-
Monitor vital signs
see plan
Continue with heparin drip with Coumadin bridging
Monitor INR
Start ciprofloxacin; check EKG
PT
Assessment / Plan
Assessment / Plan
A/P:
# Symptomatic anemia, recurrent GI bleed 2/2 Angioectasia with supratherapeutic INR on admission
# History of transient GI bleed on Coumadin 04/28 - 04/29/2025, self resolved (had prior admissions October, November, and January for same)
# hx Schatzki's ring of distal esophagus
INR was 4.4 on 07/05/2025, patient took Coumadin 5 mg
s/p initial EGD 07/08 this admission, noted few nonbleeding AVMs stomach, cauterized w APC. Single recently bleeding AVM duodenal bulb with associated clot cauterized w APC and injected w epi, clipped x 3
Pt had been stable until 07/15 when she started to have hematemesis again
s/p repeat EGD 07/16, noted GIB at ulceration from APC sites, with larger ulcer at the pyloric channel
Protonix drip -> PO BID
GI OK to restart heparin drip with Coumadin bridge, follow daily INR (goal 2.5 to 3.5)
noted, now s/p 3 units PRBC
# Dyspnea likely 2/2 to anemia, much resolved
# Acute hypoxic resp insufficiency, resolved
weaned to RA, pt not on home O2
COPD ruled out by pulm, CHF ruled out by Card
Continue with [employer] Lasix, Duonebs PRN
Appreciate Card and pulm input
Still with dysuria, symptomatic UTI
Urine culture with E. coli, pending sensitivities. Start ciprofloxacin
# 2 episodes of fever documented on 07/08, none since
Flu and COVID negative , UA neg
# Daily alcohol use
Drinks 12 ounces of wine a day last drink was midnight 07/05/2025
Cessation advised
# mitral regurgitation S/P mitral valve replacement March 2020
INR goal 2.5-3.5 due to mechanical valve
hep gtt bridge to Coumadin dose 7.5 mg HS (W[employer] 5 mg HS)
# Persistent A-fib
# A-fib ablation September 2023
# mechanical mitral valve replacement March 2020
Cont [employer] Toprol and Cardizem with holding parameter
OAC with Coumadin, INR daily
# Hyponatremia
Monitor
# Recent dysmetria of right upper extremity with Small acute left frontal parietal INFARCT on MRI
# CVA 05/24/2025�small acute left frontal parietal infarct
# Chronic LBBB
# Medtronic dual-chamber permanent pacemaker 07/25/2020
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
# Hypertension
Cont [employer] Toprol and Cardizem with holding parameter
BP stable
# Hyperlipidemia
Continue Crestor 5 mg at bedtime
# NIDDM
HgbA1c 5.1% on May 2025 admission
Accu-Cheks with SSI
resumed Januvia 50 mg mg daily
# Chronic CHF
I/O, daily weight
Continue furosemide 20 mg every 48 hours
# COPD
# Former smoker 25 years 1 pack a day quit 1992
# Depression
Continue Effexor 75 mg twice daily
Other PMH:
# fibromyalgia
# hiatal hernia
DVT prophylaxis: heparin gtt to bridge back to Coumadin, daily INR
Full code
General: Well Developed, Well Nourished, Comfortable and Conversant
HEENT: Normocephalic, Atraumatic and Moist Mucous Membranes
Respiratory: Clear to Auscultation and Non Labored Respirations
Cardiac: Regular Rhythm and S1/S2; Negative Murmur, Rub or Gallop
GI: Soft, Nontender, Nondistended and Normal Bowel Sounds
Musculoskeletal: No Edema
Neuro: Awake and Alert
Psych: Calm and Intact Judgement/Insight
I spent a total of 52 minutes with the patient or on the floor. More than 50% of this time involved counseling and coordination of care.
Anticipated Discharge: 24 - 48 hours
Subjective/Interval History
-
Date of Service: July 20, 2025
Denies nausea
Objective Data
-
Labs:
Laboratory Results
07/20/25 07/20/25 07/20/25
04:21 04:21 04:21
WBC 5.9
Hgb 9.2 L
Hct 28.8 L
Plt Count 260
PT 22.5 H Cancelled
INR 1.96 Cancelled
APTT 90.1 H
Sodium 134 L
Potassium 4.1
Chloride 104
Carbon Dioxide 27
BUN 10
Creatinine 0.7
Glucose 191 H
Calcium 8.7
07/20/25 07/20/25 07/20/25
10:40 10:40 18:00
WBC
Hgb
Hct
Plt Count
PT 22.1 H
INR 1.92
APTT Cancelled 64.7 H Pending
Sodium
Potassium
Chloride
Carbon Dioxide
BUN
Creatinine
Glucose
Calcium
Vital Signs:
Vital Signs
Temp Pulse Resp BP Pulse Ox
98.5 F 66 18 132/54 95
07/20/25 11:45 07/20/25 12:00 07/19/25 15:30 07/20/25 12:00 07/20/25 09:42
I&O
07/19/25 07/20/25 07/21/25
06:59 06:59 06:59
Intake Total 480 / 480 960 / 960
Output Total 2150 / 2150
Balance -1670 / -1670 960 / 960
--- NOTE | 2025-07-20 16:50 | CM ---
Chart reviewed and patient on Heparin to Coumadin bridge, plan is to home with outpatient therapy.
Plan; Home when stable.
[2025-07-20] MEDS: HEPARIN 25000 UNITS/250 ML IV (17:28)
[2025-07-20] MEDS: COUMADIN 7.5 MG PO (17:29)
[2025-07-20] MEDS: CIPRO 500 MG PO ×2 (17:30→20:13)
[2025-07-20] MEDS: THERAGRAN 1 TABLET PO (17:30)
[2025-07-20] MEDS: VALTREX 500 MG PO (17:30)
[2025-07-20] MEDS: NOVOLOG FLEXPEN-LOW RESISTANCE 4 UNITS SC (17:35)
[2025-07-20 17:40] LABS: Glucose - Point of Care 304 mg/dl (70-99)
[2025-07-20 19:09] LABS: APTT 119.0 Sec (23.4-35.0)
[2025-07-20] MEDS: CRESTOR 10 MG PO (20:12)
[2025-07-20] MEDS: LOW STRENGTH ASPIRIN 81 MG PO (20:13)
[2025-07-20] MEDS: OSCAL 500 + D 500 MG PO (20:13)
[2025-07-20] MEDS: B COMPLEX w/VITAMIN C 1 CAPLET PO (20:13)
[2025-07-20 21:30] LABS: Glucose - Point of Care 172 mg/dl (70-99)
[2025-07-21] VITALS (8 sets, daily range): BP systolic 125–136; BP diastolic 46–105; BMI 26.4
[2025-07-21 01:30] LABS: APTT 138.3 Sec (23.4-35.0)
--- NOTE | 2025-07-21 01:58 | PTCARENOTE ---
assumed care of patient from previous rn. heparin infusing at 950 units/hr. following ptt assessment protocol. Patient using bedside commode. aaox3. RA spo2 95%. assessment and vital signs as charted. call rice in reach.
[2025-07-21 05:18] LABS: Hematocrit 27.0 % (37.0-47.0); Hemoglobin 8.9 g/dL (12.0-16.0); Mean Corp Hgb Conc. 33.0 g/dL (33.0-37.0); Mean Corpuscular Volume 78.7 fL (81.0-99.0); Nucleated Red Blood Cells % 0 %; Platelet Count 259 10^3/uL (130-400); Red Cell Dist. Width 15.0 % (11.5-14.5)
[2025-07-21 05:26] LABS: INR 2.25; PT 24.9 Sec (11.4-14.6)
[2025-07-21 05:38] LABS: Blood Urea Nitrogen 11 mg/dl (7-17); Calcium 8.6 mg/dl (8.4-10.2); Carbon Dioxide 29 mmol/L (22-30); Chloride 105 mmol/L (98-107); Estimated Creatinine Clearance 61 ml/min; Glucose 177 mg/dl (70-99); Potassium 3.8 mmol/L (3.5-5.1); Sodium 139 mmol/L (135-145); eGFR > 60.00
[2025-07-21 08:11] LABS: Glucose - Point of Care 210 mg/dl (70-99)
[2025-07-21] MEDS: CIPRO 500 MG PO (09:22)
[2025-07-21] MEDS: VITAMIN C 500 MG PO (09:22)
[2025-07-21] MEDS: PROTONIX 40 MG PO (09:22)
[2025-07-21] MEDS: TOPROL XL 25 MG PO (09:22)
[2025-07-21] MEDS: ROBITUSSIN 400 MG PO (09:23)
[2025-07-21] MEDS: VITAMIN D3 (cholecalciferol) 50 MCG PO (09:23)
[2025-07-21] MEDS: CARDIZEM CD 240 MG PO (09:23)
[2025-07-21] MEDS: VITAMIN B-12 1000 MCG PO (09:23)
[2025-07-21] MEDS: EFFEXOR XR 37.5 MG PO (09:23)
[2025-07-21] MEDS: JANUVIA 50 MG PO (09:23)
[2025-07-21] MEDS: LASIX 20 MG PO (09:26)
[2025-07-21] MEDS: NOVOLOG FLEXPEN-LOW RESISTANCE 2 UNITS SC (10:07)
[2025-07-21 10:15] LABS: APTT 62.9 Sec (23.4-35.0)
--- NOTE | 2025-07-21 10:33 | W.PN.CD ---
Today's Communication / Plan
-
- INR is now > 2.0 (currently 2.2); relatively reasonable to stop Heparin drip given recent bleeding and allow INR to drift therapeutic.
- Continue coumadin.
- Target INR 2.5-3.5.
- Repeat echocardiogram yesterday revealed moderate to severe TR with increase in PASP in the 60s.
- Patient will consider referral down to [facility] to Pulmonary Hypertension Specialist.
- Outpatient follow-up with Cardiology.
Impression / Plan
-
I/P: 80F with severe mitral stenosis status-post [facility] mechanical mitral valve replacement (03/22/20; on warfarin), postoperative pericardial effusion status-post pericardiocentesis, CVA (therapeutic warfarin, 05/2025), paroxysmal atrial
fibrillation/flutter status-post cardioversions (on 06/15/20 and 08/16/23) and subsequent ablation (09/26/2023), tachycardia-bradycardia syndrome status-post MRI conditional Medtronic dual-chamber pacemaker implantation (07/25/20), moderate aortic
stenosis, moderate tricuspid regurgitation, nonobstructive CAD, hypertension, hyperlipidemia, diabetes, COPD/paralyzed vocal cord, obstructive sleep apnea (on home CPAP), and history of Schatzki's ring of distal esophagus presented to the ER with a
chief complaint of shortness of breath.
Outpatient Respiratory Therapy Technician: Dr. Arevalo
Shortness of breath/COPD/anemia
- Pulmonary consulted.
- Breathing status is relatively stable.
Anemia, in the setting of GI bleed, severe
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
- INR is now > 2.0 (currently 2.2); relatively reasonable to stop Heparin drip given recent bleeding and allow INR to drift therapeutic.
- Continue coumadin.
[facility] mechanical MVR 03/22/2020
- Mitral gradient recent echo 3 mmHg on echocardiogram yesterday; stable.
- Target INR 2.5-3.5.
Paroxysmal atrial fibrillation
- Currently in sinus/paced.
- Oral Anticoagulation: Warfarin (mechanical MVR)
- [id number]: score 8 (HTN, age 75 or more, Diabetes Mellitus, prior Stroke/TIA, Vascular disease, female gender)
- Recommendations as above.
Aortic stenosis, moderate, peak/mean gradient 35/20 mmHg, DAO 1.0 cm� in 03/2025:
- Stable/unchanged on repeat echocardiogram yesterday.
Tricuspid regurgitation, moderate
- Repeat echocardiogram yesterday revealed moderate to severe TR with increase in PASP in the 60s.
- Patient will consider referral down to [facility] to Pulmonary Hypertension Specialist.
CVA, 05/2025, on therapeutic warfarin
Tachycardia-bradycardia syndrome status post Medtronic DC PPM--stable.
LBBB, chronic, stable, normal perfusion on Lexiscan nuclear stress test in April,
Hyperlipidemia, rosuvastatin recently increased in the setting of CVA
Type 2 diabetes, controlled, most recent HgbA1c 5.9%
JENNIFER, on CPAP
Subjective: No major cardiac events overnight.
DATA:
Transthoracic echocardiogram, 04/01/2025:
CONCLUSIONS
Normal biventricular size and systolic function without regional wall motion
abnormality. Estimated LVEF 50-55%.
Mechanical mitral valve replacement. The mean gradient across the valve is 3
mmHg. No significant mitral regurgitation.
Moderate aortic stenosis. The peak gradient across the valve is 35 mmHg with a
mean of 20 mmHg. Using a LVOT diameter of 1.9 cm, the DAO is 1.0 cm sq.
Moderate tricuspid regurgitation. Mildly elevated PASP. Estimated pulmonary
artery pressure of 45 mmHg assuming a right atrial pressure of 3 mmHg.
Compared to 11/12/23: has progressed from mild/moderate to moderate. PASP has
decreased from 65 mmHg to 45 mmHg.
Physical Exam
Vital Signs/Labs
Vital Signs
Temp Pulse Resp BP Pulse Ox
98.3 F 97 18 135/85 95
07/21/25 03:00 07/21/25 08:00 07/19/25 15:30 07/21/25 08:00 07/20/25 20:54
07/20/25 07/21/25 07/22/25
06:59 06:59 06:59
Actual Weight 75.6 kg 74.4 kg
07/21/25 05:05
07/21/25 05:05
PT 24.9 Sec (11.4-14.6) H 07/21/25 05:05
INR 2.25 07/21/25 05:05
APTT 62.9 Sec (23.4-35.0) H 07/21/25 09:37
07/06/25
11:55
Pnv-R-Ohztadltedh Pept 682
Physical Exam
Constitutional: No acute distress and Comfortable
EENT: Anicteric
Cardiovascular: Rhythm & rate is regular, Pedal edema is absent, Systolic murmur present (2/) and S1S2 is normal
Respiratory: Respiratory effort normal
GI: Soft
Neuro/Psych: AO x 3
Other: Skin (Warm, dry, intact)
Data Reviewed
-
Date of Service: July 21, 2025
EKG: Tracing Personally Visualized and interpreted (Telemetry: Atrial paced)
Echo: Report Reviewed by me (Normal LVEF; moderate , moderate to severe TR.)
Medical Tests (PFT, Pathology etc): Discussed with Physician (Primary Hospitalist) and Discussed with Patient
Labs: Labs Reviewed by me
[2025-07-21 12:42] LABS: Glucose - Point of Care 268 mg/dl (70-99)
--- NOTE | 2025-07-21 12:58 | W.PN.HOSP.TC ---
Today's Communication/Plan
-
Monitor vitals
See plan
Discussed with cardiology, okay to discharge home today
Continue Coumadin
Continue ciprofloxacin
Time of discharge 38 minutes
Assessment / Plan
Assessment / Plan
A/P:
# Symptomatic anemia, recurrent GI bleed 2/2 Angioectasia with supratherapeutic INR on admission
# History of transient GI bleed on Coumadin 04/28 - 04/29/2025, self resolved (had prior admissions October, November, and January for same)
# hx Schatzki's ring of distal esophagus
INR was 4.4 on 07/05/2025, patient took Coumadin 5 mg
s/p initial EGD 07/08 this admission, noted few nonbleeding AVMs stomach, cauterized w APC. Single recently bleeding AVM duodenal bulb with associated clot cauterized w APC and injected w epi, clipped x 3
Pt had been stable until 07/15 when she started to have hematemesis again
s/p repeat EGD 07/16, noted GIB at ulceration from APC sites, with larger ulcer at the pyloric channel
Protonix drip -> PO BID
INR 2.2, per cardiology heparin drip can be discontinued patient can be discharged on Coumadin. Patient does have INR checked machine at home and will speak with cardiology tomorrow after she checked her INR.
noted, now s/p 3 units PRBC
# Dyspnea likely 2/2 to anemia, much resolved
# Acute hypoxic resp insufficiency, resolved
weaned to RA, pt not on home O2
COPD ruled out by pulm, CHF ruled out by Card
Continue with [employer]ER Lasix, Duonebs PRN
Appreciate Card and pulm input
Still with dysuria, symptomatic UTI
Urine culture with E. coli. cw ciprofloxacin
# 2 episodes of fever documented on 07/08, none since
Flu and COVID negative , UA neg
# Daily alcohol use
Drinks 12 ounces of wine a day last drink was midnight 07/05/2025
Cessation advised
# mitral regurgitation S/P mitral valve replacement March 2020
INR goal 2.5-3.5 due to mechanical valve
INR 2.2, per cardiology heparin drip can be discontinued patient can be discharged on Coumadin. Patient does have INR checked machine at home and will speak with cardiology tomorrow after she checked her INR.
# Persistent A-fib
# A-fib ablation September 2023
# mechanical mitral valve replacement March 2020
Cont SHOE PULLER Toprol and Cardizem with holding parameter
OAC with Coumadin, INR daily
# Hyponatremia
Monitor
# Recent dysmetria of right upper extremity with Small acute left frontal parietal INFARCT on MRI
# CVA 05/24/2025�small acute left frontal parietal infarct
# Chronic LBBB
# Medtronic dual-chamber permanent pacemaker 07/25/2020
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
# Hypertension
Cont SHOE PULLER Toprol and Cardizem with holding parameter
BP stable
# Hyperlipidemia
Continue Crestor 5 mg at bedtime
# NIDDM
HgbA1c 5.1% on May 2025 admission
Accu-Cheks with SSI
resumed Januvia 50 mg mg daily
# Chronic CHF
I/O, daily weight
Continue furosemide 20 mg every 48 hours
# COPD
# Former smoker 25 years 1 pack a day quit 1992
# Depression
Continue Effexor 75 mg twice daily
Other PMH:
# fibromyalgia
# hiatal hernia
DVT prophylaxis: heparin gtt to bridge back to Coumadin, daily INR
Full code
General: Well Developed, Well Nourished, Comfortable and Conversant
HEENT: Normocephalic, Atraumatic and Moist Mucous Membranes
Respiratory: Clear to Auscultation and Non Labored Respirations
Cardiac: Regular Rhythm and S1/S2; Negative Murmur, Rub or Gallop
GI: Soft, Nontender, Nondistended and Normal Bowel Sounds
Musculoskeletal: No Edema
Neuro: Awake and Alert
Psych: Calm and Intact Judgement/Insight
Anticipated Discharge: Today
Subjective/Interval History
-
Date of Service: July 21, 2025
Denies pain
Objective Data
-
Labs:
Laboratory Results
07/21/25 07/21/25 07/21/25
01:06 05:05 09:37
WBC 4.8
Hgb 8.9 L
Hct 27.0 L
Plt Count 259
PT 24.9 H
INR 2.25
APTT 138.3 H 62.9 H
Sodium 139
Potassium 3.8
Chloride 105
Carbon Dioxide 29
BUN 11
Creatinine 0.7
Glucose 177 H
Calcium 8.6
07/21/25
17:00
WBC
Hgb
Hct
Plt Count
PT
INR
APTT Cancelled
Sodium
Potassium
Chloride
Carbon Dioxide
BUN
Creatinine
Glucose
Calcium
Vital Signs:
Vital Signs
Temp Pulse Resp BP Pulse Ox
98.3 F 97 18 135/85 95
07/21/25 03:00 07/21/25 08:00 07/19/25 15:30 07/21/25 08:00 07/20/25 20:54
I&O
07/20/25 07/21/25 07/22/25
06:59 06:59 06:59
Intake Total 960 / 960 600 / 600
Output Total 600 / 600
Balance 960 / 960 -600 / -600 600 / 600
[2025-07-21] MEDS: NOVOLOG FLEXPEN-LOW RESISTANCE 3 UNITS SC (13:08)
--- NOTE | 2025-07-21 13:09 | W.DCSUMMARY ---
Discharge Summary
Discharge Data
Date of Admission: 07/06/25
Date of Discharge: 07/21/25
-
Pending Results: No
Hospital Course
80-year-old female with past medical history of alcohol use, mitral regurgitation status post mechanical mitral valve replacement, CVA, hypertension, hyperlipidemia, jai-ostoseo-uojbnlsap diabetes mellitus, CHF, COPD, depression, fibromyalgia,
hiatal hernia came to the hospital with symptomatic anemia with recurrent GI bleed secondary to angiectasia along with supratherapeutic INR. Patient initially went for EGD very few AVMs were noted. Later on in the hospitalization patient started
to have hematemesis again and was taken for repeat EGD which showed ulceration from the EPC sites along with large ulcer at the pyloric channel. Patient initially required Protonix drip which was later transitioned to p.o. Protonix twice daily.
She also had some dyspnea which was likely thought was secondary to anemia which continued to improve over time. While she was in the hospital she also had urinary tract infection which was treated with antibiotics. On discharge her INR was 2.2
and with cardiology recommendation patient was discharged home with repeat INR check and to follow-up with them outpatient. Once patient's symptoms continue to improve, she was then discharged home with instructions follow-up with all her
physicians outpatient.
Discharge Plan
-
Patient Disposition: Home (Routine Discharge)
Discharge Diagnosis/Procedures: Symptomatic anemia
Recurrent transient GI bleed due to angioectasia with supratherapeutic INR on admission;
mitral regurgitation status post mitral valve replacement March 2020
Urinary tract infection
Condition: Fair
Diet: As tolerated, Low Fat, Low Cholesterol and Diabetic, Carb Controlled
Activity: As tolerated
Driving Restrictions: As prior to admission
Blood Work: Check INR tomorrow and speak to cardiology
Activity Restrictions/Additional Instructions:
Continue Protonix 40 mg twice daily for 6 weeks and then daily indefinitely.
Referrals:
Mike Arevalo MD [Active, Cardiology] - 08/06/25 2:20 pm
Milo Singletary MD [Family Provider, Family Practice] - in less than 1 week
Machelle Orourke DO [Active, Gastroenterology]
Deepak Valdivia MD [Active, Pulmonary Medicine] - in four to six weeks
Prescriptions:
New
ciprofloxacin HCl 500 mg Tablet
500 mg PO BID Qty: 5 0RF
guaifenesin 100 mg/5 mL Liquid
400 mg PO BID Qty: 118 0RF
acetaminophen 325 mg Tablet
650 mg PO Q6HPRN PRN (Reason: mild pain/ fever>100.5F) Qty: 0 0RF
pantoprazole 40 mg Tablet,Delayed Release (Dr/Ec)
40 mg PO BID Qty: 60 0RF
Continued
venlafaxine 37.5 MG tablet
37.5 mg PO BID
calcium citrate 200 MG tablet
600 mg PO HS
cinnamon bark [Cinnamon] 500 MG capsule
1,000 mg PO QPM
glucosamine HCl 1,500 MG tablet
1,500 mg PO QPM
B-complex with vitamin C 1 CAPLET tablet
1 cap PO HS
multivitamin with folic acid [Tab-A-Francisco] 1 TABLET tablet
1 tab PO QPM
furosemide 20 mg Tablet
20 mg PO MOTUWETHFR
metoprolol succinate 25 mg Tablet Extended Release 24 Hr
25 mg PO BID
Januvia 100 mg Tablet
50 mg PO DAILY
aspirin 81 MG tablet,chewable
81 mg PO HS
cholecalciferol (vitamin D3) [Vitamin D3] 50 mcg (2,000 unit) Tablet
50 mcg PO DAILY
cyanocobalamin (vitamin B-12) 1,000 mcg Tablet
1,000 mcg PO DAILY
ascorbic acid (vitamin C) [Vitamin C] 500 mg Tablet
500 mg PO DAILY
valacyclovir [Valtrex] 500 mg Tablet
500 mg PO QPM
warfarin 5 mg Tablet
5 mg PO QPM
Patient Comments:
07/06/2025: Until saturday for retest
Rx Instructions:
Based on patient's home INR
diltiazem HCl [Cardizem CD] 240 mg Capsule,Extended Release 24hr
240 mg PO BID Qty: 0
rosuvastatin 10 mg tablet
10 mg PO HS
Discharge Orders:
Discharge Patient (As Directed); Ordered 07/21/25
Ordered By: Manjeet Stevens
Discharge Date and Time
Discharge Date/Time: 07/21/25 15:52
Print Language: LIBYAN
--- NOTE | 2025-07-21 13:11 | PTCARENOTE ---
07/21/2025 DIABETES EDUCATION CONSULT
I met with patient to review diabetes management. Her HbA1c is 5.1%, she takes Januvia 50 mg QD at home.
I educated on physiology of T2D, organ damage, managing with medications, monitoring BG, nutrition, activity, sleep and managing stress. I reinforced signs of hyperglycemia, hypoglycemia and hypoglycemia protocol; BS parameters and recommended HbA1c
goals, glucometer and CGM instructions, glucose tracker, medic alert bracelet and outpatient DSME program. Written material provided.
She declined glucometer demonstration, she has a glucometer she uses at home. She checks her BS fasting most days of the week, ranges 130's. If it's running high, she will monitor carbohydrate intake the remainder of the day. DM is treated by her
PCP at [facility].
While inpatient her BS have ranged from 164-317, correcting mealtime BS with aspart. I recommended she discuss with treating provider if she will need insulin upon discharge. I educated and demonstrated on insulin injection technique, timing, and
storage. Discussed long and short acting insulin; onset/peak/duration, and encouraged her to administer his own injections with RN supervision while admitted. Discussed normal target glucose ranges and a monitoring schedule 15 minutes before each
meal when prescribed Novolog, and before bedtime.
Encouraged patient to follow up with her PCP for post d/c appointment and to monitor medication and blood glucose levels. She is interested in DM support groups and additional education, she has seen a station engineer main line in the past. Written material
provided, will add her to outreach list for these services in the future.
--- NOTE | 2025-07-21 14:17 | CM ---
Chart reviewed and patient is for discharge to home home today and follow up with outpatient physical therapy, per patient her spouse will pick her up. IMM completed and placed on chart.
Plan; Home today.
== END 2025-07-21 15:52 | disposition home or self-care (01) | DRG 378 ==
LOC: IMU 15:21
PROVIDERS: Clinical Nurse Specialist Family Health; Internal Medicine; Internal Medicine Cardiovascular Disease; Internal Medicine Gastroenterology; Nurse Practitioner Adult Health; Registered Nurse; Student in an Organized Health Care Education/Training Program; ADMITTING PHYSICIAN Hospitalist; ATTENDING PHYSICIAN Internal Medicine; CONSULT PHYSICIAN Internal Medicine; CONSULT PHYSICIAN Internal Medicine Cardiovascular Disease; EMERGENCY PHYSICIAN Emergency Medicine; FAMILY PHYSICIAN Family Medicine
PROC: 0D568ZZ Destruction of Stomach, Via Natural or Artificial Opening Endoscopic (ICD-10-PCS; 2025-07-08)
PROC: 0D598ZZ Destruction of Duodenum, Via Natural or Artificial Opening Endoscopic (ICD-10-PCS; 2025-07-08)
PROC: 30233N1 Transfusion of Nonautologous Red Blood Cells into Peripheral Vein, Percutaneous Approach (ICD-10-PCS; 2025-07-10)
PROC: 5A09357 Assistance with Respiratory Ventilation, Less than 24 Consecutive Hours, Continuous Positive Airway Pressure (ICD-10-PCS; 2025-07-11)
PROC: 0DJ08ZZ Inspection of Upper Intestinal Tract, Via Natural or Artificial Opening Endoscopic (ICD-10-PCS; 2025-07-16)
DX: K31.811 Angiodysplasia of stomach and duodenum with bleeding (principal); D62 Acute posthemorrhagic anemia; I48.19 Other persistent atrial fibrillation; I42.8 Other cardiomyopathies; E87.1 Hypo-osmolality and hyponatremia; I50.32 Chronic diastolic (congestive) heart failure; N39.0 Urinary tract infection, site not specified; Q45.3 Other congenital malformations of pancreas and pancreatic duct; E11.9 Type 2 diabetes mellitus without complications; F32.A Depression, unspecified; I25.10 Atherosclerotic heart disease of native coronary artery without angina pectoris; E78.00 Pure hypercholesterolemia, unspecified; K21.9 Gastro-esophageal reflux disease without esophagitis; K44.9 Diaphragmatic hernia without obstruction or gangrene; M79.7 Fibromyalgia; D50.9 Iron deficiency anemia, unspecified; I08.2 Rheumatic disorders of both aortic and tricuspid valves; G47.33 Obstructive sleep apnea (adult) (pediatric); I27.20 Pulmonary hypertension, unspecified; R91.1 Solitary pulmonary nodule; K31.89 Other diseases of stomach and duodenum; F10.90 Alcohol use, unspecified, uncomplicated; J98.4 Other disorders of lung; M41.9 Scoliosis, unspecified; K25.4 Chronic or unspecified gastric ulcer with hemorrhage; K26.9 Duodenal ulcer, unspecified as acute or chronic, without hemorrhage or perforation; R09.02 Hypoxemia; R06.89 Other abnormalities of breathing; I11.0 Hypertensive heart disease with heart failure; J44.9 Chronic obstructive pulmonary disease, unspecified; B96.20 Unspecified Escherichia coli [E. coli] as the cause of diseases classified elsewhere; K22.2 Esophageal obstruction; R79.1 Abnormal coagulation profile; I44.7 Left bundle-branch block, unspecified; Z96.643 Presence of artificial hip joint, bilateral; Z79.01 Long term (current) use of anticoagulants; Z95.2 Presence of prosthetic heart valve; Z87.891 Personal history of nicotine dependence; Z86.73 Personal history of transient ischemic attack (TIA), and cerebral infarction without residual deficits; Z88.1 Allergy status to other antibiotic agents; Z91.040 Latex allergy status; Z88.5 Allergy status to narcotic agent; Z91.018 Allergy to other foods; Z88.0 Allergy status to penicillin; Z88.8 Allergy status to other drugs, medicaments and biological substances; Z79.899 Other long term (current) drug therapy; Z79.82 Long term (current) use of aspirin; Z79.84 Long term (current) use of oral hypoglycemic drugs; Z91.0110 Allergy to milk products, unspecified; Z11.52 Encounter for screening for COVID-19; Z80.42 Family history of malignant neoplasm of prostate; Z80.8 Family history of malignant neoplasm of other organs or systems; Z82.49 Family history of ischemic heart disease and other diseases of the circulatory system; Z95.0 Presence of cardiac pacemaker; Z87.01 Personal history of pneumonia (recurrent); Z87.19 Personal history of other diseases of the digestive system
CPT/HCPCS: 71046; 80048; 80053; 81003; 81015; 82962; 83036; 83880; 84484; 85014; 85018; 85025; 85027; 85610; 85730; 86850; 86900; 86901; 86920; 87077; 87086; 87186; 87502; 87811; 92610; 93005; 93306; 94640; 94660; 96374; 97110; 97116; 97162; 97164; 99285; P9016

== ENCOUNTER → 2025-08-10 15:16 | Outpatient (REF) | payer MEDICARE, OTHER, SELFPAY ==
[2025-08-10 16:13] LABS: Hematocrit 33.0 % (37.0-47.0); Hemoglobin 10.0 g/dL (12.0-16.0); Mean Corp Hgb Conc. 30.3 g/dL (33.0-37.0); Mean Corpuscular Volume 78.2 fL (81.0-99.0); Nucleated Red Blood Cells % 0 %; Platelet Count 216 10^3/uL (130-400); Red Cell Dist. Width 15.9 % (11.5-14.5)
[2025-08-10 17:15] LABS: TSH 2.62 uIU/ml (0.47-4.68)
[2025-08-11 08:35] LABS: Glycohemoglobin (HgbA1c) 6.5 % (4.0-5.9)
== END ==
LOC: REG 15:16
PROVIDERS: ATTENDING PHYSICIAN Internal Medicine
DX: Z95.2 Presence of prosthetic heart valve (principal); I48.0 Paroxysmal atrial fibrillation; I63.9 Cerebral infarction, unspecified; R06.09 Other forms of dyspnea; I35.0 Nonrheumatic aortic (valve) stenosis; Z79.84 Long term (current) use of oral hypoglycemic drugs
CPT/HCPCS: 36415; 83036; 84443; 85025

== ENCOUNTER → 2025-08-27 11:44 | Outpatient (REF) | payer MEDICARE, OTHER, SELFPAY ==
[2025-08-27 12:58] LABS: ALT (SGPT) 18 U/L (0-35); AST (SGOT) 29 U/L (14-36); Albumin 4.6 g/dl (3.5-5.0); Alkaline Phosphatase 71 U/L (38-126); Blood Urea Nitrogen 14 mg/dl (7-17); Calcium 9.5 mg/dl (8.4-10.2); Carbon Dioxide 30 mmol/L (22-30); Chloride 101 mmol/L (98-107); Glucose 151 mg/dl (70-99); HDL Cholesterol 64 mg/dl; LDL Cholesterol, Calculated 68 mg/dl; Potassium 4.3 mmol/L (3.5-5.1); Sodium 138 mmol/L (135-145); Total Protein 7.4 g/dl (6.3-8.2); Very Low Density Lipoprotein 28 mg/dl (0-30); eGFR > 60.00
== END ==
LOC: REG 11:44
PROVIDERS: ATTENDING PHYSICIAN Internal Medicine; FAMILY PHYSICIAN Family Medicine
DX: Z95.2 Presence of prosthetic heart valve (principal); I48.0 Paroxysmal atrial fibrillation; I63.9 Cerebral infarction, unspecified; R06.09 Other forms of dyspnea; I35.0 Nonrheumatic aortic (valve) stenosis
CPT/HCPCS: 36415; 80053; 80061